=== PATIENT | male | born 1940 | race American Indian/Alaskan Native ===

== ENCOUNTER 2017-04-17 11:35 | Emergency (ER) | payer MEDICARE, OTHER ==
[2017-04-17 11:58] VITALS: BMI 25.1
[2017-04-17] MEDS ORDERED: Sodium Chloride 0.9% 1,000 ML IV STA (12:10)
--- NOTE | 2017-04-17 12:25 | ED PDOC ---
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 Pt states that the pain is pressure like is quality with no radiation. He does not remember any inciting factors. Admits to decreased urine output. Denies any fevers, chills, chest pain, sob, nausea, vomiting, diarrhea, or dysuria. (Leandro Solo) Past Medical History - Provider Review Nursing Documentation Reviewed: Yes - Infectious Disease Hx of Infectious Diseases: None - Tetanus Immunization Tetanus Immunization: Unknown - Cardiac Hx AR: Yes Hx Pacemaker: Yes - Pulmonary Hx Respiratory Disorders: Yes Other/Comment: Lung, CA, currently on chemotherapySmoker - Neurological Hx Paralysis: No - HEENT Hx HEENT Disorder: No - Renal Hx Renal Disorder: Yes (renal insufficiency) Other/Comment: renal insufficiency - Endocrine/Metabolic Hx Endocrine Disorders: No - Hematological/Oncological Hx Blood Transfusions: No Hx Blood Transfusion Reaction: No - Integumentary Hx Dermatological Disorder: No - Musculoskeletal/Rheumatological Hx Arthritis: Yes - Gastrointestinal Hx Gastrointestinal Disorders: Yes (colonoscopy) - Genitourinary/Gynecological Hx Prostate Problems: Yes (prostate CA) - Psychiatric Hx Emotional Abuse: No Hx Physical Abuse: No Hx Substance Use: No - Surgical History Hx Cardiac Catheterization: Yes (2013) - Anesthesia Hx Anesthesia: Yes Hx Anesthesia Reactions: No Hx Malignant Hyperthermia: No - Suicidal Assessment Feels Threatened In Home Enviroment: No Family/Social History - Physician Review Nursing Documentation Reviewed: Yes Family/Social History: No Known Family HX Smoking Status: Current Some Days Smoker Hx Alcohol Use: No (PAST ETOH) Hx Substance Use: No Allergies/Home Meds Allergies/Adverse Reactions: Allergies No Known Allergies Allergy (Verified 04/17/17 12:15) Home Medications: Home Meds Medication Instructions Recorded Confirmed Tamsulosin [Flomax] 0.4 mg PO DAILY 07/21/15 04/17/17 Amlodipine Besylate/Benazepril 1 cap PO DAILY 07/22/16 04/17/17 [Lotrel 10-20 mg Capsule] Apixaban [Eliquis] 2.5 mg PO BID 07/22/16 04/17/17 Atorvastatin [Lipitor] 20 mg PO DAILY 04/17/17 04/17/17 Difluprednate [Durezol] 5 ml OU DAILY 04/17/17 04/17/17 Diltiazem HCl [Cartia Xt] 180 mg PO DAILY 04/17/17 04/17/17 Lisinopril [Zestril] 10 mg PO DAILY 04/17/17 04/17/17 Review of Systems - Review of Systems Constitutional: Normal. absent: Fatigue, Fevers Eyes: Normal. absent: Vision Changes ENT: Normal Respiratory: Normal. absent: SOB, Cough Cardiovascular: Normal. absent: Chest Pain, Palpitations Gastrointestinal: Abdominal Pain (RLQ). absent: Diarrhea, Nausea, Vomiting, Appetite Changes Genitourinary Male: Frequency. absent: Dysuria, Hematuria Musculoskeletal: Normal. absent: Arthralgias, Back Pain Skin: Normal. absent: Rash, Pruritis Neurological: Normal. absent: Headache, Dizziness, Speech Changes Endocrine: Normal Hemo/Lymphatic: Normal Psychiatric: Normal Physical Exam Vital Signs Reviewed: Yes Temperature: Afebrile Blood Pressure: Normal Pulse: Regular Respiratory Rate: Normal Appearance: Positive for: Non-Toxic, Uncomfortable Pain Distress: Mild Mental Status: Positive for: Alert and Oriented X 3 - Systems Exam Head: Present: Atraumatic, Normocephalic Pupils: Present: PERRL Respiratory/Chest: Present: Clear to Auscultation, Good Air Exchange Cardiovascular: Present: Regular Rate and Rhythm, Normal S1, S2 Abdomen: Present: Tenderness (RLQ), Distention (mild), Normal Bowel Sounds Upper Extremity: Present: NORMAL PULSES Lower Extremity: Present: NORMAL PULSES Neurological: Present: Speech Normal, Motor Func Grossly Intact Skin: Present: Warm, Dry Psychiatric: Present: Alert, Oriented x 3 Medical Decision Making ED Course and Treatment: 04/17/17 12:28 76 yo M with hx of lung cancer s/p chemo/radiation here with RLQ pain for last 3 days. Plan: - labs - bladder scan - CT abdomen/pelvis - Reassess and disposition 04/17/17 14:06 Bladder not distended on bedside US CT abd/pelvis as read by Dr Sue - no acute findings Labs unremarkable. UA positive for small leuk esterase. Will give one dose of rocephin here and send with abx at home Case discussed with Dr Doty and he agrees with discharge home with f/u. Pt comfortable with discharge and f/u. (Leandro Solo) 04/17/17 20:32 pt seen with resident. sent to emergency room for eval for abd pain. ct/labs unremarkable. bedside us shows nondistended bladder. urine treated. discussed with pmd. will d/c home. (Rancho Harrell) - Lab Interpretations Lab Results: 04/17/17 12:40 04/17/17 12:40 Lab Results 04/17/17 14:30: Urine Color Yellow, Urine Appearance Clear, Urine pH 6.0, Ur Specific [place] >= 1.030, Urine Protein >=300 H, Urine Glucose (UA) Negative, Urine Ketones Negative, Urine Blood Trace-lysed H, Urine Nitrate Negative, Urine Bilirubin Small H, Urine Urobilinogen 0.2, Ur Leukocyte Esterase Small H, Urine RBC 2 - 5, Urine WBC 20 - 25, Ur Epithelial Cells Many, Amorphous Sediment Few, Urine Bacteria Mod, Fine Granular Casts 0 - 2, Urine Other Fiber 04/17/17 12:40: Sodium 139, Potassium 3.5 L, Chloride 104, Carbon Dioxide 29, Anion Gap 10, BUN 16, Creatinine 1.9 H, Est GFR ( Amer) 42, Est GFR (Non- Af Amer) 34, Random Glucose 94, Calcium 9.8, Total Bilirubin 0.5, AST 26, ALT 25 , Alkaline Phosphatase 77, Total Protein 6.3, Albumin 3.3, Globulin 3.1, Albumin /Globulin Ratio 1.1, Lipase 81 04/17/17 12:40: WBC 6.5 D, RBC 4.15, Hgb 13.1 L, Hct 39.2 L, MCV 94.5, MCH 31.6 , MCHC 33.4, RDW 16.9 H, Plt Count 265, MPV 9.4, Gran % 66.0, Lymph % (Auto) 17.4 L, Long % (Auto) 14.6 H, Eos % (Auto) 1.4 L, Baso % (Auto) 0.6, Gran # 4.29 , Lymph # 1.1 L, Long # 1.0 H, Eos # 0.1, Baso # 0.04 - RAD Interpretation Radiology Orders: 04/17/17 13:05 ABD & PELVIS W/O PO OR IV CONT [CT] Stat - Medication Orders Current Medication Orders: Discontinued Medications Sodium Chloride (Sodium Chloride 0.9%) 1,000 mls @ 999 mls/hr IV .Q1H1M STA Stop: 04/17/17 13:10 Last Admin: 04/17/17 12:45 Dose: 999 mls/hr Ceftriaxone Sodium (Rocephin 1 Gram Ivpb) 1 gm in 100 mls @ 200 mls/hr IVPB STAT STA PRN Reason: Protocol Stop: 04/17/17 17:12 Last Admin: 04/17/17 16:53 Dose: 200 mls/hr Ketorolac Tromethamine (Toradol) 15 mg IVP STAT STA Stop: 04/17/17 12:11 Last Admin: 04/17/17 12:45 Dose: 15 mg Disposition/Present on Arrival - Present on Arrival Any Indicators Present on Arrival: No History of DVT/PE: No History of Uncontrolled Diabetes: No Urinary Catheter: No History of Decub. Ulcer: No History Surgical Site Infection Following: None - Disposition Have Diagnosis and Disposition been Completed?: Yes Disposition Time: 16:47 Patient Plan: Discharge - Disposition Diagnosis: Urinary tract infection, Abdominal pain Disposition: HOME/ ROUTINE Condition: IMPROVED Discharge Instructions (ExitCare): Urinary Tract Infection in Men (ED) Additional Instructions: You were evaluated for lower abdominal pain. Resume taking all home medications and begin taking antibiotics as prescribed. Follow up with your primary care physician. Return to ED with any new or worsening symptoms. Prescriptions: Nitrofurantoin Macrocrystals [Macrobid] 100 mg PO BID #14 cap [facility] - Follow up with primary
[2017-04-17 12:28] VITALS: RESP 18; TEMP 98.2; O2SAT 97
[2017-04-17 12:49] LABS: ADD MANUAL DIFF? NO
[2017-04-17 13:04] LABS: ALB/GLOB RATIO 1.1 (1.1-1.8); BILIRUBIN,TOTAL 0.5 mg/dL (0.2-1.3); CALCIUM 9.8 mg/dL (8.4-10.5); POTASSIUM 3.5 mmol/L (3.6-5.0); TOTAL PROTEIN 6.3 g/dL (5.8-8.3)
[2017-04-17 13:05] LABS: BASO # 0.04 K/mm3 (0.0-2.0); BASO % 0.6 % (0.0-3.0); EOS # 0.1 (0.0-0.7); EOS % 1.4 % (1.5-5.0); GRAN # 4.29 (1.4-6.5); HEMATOCRIT 39.2 % (42.0-52.0); LYMPH # 1.1 (1.2-3.4); LYMPH % 17.4 % (22.0-35.0); MEAN CELL VOLUME 94.5 fL (80.0-105.0); MEAN CORPUSCULAR HEMOGLOBIN 31.6 pg (25.0-35.0); MEAN CORPUSCULAR HGB CONC 33.4 g/dl (31.0-37.0); MEAN PLATELET VOLUME 9.4 fl (7.0-11.0); MONO % 14.6 % (1.0-6.0); PLATELET COUNT 265 10^3/uL (120.0-450.0); RED CELL DISTRIBUTION WIDTH 16.9 % (11.5-14.5); WHITE BLOOD COUNT 6.5 10^3/ul (4.5-11.0)
--- NOTE | 2017-04-17 13:52 | CT ---
PROCEDURE: CT Abdomen and Pelvis without intravenous contrast HISTORY: RLQ pain COMPARISON: None. TECHNIQUE: Without contrast.. Contrast Dose: Radiation dose: Total exam DLP = 484 mGy-cm. This CT exam was performed using one or more of the following dose reduction techniques: Automated exposure control, adjustment of the mA and/or kV according to patient size, and/or use of iterative reconstruction technique. FINDINGS: LOWER THORAX: Unremarkable. LIVER: Unremarkable. No gross lesion or ductal dilatation. GALLBLADDER AND BILE DUCTS: Unremarkable. PANCREAS: Unremarkable. No gross lesion or ductal dilatation. SPLEEN: Unremarkable. ADRENALS: Unremarkable. No mass. KIDNEYS AND URETERS: Unremarkable. No hydronephrosis. No solid mass. VASCULATURE: Unremarkable. No aortic aneurysm. BOWEL: Unremarkable. No obstruction. No gross mural thickening. APPENDIX: Unremarkable. Normal appendix. PERITONEUM: Unremarkable. No free fluid. No free air. LYMPH NODES: Unremarkable. No enlarged lymph nodes. BLADDER: Unremarkable. REPRODUCTIVE: Unremarkable. BONES: No acute fracture. OTHER FINDINGS: None. IMPRESSION: No acute findings
[2017-04-17 16:03] VITALS: BP 128/75; PULSE 77
[2017-04-17 16:05] LABS: URINE BILIRUBIN SMALL (NEGATIVE); URINE BLOOD TRACE-LYSED (NEGATIVE); URINE GLUCOSE (UA) NEGATIVE (NEGATIVE); URINE KETONE NEGATIVE (NEGATIVE); URINE LEUKOCYTE ESTERASE SMALL Leu/uL (NEGATIVE); URINE PROTEIN >=300 mg/dL (<30 mg/dL); URINE UROBILINOGEN 0.2 E.U./dL (<1 E.U./dL)
[2017-04-17 16:13] LABS: URINE APPEARANCE CLEAR (CLEAR); URINE COLOR YELLOW (YELLOW)
[2017-04-17 16:16] LABS: URINE EPITHELIAL CELLS MANY /hpf (0-5); URINE WBC 20 - 25 /hpf (0-6)
[2017-04-17 16:19] LABS: URINE AMORPHOUS SEDIMENT FEW; URINE BACTERIA MOD (NEG)
[2017-04-17] MEDS ORDERED: cefTRIAXone 1 gm 1 GM/100 ML BAG IVPB STA (16:43)
== END 2017-04-17 18:07 | disposition home or self-care (01) ==
LOC: ED 11:35
DX: N39.0 Urinary tract infection, site not specified (principal); R10.9 Unspecified abdominal pain; I10 Essential (primary) hypertension; Z85.118 Personal history of other malignant neoplasm of bronchus and lung; Z72.0 Tobacco use
CPT/HCPCS: 74176; 80053; 81001; 83690; 85025; 87086; 96361; 96365; 96375; 99283; J0696; J1885; J7040

== ENCOUNTER 2017-04-30 04:52 | Emergency (ER) | payer MEDICARE, OTHER ==
[2017-04-30 05:31] VITALS: BMI 25.5
[2017-04-30 05:38] VITALS: TEMP 98.7
--- NOTE | 2017-04-30 05:58 | ED PDOC ---
Arrival/HPI - General Time Seen by Provider: 04/30/17 05:00 Historian: Patient - History of Present Illness Narrative History of Present Illness (Text): 04/30/17 05:54 Gerhard Isabel is a 76 year old male, whose past medical history includes lung cancer, hypertension, hyperlipidemia, pacemaker, and DVT, who presents to the Emergency department complaining of generalized abdominal pain for the past week. Patient also reports bilateral hip pain and lower back pain. Patient denies any fever, chills, chest pain, shortness of breath, nausea, vomiting, urinary symptoms, neck pain, headache, dizziness, or any other complaints. Time/Duration: 1 week Symptom Onset: Gradual Symptom Course: Unchanged Activities at Onset: Rest, Light Context: Home Past Medical History - Provider Review Nursing Documentation Reviewed: Yes - Infectious Disease Hx of Infectious Diseases: None - Tetanus Immunization Tetanus Immunization: Unknown - Cardiac Hx ID: Yes Hx Pacemaker: Yes - Pulmonary Hx Respiratory Disorders: Yes Other/Comment: Lung, CA, currently on chemotherapySmoker - Neurological Hx Paralysis: No - HEENT Hx HEENT Disorder: No - Renal Hx Renal Disorder: Yes (renal insufficiency) Other/Comment: renal insufficiency - Endocrine/Metabolic Hx Endocrine Disorders: No - Hematological/Oncological Hx Blood Transfusions: No Hx Blood Transfusion Reaction: No - Integumentary Hx Dermatological Disorder: No - Musculoskeletal/Rheumatological Hx Arthritis: Yes - Gastrointestinal Hx Gastrointestinal Disorders: Yes (colonoscopy) - Genitourinary/Gynecological Hx Prostate Problems: Yes (prostate CA) - Psychiatric Hx Emotional Abuse: No Hx Physical Abuse: No Hx Substance Use: No - Surgical History Hx Cardiac Catheterization: Yes (2013) - Anesthesia Hx Anesthesia Reactions: No Hx Malignant Hyperthermia: No - Suicidal Assessment Feels Threatened In Home Enviroment: No Family/Social History - Physician Review Nursing Documentation Reviewed: Yes Family/Social History: No Known Family HX Smoking Status: Current Some Days Smoker Hx Alcohol Use: No (PAST ETOH) Hx Substance Use: No Allergies/Home Meds Allergies/Adverse Reactions: Allergies No Known Allergies Allergy (Verified 04/30/17 06:00) Home Medications: Home Meds Medication Instructions Recorded Confirmed Tamsulosin [Flomax] 0.4 mg PO DAILY 07/21/15 04/17/17 Amlodipine Besylate/Benazepril 1 cap PO DAILY 07/22/16 04/17/17 [Lotrel 10-20 mg Capsule] Apixaban [Eliquis] 2.5 mg PO BID 07/22/16 04/17/17 Atorvastatin [Lipitor] 20 mg PO DAILY 04/17/17 04/17/17 Difluprednate [Durezol] 5 ml OU DAILY 04/17/17 04/17/17 Diltiazem HCl [Cartia Xt] 180 mg PO DAILY 04/17/17 04/17/17 Lisinopril [Zestril] 10 mg PO DAILY 04/17/17 04/17/17 Review of Systems - Physician Review All systems were reviewed & negative as marked: Yes - Review of Systems Constitutional: Normal. absent: Fevers Eyes: Normal ENT: Normal Respiratory: Normal. absent: SOB, Cough Cardiovascular: Normal. absent: Chest Pain Gastrointestinal: Abdominal Pain. absent: Nausea, Vomiting Genitourinary Male: Normal Musculoskeletal: Arthralgias (+bilateral hip pain), Back Pain Skin: Normal. absent: Rash Neurological: Normal. absent: Headache, Dizziness Endocrine: Normal Hemo/Lymphatic: Normal Psychiatric: Normal Physical Exam Vital Signs Reviewed: Yes Vital Signs Temp Pulse Resp BP Pulse Ox 04/30/17 05:37 98.7 F 74 17 148/88 96 Temperature: Afebrile Blood Pressure: Normal Pulse: Regular Respiratory Rate: Normal Appearance: Positive for: Well-Appearing, Non-Toxic, Comfortable Pain Distress: None Mental Status: Positive for: Alert and Oriented X 3 - Systems Exam Head: Present: Atraumatic, Normocephalic Pupils: Present: PERRL Extroacular Muscles: Present: EOMI Conjunctiva: Present: Normal Mouth: Present: Moist Mucous Membranes Neck: Present: Normal Range of Motion Respiratory/Chest: Present: Clear to Auscultation, Good Air Exchange. No: Respiratory Distress, Accessory Muscle Use Cardiovascular: Present: Regular Rate and Rhythm, Normal S1, S2. No: Murmurs Abdomen: Present: Tenderness (lower abdomen), Normal Bowel Sounds. No: Distention, Peritoneal Signs Back: Present: Normal Inspection. No: CVA Tenderness, Midline Tenderness, Paraspinal Tenderness Upper Extremity: Present: Normal Inspection. No: Cyanosis, Edema Lower Extremity: Present: Normal Inspection, Normal ROM, Neurovascularly Intact. No: Edema, Tenderness, Swelling, Deformity Neurological: Present: GCS=15, CN II-XII Intact, Speech Normal, Motor Func Grossly Intact, Normal Sensory Function Skin: Present: Warm, Dry, Normal Color. No: Rashes Psychiatric: Present: Alert, Oriented x 3, Normal Insight, Normal Concentration Medical Decision Making ED Course and Treatment: 04/30/17 05:54 Impression: 76 year old male complaining of generalized abdominal pain, bilateral hip pain, and lower back pain Plan: -- CT Abdomen and Pelvis with PO and IV contrast -- CXR -- Labs, lipase -- Urinalysis -- Urinalysis -- IV fluids -- Zofran -- Morphine -- Reassess and disposition Prior Visits: Notes and results from previous visits were reviewed. On 04/17/2017, pt was seen in the Emergency department for RLQ abdominal pain for 3 days. Pt was d/c home. Progress Notes: - RAD Interpretation Radiology Orders: 04/30/17 06:00 CHEST PORTABLE [RAD] Stat 04/30/17 06:04 ABD & PELVIS W/O PO OR IV CONT [CT] Stat 04/30/17 06:37 Hip [CT HIP W/O CONTRAST BILATERAL] [CT] Stat - Medication Orders Current Medication Orders: Sodium Chloride (Sodium Chloride 0.9%) 1,000 mls @ 100 mls/hr IV .Q10H LEONOR Discontinued Medications Morphine Sulfate (Morphine) 2 mg IVP STAT STA Stop: 04/30/17 06:06 Ondansetron HCl (Zofran Inj) 4 mg IVP ONCE ONE Stop: 04/30/17 06:06 - Transfer of Care Patient signed out to Dr:: Kajal Pending Labs:: Labs/CT scan Abd/pel/hips/reassess/final disposition - Scribe Statement The provider has reviewed the documentation as recorded by the Florin Rizo Provider Attestation: All medical record entries made by the Scribjose were at my direction and personally dictated by me. I have reviewed the chart and agree that the record accurately reflects my personal performance of the history, physical exam, medical decision making, and the department course for this patient. I have also personally directed, reviewed, and agree with the discharge instructions and disposition. Disposition/Present on Arrival - Present on Arrival Any Indicators Present on Arrival: No History of DVT/PE: No History of Uncontrolled Diabetes: No Urinary Catheter: No History Surgical Site Infection Following: None - Disposition Have Diagnosis and Disposition been Completed?: No Diagnosis: Abdominal pain, Hip pain Disposition Time: 07:00 Patient Problems: Current Active Problems Problem Status Onset Abdominal pain Acute Hip pain Acute Condition: STABLE
[2017-04-30] MEDS ORDERED: Morphine 2 mg/ml ISec IVP STA (06:05)
[2017-04-30] MEDS ORDERED: Sodium Chloride 0.9% 1,000 ML IV SCH (06:15)
[2017-04-30 06:54] LABS: ALB/GLOB RATIO 1.1 (1.1-1.8); BILIRUBIN,TOTAL 0.9 mg/dL (0.2-1.3); CALCIUM 10.1 mg/dL (8.4-10.5); POTASSIUM 4.2 mmol/L (3.6-5.0); TOTAL PROTEIN 6.9 g/dL (5.8-8.3)
[2017-04-30 06:57] LABS: INR 1.09 (0.93-1.08); MEAN CELL VOLUME 93.7 fL (80.0-105.0); MEAN CORPUSCULAR HEMOGLOBIN 30.7 pg (25.0-35.0); MEAN CORPUSCULAR HGB CONC 32.8 g/dl (31.0-37.0); PARTIAL THROMBOPLASTIN TIME 27.1 Seconds (23.7-30.8); RED CELL DISTRIBUTION WIDTH 16.4 % (11.5-14.5); WHITE BLOOD COUNT 7.5 10^3/ul (4.5-11.0)
--- NOTE | 2017-04-30 07:09 | ED PDOC ---
Physical Exam Vital Signs Reviewed: Yes Vital Signs Temp Pulse Resp BP Pulse Ox 04/30/17 12:12 84 17 142/90 96 04/30/17 10:45 117 H 18 131/92 H 96 04/30/17 09:00 99 H 16 94/75 L 94 L 04/30/17 07:50 89 16 127/82 97 04/30/17 05:37 98.7 F 74 17 148/88 96 Temperature: Afebrile Blood Pressure: Normal Pulse: Regular Respiratory Rate: Normal Appearance: Positive for: Well-Appearing, Non-Toxic, Comfortable Pain Distress: None Mental Status: Positive for: Alert and Oriented X 3 Medical Decision Making ED Course and Treatment: 04/30/17 07:00 Case endorsed to me by Dr. Rhodes, pending labs, imaging, revaluation and disposition. Patient is a 76 year old male, with a history of hypertension, dyslipidemia, prostate cancer, and DVTs on Eliquis, presents to the ed complaining of abdominal pain, hip pain and lower back pain for past week. Previous records reviewed; patient was in ed on 04/27/17 when he was evaluated for RLQ abdominal pain and was diagnosed with UTI. Patient was discharged home on PO antibiotics. On evaluation, patient is resting comfortably in bed. There is no midline tenderness over the back and has full active and passive range of motion of bilateral hip. Denies any new complaints. 04/30/17 08:47 Chest X-ray as read by radiologist IMPRESSION: Similar appearance of large right hilar/ perihilar mass with opacity extending peripherally. Superimposed pneumonia cannot be entirely excluded however appearance is stable since 12/22/16 and chronic changes and neoplasm are favored. Overall similar in appearance since 12/22/16 04/30/17 09:01 CT abdomen pelvis results as read by radiologist Dr. Meehan IMPRESSION: Too small to characterize hepatic hypodensities measuring less than 5 mm. 14 mm low-density right renal lesion, possibly cyst. Diverticulosis without CT evidence of acute diverticulitis. 04/30/17 10:50 Case discussed with who recommends lumbar spine CT scan, states will f/u result tmr, and to discharge patient with Oxycodone. States patient has an appointment with him tomorrow. 04/30/17 11:50 CT lumbar spine results reviewed: Impression: No acute fracture identified. Multilevel degenerative changes as above. Osseous demineralization. Scoliosis convex to the right. tachycardia resolved pt in no distress ambulating in the ER, family bedside, will take home pt states he will f/u with Dr. Doty tmr Pt states he understands to return to the ER right away for new or worsening symptoms or for inability to f/u with PMD or specialist as instructed. Patient states that he fully agrees with and understands discharge instructions. States that he agrees with the plan and disposition. Verbalized and repeated discharge instructions and plan. I have given the patient opportunity to ask any additional questions. - Lab Interpretations Lab Results: 04/30/17 06:35 04/30/17 06:35 Lab Results 04/30/17 07:52: Urine Color Yellow, Urine Appearance Clear, Urine pH 7.5, Ur Specific [place] 1.020, Urine Protein 100 H, Urine Glucose (UA) Negative, Urine Ketones Trace H, Urine Blood Trace-intact H, Urine Nitrate Negative, Urine Bilirubin Negative, Urine Urobilinogen 0.2, Ur Leukocyte Esterase Trace H, Urine RBC 5 - 10, Urine WBC 5 - 10, Ur Epithelial Cells 1 - 3, Amorphous Sediment Few, Urine Bacteria Many 04/30/17 06:35: PT 11.8, INR 1.09 H, APTT 27.1 04/30/17 06:35: WBC 7.5, RBC 4.27, Hgb 13.1 L, Hct 40.0 L, MCV 93.7, MCH 30.7, MCHC 32.8, RDW 16.4 H, Plt Count 230, MPV 9.0 04/30/17 06:35: Sodium 140, Potassium 4.2, Chloride 102, Carbon Dioxide 29, Anion Gap 13, BUN 21, Creatinine 1.7 H, Est GFR ( Amer) 47, Est GFR (Non- Af Amer) 39, Random Glucose 87, Calcium 10.1, Total Bilirubin 0.9, AST 30, ALT 28, Alkaline Phosphatase 87, Total Protein 6.9, Albumin 3.6, Globulin 3.3, Albumin/Globulin Ratio 1.1, Lipase 52 - RAD Interpretation Narrative RAD Interpretations (Text): Chest x-ray interpreted by radiologist: FINDINGS: Right-sided central venous catheter extends to the cavoatrial junction. LUNGS: Similar appearance of large right hilar/ perihilar mass with opacity extending peripherally. Please note that chest x-ray has limited sensitivity for the detection of pulmonary masses. PLEURA: No significant pleural effusion identified. No definite pneumothorax . CARDIOVASCULAR: Single lead left-sided pacemaker. Heart size appears top normal. Atherosclerotic calcification of the aortic knob. OSSEOUS STRUCTURES: Degenerative changes. VISUALIZED UPPER ABDOMEN: Unremarkable. OTHER FINDINGS: None. IMPRESSION: Similar appearance of large right hilar/ perihilar mass with opacity extending peripherally. Superimposed pneumonia cannot be entirely excluded however appearance is stable since 12/22/16 and chronic changes and neoplasm are favored. Overall similar in appearance since 12/22/16 PROCEDURE: CT Abdomen and Pelvis without Oral or IV contrast. FINDINGS: There is limited evaluation of the solid organs without the administration of IV contrast. LOWER THORAX: No visible consolidation, pleural effusion, or pneumothorax. Emphysematous changes noted. Partially imaged pacer wire. LIVER: Too small to characterize 3 mm hepatic dome hypodensity (series 2, image 13). 5 mm right hepatic lobe anterior hypodensity also too small to characterize ( series 2, image 34) GALLBLADDER AND BILE DUCTS: Unremarkable unenhanced appearance. PANCREAS: Unremarkable unenhanced appearance. SPLEEN: Unremarkable unenhanced appearance. ADRENALS: Unremarkable unenhanced appearance. KIDNEYS AND URETERS: No hydronephrosis or obstructing renal calculus. 14 mm low-density right renal lesion measures approximately 4 HU consistent with a cyst. BLADDER: The urinary bladder appears unremarkable. REPRODUCTIVE: Unremarkable. APPENDIX: The appendix is not definitively identified. No secondary signs of acute appendicitis. BOWEL: The stomach is nondistended. Lack of oral contrast limits evaluation for bowel pathology. The bowel loops appear within normal limits of caliber without evidence of intestinal obstruction. Diverticulosis without CT evidence of acute diverticulitis. PERITONEUM: No significant free fluid. No definite free air. LYMPH NODES: No bulky lymphadenopathy identified. VASCULATURE: Atherosclerotic calcifications of the aorta and branches. Ectatic aorta. No evidence of aortic aneurysm. BONES: Multilevel degenerative changes of the spine. Intervertebral disc space narrowing and osteophyte formation as well as vacuum disc phenomenon. Scoliosis convex to the right. OTHER FINDINGS: None. IMPRESSION: Too small to characterize hepatic hypodensities measuring less than 5 mm. 14 mm low-density right renal lesion, possibly cyst. Diverticulosis without CT evidence of acute diverticulitis. Additional incidental findings as above. EXAM: CT Left Lower Extremity Without Intravenous Contrast, Hip FINDINGS: Bones/joints: The visualized osseous structures are unremarkable. No acute fracture or dislocation is seen.There is moderate diffuse osteopenia. There are mild degenerative osteo-arthritic changes in the left hip joint and sacroiliac joint with joint space narrowing and osteophyte formation. There is calcification adjacent to greater trochanter secondary to enthesopathy. Soft tissues: There is mild diffuse soft tissue swelling. Vasculature: The vasculature demonstrates diffuse moderate atherosclerotic calcification. 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 Reproductive: The prostate is enlarged and heterogenous in appearance. Correlation with PSA to exclude malignancy. IMPRESSION: No acute fracture , avascular necrosis or dislocation is seen. There is no evidence for bony metastasis. EXAM: CT Right Lower Extremity Without Intravenous Contrast, Hip FINDINGS: Bones/joints: The visualized osseous structures are unremarkable. No acute fracture or dislocation is seen.There is moderate diffuse osteopenia. There are mild degenerative osteo-arthritic changes in the right hip joint and sacroiliac joint with joint space narrowing and osteophyte formation. There is calcification adjacent to greater trochanter secondary to enthesopathy. Soft tissues: There is mild diffuse soft tissue swelling. Vasculature: The vasculature demonstrates diffuse moderate atherosclerotic calcification. 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 Reproductive: The prostate is enlarged and heterogenous in appearance. Correlation with PSA to exclude malignancy. IMPRESSION: No acute fracture , avascular necrosis or dislocation is seen. There is no evidence for bony metastasis. 04/30/17 12:24 CT lumbar spine without IV contrast Findings: Multilevel degenerative changes of the spine. Intervertebral disc space narrowing and vacuum disc phenomenon noted at T12-L1, L2-L3, L3-L4, L4-L5, and L5-S1. Facet hypertrophy. Osseous demineralization. Scoliosis convex to the right. No acute fracture identified. Paraspinal soft tissues appear unremarkable. Please refer to CT of the abdomen and pelvis 4 2 detailed discussion of intra-abdominal and intrapelvic contents. Impression: No acute fracture identified. Multilevel degenerative changes as above. Osseous demineralization. Scoliosis convex to the right. Radiology Orders: 04/30/17 06:00 CHEST ONE VIEW [RAD] Stat 04/30/17 06:04 ABD & PELVIS W/O PO OR IV CONT [CT] Stat 04/30/17 06:37 Hip [CT HIP W/O CONTRAST BILATERAL] [CT] Stat 04/30/17 10:46 LUMBAR SPINE W/O CONTRAST [CT] Stat [employer] Operator: Radiologist - Medication Orders Current Medication Orders: Sodium Chloride (Sodium Chloride 0.9%) 1,000 mls @ 100 mls/hr IV .Q10H LEONOR Last Admin: 04/30/17 06:40 Dose: 100 mls/hr Discontinued Medications Morphine Sulfate (Morphine) 2 mg IVP STAT STA Stop: 04/30/17 06:06 Last Admin: 04/30/17 06:44 Dose: 2 mg Ondansetron HCl (Zofran Inj) 4 mg IVP ONCE ONE Stop: 04/30/17 06:06 Last Admin: 04/30/17 06:44 Dose: 4 mg Disposition/Present on Arrival - Present on Arrival Any Indicators Present on Arrival: No History of DVT/PE: No History of Uncontrolled Diabetes: No Urinary Catheter: No History of Decub. Ulcer: No History Surgical Site Infection Following: None - Disposition Have Diagnosis and Disposition been Completed?: Yes Diagnosis: Abdominal pain, Hip pain Disposition: HOME/ ROUTINE Disposition Time: 12:09 Patient Plan: Discharge Patient Problems: Current Active Problems Problem Status Onset Abdominal pain Acute Hip pain Acute Condition: GOOD Discharge Instructions (ExitCare): Arthralgia (ED) Additional Instructions: PLEASE FOLLOW UP WITH DR. DOTY TOMORROW RETURN TO THE ER RIGHT AWAY FOR NEW OR WORSENING SYMPTOMS, OR IF YOU CANNOT FOLLOW UP TOMORROW WITH YOUR PHYSICIAN Prescriptions: oxyCODONE [oxyCODONE Immediate Release Tab] 30 mg PO Q6 PRN #6 tab PRN Reason: Pain, Severe (8-10) Referrals: Uziel Doty MD [Staff Provider] - Follow up with primary
[2017-04-30 08:21] LABS: PH,URINE 7.5 (4.7-8.0); URINE BILIRUBIN NEGATIVE (NEGATIVE); URINE BLOOD TRACE-INTACT (NEGATIVE); URINE GLUCOSE (UA) NEGATIVE (NEGATIVE); URINE KETONE TRACE mg/dL (NEGATIVE); URINE LEUKOCYTE ESTERASE TRACE Leu/uL (NEGATIVE); URINE PROTEIN 100 mg/dL (<30 mg/dL); URINE UROBILINOGEN 0.2 E.U./dL (<1 E.U./dL)
--- NOTE | 2017-04-30 08:35 | RAD ---
HISTORY: abdominal pain COMPARISON: Chest x-ray performed 12/22/16 TECHNIQUE: Chest, one view. FINDINGS: Right-sided central venous catheter extends to the cavoatrial junction. LUNGS: Similar appearance of large right hilar/ perihilar mass with opacity extending peripherally. Please note that chest x-ray has limited sensitivity for the detection of pulmonary masses. PLEURA: No significant pleural effusion identified. No definite pneumothorax . CARDIOVASCULAR: Single lead left-sided pacemaker. Heart size appears top normal. Atherosclerotic calcification of the aortic knob. OSSEOUS STRUCTURES: Degenerative changes. VISUALIZED UPPER ABDOMEN: Unremarkable. OTHER FINDINGS: None. IMPRESSION: Similar appearance of large right hilar/ perihilar mass with opacity extending peripherally. Superimposed pneumonia cannot be entirely excluded however appearance is stable since 12/22/16 and chronic changes and neoplasm are favored. Overall similar in appearance since 12/22/16
[2017-04-30 08:36] LABS: URINE APPEARANCE CLEAR (CLEAR); URINE COLOR YELLOW (YELLOW)
--- NOTE | 2017-04-30 08:49 | CT ---
PROCEDURE: CT Abdomen and Pelvis without Oral or IV contrast. HISTORY: abdominal pain COMPARISON: CT abdomen and pelvis without oral or IV contrast performed 04/17/17 TECHNIQUE: Contiguous axial images of the abdomen and pelvis. No oral or IV contrast administered. Coronal and Sagittal reformats generated and reviewed. Radiation dose: Total exam DLP = 459.11 mGy-cm. This CT exam was performed using one or more of the following dose reduction techniques: Automated exposure control, adjustment of the mA and/or kV according to patient size, and/or use of iterative reconstruction technique. FINDINGS: There is limited evaluation of the solid organs without the administration of IV contrast. LOWER THORAX: No visible consolidation, pleural effusion, or pneumothorax. Emphysematous changes noted. Partially imaged pacer wire. LIVER: Too small to characterize 3 mm hepatic dome hypodensity (series 2, image 13). 5 mm right hepatic lobe anterior hypodensity also too small to characterize (series 2, image 34) GALLBLADDER AND BILE DUCTS: Unremarkable unenhanced appearance. PANCREAS: Unremarkable unenhanced appearance. SPLEEN: Unremarkable unenhanced appearance. ADRENALS: Unremarkable unenhanced appearance. KIDNEYS AND URETERS: No hydronephrosis or obstructing renal calculus. 14 mm low-density right renal lesion measures approximately 4 HU consistent with a cyst. BLADDER: The urinary bladder appears unremarkable. REPRODUCTIVE: Unremarkable. APPENDIX: The appendix is not definitively identified. No secondary signs of acute appendicitis. BOWEL: The stomach is nondistended. Lack of oral contrast limits evaluation for bowel pathology. The bowel loops appear within normal limits of caliber without evidence of intestinal obstruction. Diverticulosis without CT evidence of acute diverticulitis. PERITONEUM: No significant free fluid. No definite free air. LYMPH NODES: No bulky lymphadenopathy identified. VASCULATURE: Atherosclerotic calcifications of the aorta and branches. Ectatic aorta. No evidence of aortic aneurysm. BONES: Multilevel degenerative changes of the spine. Intervertebral disc space narrowing and osteophyte formation as well as vacuum disc phenomenon. Scoliosis convex to the right. OTHER FINDINGS: None. IMPRESSION: Too small to characterize hepatic hypodensities measuring less than 5 mm. 14 mm low-density right renal lesion, possibly cyst. Diverticulosis without CT evidence of acute diverticulitis. Additional incidental findings as above.
[2017-04-30 09:09] LABS: URINE BACTERIA MANY (NEG)
[2017-04-30 09:10] LABS: URINE AMORPHOUS SEDIMENT FEW
--- NOTE | 2017-04-30 09:18 | CT ---
EXAM: CT Left Lower Extremity Without Intravenous Contrast, Hip CLINICAL HISTORY: 76 years old, male; Pain; Hip; Bilateral; Additional info: Hip pain/hx. Lung ca TECHNIQUE: Axial computed tomography images of the left hip without intravenous contrast. This CT exam was performed using one or more of the following dose reduction techniques: automated exposure control, adjustment of the mA and/or kV according to patient size, and/or use of iterative reconstruction technique. Coronal and sagittal reformatted images were created and reviewed. COMPARISON: CT - ABD PELVIS W/O PO OR IV CONT 04/17/2017 1:27:59 PM FINDINGS: Bones/joints: The visualized osseous structures are unremarkable. No acute fracture or dislocation is seen.There is moderate diffuse osteopenia. There are mild degenerative osteo-arthritic changes in the left hip joint and sacroiliac joint with joint space narrowing and osteophyte formation. There is calcification adjacent to greater trochanter secondary to enthesopathy. Soft tissues: There is mild diffuse soft tissue swelling. Vasculature: The vasculature demonstrates diffuse moderate atherosclerotic calcification. 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 Reproductive: The prostate is enlarged and heterogenous in appearance. Correlation with PSA to exclude malignancy. IMPRESSION: No acute fracture , avascular necrosis or dislocation is seen. There is no evidence for bony metastasis. EXAM: CT Right Lower Extremity Without Intravenous Contrast, Hip CLINICAL HISTORY: 76 years old, male; Pain; Hip; Bilateral; Additional info: Hip pain/hx. Lung ca TECHNIQUE: Axial computed tomography images of the right hip without intravenous contrast. This CT exam was performed using one or more of the following dose reduction techniques: automated exposure control, adjustment of the mA and/or kV according to patient size, and/or use of iterative reconstruction technique. Coronal and sagittal reformatted images were created and reviewed. COMPARISON: CT - ABD PELVIS W/O PO OR IV CONT 04/17/2017 1:27:59 PM FINDINGS: Bones/joints: The visualized osseous structures are unremarkable. No acute fracture or dislocation is seen.There is moderate diffuse osteopenia. There are mild degenerative osteo-arthritic changes in the right hip joint and sacroiliac joint with joint space narrowing and osteophyte formation. There is calcification adjacent to greater trochanter secondary to enthesopathy. Soft tissues: There is mild diffuse soft tissue swelling. Vasculature: The vasculature demonstrates diffuse moderate atherosclerotic calcification. 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 Reproductive: The prostate is enlarged and heterogenous in appearance. Correlation with PSA to exclude malignancy.
[2017-04-30 10:48] VITALS: O2SAT 96
--- NOTE | 2017-04-30 11:51 | CT ---
CT lumbar spine without IV contrast Indication: Pain Comparison: Lumbar spine as visualized on CT of the abdomen and pelvis performed the same day as well as 04/17/17 Technique: Noncontrast axial images of the lumbar spine were provided. Sagittal and coronal reformatted images were generated and reviewed. This CT exam was performed using 1 or more of the falling dose reduction techniques: Automated exposure control, adjustment of the MAA and/or kV according to patient size, and/or use of iterative reconstruction technique. Total exam DLP: 718.24 MGy-cm Findings: Multilevel degenerative changes of the spine. Intervertebral disc space narrowing and vacuum disc phenomenon noted at T12-L1, L2-L3, L3-L4, L4-L5, and L5-S1. Facet hypertrophy. Osseous demineralization. Scoliosis convex to the right. No acute fracture identified. Paraspinal soft tissues appear unremarkable. Please refer to CT of the abdomen and pelvis 4 2 detailed discussion of intra-abdominal and intrapelvic contents. Impression: No acute fracture identified. Multilevel degenerative changes as above. Osseous demineralization. Scoliosis convex to the right.
[2017-04-30 12:12] VITALS: BP 142/90; PULSE 84; RESP 17
== END 2017-04-30 12:17 | disposition home or self-care (01) ==
LOC: ED 04:52
DX: R10.9 Unspecified abdominal pain (principal); M25.552 Pain in left hip; M25.551 Pain in right hip; I10 Essential (primary) hypertension; Z72.0 Tobacco use
CPT/HCPCS: 71010; 72131; 73700; 74176; 80053; 81001; 83690; 85027; 85610; 85730; 87086; 96374; 96375; 99284; J2270; J2405; J7040

== ENCOUNTER 2017-05-01 11:12 | Inpatient (IN) | payer MEDICARE, OTHER ==
[2017-05-01] MEDS ORDERED: Sodium Chloride 0.9% 1,000 ML IV STA (11:53)
--- NOTE | 2017-05-01 11:54 | ED PDOC ---
Arrival/HPI - General Chief Complaint: Abnormal Skin Integrity Time Seen by Provider: 05/01/17 11:14 Historian: Patient - History of Present Illness Narrative History of Present Illness (Text): 05/01/17 11:51 76 year old male whose past medical history includes lung cancer, hypertension, hyperlipidemia, pacemaker, and DVT sent by Dr. Doty for shingles. Patient was evaluated 2 days ago for back pain and discharged home. Patient was sent back to the ER for evaluation of shingles. Patient reports itching to mid back. Denies abdominal pain. Time/Duration: < week Symptom Onset: Gradual Symptom Course: Unchanged Modifying Factors (Text): None Associated Symptoms (Text): None Past Medical History - Provider Review Nursing Documentation Reviewed: Yes - Infectious Disease Hx of Infectious Diseases: None - Tetanus Immunization Tetanus Immunization: Unknown - Cardiac Hx NE: Yes Hx Hypertension: Yes Hx Pacemaker: Yes - Pulmonary Hx Respiratory Disorders: Yes Hx Chronic Obstructive Pulmonary Disease (COPD): Yes Other/Comment: Lung, CA, currently on chemotherapySmoker - Neurological Hx Neurological Disorder: Yes (denies) Hx Paralysis: No - HEENT Hx HEENT Disorder: No - Renal Hx Renal Disorder: Yes (renal insufficiency) Other/Comment: renal insufficiency - Endocrine/Metabolic Hx Endocrine Disorders: No - Hematological/Oncological Hx Blood Transfusions: No Hx Blood Transfusion Reaction: No Hx Shingles: Yes - Integumentary Hx Dermatological Disorder: No - Musculoskeletal/Rheumatological Hx Arthritis: Yes - Gastrointestinal Hx Gastrointestinal Disorders: Yes (colonoscopy) Hx Gastroesophageal Reflux: Yes - Genitourinary/Gynecological Hx Prostate Problems: Yes (prostate CA) - Psychiatric Hx Emotional Abuse: No Hx Physical Abuse: No Hx Substance Use: No - Surgical History Hx Cardiac Catheterization: Yes (2013) - Anesthesia Hx Anesthesia Reactions: No Hx Malignant Hyperthermia: No - Suicidal Assessment Feels Threatened In Home Enviroment: No Family/Social History - Physician Review Nursing Documentation Reviewed: Yes Family/Social History: Unknown Family HX Smoking Status: Current Some Days Smoker Hx Alcohol Use: No (PAST ETOH) Hx Substance Use: No Allergies/Home Meds Allergies/Adverse Reactions: Allergies No Known Allergies Allergy (Verified 04/30/17 06:00) Home Medications: Home Meds Medication Instructions Recorded Confirmed Tamsulosin [Flomax] 0.4 mg PO DAILY 07/21/15 04/30/17 Amlodipine Besylate/Benazepril 1 cap PO DAILY 07/22/16 04/30/17 [Lotrel 10-20 mg Capsule] Apixaban [Eliquis] 2.5 mg PO BID 07/22/16 04/30/17 Atorvastatin [Lipitor] 20 mg PO DAILY 04/17/17 04/30/17 Difluprednate [Durezol] 5 ml OU DAILY 04/17/17 04/30/17 Diltiazem HCl [Cartia Xt] 180 mg PO DAILY 04/17/17 04/30/17 Lisinopril [Zestril] 10 mg PO DAILY 04/17/17 04/30/17 Review of Systems - Physician Review All systems were reviewed & negative as marked: Yes - Review of Systems Respiratory: absent: SOB Gastrointestinal: absent: Abdominal Pain Skin: Rash (on mid-back) Physical Exam Vital Signs Reviewed: Yes Vital Signs Temp Pulse Resp BP Pulse Ox 05/02/17 02:41 148 H 24 05/02/17 02:40 149 H 22 05/02/17 02:39 148 H 16 124/75 05/02/17 02:38 149 H 28 H 05/02/17 01:16 122 H 18 122/79 100 05/02/17 00:29 142 H 122/79 05/02/17 00:15 142 H 18 122/79 98 05/01/17 23:43 141 H 18 96 05/01/17 21:59 140 H 126/80 05/01/17 20:25 125 H 15 152/92 H 97 05/01/17 19:38 98 H 17 161/75 H 98 05/01/17 19:14 104 H 170/97 H 05/01/17 16:27 147 H 151/65 H 05/01/17 16:09 148 H 17 152/63 H 96 05/01/17 13:00 144 H 18 140/80 96 05/01/17 11:13 98.0 F 144 H 18 138/88 97 Temperature: Afebrile Blood Pressure: Normal Pulse: Tachycardic Respiratory Rate: Normal Appearance: Positive for: Well-Appearing, Non-Toxic, Comfortable Pain Distress: None Mental Status: Positive for: Alert and Oriented X 3 - Systems Exam Head: Present: Atraumatic, Normocephalic Pupils: Present: PERRL Extroacular Muscles: Present: EOMI Conjunctiva: Present: Normal Mouth: Present: Moist Mucous Membranes Neck: Present: Normal Range of Motion Respiratory/Chest: Present: Clear to Auscultation, Good Air Exchange. No: Respiratory Distress, Accessory Muscle Use Cardiovascular: Present: Regular Rate and Rhythm, Normal S1, S2. No: Murmurs Abdomen: Present: Normal Bowel Sounds. No: Tenderness, Distention, Peritoneal Signs Back: Present: Other (Vesicular rash on mid-back) Upper Extremity: Present: Normal Inspection. No: Cyanosis, Edema Lower Extremity: Present: Normal Inspection. No: Edema Neurological: Present: GCS=15, CN II-XII Intact, Speech Normal Skin: Present: Warm, Dry, Normal Color Psychiatric: Present: Alert, Oriented x 3, Normal Insight, Normal Concentration Medical Decision Making ED Course and Treatment: Impression: 76 year old male whose past medical history includes lung cancer, hypertension, hyperlipidemia, pacemaker, and DVT sent by Dr. Doty for shingles. Differential Diagnosis included but are not limited to: shingles, pt immunocompromised, needs iv acyvlovir. pt noted to by tachycardic vin rrival. ? aflutter vs sinus tach. Plan: -- EKG, Chest X-ray -- Labs -- Reassess and disposition Prior Visits: Notes and results from previous visits were reviewed. Patient last seen in the ED on 04/29/17 for back pain and discharged home. Progress Notes: 05/01/17 18:44 pt with inital ekg ?aflutter vs sinus tach. fluids and acyclovir given. repeat ekg again shows aflutter. discussed with dr anne bedside. recommends cardizem. cardizem dosed. dr anne ordered cardizzem drip. discussed with dr alcaraz, icu. requests metoprolol and amiodarone, prior to starting cardizem drip. v.q neg. 05/01/17 18:48 antibioitcs dosed for uti, ?opacity in lung. 05/01/17 19:11 pt endorsed to night team. penidng reassessement after metoprolol, possible icu eval, and final dispo - Lab Interpretations Microbiology Results: Microbiology Results 05/01/17 16:55 Urine Urine Culture - Final No Growth (<1,000 CFU/ML) 05/01/17 12:10 Blood Blood Culture - Preliminary NO GROWTH AFTER 24 HOURS 05/01/17 12:10 Blood Blood Culture - Preliminary NO GROWTH AFTER 24 HOURS Lab Results: 05/01/17 12:10 05/01/17 12:10 Lab Results 05/01/17 16:55: Urine Color Yellow, Urine Appearance Sl cloudy, Urine pH 6.0, Ur Specific [place] 1.025, Urine Protein >=300 H, Urine Glucose (UA) Negative, Urine Ketones 15 H, Urine Blood Small H, Urine Nitrate Negative, Urine Bilirubin Negative, Urine Urobilinogen 0.2, Ur Leukocyte Esterase Small H, Urine RBC 15 - 20, Urine WBC 20 - 25, Ur Epithelial Cells 4 - 5, Urine Bacteria Small, Urine Other Mucus 05/01/17 12:10: PT 12.0 H, INR 1.11 H, APTT 28.6 05/01/17 12:10: Sodium 136, Chloride 103, Potassium 3.5 L, Carbon Dioxide 24, Anion Gap 13, BUN 19, Creatinine 1.6 H, Est GFR ( Amer) 51, Est GFR (Non- Af Amer) 42, Random Glucose 88, Calcium 9.3, Magnesium 1.8, Total Bilirubin 0.9 , AST 22, ALT 27, Alkaline Phosphatase 79, Lactate Dehydrogenase 592, Total Creatine Kinase 41, Troponin I 0.07 D, Total Protein 6.3, Albumin 3.3, Globulin 3.0, Albumin/Globulin Ratio 1.1 05/01/17 12:10: WBC 7.7, RBC 4.25, Hgb 13.2 L, Hct 39.4 L, MCV 92.7, MCH 31.1, MCHC 33.5, RDW 16.3 H, Plt Count 208, MPV 9.2, Gran % 68.6 H, Lymph % (Auto) 15.8 L, [place] % (Auto) 14.9 H, Eos % (Auto) 0.4 L, Baso % (Auto) 0.3, Gran # 5.27 , Lymph # 1.2, [place] # 1.1 H, Eos # 0.0, Baso # 0.02 05/01/17 12:10: pO2 53, VBG pH 7.40, VBG pCO2 42.0, VBG HCO3 26.0, VBG Total CO2 27.3, VBG O2 Sat (Calc) 91.6 H, VBG Base Excess 1.0, VBG Potassium 3.4 L, Sodium 136.0, Chloride 105.0, Glucose 91, Lactate 1.0, FiO2 21.0, Venous Blood Potassium 3.4 L - RAD Interpretation Radiology Orders: 05/01/17 11:51 CHEST PORTABLE [RAD] Stat 05/01/17 13:10 LUNG PERF & VENT SCAN [NM] Stat - EKG Interpretation EKG Interpretation (Text): EKG: Ordered, reviewed, and independently interpreted the EKG. Rate : 144 BPM Rhythm : Sinus tachycardia Interpretation : Nonspecific ST/T wave changes Repeat EKG: Ordered, reviewed, and independently interpreted the EKG. Rate : 139 BPM Rhythm : Sinus tachycardia Interpretation : Nonspecific ST/T wave changes Interpreted by ED Physician: Yes Type: 12 lead EKG - Medication Orders Current Medication Orders: Apixaban (Eliquis) 2.5 mg PO BID [facility] PRN Reason: Protocol Last Admin: 05/02/17 19:22 Dose: 2.5 mg Atorvastatin Calcium (Lipitor) 20 mg PO DAILY [facility] Last Admin: 05/02/17 10:28 Dose: 20 mg Calamine (Calamine Lotion) 0 ml TOP QID [facility] Last Admin: 05/02/17 21:52 Dose: 120 ml Diltiazem HCl (Cardizem Cd) 180 mg PO DAILY [facility] Last Admin: 05/02/17 11:00 Dose: 180 mg Sodium Chloride (Sodium Chloride 0.9%) 1,000 mls @ 100 mls/hr IV .Q10H [facility] Last Admin: 05/02/17 20:34 Dose: 100 mls/hr Acyclovir 800 mg/ Sodium (Chloride) 100 mls @ 100 mls/hr IV Q12 [facility] PRN Reason: Protocol Last Admin: 05/02/17 21:43 Dose: 100 mls/hr Doxycycline Hyclate 100 mg/ (Sodium Chloride) 100 mls @ 100 mls/hr IVPB Q12 [facility] PRN Reason: Protocol Stop: 05/10/17 10:01 Last Admin: 05/02/17 21:42 Dose: 100 mls/hr Cefepime HCl (Maxipime 1gm) 1 gm in 100 mls @ 100 mls/hr IVPB Q12 [facility] PRN Reason: Protocol Stop: 05/10/17 10:01 Last Admin: 05/02/17 21:42 Dose: 100 mls/hr Metoprolol Tartrate (Lopressor) 50 mg PO BRKDIN [facility] Last Admin: 05/02/17 19:23 Dose: 50 mg Metoprolol Tartrate (Lopressor) 5 mg IVP Q4 PRN PRN Reason: Heart rate Last Admin: 05/02/17 03:15 Dose: 5 mg Oxycodone HCl (Oxycodone Immediate Release Tab) 30 mg PO Q6 PRN PRN Reason: Pain, severe (8-10) Prednisone (Prednisone Tab) 40 mg PO DAILY [facility] Tamsulosin HCl (Flomax) 0.4 mg PO DAILY [facility] Last Admin: 05/02/17 10:28 Dose: 0.4 mg Discontinued Medications Digoxin (Lanoxin) 0.25 mg IVP ONCE ONE Stop: 05/02/17 10:24 Last Admin: 05/02/17 10:45 Dose: Digoxin (Lanoxin) 0.25 mg IVP ONCE ONE Stop: 05/02/17 16:01 Last Admin: 05/02/17 17:27 Dose: 0.25 mg Comments: give this dose per Dr. Anne Diltiazem HCl (Cardizem) 20 mg IVP STAT [facility] Stop: 05/01/17 16:08 Last Admin: 05/01/17 16:27 Dose: 20 mg Furosemide (Lasix) 40 mg IV ONCE ONE Stop: 05/01/17 17:13 Last Admin: 05/01/17 19:14 Dose: 40 mg Sodium Chloride (Sodium Chloride 0.9%) 1,000 mls @ 999 mls/hr IV .Q1H1M [facility] Stop: 05/01/17 12:53 Last Admin: 05/01/17 12:00 Dose: 999 mls/hr Acyclovir 800 mg/ Sodium (Chloride) 100 mls @ 100 mls/hr IV STAT [facility] PRN Reason: Protocol Stop: 05/01/17 12:52 Last Admin: 05/01/17 13:02 Dose: 100 mls/hr Comments: was awaiting pharmacy Vancomycin HCl (Vancomycin 1gm) 1 gm in 250 mls @ 167 mls/hr IVPB STAT [facility] PRN Reason: Protocol Stop: 05/01/17 18:31 Last Admin: 05/01/17 21:58 Dose: 167 mls/hr Piperacillin Sod/Tazobactam Sod (Zosyn 3.375 In Ns 100ml) 100 mls @ 200 mls/hr IVPB STAT [facility] PRN Reason: Protocol Stop: 05/01/17 17:31 Last Admin: 05/01/17 19:15 Dose: 200 mls/hr Comments: awaiting return from [facility] diltiaZEM IVPB 100mg in NS (Cardizem 100mg In Ns) 100 mls @ 10 mls/hr IV .Q10H PRN; Protocol; 10 MG/HR PRN Reason: TITRATE PER MD ORDER Stop: 05/02/17 12:00 Last Admin: 05/02/17 05:05 Dose: 10 mg/hr, 10 mls/hr Sodium Chloride (Sodium Chloride 0.9%) 500 mls @ 999 mls/hr IV .Q31M [facility] Stop: 05/01/17 22:42 Last Admin: 05/01/17 23:15 Dose: 999 mls/hr Metoprolol Tartrate (Lopressor) 25 mg PO BID [facility] Metoprolol Tartrate (Lopressor) 10 mg IVP STAT [facility] Stop: 05/01/17 18:42 Last Admin: 05/01/17 19:14 Dose: 10 mg Metoprolol Tartrate (Lopressor) 10 mg IVP STAT [facility] Stop: 05/01/17 21:39 Last Admin: 05/01/17 21:59 Dose: 10 mg Potassium Chloride (K-Dur 20 Meq Er Tab) 40 meq PO STAT [facility] Stop: 05/01/17 17:13 Last Admin: 05/01/17 19:14 Dose: 40 meq Potassium Chloride (K-Dur 20 Meq Er Tab) 40 meq PO ONCE ONE Stop: 05/01/17 20:01 Last Admin: 05/02/17 00:38 Dose: 40 meq Potassium Chloride (K-Dur 20 Meq Er Tab) 40 meq PO ONCE ONE Stop: 05/02/17 00:16 - Scribe Statement The provider has reviewed the documentation as recorded by the Florin Norton Provider Scribe Attestation: All medical record entries made by the Scribe were at my direction and personally dictated by me. I have reviewed the chart and agree that the record accurately reflects my personal performance of the history, physical exam, medical decision making, and the department course for this patient. I have also personally directed, reviewed, and agree with the discharge instructions and disposition. Disposition/Present on Arrival - Present on Arrival Any Indicators Present on Arrival: No History of DVT/PE: No History of Uncontrolled Diabetes: No Urinary Catheter: No History of Decub. Ulcer: No History Surgical Site Infection Following: None - Disposition Have Diagnosis and Disposition been Completed?: Yes Diagnosis: Pulmonary cancer, Shingles, Tachycardia, paroxysmal Disposition: HOSPITALIZED Disposition Time: 07:00 Patient Problems: Current Active Problems Problem Status Onset Pulmonary cancer Acute Shingles Acute Tachycardia, paroxysmal Acute Condition: STABLE
[2017-05-01 12:36] LABS: ADD MANUAL DIFF? NO
[2017-05-01 12:39] LABS: BASO # 0.02 K/mm3 (0.0-2.0); BASO % 0.3 % (0.0-3.0); EOS % 0.4 % (1.5-5.0); GRAN # 5.27 (1.4-6.5); GRAN % 68.6 % (50.0-68.0); HEMATOCRIT 39.4 % (42.0-52.0); LYMPH # 1.2 (1.2-3.4); LYMPH % 15.8 % (22.0-35.0); MEAN CELL VOLUME 92.7 fL (80.0-105.0); MEAN CORPUSCULAR HEMOGLOBIN 31.1 pg (25.0-35.0); MEAN CORPUSCULAR HGB CONC 33.5 g/dl (31.0-37.0); MEAN PLATELET VOLUME 9.2 fl (7.0-11.0); MONO # 1.1 (0.1-0.6); MONO % 14.9 % (1.0-6.0); PLATELET COUNT 208 10^3/uL (120.0-450.0); RED CELL DISTRIBUTION WIDTH 16.3 % (11.5-14.5); WHITE BLOOD COUNT 7.7 10^3/ul (4.5-11.0)
[2017-05-01 12:48] LABS: INR 1.11 (0.93-1.08); PARTIAL THROMBOPLASTIN TIME 28.6 Seconds (23.7-30.8)
[2017-05-01 12:49] LABS: ALB/GLOB RATIO 1.1 (1.1-1.8); BILIRUBIN,TOTAL 0.9 mg/dL (0.2-1.3); CALCIUM 9.3 mg/dL (8.4-10.5); MAGNESIUM 1.8 mg/dL (1.7-2.2); POTASSIUM 3.5 mmol/L (3.6-5.0); TOTAL PROTEIN 6.3 g/dL (5.8-8.3)
[2017-05-01 13:01] LABS: TROPONIN I 0.07 ng/mL
[2017-05-01] MEDS ORDERED: Piperacillin/Tazobact 3.375 gm 100 ML IVPB STA (17:02)
[2017-05-01] MEDS ORDERED: Vancomycin 1gm in NS 250ml 1 GM/250 ML BAG IVPB STA (17:02)
--- NOTE | 2017-05-01 17:02 | RAD ---
HISTORY: cough COMPARISON: Comparison is made to the previous study dated 04/30/2017 FINDINGS: LUNGS: Again seen is heterogeneous opacity at the central portion of the right lung and perihilar region. No significant interval change in the lungs since the previous exam. PLEURA: No significant pleural effusion identified, no pneumothorax apparent. CARDIOVASCULAR: Normal size of the heart. Single wire left-sided pacemaker seen in place. OSSEOUS STRUCTURES: No significant abnormalities. VISUALIZED UPPER ABDOMEN: Normal. OTHER FINDINGS: None. IMPRESSION: Persistent right perihilar opacities and infiltrates.
[2017-05-01 17:09] LABS: URINE BILIRUBIN NEGATIVE (NEGATIVE); URINE BLOOD SMALL (NEGATIVE); URINE GLUCOSE (UA) NEGATIVE (NEGATIVE); URINE KETONE 15 mg/dL (NEGATIVE); URINE LEUKOCYTE ESTERASE SMALL Leu/uL (NEGATIVE); URINE PROTEIN >=300 mg/dL (<30 mg/dL); URINE UROBILINOGEN 0.2 E.U./dL (<1 E.U./dL)
[2017-05-01 17:11] LABS: URINE COLOR YELLOW (YELLOW)
[2017-05-01] MEDS ORDERED: Potassium Chloride 20 mEq ER Tab PO STA (17:12)
[2017-05-01 17:42] LABS: URINE APPEARANCE SL CLOUDY (CLEAR)
[2017-05-01 17:43] LABS: URINE BACTERIA SMALL (NEG); URINE RBC 15 - 20 /hpf (0-2); URINE WBC 20 - 25 /hpf (0-6)
--- NOTE | 2017-05-01 18:34 | NM ---
COMPARISON: Comparison is made to the previous study dated 03/10/2015 TECHNIQUE: 33 mCi technetium 99-m DTPA aerosol 4.6 mCI technetium 99-m MAA administered intravenously. FINDINGS: VENTILATION COMPONENT: Markedly heterogeneous ventilation. PERFUSION COMPONENT: Nonsegmental matching perfusion defect seen in both lungs more prominent at the central right lung. IMPRESSION: Lowprobability ventilation perfusion scan for pulmonary embolism. Markedly heterogeneous ventilation. Correlate clinically for COPD. Nonsegmental focal matching perfusion ventilation defect at the central portion of the right lung corresponding to focal opacity seen in the chest x-ray.
[2017-05-01] MEDS ORDERED: Metoprolol 1 mg/ml Inj IVP STA ×2 (18:41→21:38)
--- NOTE | 2017-05-01 19:31 | ED PDOC ---
Physical Exam Vital Signs Reviewed: Yes Vital Signs Temp Pulse Resp BP Pulse Ox 05/01/17 21:59 140 H 126/80 05/01/17 20:25 125 H 15 152/92 H 97 05/01/17 19:38 98 H 17 161/75 H 98 05/01/17 19:14 104 H 170/97 H 05/01/17 16:27 147 H 151/65 H 05/01/17 16:09 148 H 17 152/63 H 96 05/01/17 13:00 144 H 18 140/80 96 05/01/17 11:13 98.0 F 144 H 18 138/88 97 Temperature: Afebrile Blood Pressure: Hypertensive Pulse: Tachycardic Respiratory Rate: Normal Appearance: Positive for: Well-Appearing, Non-Toxic, Comfortable Pain Distress: None Mental Status: Positive for: Alert and Oriented X 3 Medical Decision Making ED Course and Treatment: 05/01/17 19:31 Case signed out to me from the day shift by Dr. Harrell, pending revaluation of heart rate control and final disposition. The patient presented to the emergency department earlier today for shingles. Patient initial ekg showed a questionable flutter vs sinus tachycardia.Heart rate control was being treated during his stay in the ED.Pt. had negative V/Q scan to rule out PE. Case as per was discussed with Dr. Anne who made recommendations to treatment.Pt. currently receiving IV Lopressor to control his heart rate prior to final dispo.PMD made aware earlier by and accepted pt. to his service.Pt. on exam states he feels fine w /o any complaints. 05/01/17 20:30 Pt. repeat EKG Sinus tachycardia@ 103 PAC,NSSTT changes.Case d/w [facility] under[facility] .States will evaluate pt.for ICU admission. 05/01/17 22:40 Pt. with recurrent episodes sinus tachycardia only transiently suppressed with treatment.Pt. ICU hold.Discussed with regarding further management/ treatment plan. - Lab Interpretations Lab Results: 05/01/17 12:10 05/01/17 12:10 Lab Results 05/01/17 16:55: Urine Color Yellow, Urine Appearance Sl cloudy, Urine pH 6.0, Ur Specific [place] 1.025, Urine Protein >=300 H, Urine Glucose (UA) Negative, Urine Ketones 15 H, Urine Blood Small H, Urine Nitrate Negative, Urine Bilirubin Negative, Urine Urobilinogen 0.2, Ur Leukocyte Esterase Small H, Urine RBC 15 - 20, Urine WBC 20 - 25, Ur Epithelial Cells 4 - 5, Urine Bacteria Small, Urine Other Mucus 05/01/17 12:10: PT 12.0 H, INR 1.11 H, APTT 28.6 05/01/17 12:10: Sodium 136, Chloride 103, Potassium 3.5 L, Carbon Dioxide 24, Anion Gap 13, BUN 19, Creatinine 1.6 H, Est GFR ( Amer) 51, Est GFR (Non- Af Amer) 42, Random Glucose 88, Calcium 9.3, Magnesium 1.8, Total Bilirubin 0.9 , AST 22, ALT 27, Alkaline Phosphatase 79, Lactate Dehydrogenase 592, Total Creatine Kinase 41, Troponin I 0.07 D, Total Protein 6.3, Albumin 3.3, Globulin 3.0, Albumin/Globulin Ratio 1.1 05/01/17 12:10: WBC 7.7, RBC 4.25, Hgb 13.2 L, Hct 39.4 L, MCV 92.7, MCH 31.1, MCHC 33.5, RDW 16.3 H, Plt Count 208, MPV 9.2, Gran % 68.6 H, Lymph % (Auto) 15.8 L, [place] % (Auto) 14.9 H, Eos % (Auto) 0.4 L, Baso % (Auto) 0.3, Gran # 5.27 , Lymph # 1.2, [place] # 1.1 H, Eos # 0.0, Baso # 0.02 05/01/17 12:10: pO2 53, VBG pH 7.40, VBG pCO2 42.0, VBG HCO3 26.0, VBG Total CO2 27.3, VBG O2 Sat (Calc) 91.6 H, VBG Base Excess 1.0, VBG Potassium 3.4 L, Sodium 136.0, Chloride 105.0, Glucose 91, Lactate 1.0, FiO2 21.0, Venous Blood Potassium 3.4 L I have reviewed the lab results: Yes - RAD Interpretation Radiology Orders: 05/01/17 11:51 CHEST PORTABLE [RAD] Stat 05/01/17 13:10 LUNG PERF & VENT SCAN [NM] Stat - Medication Orders Current Medication Orders: Apixaban (Eliquis) 2.5 mg PO BID [facility] PRN Reason: Protocol Last Admin: 05/01/17 19:00 Dose: 2.5 mg diltiaZEM IVPB 100mg in NS (Cardizem 100mg In Ns) 100 mls @ 10 mls/hr IV .Q10H PRN; Protocol; 10 MG/HR PRN Reason: TITRATE PER MD ORDER Sodium Chloride (Sodium Chloride 0.9%) 1,000 mls @ 100 mls/hr IV .Q10H [facility] Metoprolol Tartrate (Lopressor) 50 mg PO BRKDIN [facility] Discontinued Medications Diltiazem HCl (Cardizem) 20 mg IVP STAT [facility] Stop: 05/01/17 16:08 Last Admin: 05/01/17 16:27 Dose: 20 mg Furosemide (Lasix) 40 mg IV ONCE ONE Stop: 05/01/17 17:13 Last Admin: 05/01/17 19:14 Dose: 40 mg Sodium Chloride (Sodium Chloride 0.9%) 1,000 mls @ 999 mls/hr IV .Q1H1M [facility] Stop: 05/01/17 12:53 Last Admin: 05/01/17 12:00 Dose: 999 mls/hr Acyclovir 800 mg/ Sodium (Chloride) 100 mls @ 100 mls/hr IV STAT [facility] PRN Reason: Protocol Stop: 05/01/17 12:52 Last Admin: 05/01/17 13:02 Dose: 100 mls/hr Comments: was awaiting pharmacy Vancomycin HCl (Vancomycin 1gm) 1 gm in 250 mls @ 167 mls/hr IVPB STAT [facility] PRN Reason: Protocol Stop: 05/01/17 18:31 Last Admin: 05/01/17 21:58 Dose: 167 mls/hr Piperacillin Sod/Tazobactam Sod (Zosyn 3.375 In Ns 100ml) 100 mls @ 200 mls/hr IVPB STAT [facility] PRN Reason: Protocol Stop: 05/01/17 17:31 Last Admin: 05/01/17 19:15 Dose: 200 mls/hr Comments: awaiting return from [facility] Sodium Chloride (Sodium Chloride 0.9%) 500 mls @ 999 mls/hr IV .Q31M [facility] Stop: 05/01/17 22:42 Metoprolol Tartrate (Lopressor) 25 mg PO BID [facility] Metoprolol Tartrate (Lopressor) 10 mg IVP STAT [facility] Stop: 05/01/17 18:42 Last Admin: 05/01/17 19:14 Dose: 10 mg Metoprolol Tartrate (Lopressor) 10 mg IVP STAT [facility] Stop: 05/01/17 21:39 Last Admin: 05/01/17 21:59 Dose: 10 mg Potassium Chloride (K-Dur 20 Meq Er Tab) 40 meq PO STAT [facility] Stop: 05/01/17 17:13 Last Admin: 05/01/17 19:14 Dose: 40 meq Potassium Chloride (K-Dur 20 Meq Er Tab) 40 meq PO ONCE ONE Stop: 05/01/17 20:01 - Scribe Statement The provider has reviewed the documentation as recorded by the [place] Kathy Oquendo Provider Scribe Attestation: All medical record entries made by the Scribe were at my direction and personally dictated by me. I have reviewed the chart and agree that the record accurately reflects my personal performance of the history, physical exam, medical decision making, and the department course for this patient. I have also personally directed, reviewed, and agree with the discharge instructions and disposition. Disposition/Present on Arrival - Present on Arrival Any Indicators Present on Arrival: No History of DVT/PE: No History of Uncontrolled Diabetes: No Urinary Catheter: No History of Decub. Ulcer: No History Surgical Site Infection Following: None - Disposition Have Diagnosis and Disposition been Completed?: Yes Diagnosis: Pulmonary cancer, Shingles, Tachycardia, paroxysmal Disposition: HOSPITALIZED Disposition Time: 21:10 Patient Plan: Admission Patient Problems: Current Active Problems Problem Status Onset Pulmonary cancer Acute Shingles Acute Tachycardia, paroxysmal Acute Condition: STABLE
[2017-05-01] MEDS ORDERED: Potassium Chloride 20 mEq ER Tab PO ONE (20:00)
[2017-05-01] MEDS ORDERED: Sodium Chloride 0.9% 500 ML IV STA (22:12)
--- NOTE | 2017-05-02 00:03 | CP.PCM.CON ---
History of Present Illness - History of Present Illness History of Present Illness: Reason for ICU Consult: tachycardia HPI: 76 y.o male with a PMHx Htn, dyslipidemia, tachy-anna marie syndrome s/p ppm, h/ o DVT, h/o Squamous cell lung Ca who returns to the ED early this morning with the complaints of abdominal pain in both right and lower left quadrants as well as mid back pain. Patient reports he was at his PMD's office earlier today and had continued complaints of pain so he was referred to the ED. Patient was seen about 5 days ago in the ER and sent home with po antibiotics for a UTI. He returned yesterday to the ED with the c/o abdominal pain and underwent a CT scan which did not show much of an acute process (right renal cyst and 5mm hypodense hepatic lesions). Patient returned to the ED again today and was found to be tachycardic and with a visible breakout of shingles on his back. He received doses of lopressor IV however remained tachycardic in the ER. Patient denies any complaints of fever, chills, shortness of breath, chest pain , headache, dizziness or dysuria. He does complain of an aching pain in the RLQ and LLQ as well as his mid-back. He reports having loose bowel movements for 2-3 days. PMHx: Htn dyslipidemia tachy-anna marie syndrome s/p ppm h/o DVT on eliquis h/o Squamous cell lung Ca s/p chemo + RI Allergies: NKDA Fam Hx: reviewed and noncontributory Soc Hx: 1/2ppd x >60yrs; denies etoh; denies illicit drug use Meds: gabapentin 300mg po bid diltiazem cd 180mg po daily lisinopril 10mg po daily ventolin HFA prn eliquis 2.5mg po bid esomeprazole 20mg po daily monteleukast 10mg po daily daliresp 500mcg po daily metoprolol 50mg po daily flomax 0.4mg po daily tramadol 50mg po tid Review of Systems - Review of Systems Review of Systems: As per HPI otherwise negative for a 12 point ROS Past Patient History - Infectious Disease Hx of Infectious Diseases: None - Tetanus Immunizations Tetanus Immunization: Unknown - Past Social History Smoking Status: Light Smoker < 10 Cigarettes Daily Alcohol: None Drugs: Denies - CARDIAC Hx Heart Attack: Yes Hx Hypertension: Yes Hx Pacemaker: Yes - PULMONARY Hx Respiratory Disorders: Yes Hx Chronic Obstructive Pulmonary Disease (COPD): Yes Other/Comment: Lung, CA, currently on chemotherapySmoker - NEUROLOGICAL Hx Neurological Disorder: Yes (denies) Hx Paralysis: No - HEENT Hx HEENT Problems: No - RENAL Hx Chronic Kidney Disease: Yes (renal insufficiency) Other/Comment: renal insufficiency - ENDOCRINE/METABOLIC Hx Endocrine Disorders: No - HEMATOLOGICAL/ONCOLOGICAL Hx Blood Transfusions: No Hx Blood Transfusion Reaction: No Hx Shingles: Yes - INTEGUMENTARY Hx Dermatological Problems: No - MUSCULOSKELETAL/RHEUMATOLOGICAL Hx Arthritis: Yes - GASTROINTESTINAL Hx Gastrointestinal Disorders: Yes (colonoscopy) Hx Gastroesophageal Reflux: Yes - GENITOURINARY/GYNECOLOGICAL Hx Prostate Problems: Yes (prostate CA) - PSYCHIATRIC Hx Emotional Abuse: No Hx Physical Abuse: No Hx Substance Use: No - SURGICAL HISTORY Hx Cardiac Catheterization: Yes (2013) - ANESTHESIA Hx Anesthesia Reactions: No Hx Malignant Hyperthermia: No Meds Allergies/Adverse Reactions: Allergies Allergy/AdvReac Type Severity Reaction Status Date / Time No Known Allergies Allergy Verified 04/30/17 06:00 - Medications Medications: Current Medications Apixaban (Eliquis) 2.5 mg PO BID LEONOR PRN Reason: Protocol Last Admin: 05/01/17 19:00 Dose: 2.5 mg diltiaZEM IVPB 100mg in NS (Cardizem 100mg In Ns) 100 mls @ 10 mls/hr IV .Q10H PRN; Protocol; 10 MG/HR PRN Reason: TITRATE PER MD ORDER Sodium Chloride (Sodium Chloride 0.9%) 1,000 mls @ 100 mls/hr IV .Q10H LEONOR Metoprolol Tartrate (Lopressor) 50 [facility] PO [facility] Physical Exam - Constitutional Appears: Well, Non-toxic - Head Exam Head Exam: ATRAUMATIC, NORMOCEPHALIC - Eye Exam Eye Exam: EOMI - ENT Exam ENT Exam: Mucous Membranes Dry - Neck Exam Neck exam: Positive for: Full Rom - Respiratory Exam Respiratory Exam: Clear to Auscultation Bilateral, NORMAL BREATHING PATTERN. absent: Rales, Rhonchi, Wheezes - Cardiovascular Exam Cardiovascular Exam: Tachycardia, +S1, +S2 - GI/Abdominal Exam GI & Abdominal Exam: Normal Bowel Sounds, Soft, Tenderness (diffusely tender in both lower quadrants; no rebound or gaurding noted). absent: Guarding, Rebound - Rectal Exam Rectal Exam: Deferred - Extremities Exam Extremities exam: Positive for: normal inspection. Negative for: calf tenderness - Neurological Exam Neurological exam: Alert, Oriented x3 - Psychiatric Exam Psychiatric exam: Normal Affect, Normal Mood - Skin Skin Exam: Dry, Intact, Normal Color, Warm Results - Vital Signs Recent Vital Signs: Last Vital Signs Temp 98.0 F 05/01/17 11:13 Pulse 140 H 05/01/17 21:59 Resp 15 05/01/17 20:25 BP 126/80 05/01/17 21:59 Pulse Ox 97 05/01/17 20:25 - Labs Result Diagrams: 05/01/17 12:10 05/01/17 12:10 - EKG Data EKG Interpreted by: Myself EKG shows normal: Sinus rhythm - Imaging and Cardiology CT scan - abdomen Status: Report reviewed by me Additional comment: hepatic hypodense lesions 5mm; right renal cyst; diverticulosis without diverticulitis Assessment & Plan - Assessment and Plan (Free Text) Assessment: 76 y.o male with a PMhx Htn, lung ca s/p chemo+ RT, h/o dvt and ppm presents to the ED with the complaint of abdominal and back pain; he's found to have shingles and is persistently tachycardic. He will be admitted to the ICU for further management of his current medical problems. Plan: Neuro: Awake, alert and oriented x 3; no acute issues; will monitor him Pulm: saturating well on 2l nasal cannula; will continue and titrate to keep his sa02 greater than 92 CVS: patient was questionably in aflutter earlier this morning ( I am unable to locate the Ekg which shows this) and a cardizem drip was ordered by cardiology ( Dr. Anne). Cardizem was never started in the ED, patient was given lopressor IVP x 2 in an attempt to control his rate which had minimum benefit. At this time I will ensure the cardizem drip is started to achieve a better heart rate ( patient takes po cardizem cd 180mg daily as an outpatient) and consider changing to another oral agent tomorrow or continuing with his home dose of cardizem. Will also hydrate with IVF gently as his most recent Echo was done last year showing a reduced EF of 45% along with an elevated RVSP of 67. GI: loose bowel movements; will obtain stool for C. Diff. place him on po protonix and start him on a liquid diet tomorrow and advance as tolerated. Renal: appears to have CKD, possibly with some BINDU; given that he will be receiving Acyclovir for his shingles, I will also place him on IVF hydration to avoid nephrotoxicity. He was slightly hypokalemic; will obtain a repeat bmp in the AM, potassium replaced in the ER. Will monitor daily electrolytes and replete as needed. endo: does not appear to have any acute issues at this time heme: no leukocytosis; will monitor his hgb level and repeat daily cbc's ID: shingles present across his back (T4-T6 dermatomes); he will receive IV acyclovir 10mg/kg Q8 for now; ID consult as per PMD to determine duration and route given that he's immunocompromised and may have a disseminated disease, IV is appropriate for now (no eye involvement at this time). psych: no acute issues Case discussed at length with Dr. Rhodes in the ED total time of care: 40 minutes labs and images available thus far reviewed personally
[2017-05-02] MEDS ORDERED: oxyCODONE 30 mg Immediate Release Tab PO PRN (00:07)
[2017-05-02] MEDS ORDERED: Potassium Chloride 20 mEq ER Tab PO ONE (00:15)
[2017-05-02] MEDS: diltiaZEM IVPB 100mg in NS 100 ML IV PRN ×2 (00:29→05:05)
[2017-05-02] MEDS: Metoprolol 1 mg/ml Inj IVP PRN (03:15)
[2017-05-02] MEDS: Sodium Chloride 0.9% 1,000 ML IV SCH ×3 (03:29→20:34)
[2017-05-02 04:29] VITALS: BMI 24.4
[2017-05-02 07:17] LABS: ADD MANUAL DIFF? NO
[2017-05-02 07:28] LABS: BASO # 0.04 K/mm3 (0.0-2.0); BASO % 0.5 % (0.0-3.0); EOS % 0.5 % (1.5-5.0); GRAN # 5.38 (1.4-6.5); GRAN % 71.1 % (50.0-68.0); HEMATOCRIT 41.2 % (42.0-52.0); LYMPH # 0.7 (1.2-3.4); LYMPH % 9.8 % (22.0-35.0); MEAN CELL VOLUME 93.4 fL (80.0-105.0); MEAN CORPUSCULAR HEMOGLOBIN 30.6 pg (25.0-35.0); MEAN CORPUSCULAR HGB CONC 32.8 g/dl (31.0-37.0); MEAN PLATELET VOLUME 8.8 fl (7.0-11.0); MONO # 1.4 (0.1-0.6); MONO % 18.1 % (1.0-6.0); PLATELET COUNT 212 10^3/uL (120.0-450.0); RED CELL DISTRIBUTION WIDTH 16.5 % (11.5-14.5); WHITE BLOOD COUNT 7.6 10^3/ul (4.5-11.0)
[2017-05-02 07:40] LABS: ALB/GLOB RATIO 1.1 (1.1-1.8); BILIRUBIN,TOTAL 0.9 mg/dL (0.2-1.3); CALCIUM 9.3 mg/dL (8.4-10.5); POTASSIUM 4.3 mmol/L (3.6-5.0); TOTAL PROTEIN 6.6 g/dL (5.8-8.3)
[2017-05-02 08:21] LABS: MAGNESIUM 1.8 mg/dL (1.7-2.2); PHOSPHOROUS 2.8 mg/dL (2.5-4.5)
--- NOTE | 2017-05-02 08:39 | CON ---
DATE: 05/01/2017 REASON FOR CONSULTATION: Atrial fibrillation with rapid ventricular rate (atrial flutter). BRIEF CLINICAL HISTORY: A 76-year-old male with past medical history significant for lung cancer, hy pertension, hyperlipidemia, pacemaker, DVT, sent to Dr. Doty for shingles. The patient in the ER, found to be in afib with rapid ventricular rate, shortness of breath. The patient denies any chest pain, denies any palpitation, but complains of mild shortness of breath. PAST MEDICAL HISTORY: Significant for lung CA nonsmall cell stage III, history of multiple sick sinu s syndrome, history of DVT, history of Port-A-Cath placement, history of tachybrady syndrome, history of permanent pacemaker single chamber VVI on ____ after having multiple pauses, sick sinus s yndrome. PREVIOUS CARDIAC WORKUP: As follows: The patient successfully implantation of permanent pacemaker [employer] VVI, MRI safe, dated 04/12/2016 when the patient presented with sick sinus syndrome, tachyb rady syndrome. PAST SURGICAL HISTORY: Significant for permanent pacemaker 04/12/2016, history of Port-A-Cath placem ent, history of cardiac catheterization, last catheterization 07/2015 shows normal LV function, no cr itical disease. The patient had a stress test, equivocal leading to the cardiac catheterization. Th e patient had a prior cardiac catheterization 03/25/2013 by me and revealed a ____ with nonobstructiv e coronary artery disease, low ejection fraction, history of chronic renal insufficiency, baseline cr eatinine is around 2. SOCIAL HISTORY: Ex-tobacco abuse, ex-alcohol abuse. History of lung CA admission, history of ____ stage III, history of hypertension, history of radiati on, history of a chemo, completed chemo 12/2014, history of port a catheterization. REVIEW OF SYSTEMS: As per HPI. PHYSICAL EXAMINATION: VITAL SIGNS: Temperature afebrile, heart rate 147, blood pressure 150/65. HEENT: PERRLA. Extraocular muscles intact. NECK: Supple. No carotid bruits. No thyromegaly. CHEST: Clear to auscultation. HEART: S1, S2 regular. ABDOMEN: Soft. EXTREMITIES: Clubbing and cyanosis negative. BACK: Shingles noted at the back. LABORATORY DATA: Blood workup as follows: WBC 7.3, hemoglobin 13____, hematocrit 39.4, platelet cou nt 208. Chemistry shows sodium 130, potassium 3.5, chloride ____, carbon dioxide 24, anion gap of 13 , BUN 19, creatinine 1.6. Troponin 0.05. IMPRESSION: Elevated BUN and creatinine, sick sinus syndrome, status post permanent pacemaker, basel ine creatinine ____-2, history of nonsmall cell cancer stage III, status post chemo completed 12/2004, history of radiation, history of sick sinus syndrome, status post permanent pacemaker, single chambe r VVI when the patient admitted with multiple pauses. Pacemaker is MRI safe dated 04/12/2016 [employer] permanent pacemaker, new onset atrial fibrillation/flutter, hypertension, hyperlipidemia, multiple ca theterizations, last catheterization 07/2015 shows a normal left ventricular function, no critical di sease. Prior to that, patient had cardiac catheterization 03/25/2013 by me, revealed nonobstructive coronary artery disease, low normal ejection fraction. Medical treatment recommended. History of Po rt-A-Cath, baseline creatinine runs around 1.5-2 with a creatinine clearance 30 mL an hour. RECOMMENDATION: We will start renal adjusted dose Eliquis and we will start IV Cardizem. We will fo llow with you. Repeat echo. Thank you, Dr. Doty, for providing us the opportunity in taking care of this patient. Will follow with you. The patient's last echo in 03/2016 that shows ejection fraction 35%, mild to moderately dilated, mode rately reduced, moderate aortic regurgitation, moderate mitral regurgitation, moderate tricuspid regu rg, right ventricular systolic pressure 67. Will give gentle diuretics as well. Add Coreg. I will follow with you. I will add a beta zan. When the rate is controlled, we may switch depending up on his reaction to Coreg. For now we will start low-dose beta zan, Cardizem IV and Eliquis. We will follow with you. Thank you, Dr. Doty, for providing the opportunity in taking care of the patient. Ramon Anne MD cc: [id number] TT: 05/01/2017 19:00:16 Confirmation # [id number] Dictation # [id number]
--- NOTE | 2017-05-02 09:52 | CP.CCUPN ---
<Susan Villavicencio - Last Filed: 05/02/17 13:47> CCU Subjective - Physician Review Subjective (Free Text): 05/02/17 09:44 Pt denies CP, SOB, (+) itch around area CCU Objective - Vital Signs / Intake & Output Vital Signs (Last 4 hours): Vital Signs Pulse Resp BP 05/02/17 08:31 123 H 131/94 H 05/02/17 06:00 109/66 05/02/17 05:59 130 H 33 H Intake and Output (Last 8hrs): Intake & Output 05/01/17 05/02/17 05/02/17 22:59 06:59 14:59 Intake Total 480 Output Total 152 Balance 328 Weight 175 lb 6 oz Intake: IV 480 Right Forearm 400 Output: Urine 150 Urine, Voided 150 Stool 1 Urine/Stool Mix 1 Other: Voiding Method Bedside Commode # Voids Urine, Voided 1 - Physical Exam Head: Positive for: Atraumatic, Normocephalic Pupils: Positive for: PERRL Extroacular Muscles: Positive for: EOMI Conjunctiva: Positive for: Normal Mouth: Positive for: Moist Mucous Membranes Neck: Positive for: Normal Range of Motion Respiratory/Chest: Positive for: Clear to Auscultation, Good Air Exchange. Negative for: Respiratory Distress, Accessory Muscle Use Cardiovascular: Positive for: Regular Rate and Rhythm, Normal S1, S2. Negative for: Murmurs Abdomen: Positive for: Normal Bowel Sounds. Negative for: Tenderness, Distention, Peritoneal Signs Back: Positive for: Other (Vesicular rash on mid-back) Upper Extremity: Positive for: Normal Inspection. Negative for: Cyanosis, Edema Lower Extremity: Positive for: Normal Inspection. Negative for: Edema Neurological: Positive for: GCS=15, CN II-XII Intact, Speech Normal Skin: Positive for: Warm, Dry, Normal Color Psychiatric: Positive for: Alert, Oriented x 3, Normal Insight, Normal Concentration - Medications Active Medications: Active Medications Generic Name Dose Route Start Last Admin Trade Name Freq PRN Reason Stop Dose Admin Apixaban 2.5 mg 05/01/17 18:00 05/01/17 19:00 Eliquis PO 2.5 mg BID LEONOR Administration Protocol Atorvastatin Calcium 20 mg 05/02/17 10:00 Lipitor PO DAILY [facility] diltiaZEM IVPB 100mg in NS 100 mls @ 10 mls/hr 05/01/17 17:10 05/02/17 05:05 Cardizem 100mg In Ns IV 10 mg/hr .Q10H PRN 10 mls/hr TITRATE PER MD ORDER Administration Protocol 10 MG/HR Sodium Chloride 1,000 mls @ 100 mls/hr 05/01/17 22:15 05/02/17 03:29 Sodium Chloride 0.9% IV 100 mls/hr .Q10H LEONOR Administration Acyclovir 800 mg/ Sodium 100 mls @ 100 mls/hr 05/02/17 00:15 05/02/17 01:30 Chloride IV 100 mls/hr Q12 LEONOR Administration Protocol Doxycycline Hyclate 100 mg/ 100 mls @ 100 mls/hr 05/02/17 10:00 Sodium Chloride IVPB 05/10/17 10:01 Q12 LEONOR Protocol Cefepime HCl 1 gm in 100 mls @ 100 mls/hr 05/02/17 10:00 Maxipime 1gm IVPB 05/10/17 10:01 Q12 LEONOR Protocol Metoprolol Tartrate 50 mg 05/02/17 07:30 05/02/17 08:31 Lopressor PO 50 mg BRKDIN LEONOR Administration Metoprolol Tartrate 5 mg 05/02/17 00:05 05/02/17 03:15 Lopressor IVP 5 mg Q4 PRN Administration Heart rate Oxycodone HCl 30 mg 05/02/17 00:07 Oxycodone Immediate Release Tab PO Q6 PRN Pain, severe (8-10) Tamsulosin HCl 0.4 mg 05/02/17 10:00 Flomax PO DAILY LEONOR - Patient Studies Lab Studies: Lab Studies 05/02/17 05/02/17 05/02/17 Range/Units 06:30 06:30 06:30 WBC (4.5-11.0) 10^3/ul RBC (3.5-6.1) 10^6/uL Hgb (14.0-18.0) gm/dL Hct (42.0-52.0) % MCV (80.0-105.0) fL MCH (25.0-35.0) pg MCHC (31.0-37.0) g/dl RDW (11.5-14.5) % Plt Count (120.0-450.0) 10^3/uL MPV (7.0-11.0) fl Gran % (50.0-68.0) % Lymph % (Auto) (22.0-35.0) % [place] % (Auto) (1.0-6.0) % Eos % (Auto) (1.5-5.0) % Baso % (Auto) (0.0-3.0) % Gran # (1.4-6.5) Lymph # (1.2-3.4) [place] # (0.1-0.6) Eos # (0.0-0.7) Baso # (0.0-2.0) K/mm3 Sodium 141 (132-148) mmol/L Potassium 4.3 (3.6-5.0) mmol/L Chloride 108 H (98-107) mmol/L Carbon Dioxide 23 (21-33) mmol/L Anion Gap 14 (10-20) BUN 19 (7-21) mg/dL Creatinine 1.8 H (0.5-1.4) mg/dL Est GFR ( Amer) 44 Est GFR (Non-Af Amer) 37 Random Glucose 72 (70-110) mg/dL Calcium 9.3 (8.4-10.5) mg/dL Phosphorus 2.8 (2.5-4.5) mg/dL Magnesium 1.8 (1.7-2.2) mg/dL Total Bilirubin 0.9 (0.2-1.3) mg/dL AST 23 (15-59) U/L ALT 27 (7-56) U/L Alkaline Phosphatase 80 (38-133) U/L NT-Pro-B Natriuret Pep 3130 H (0-450) pg/mL Total Protein 6.6 (5.8-8.3) g/dL Albumin 3.4 (3.0-4.8) g/dL Globulin 3.1 gm/dL Albumin/Globulin Ratio 1.1 (1.1-1.8) Triglycerides 122 (35-160) mg/dL Cholesterol 156 (130-200) mg/dL LDL Cholesterol Direct 94 (0-129) mg/dL HDL Cholesterol 36 (29-60) mg/dL TSH 3rd Generation 0.20 L (0.46-4.68) mIU/mL 05/02/17 Range/Units 06:30 WBC 7.6 (4.5-11.0) 10^3/ul RBC 4.41 (3.5-6.1) 10^6/uL Hgb 13.5 L (14.0-18.0) gm/dL Hct 41.2 L (42.0-52.0) % MCV 93.4 (80.0-105.0) fL MCH 30.6 (25.0-35.0) pg MCHC 32.8 (31.0-37.0) g/dl RDW 16.5 H (11.5-14.5) % Plt Count 212 (120.0-450.0) 10^3/uL MPV 8.8 (7.0-11.0) fl Gran % 71.1 H (50.0-68.0) % Lymph % (Auto) 9.8 L (22.0-35.0) % [place] % (Auto) 18.1 H (1.0-6.0) % Eos % (Auto) 0.5 L (1.5-5.0) % Baso % (Auto) 0.5 (0.0-3.0) % Gran # 5.38 (1.4-6.5) Lymph # 0.7 L (1.2-3.4) [place] # 1.4 H (0.1-0.6) Eos # 0.0 (0.0-0.7) Baso # 0.04 (0.0-2.0) K/mm3 Sodium (132-148) mmol/L Potassium (3.6-5.0) mmol/L Chloride (98-107) mmol/L Carbon Dioxide (21-33) mmol/L Anion Gap (10-20) BUN (7-21) mg/dL Creatinine (0.5-1.4) mg/dL Est GFR ( Amer) Est GFR (Non-Af Amer) Random Glucose (70-110) mg/dL Calcium (8.4-10.5) mg/dL Phosphorus (2.5-4.5) mg/dL Magnesium (1.7-2.2) mg/dL Total Bilirubin (0.2-1.3) mg/dL AST (15-59) U/L ALT (7-56) U/L Alkaline Phosphatase (38-133) U/L NT-Pro-B Natriuret Pep (0-450) pg/mL Total Protein (5.8-8.3) g/dL Albumin (3.0-4.8) g/dL Globulin gm/dL Albumin/Globulin Ratio (1.1-1.8) Triglycerides (35-160) mg/dL Cholesterol (130-200) mg/dL LDL Cholesterol Direct (0-129) mg/dL HDL Cholesterol (29-60) mg/dL TSH 3rd Generation (0.46-4.68) mIU/mL Laboratory Results - last 24 hr 05/02/17 05/02/17 05/02/17 06:30 06:30 06:30 WBC 7.6 RBC 4.41 Hgb 13.5 L Hct 41.2 L MCV 93.4 MCH 30.6 MCHC 32.8 RDW 16.5 H Plt Count 212 MPV 8.8 Gran % 71.1 H Lymph % (Auto) 9.8 L [place] % (Auto) 18.1 H Eos % (Auto) 0.5 L Baso % (Auto) 0.5 Gran # 5.38 Lymph # 0.7 L [place] # 1.4 H Eos # 0.0 Baso # 0.04 Sodium 141 Potassium 4.3 Chloride 108 H Carbon Dioxide 23 Anion Gap 14 BUN 19 Creatinine 1.8 H Est GFR ( Amer) 44 Est GFR (Non-Af Amer) 37 Random Glucose 72 Calcium 9.3 Phosphorus Magnesium Total Bilirubin 0.9 AST 23 ALT 27 Alkaline Phosphatase 80 NT-Pro-B Natriuret Pep 3130 H Total Protein 6.6 Albumin 3.4 Globulin 3.1 Albumin/Globulin Ratio 1.1 Triglycerides 122 Cholesterol 156 LDL Cholesterol Direct 94 HDL Cholesterol 36 TSH 3rd Generation 0.20 L 05/02/17 06:30 WBC RBC Hgb Hct MCV MCH MCHC RDW Plt Count MPV Gran % Lymph % (Auto) [place] % (Auto) Eos % (Auto) Baso % (Auto) Gran # Lymph # [place] # Eos # Baso # Sodium Potassium Chloride Carbon Dioxide Anion Gap BUN Creatinine Est GFR ( Amer) Est GFR (Non-Af Amer) Random Glucose Calcium Phosphorus 2.8 Magnesium 1.8 Total Bilirubin AST ALT Alkaline Phosphatase NT-Pro-B Natriuret Pep Total Protein Albumin Globulin Albumin/Globulin Ratio Triglycerides Cholesterol LDL Cholesterol Direct HDL Cholesterol TSH 3rd Generation Critical Care Progress Note - Nutrition Nutrition: Nutrition Category Date Time Status Liquid Diet [DIET] Diets 05/02/17 Breakfast Ordered Assessment/Plan - Assessment and Plan (Free Text) Plan: 76 y.o immunocompromised male with a PMhx Htn, lung ca s/p chemo+ RT, h/o dvt and ppm for sick sinus, CKD3, presents to the ED with the complaint of abdominal and back pain; he's found to have shingles and is persistently narrow complex tachycardic, which has resolved, on cardizem gtt Neuro: AAOx3; no acute issues; will monitor him no eye involvement Pulm: 2L NS; continue and titrate to a02 greater than 92 No PE on V/Q CVS: patient was questionably in aflutter earlier this morning lopressor IVP x 2 in an attempt to control his rate which had minimum benefit Cardizem drip is then started to achieve a better heart rate (patient takes po cardizem cd 180mg daily as an outpatient) Reduced EF of 45% along with an elevated RVSP of 67. GI: loose bowel movements; Obtain stool for C. Diff. place him on po protonix and start him on a liquid diet tomorrow and advance as tolerated. continue ivf Renal: CKD stage 3A Acyclovir for his shingles IVF hydration to avoid nephrotoxicity. slightly hypokalemic, potassium replaced in the ER. endo: maintain euglycemic heme: no leukocytosis ID: shingles present across his back (R T4-T6 dermatomes) IV acyclovir 10mg/kg Q8 ID consult as per PMD to determine duration and route given that he's immunocompromised and may have a disseminated disease, Prophylasix Will s/r/d/w Dr. Barrientos - Date & Time Date: 05/02/17 Time: 09:45 <Anthony Barrientos - Last Filed: 05/02/17 19:11> CCU Objective - Vital Signs / Intake & Output Intake and Output (Last 8hrs): Intake & Output 05/02/17 05/02/17 05/02/17 06:59 14:59 22:59 Intake Total 480 Output Total 152 Balance 328 Weight 175 lb 6 oz Intake: IV 480 Right Forearm 400 Output: Urine 150 Urine, Voided 150 Stool 1 Urine/Stool Mix 1 Other: Voiding Method Bedside Commode # Voids Urine, Voided 1 - Medications Active Medications: Active Medications Generic Name Dose Route Start Last Admin Trade Name Freq PRN Reason Stop Dose Admin Apixaban 2.5 mg 05/01/17 18:00 05/02/17 10:28 Eliquis PO 2.5 mg BID LEONOR Administration Protocol Atorvastatin Calcium 20 mg 05/02/17 10:00 05/02/17 10:28 Lipitor PO 20 mg DAILY LEONOR Administration Calamine 0 ml 05/02/17 14:00 05/02/17 15:05 Calamine Lotion TOP 120 ml QID LEONOR Administration Diltiazem HCl 180 mg 05/02/17 10:30 05/02/17 11:00 Cardizem Cd PO 180 mg DAILY LEONOR Administration Sodium Chloride 1,000 mls @ 100 mls/hr 05/01/17 22:15 05/02/17 09:28 Sodium Chloride 0.9% IV Not Given .Q10H LEONOR Acyclovir 800 mg/ Sodium 100 mls @ 100 mls/hr 05/02/17 00:15 05/02/17 11:47 Chloride IV 100 mls/hr Q12 LEONOR Administration Protocol Doxycycline Hyclate 100 mg/ 100 mls @ 100 mls/hr 05/02/17 10:00 05/02/17 11: 30 Sodium Chloride IVPB 05/10/17 10:01 100 mls/hr Q12 LEONOR Administration Protocol Cefepime HCl 1 gm in 100 mls @ 100 mls/hr 05/02/17 10:00 05/02/17 10:29 Maxipime 1gm IVPB 05/10/17 10:01 100 mls/hr Q12 LEONOR Administration Protocol Metoprolol Tartrate 50 mg 05/02/17 07:30 05/02/17 08:31 Lopressor PO 50 mg BRKDIN LEONOR Administration Metoprolol Tartrate 5 mg 05/02/17 00:05 05/02/17 03:15 Lopressor IVP 5 mg Q4 PRN Administration Heart rate Oxycodone HCl 30 mg 05/02/17 00:07 Oxycodone Immediate Release Tab PO Q6 PRN Pain, severe (8-10) Prednisone 40 mg 05/03/17 10:00 Prednisone Tab PO DAILY [facility] Tamsulosin HCl 0.4 mg 05/02/17 10:00 06/20/17 10:28 Flomax PO 0.4 mg DAILY LEONOR Administration - Patient Studies Lab Studies: Lab Studies 05/02/17 05/02/17 05/02/17 Range/Units 06:30 06:30 06:30 WBC (4.5-11.0) 10^3/ul RBC (3.5-6.1) 10^6/uL Hgb (14.0-18.0) gm/dL Hct (42.0-52.0) % MCV (80.0-105.0) fL MCH (25.0-35.0) pg MCHC (31.0-37.0) g/dl RDW (11.5-14.5) % Plt Count (120.0-450.0) 10^3/uL MPV (7.0-11.0) fl Gran % (50.0-68.0) % Lymph % (Auto) (22.0-35.0) % [place] % (Auto) (1.0-6.0) % Eos % (Auto) (1.5-5.0) % Baso % (Auto) (0.0-3.0) % Gran # (1.4-6.5) Lymph # (1.2-3.4) [place] # (0.1-0.6) Eos # (0.0-0.7) Baso # (0.0-2.0) K/mm3 Sodium (132-148) mmol/L Potassium (3.6-5.0) mmol/L Chloride (98-107) mmol/L Carbon Dioxide (21-33) mmol/L Anion Gap (10-20) BUN (7-21) mg/dL Creatinine (0.5-1.4) mg/dL Est GFR ( Amer) Est GFR (Non-Af Amer) Random Glucose (70-110) mg/dL Hemoglobin A1c 6.0 (4.2-6.5) % Calcium (8.4-10.5) mg/dL Phosphorus 2.8 (2.5-4.5) mg/dL Magnesium 1.8 (1.7-2.2) mg/dL Total Bilirubin (0.2-1.3) mg/dL AST (15-59) U/L ALT (7-56) U/L Alkaline Phosphatase (38-133) U/L NT-Pro-B Natriuret Pep (0-450) pg/mL Total Protein (5.8-8.3) g/dL Albumin (3.0-4.8) g/dL Globulin gm/dL Albumin/Globulin Ratio (1.1-1.8) Triglycerides (35-160) mg/dL Cholesterol (130-200) mg/dL LDL Cholesterol Direct (0-129) mg/dL HDL Cholesterol (29-60) mg/dL TSH 3rd Generation 0.20 L (0.46-4.68) mIU/mL 05/02/17 05/02/17 Range/Units 06:30 06:30 WBC 7.6 (4.5-11.0) 10^3/ul RBC 4.41 (3.5-6.1) 10^6/uL Hgb 13.5 L (14.0-18.0) gm/dL Hct 41.2 L (42.0-52.0) % MCV 93.4 (80.0-105.0) fL MCH 30.6 (25.0-35.0) pg MCHC 32.8 (31.0-37.0) g/dl RDW 16.5 H (11.5-14.5) % Plt Count 212 (120.0-450.0) 10^3/uL MPV 8.8 (7.0-11.0) fl Gran % 71.1 H (50.0-68.0) % Lymph % (Auto) 9.8 L (22.0-35.0) % [place] % (Auto) 18.1 H (1.0-6.0) % Eos % (Auto) 0.5 L (1.5-5.0) % Baso % (Auto) 0.5 (0.0-3.0) % Gran # 5.38 (1.4-6.5) Lymph # 0.7 L (1.2-3.4) [place] # 1.4 H (0.1-0.6) Eos # 0.0 (0.0-0.7) Baso # 0.04 (0.0-2.0) K/mm3 Sodium 141 (132-148) mmol/L Potassium 4.3 (3.6-5.0) mmol/L Chloride 108 H (98-107) mmol/L Carbon Dioxide 23 (21-33) mmol/L Anion Gap 14 (10-20) BUN 19 (7-21) mg/dL Creatinine 1.8 H (0.5-1.4) mg/dL Est GFR ( Amer) 44 Est GFR (Non-Af Amer) 37 Random Glucose 72 (70-110) mg/dL Hemoglobin A1c (4.2-6.5) % Calcium 9.3 (8.4-10.5) mg/dL Phosphorus (2.5-4.5) mg/dL Magnesium (1.7-2.2) mg/dL Total Bilirubin 0.9 (0.2-1.3) mg/dL AST 23 (15-59) U/L ALT 27 (7-56) U/L Alkaline Phosphatase 80 (38-133) U/L NT-Pro-B Natriuret Pep 3130 H (0-450) pg/mL Total Protein 6.6 (5.8-8.3) g/dL Albumin 3.4 (3.0-4.8) g/dL Globulin 3.1 gm/dL Albumin/Globulin Ratio 1.1 (1.1-1.8) Triglycerides 122 (35-160) mg/dL Cholesterol 156 (130-200) mg/dL LDL Cholesterol Direct 94 (0-129) mg/dL HDL Cholesterol 36 (29-60) mg/dL TSH 3rd Generation (0.46-4.68) mIU/mL Laboratory Results - last 24 hr 05/02/17 05/02/17 05/02/17 06:30 06:30 06:30 WBC 7.6 RBC 4.41 Hgb 13.5 L Hct 41.2 L MCV 93.4 MCH 30.6 MCHC 32.8 RDW 16.5 H Plt Count 212 MPV 8.8 Gran % 71.1 H Lymph % (Auto) 9.8 L [place] % (Auto) 18.1 H Eos % (Auto) 0.5 L Baso % (Auto) 0.5 Gran # 5.38 Lymph # 0.7 L [place] # 1.4 H Eos # 0.0 Baso # 0.04 Sodium 141 Potassium 4.3 Chloride 108 H Carbon Dioxide 23 Anion Gap 14 BUN 19 Creatinine 1.8 H Est GFR ( Amer) 44 Est GFR (Non-Af Amer) 37 Random Glucose 72 Hemoglobin A1c 6.0 Calcium 9.3 Phosphorus Magnesium Total Bilirubin 0.9 AST 23 ALT 27 Alkaline Phosphatase 80 NT-Pro-B Natriuret Pep 3130 H Total Protein 6.6 Albumin 3.4 Globulin 3.1 Albumin/Globulin Ratio 1.1 Triglycerides 122 Cholesterol 156 LDL Cholesterol Direct 94 HDL Cholesterol 36 TSH 3rd Generation 05/02/17 05/02/17 06:30 06:30 WBC RBC Hgb Hct MCV MCH MCHC RDW Plt Count MPV Gran % Lymph % (Auto) [place] % (Auto) Eos % (Auto) Baso % (Auto) Gran # Lymph # [place] # Eos # Baso # Sodium Potassium Chloride Carbon Dioxide Anion Gap BUN Creatinine Est GFR ( Amer) Est GFR (Non-Af Amer) Random Glucose Hemoglobin A1c Calcium Phosphorus 2.8 Magnesium 1.8 Total Bilirubin AST ALT Alkaline Phosphatase NT-Pro-B Natriuret Pep Total Protein Albumin Globulin Albumin/Globulin Ratio Triglycerides Cholesterol LDL Cholesterol Direct HDL Cholesterol TSH 3rd Generation 0.20 L Critical Care Progress Note - Nutrition Nutrition: Nutrition Category Date Time Status Liquid Diet [DIET] Diets 05/02/17 Breakfast Ordered Addendum Addendum: 05/02/17 19:09 patient was seen, examined and discussed at bedside with Dr. Villavicencio. her note reflects my exam assessment and plan except as below. Meds/Labs/ONE reviewed. HR controlled. BP stable. Ok to downgrade to tele. Discussed with cardiology service ccm time 40 min
[2017-05-02] MEDS ORDERED: Digoxin 500 mcg/2ml (0.5 mg/2ml) Inj IVP ONE ×2 (10:23→16:00)
--- NOTE | 2017-05-02 10:26 | CP.PCM.CON ---
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 He was also complaining of vague abdominal pain. In the ED, he was noted to have mild cough as well and CT scan of the abdomen and pelvis did not reveal an acute process. His back examination in the ED revealed lesions which raised, erythematous, seems to be following some thoracic dermatomes. CXr also revealed possible right perihilar infiltrate. Infectious Diseases consult is requested to further evaluate and manage. Review of Systems - Review of Systems All systems: reviewed and no additional remarkable complaints except (as per HPI ) Past Patient History - Infectious Disease Hx of Infectious Diseases: None - Tetanus Immunizations Tetanus Immunization: Unknown - Past Social History Smoking Status: Light Smoker < 10 Cigarettes Daily - CARDIAC Hx Heart Attack: Yes Hx Hypertension: Yes Hx Pacemaker: Yes - PULMONARY Hx Respiratory Disorders: Yes Hx Chronic Obstructive Pulmonary Disease (COPD): Yes Other/Comment: Lung, CA, currently on chemotherapySmoker - NEUROLOGICAL Hx Neurological Disorder: Yes (denies) Hx Paralysis: No - HEENT Hx HEENT Problems: No - RENAL Hx Chronic Kidney Disease: Yes (renal insufficiency) Other/Comment: renal insufficiency - ENDOCRINE/METABOLIC Hx Endocrine Disorders: No - HEMATOLOGICAL/ONCOLOGICAL Hx Blood Transfusions: No Hx Blood Transfusion Reaction: No Hx Shingles: Yes - INTEGUMENTARY Hx Dermatological Problems: No - MUSCULOSKELETAL/RHEUMATOLOGICAL Hx Falls: No - GASTROINTESTINAL Hx Gastrointestinal Disorders: Yes (colonoscopy) Hx Gastroesophageal Reflux: Yes - GENITOURINARY/GYNECOLOGICAL Hx Prostate Problems: Yes (prostate CA) - PSYCHIATRIC Hx Substance Use: No - SURGICAL HISTORY Hx Cardiac Catheterization: Yes (2013) - ANESTHESIA Hx Anesthesia Reactions: No Hx Malignant Hyperthermia: No Meds Allergies/Adverse Reactions: Allergies Allergy/AdvReac Type Severity Reaction Status Date / Time No Known Allergies Allergy Verified 04/30/17 06:00 - Medications Medications: Current Medications Apixaban (Eliquis) 2.5 mg PO BID LEONOR PRN Reason: Protocol Last Admin: 05/01/17 19:00 Dose: 2.5 mg Atorvastatin Calcium (Lipitor) 20 mg PO DAILY [facility] diltiaZEM IVPB 100mg in NS (Cardizem 100mg In Ns) 100 mls @ 10 mls/hr IV .Q10H PRN; Protocol; 10 MG/HR PRN Reason: TITRATE PER MD ORDER Last Admin: 05/02/17 05:05 Dose: 10 mg/hr, 10 mls/hr Sodium Chloride (Sodium Chloride 0.9%) 1,000 mls @ 100 mls/hr IV .Q10H LEONOR Last Admin: 05/02/17 03:29 Dose: 100 mls/hr Acyclovir 800 mg/ Sodium (Chloride) 100 mls @ 100 mls/hr IV Q12 LEONOR PRN Reason: Protocol Last Admin: 05/02/17 01:30 Dose: 100 mls/hr Metoprolol Tartrate (Lopressor) 50 mg PO BRKDIN [facility] Metoprolol Tartrate (Lopressor) 5 mg IVP Q4 PRN PRN Reason: Heart rate Last Admin: 05/02/17 03:15 Dose: 5 mg Oxycodone HCl (Oxycodone Immediate Release Tab) 30 mg PO Q6 PRN PRN Reason: Pain, severe (8-10) Tamsulosin HCl (Flomax) 0.4 mg PO DAILY [facility] Physical Exam - Constitutional Appears: Non-toxic, No Acute Distress - Head Exam Head Exam: NORMAL INSPECTION - ENT Exam ENT Exam: Mucous Membranes Moist - Neck Exam Neck exam: Negative for: Lymphadenopathy, Meningismus - Respiratory Exam Respiratory Exam: Decreased Breath Sounds - Cardiovascular Exam Cardiovascular Exam: +S1, +S2 - GI/Abdominal Exam GI & Abdominal Exam: Soft. absent: Tenderness - Back Exam Additional comments: some erythematous and raised skin lesions on the left side of the back, seems to be following thoracic dermatomes Results - Vital Signs Recent Vital Signs: Last Vital Signs Temp 99 F 05/02/17 03:39 Pulse 83 05/02/17 05:05 Resp 25 H 05/02/17 04:40 BP 155/94 H 05/02/17 05:05 Pulse Ox 95 05/02/17 04:40 - Labs Result Diagrams: 05/02/17 06:30 05/02/17 06:30 Assessment & Plan - Assessment and Plan (Free Text) Plan: Assessment R/O herpes zoster of the thoracic area, following a few thoracic dermatomes in a patient with lung cancer on chemotherapy R/O right sided healthcare-associated pneumonia cardiac arrhythmia S/P peramanent pacemaker placement 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
[2017-05-02] MEDS: Cefepime 1gm in NS 100ml 1 GM/100 ML BAG IVPB SCH ×2 (10:29→21:42)
[2017-05-02] MEDS: diltiaZEM 180 mg/24 Hours CD Cap PO SCH (11:00)
--- NOTE | 2017-05-02 12:04 | PN ---
DATE: 05/02/2017 REASON FOR CONSULTATION AND FOLLOWUP: Atrial fibrillation with rapid ventricular rate, now on Primac or, rate well controlled. BRIEF CLINICAL HISTORY: A 76-year-old male with a past medical history significant for lung CA, hype rtension, hyperlipidemia, pacemaker secondary to multiple pauses, bradycardia, DVT, sent from Dr. Carson prater because of shingles. The patient was found to be in the ER with rapid ventricular rate. The pa tient started Cardizem. Rate is well controlled. On Cardizem, the heart rate is 80. History of DVT , history of sick sinus syndrome as mentioned, history of Ttvo-A-Vakdfesqkvvhlqo. PHYSICAL EXAMINATION: VITAL SIGNS: Temperature afebrile, heart rate 123, blood pressure 109/66. HEENT: PERRLA. Extraocular muscles intact. NECK: Supple. No carotid bruits. No thyromegaly. CHEST: Clear to auscultation. HEART: S1, S2 regular. ABDOMEN: Soft. EXTREMITIES: Clubbing and cyanosis negative. LABORATORY DATA: Blood workup as follows: WBC 7.6, hemoglobin 13.5, hematocrit 41.2, platelet count 212. Chemistry shows sodium 141, potassium 4.3, chloride 108, carbon dioxide 23, anion gap of 14, B UN 19, creatinine 1.8. IMPRESSION: Chronic renal insufficiency. Elevated BNP level. Sick sinus syndrome, multiple pauses, status post permanent pacemaker, MRI safe. The patient got an MRI safe a single chamber VVI in 03/14 013, history of cardiac catheterization on 12/2014, shows normal left ventricular function, no critic al disease after having equivocal stress test. History of cardiac catheterization twice 03/25/2013. Nonobstructive. 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 Date was 04/12/2016, history of deep venous thrombosis, history of lung canc er, nonsmall cell stage III, inoperable. Yesterday with atrial fibrillation with rapid ventricular r esponse, history of deep venous thrombosis, history of yesterday VQ scan was low probability. RECOMMENDATION: We will change Cardizem to p.o. Continue beta zan. We will give 1 dose of digo solo. Stable, patient is transferred to telemetry. Ramon Anne MD cc: [id number] TT: 05/02/2017 12:03:27 Confirmation # [id number] Dictation # [id number] tn
[2017-05-02] MEDS: Calamine-Zinc Oxide Lotion (120 ml) TOP SCH ×3 (15:05→21:52)
--- NOTE | 2017-05-02 16:23 | PN ---
DATE: 05/02/2017 ADDENDUM REASON FOR DICTATION: Addendum to initial progress note. Previous chart reviewed. The patient had echo 03/2016, ejection fraction 35%, mild to moderately dil ated LV, moderately reduced LV function, moderate tricuspid regurgitation, moderate mitral regurgitat ion, right ventricular systolic pressure of 67. We will continue beta zan, add low dose of digox in to control the heart rate change to p.o. Cardizem and continue Eliquis for DVT, PE that will also cover the A-fib as well, renally adjusted dose. For now, we will continue with metoprolol to control the heart rate. If the rate is well controlled, we may consider switching over to Coreg because of low LV function. We will also repeat echo because this echo is in 03/2016 to assess valvular heart di sease progression as well as deterioration of the LV. We will follow with you. Thank you, Dr. Gregg, for providing us the opportunity in taking care of the patient. Also, we w ill give gentle diuretics because the patient has decreased LV function as well as renal insufficienc y. We will follow with you. Ramon Anne MD cc: [id number] TT: 05/02/2017 13:25:11 Confirmation # [id number] Dictation # [id number] tn
[2017-05-02 17:37] VITALS: PULSE 99
--- NOTE | 2017-05-02 17:40 | CARD ---
APPROVED REPORT EKG Measurement Heart [id number] OK [id number] <Conclusion> Sinus tachycardia with premature atrial complexes Biatrial enlargement Nonspecific ST abnormality Abnormal ECG
--- NOTE | 2017-05-02 17:48 | CARD ---
APPROVED REPORT EKG Measurement Heart [id number] <Conclusion> Sinus tachycardia with premature supraventricular complexes Left ventricular hypertrophy with QRS widening and repolarization abnormality Abnormal ECG
--- NOTE | 2017-05-02 17:51 | CARD ---
APPROVED REPORT EKG Measurement Heart [id number] CT 154P [id number] <Conclusion> conside Junctional tachycardia with occasional premature ventricular complexes Left ventricular hypertrophy with repolarization abnormality Abnormal ECG
--- NOTE | 2017-05-02 21:57 | CON ---
DATE: 05/02/2017 REFERRING PHYSICIAN: Jim Light. REASON FOR CONSULT: Chronic obstructive lung disease, history of lung cancer. HISTORY OF PRESENT ILLNESS: This is a 76-year-old gentleman with past medical history significant fo r squamous cell lung cancer, has been treated with radiation and chemotherapy, also has a history of anna marie-tachy syndrome requiring pacemaker, atrial fibrillation, history of DVT, been on anticoagulatio n, comes into ER not feeling well with rapid heart rates. In the ER also found to have a shingle on the left upper back. He received Lopressor in ER and admitted to intensive care unit where he was pl aced on Cardizem drip. Cardiology consult was called. Digoxin was ordered. At my time of examinati on, the patient had a tachycardia back into a sinus rhythm. He has the back pain from the shingles a nd some itching. daytime is sleepy and tired, has some cough and shortness of breath. PAST MEDICAL HISTORY: Lung cancer. He had been on radiation and chemotherapy. Cardiac arrhythmia w ith pacemaker; history of DVT, on Eliquis. ALLERGIES: None known. SOCIAL HISTORY: Active smoker. Denies any alcohol use. FAMILY HISTORY: No significant cardiopulmonary disease reported. MEDICATIONS: He is on acyclovir 800 mg q. 12 hours, calamine lotion at affected area q.i.d., Cardize m 180 mg daily being started, also on Cardizem IV now which is being discontinued after p.o. Cardizem , doxycycline 100 mg IV q. 12 hours, Eliquis 2.5 mg twice a day, Flomax 0.4 mg daily, Lipitor 20 mg d aily, metoprolol tartrate 50 mg twice a day, cefepime 1 gram IV q. 12 hours, oxycodone immediate rel ease 30 mg q. 6 hours p.r.n., IV fluid normal saline 100 mL per hour. REVIEW OF SYSTEMS: No headache, no rhinitis. Has shortness of breath. No chest pain. Has some abd ominal pain and also has back itching and pain. No dysuria. No leg pain or leg swelling. PHYSICAL EXAMINATION: GENERAL: Lying in the bed. He is in sinus rhythm, tachycardia. VITAL SIGNS: Temp is 99, heart rate is 100 which is sinus rhythm, respiratory rate is 22, blood pres sure 131/94. HEENT: Moist mucous membranes. Crowded airway. Mallampati score is 4. NECK: Supple. No JVD. LUNGS: Have scattered rhonchi. BACK: Has zoster lesion which is healing up. HEART: S1 and S2. Tachycardic. ABDOMEN: Soft, nontender, no organomegaly. EXTREMITIES: Trace edema. NEUROLOGIC: Awake, alert, follows simple commands. LABORATORY DATA: Shows hemoglobin 13.5, hematocrit 41.2, WBC 7.6, platelet is 212. His INR 1.1, PTT is 29. ABG shows pH 7.40, pCO2 is 42, O2 is 53. Sodium 141, potassium 4.3, chloride 108, bicarbona te 23, BUN 19, creatinine 1.8, glucose 72, calcium 9.3, phosphorus 2.8, magnesium 1.8, AST 23, ALT 27 , alk phos is 80, proBNP 3130, albumin is 3.4. TSH is 0.20. MICROBIOLOGY: Blood culture has been negative. The last EKG done yesterday evening shows sinus tachycardia with premature atrial complexes. EKG don e yesterday about noon-time shows sinus tachycardia with premature supraventricular left complexes. Had a V/Q scan done in the ER, which showed a low probability of ventilation perfusion scan of pulmon nirav embolism, ventilation clinically for COPD, nonsegmental focal matching perfusion ____ _ the center portion of the right lung corresponding to the focal opacity seen in the . IMPRESSION AND PLAN: Lung cancer, been on radiation and chemotherapy; chronic obstructive lung disea se, history of deep venous thrombosis, has shingles, cardiac arrhythmia, history of chronic obstructi ve lung disease, also has a history of deep venous thrombosis, may have a component of sleep apnea sy ndrome. I agree with Dr. Jim Light with the present management. We will add prednisone 40 mg for his lung disease as well as for shingles to decrease the neuropathy. Continue supplemental oxyg en. The patient on Cardizem for cardiac arrhythmias. May need to consider PFT and sleep study as an outpatient once he improves. Follow up labs in the morning. Thank you and will follow with you. Ramon Delgado MD cc: [id number] TT: 05/02/2017 21:56:43 Confirmation # [id number] Dictation # [id number] mn
--- NOTE | 2017-05-03 00:10 | HP ---
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 The ranjan ent was earlier in the office and the pain was getting worse. He had been seen over the weekend in [facility] ER and sent home, possible urinary tract infection on the workup and was put on oral antibiotics f or the same. The CAT scan at that time when he was in the ER 5 days prior to this admission showed r ight renal cyst and a 5 mm hypodense hepatic lesion. The patient in the ER was noted to be tachycard ic with a visible breakout of shingles on his back involving the dorsal dermatomes, but this is assoc iated significant pain. He was also noted to be tachycardic and there was a question of SVT and/or a trial flutter. He received doses of Lopressor IV, still remained tachycardic in the ER. Denies any history of fevers, chills, shortness of breath, chest pain, headache, dizziness, dysuria. Complainin g of pain radiating both to his right lower quadrant, left upper quadrant, as well as his back. The patient has been having some loose bowel movements for the last 2-3 days. PAST MEDICAL HISTORY: Significant for hypertension, dyslipidemia, tachybrady syndrome, with a pacema ker, history of DVT and with a pacemaker and congestive heart failure with a poor ejection fraction. The patient is on Eliquis 5 b.i.d. The patient has recurrent stage IV squamous cell carcinoma of th e lung, currently on immunotherapy with Opdivo. ALLERGIES: No known allergies. FAMILY HISTORY: Reviewed and noncontributory. SOCIAL HISTORY: The patient smoked at least half a pack a day for greater than 60 years. Denies ETO H. Denies illicit drug use and quit smoking about 3 years ago. HOME MEDICATIONS: Include gabapentin 300 b.i.d., Cardizem-CD 180 p.o. daily, lisinopril 10 mg daily, Ventolin HFA p.r.n., Eliquis 2.5 b.i.d., 20 mg daily, Singulair 10 mg daily, Daliresp 500 mcg daily, metoprolol 50 mg p.o. daily, Flomax 0.4 daily, tramadol 50 mg p.o. t.i.d. p.r.n. REVIEW OF SYSTEMS: As per HPI, otherwise negative 12-point review of the systems. ALLERGIES: The patient has no known allergies. The patient in the ER, was started on diltiazem 100 mg and normal saline at 10 mL an hour. He also i s on IV fluids 100 mL an hour, metoprolol 50 mg p.o. daily. He received Eliquis 2.5 mg b.i.d. PHYSICAL EXAMINATION: GENERAL: The patient appears to be nontoxic, but in significant pain, crying in pain. HEENT: Head is normocephalic, atraumatic. Conjunctivae are pale. Sclerae are anicteric. Pupils ar e equally reactive to light and accommodation. Examination of the oropharynx reveals no oropharyngea l lesions. NECK: Supple. There is no adenopathy, though no jugular venous distention noted. LUNGS: Clear to percussion and auscultation without any rales, wheezing or rhonchi. CARDIOVASCULAR: Reveals S1 and S2, the patient is tachycardic. ABDOMEN: Soft. There is diffuse tenderness in both lower quadrants without rebound, rigidity or gua rding. RECTAL: Deferred. EXTREMITIES: Reveals them to be normal percussion, normal to inspection, negative for calf tendernes s. Negative for any swelling. NEUROLOGIC: Reveals no focal deficits. BACK: Reveals shingles involving the T7-T10 dermatomes in the back that is probably radiating anteri bernard in a fashion causing the significant pain. VITAL SIGNS: Reveal a T-max of 98.4, pulse of 140, respirations 15, blood pressure 126/80, pulse ox is 97% on room air. LABORATORY DATA: Reveals a white count of 7.7, hemoglobin 13.2, hematocrit , platelet count 208 ,000. Sodium is 136, K is 3.5, chloride is 103, CO2 is 24, BUN is 19, creatinine 1.6, sugar is 88. EKG shows sinus tachycardia. CAT scan of the abdomen shows hepatic hypodense lesion, a 5 mm right re nal cyst, diverticulosis without diverticulitis. ASSESSMENT NOTES AND PLAN: A 76-year-old male with history of stage IV lung cancer, currently Opdivo , history of DVT and permanent pacemaker on Eliquis, is admitted with progressive abdominal pain, chuck k pain and now with shingles, is persistently tachycardic and he is going to be admitted to the unit for his current problems. The patient is going to be getting a Cardizem drip in the unit to bring do wn his heart rate and then the patient also be gingerly hydrated. For the loose bowel movements, the patient is going to have Clostridium difficile sent out on the stools. The patient has chronic kidn ey disease with some superimposed acute kidney injury. The patient will be getting acyclovir based o n his kidney dysfunction. Slightly hypokalemic, we will repeat the BMP in the a.m. to make sure the potassium levels are same. The patient was replaced in the ER. We will continue to monitor his elec trolytes and replete as needed. At this point in time, we will continue to monitor him very well, ve ry carefully and he is already on acyclovir for his shingles. We will get ID input as well, watch hi m for any bumps in the troponin and continue IVs as dictated by his clinical status. Detailed discus suzanna with the patient and for more than 40 minutes trying to coordinate all the things that nejose d to be . Case discussed in detail with the optimization specialist and then the other attendings involved in his care. ID and pulmonary have also been consulted. Uziel Doty MD cc: [id number] TT: 05/03/2017 00:09:56 kristi
[2017-05-03 07:06] LABS: ADD MANUAL DIFF? NO
[2017-05-03 07:14] LABS: BASO # 0.05 K/mm3 (0.0-2.0); BASO % 0.7 % (0.0-3.0); EOS # 0.2 (0.0-0.7); EOS % 2.4 % (1.5-5.0); LYMPH # 1.4 (1.2-3.4); LYMPH % 21.3 % (22.0-35.0); MEAN CORPUSCULAR HEMOGLOBIN 30.2 pg (25.0-35.0); MEAN CORPUSCULAR HGB CONC 32.4 g/dl (31.0-37.0); MEAN PLATELET VOLUME 9.1 fl (7.0-11.0); MONO % 15.6 % (1.0-6.0); PLATELET COUNT 195 10^3/uL (120.0-450.0); RED CELL DISTRIBUTION WIDTH 16.4 % (11.5-14.5); WHITE BLOOD COUNT 6.7 10^3/ul (4.5-11.0)
[2017-05-03 07:24] LABS: CALCIUM 8.8 mg/dL (8.4-10.5); MAGNESIUM 1.7 mg/dL (1.7-2.2); PHOSPHOROUS 2.7 mg/dL (2.5-4.5); POTASSIUM 3.4 mmol/L (3.6-5.0)
[2017-05-03] MEDS: diltiaZEM 180 mg/24 Hours CD Cap PO SCH (09:50)
[2017-05-03] MEDS: Cefepime 1gm in NS 100ml 1 GM/100 ML BAG IVPB SCH ×2 (09:50→22:10)
[2017-05-03] MEDS: Sodium Chloride 0.9% 1,000 ML IV SCH (09:52)
[2017-05-03] MEDS: Calamine-Zinc Oxide Lotion (120 ml) TOP SCH ×4 (09:58→22:06)
--- NOTE | 2017-05-03 12:05 | CP.PCM.PN ---
Subjective - Date & Time of Evaluation Date of Evaluation: 05/03/17 Time of Evaluation: 08:30 - Subjective Subjective: Still with some back pain and pruritus although a little less. Objective - Vital Signs/Intake and Output Vital Signs (last 24 hours): Temp Pulse Resp BP Pulse Ox 98.4 F 125 H 18 167/92 H 89 L 05/03/17 08:00 05/03/17 11:17 05/03/17 11:17 05/03/17 11:00 05/03/17 11:00 Intake and Output: 05/03/17 05/03/17 06:59 18:59 Intake Total 1500 Output Total 303 Balance 1197 - Medications Medications: Current Medications Apixaban (Eliquis) 2.5 mg PO BID LEONOR PRN Reason: Protocol Last Admin: 05/03/17 09:49 Dose: 2.5 mg Atorvastatin Calcium (Lipitor) 20 mg PO DAILY [facility] Last Admin: 05/03/17 09:49 Dose: 20 mg Calamine (Calamine Lotion) 0 ml TOP QID [facility] Last Admin: 05/03/17 09:58 Dose: 120 ml Diltiazem HCl (Cardizem Cd) 180 mg PO DAILY [facility] Last Admin: 05/03/17 09:50 Dose: 180 mg Sodium Chloride (Sodium Chloride 0.9%) 1,000 mls @ 100 mls/hr IV .Q10H [facility] Last Admin: 05/03/17 09:52 Dose: 100 mls/hr Acyclovir 800 mg/ Sodium (Chloride) 100 mls @ 100 mls/hr IV Q12 LEONOR PRN Reason: Protocol Last Admin: 05/03/17 09:50 Dose: 100 mls/hr Doxycycline Hyclate 100 mg/ (Sodium Chloride) 100 mls @ 100 mls/hr IVPB Q12 LEONOR PRN Reason: Protocol Stop: 05/10/17 10:01 Last Admin: 05/03/17 09:51 Dose: 100 mls/hr Cefepime HCl (Maxipime 1gm) 1 gm in 100 mls @ 100 mls/hr IVPB Q12 LEONOR PRN Reason: Protocol Stop: 05/10/17 10:01 Last Admin: 05/03/17 09:50 Dose: 100 mls/hr Metoprolol Tartrate (Lopressor) 50 mg PO BRKDIN [facility] Last Admin: 05/03/17 09:50 Dose: 50 mg Metoprolol Tartrate (Lopressor) 5 mg IVP Q4 PRN PRN Reason: Heart rate Last Admin: 05/02/17 03:15 Dose: 5 mg Oxycodone HCl (Oxycodone Immediate Release Tab) 30 mg PO Q6 PRN PRN Reason: Pain, severe (8-10) Prednisone (Prednisone Tab) 40 mg PO DAILY [facility] Last Admin: 05/03/17 09:50 Dose: 40 mg Tamsulosin HCl (Flomax) 0.4 mg PO DAILY [facility] Last Admin: 05/03/17 09:49 Dose: 0.4 mg - Labs Labs: 05/03/17 06:40 05/03/17 06:40 PT 12.0 Seconds (9.9-11.8) H 05/01/17 12:10 INR 1.11 (0.93-1.08) H 05/01/17 12:10 APTT 28.6 Seconds (23.7-30.8) 05/01/17 12:10 - Constitutional Appears: Non-toxic, No Acute Distress - Head Exam Head Exam: NORMAL INSPECTION - ENT Exam ENT Exam: Mucous Membranes Moist - Neck Exam Neck Exam: absent: Lymphadenopathy, Meningismus - Respiratory Exam Respiratory Exam: Decreased Breath Sounds - Cardiovascular Exam Cardiovascular Exam: +S1, +S2 - GI/Abdominal Exam GI & Abdominal Exam: Soft. absent: Tenderness - Extremities Exam Additional comments: papulovasicular rash on the left thoracic area dorsal side Assessment and Plan - Assessment and Plan (Free Text) Plan: Assessment consdier herpes zoster of the posterior thoracic area, following a few thoracic dermatomes in a patient with lung cancer on chemotherapy R/O right sided healthcare-associated pneumonia cardiac arrhythmia S/P peramanent pacemaker placement squamous cell lung cancer on chemotherapy S/P port placement on the chest HTN dyslipidemia history of DVT acute on chronic renal failure Plan continue renally-adjusted Acyclovir and will continue to monitor clinical response; will check VZV IgG; contionue airborne and contact precautions for now started on Doxycycline and cefepime day 2 pending blood cx, PCT; reviewed CXR which shows opacity on the right perihilar area will continue to follow clinically
[2017-05-03] MEDS ORDERED: Potassium Chloride 20 mEq ER Tab PO ONE (14:19)
--- NOTE | 2017-05-03 14:43 | PN ---
DATE: 05/03/2017 REASON FOR CONSULTATION: AFib with rapid ventricular rate and now, patient converted to normal sinus . BRIEF CLINICAL HISTORY: This is a 76-year-old male with a past medical history significant for lung CA, hypertension, hyperlipidemia, pacemaker secondary to multiple pauses, bradycardia, history of DVT , was found to be rash, shingles, sent to the ER, found to be in AFib with rapid ventricular rate. T he patient started IV Cardizem and given digoxin. The patient converted to normal sinus. Currently, patient is in normal sinus, rate controlled on p.o. Cardizem, on Cardizem. Denies any chest pain, s hortness of breath, any palpitation. History of sick sinus syndrome, status post permanent pacemaker . PHYSICAL EXAMINATION: VITAL SIGNS: Temperature afebrile, heart rate 99, blood pressure 149/85. HEENT: PERRLA. Extraocular muscles intact. NECK: Supple. No carotid bruits. No thyromegaly. CHEST: Clear to auscultation. HEART: S1, S2 regular. ABDOMEN: Soft. EXTREMITIES: Clubbing, cyanosis negative. BLOOD WORKUP: WBC 6.7, hemoglobin 12, hematocrit 37.0, platelet count 195. Chemistry shows sodium 1 40, potassium 3.4, chloride 110, carbon dioxide 21, anion gap of 12, BUN 15, creatinine 1.5. IMPRESSION: Acute kidney injury, resolving, hypokalemia, atrial fibrillation with rapid rate, new o nset, converted to normal sinus, history of lung cancer, status post chemo. The patient had recent e cho in 03/2014, ejection fraction 35%, mild to moderately dilated left ventricle, moderately decrease d left ventricular function, moderate tricuspid regurgitation, moderate mitral regurgitation, right v entricular systolic pressure 67, as mentioned mitral regurgitation, tricuspid regurgitation, new onse t atrial fibrillation, converted to normal sinus, history of cardiac catheterization twice 03/25/2013 and repeat in ____, nonobstructive coronary artery disease, history of permanent pacemaker dated 0 04/12/2016 which is MRI safe. Means, if the patient needs MRI, he can have MRI in the future. Pacema ker was placed because of sick sinus syndrome and multiple pauses, 5 seconds. The patient yesterday underwent VQ scan and was found to be low probability, history of deep vein thrombosis, on Eliquis. RECOMMENDATION: Continue Cardizem. Continue beta zan. Will give 1 dose of digoxin, is converte d to normal sinus now. Continue Cardizem-CD 180 mg and if the patient remains elevated, we will cano ge to Cardizem 240 from tomorrow, give extra dose tonight at 60 mg tonight. Continue apixaban, cathie nue 50 mg of beta zan. We will follow with you. Thank you, Dr. Light, for providing us the opportunity in taking care of the patient. We will supplement potassium. The patient is on low dose, renal adjusted and age adjusted dose of Eliquis. Will get an EKG to document normal sinus. Ramon Anne MD cc: [id number] TT: 05/03/2017 14:42:52 Confirmation # [id number] Dictation # [id number] en
--- NOTE | 2017-05-03 14:56 | PN ---
DATE: 05/03/2017 REFERRING PHYSICIAN: Dr. Jim Light. SUBJECTIVE: He is lying in the bed, head at 45 degrees. Night was unremarkable. Feels much better. No more tachycardia and tachypnea. Still having back pain and itching at the zoster area. Cough f eels better. No nausea, no vomiting, no diarrhea, no leg pain or leg swelling. OBJECTIVE: GENERAL: No acute distress. VITAL SIGNS: Temperature is 98, heart rate is 99, respiratory rate is 20, blood pressure 149/85, pul se ox 90% on room air. HEENT: Moist mucous membrane. Crowded airway. Mallampati score is 4. NECK: Supple. No JVD. LUNGS: Has prolonged expiratory phase with expiratory rhonchi and few wheezing. HEART: S1 and S2. ABDOMEN: Soft and nontender. No organomegaly. EXTREMITIES: Not much edema. Left mid back has a zoster lesion. No new lesion observed. NEUROLOGIC: Sleepy, arousable, follows simple commands. MEDICATIONS: He is on acyclovir 800 mg q. 12 hours, calamine lotion to the affected area q.i.d., Car dizem 380 mg daily, doxycycline 100 mg twice a day, Eliquis 2.5 mg twice a day, Flomax 0.4 mg daily, Lipitor 20 mg daily, metoprolol tartrate 5 mg IV q. 4 hours p.r.n., metoprolol tartrate p.o. 50 mg tw ice a day, cefepime 1 g IV q. 12 hours, oxycodone immediate release 30 mg q. 6 hours p.r.n., predniso ne 40 mg daily, IV fluid normal saline 100 mL per hour. LABORATORY DATA: Shows hemoglobin ____, hematocrit ____, platelet is 195. Sodium 140, potassium 3.4 , chloride 110, bicarbonate 21, BUN 15, creatinine 1.5, glucose is 77. ____ calcium is 8.8, phosphor us is 2.7, magnesium is 1.7. Blood culture, urine culture, there is no growth. Nares MRSA is nondet ected. IMPRESSION AND PLAN: Lung cancer, been on radiation and chemotherapy, chronic obstructive lung disea se, history of deep venous thrombosis, developed shingles, cardiac arrhythmia, history of deep venous thrombosis, may have a component of sleep apnea syndrome. I spoke to friends at bedside. Spoke to nursing staff to get patient out of bed to chair. Continue gastric prophylaxis, deep venous thrombos is prophylaxis. Continue prednisone and attempt to decrease his neuropathy from shingles. Supplemen t oxygen, nebulizer treatment. Sleep apnea precautions. Careful with sedation. Thank you and will follow with you. Ramon Delgado MD cc: [id number] TT: 05/03/2017 14:56:07 Confirmation # [id number] Dictation # [id number] daniel
--- NOTE | 2017-05-03 15:57 | CARD ---
APPROVED REPORT EKG Measurement Heart [id number] <Conclusion> Normal sinus rhythm Biatrial enlargement Nonspecific ST and T wave abnormality Prolonged QT Abnormal ECG
--- NOTE | 2017-05-03 22:00 | PN ---
DATE: 05/03/[address] Doty. SUBJECTIVE: The patient is a 76-year-old male seen lying awake in bed with contact precautions, heal th precautions, after herpes zoster diagnosed to his left T7-8-9 distribution of his chest wall with consideration for tachybrady syndrome, worsening as the patient has history of this in the past with the dysrhythmia qualifying him for the intensive care unit evaluation. He also suffers metastatic st age IV squamous cell carcinoma of the lung, treated with Opdivo. He is resting comfortably now witho ut complaint with antibiotics, antivirals being given. He also continues on Eliquis as the patient w as unable to continue on Coumadin due to dosage confusion. He is denying any pain at this point. PHYSICAL EXAMINATION: VITAL SIGNS: Temperature 97.5, pulse 88, respirations 20, blood pressure 165/99, pulse ox 96%. HEENT: Unremarkable. NECK: Supple. HEART: Tachy rate, occasional ectopic beat. LUNGS: Clear. ABDOMEN: Soft. EXTREMITIES: No edema. SKIN: Warm and dry except for flowering vesicular changes to the T7-8-9-10 dermatomes on the left si de of his back and chest, not crossing the midline. NEUROLOGIC: He is awake, alert and oriented. LABORATORY DATA: The patient's labs were done. White blood cell count of 6.7, hemoglobin 12.0, jesus tocrit 37.0, platelet count of 195,000 with a chem metabolic panel showing a potassium of 3.4, creati nine 1.5. Otherwise, normal chem metabolic panel. Procalcitonin level 52.3. TSH of 0.2. The patient had an EKG done earlier today. It was read as normal sinus rhythm, biatrial enlargement, nonspecific ST-T wave abnormality, prolonged QT, abnormal EKG. ASSESSMENT: Herpes zoster, left chest, cardiac dysrhythmia, status post pacer, history of squamous c ell carcinoma with port, history of deep venous thrombosis on Eliquis, hypertension, dyslipidemia, ta chybrady syndrome with pacer. PLAN: The patient is to continue present medical regimen with treatment as per Dr. Delgado, Dr. Danyel marroquin and Dr. Anne with transfer to the telemetry floor as he has been stabilized in the intensive ca re unit. We will continue antibiotics as per Dr. Bharti with acyclovir IV, along with doxycycline wit h Eliquis continuing, prednisone, cefepime, digoxin, metoprolol and diltiazem. We will monitor clini sherry and with labs. Prognosis for this patient is guarded. Jim Light MD cc: [id number] TT: 05/03/2017 21:59:43 Confirmation # [id number] Dictation # [id number] pool
[2017-05-04 07:14] LABS: ADD MANUAL DIFF? NO
[2017-05-04 07:29] LABS: BASO # 0.01 K/mm3 (0.0-2.0); BASO % 0.2 % (0.0-3.0); GRAN # 4.24 (1.4-6.5); GRAN % 68.7 % (50.0-68.0); HEMATOCRIT 35.8 % (42.0-52.0); LYMPH % 16.4 % (22.0-35.0); MEAN CORPUSCULAR HEMOGLOBIN 30.3 pg (25.0-35.0); MEAN PLATELET VOLUME 9.1 fl (7.0-11.0); MONO # 0.9 (0.1-0.6); MONO % 14.7 % (1.0-6.0); PLATELET COUNT 193 10^3/uL (120.0-450.0); RED CELL DISTRIBUTION WIDTH 16.3 % (11.5-14.5); WHITE BLOOD COUNT 6.2 10^3/ul (4.5-11.0)
[2017-05-04 07:41] LABS: ALB/GLOB RATIO 1.1 (1.1-1.8); BILIRUBIN,TOTAL 0.6 mg/dL (0.2-1.3); CALCIUM 9.1 mg/dL (8.4-10.5); POTASSIUM 3.6 mmol/L (3.6-5.0)
[2017-05-04] MEDS: Cefepime 1gm in NS 100ml 1 GM/100 ML BAG IVPB SCH ×2 (09:09→21:15)
[2017-05-04] MEDS: Calamine-Zinc Oxide Lotion (120 ml) TOP SCH ×4 (09:53→21:28)
[2017-05-04] MEDS: diltiaZEM 240 mg/24 Hours CD Cap PO SCH (09:53)
--- NOTE | 2017-05-04 15:52 | PN ---
DATE: 05/04/2017 The patient is in bed in no acute distress, nontoxic. The patient was seen in the ICU 128, bed 2. PHYSICAL EXAMINATION: VITAL SIGNS: On exam, temperature 97, blood pressure is 158/80, respiratory rate of 17, heart rate of 77. HEENT: Unremarkable. NECK: Supple. LUNGS: Decreased breath sounds. HEART: Normal S1, S2. ABDOMEN: Soft, nontender. LABORATORY EXAMINATION: Reveals a white count of 6.2, hemoglobin of 11, platelets of 193. Chemistri es reveal the BUN of 17, creatinine of 1.4. Procalcitonin is 52. Urinalysis is noted and WBCs 20-25 . Chemistries reveal the blood cultures to be negative. Urine cultures no growth. Nasal MRSA is ne gative. Review of orders reveals the patient to be on doxycycline and cefepime and acyclovir and prednisone. The patient's chest x-ray from the is noted and no change from previous x-ray. Dr. Delgado's no te is reviewed. ASSESSMENT AND PLAN: A 76-year-old male who was seen early this morning in 128, bed 2. Still having some back pain and ____ now patient has herpes zoster of posterior thoracic area, which appears to b e improving, thoracic dermatome in a patient who has lung cancer status post chemotherapy and right-s ided healthcare-associated pneumonia, cardiac arrhythmia, pacemaker placement, squamous cell lung can cer and status post port placement on the chest and hypertensive and a history of deep venous thrombo sis. Currently on renally adjusted acyclovir and lesion still active and on doxycycline and cefepime day #3. Elevated procalcitonin. Chest x-ray is noted. We will discontinue the doxycycline and cef epime in the next few days and continue with the intravenous acyclovir with the patient's renal funct ion at GFR of 59, adjusted dose of acyclovir. We will change the doxycycline to p.o. Lee Vera MD cc: 350 TT: 05/04/2017 15:50:31 Confirmation # [id number] Dictation # [id number] sn
--- NOTE | 2017-05-04 18:44 | PN ---
DATE: 05/04/2017 REFERRING PHYSICIAN: Dr. Jim Light. SUBJECTIVE: The patient is still in the intensive care unit, lying in the bed, head at 45 degrees, h aving dinner. No headache, no rhinitis. Still tachycardic. Short of breath with exertion. No ches t pain. Still having back pain, which is improved. No abdominal pain, no nausea, no vomiting, diarr hea. No leg pain or leg swelling. OBJECTIVE: GENERAL: No acute distress. VITAL SIGNS: Temperature is 98, heart rate is 99, respiratory rate is 22, blood pressure 147/100, pu lse ox 96% on room air. HEENT: Moist mucous membrane. Crowded airway. Mallampati score is 4. NECK: Supple. No JVD. LUNGS: Has with a few rhonchi. HEART: S1 and S2. Tachycardic. ABDOMEN: Soft, nontender. No organomegaly. EXTREMITIES: Not much edema. SKIN: Upper back on left side has a zoster rash which has started healing. NEUROLOGIC: Awake, alert, follows simple commands. MEDICATIONS: He is on acyclovir 800 mg twice a day, calamine lotion at affected area q.i.d., Cardize m-CD 240 mg daily, doxycycline 100 mg twice a day, Eliquis 2.5 mg twice a day, Flomax 0.4 mg daily, L ipitor 20 mg daily, metoprolol tartrate 5 mg q. 4 hours p.r.n., metoprolol tartrate 50 mg also twice a day, around the clock, cefepime is 1 g IV q. 12 hours, oxycodone immediate release 30 mg q. 6 hours p.r.n., prednisone 40 mg daily. LABORATORY DATA: Shows hemoglobin 11.8, hematocrit 35.8, WBC 6.2, platelet is 193. Sodium 138, pota ssium 3.6, chloride , bicarbonate 22, BUN 17, creatinine 1.4, glucose is 93, calcium is 9.1. T 37, ALT 27, alkaline phosphatase is 67. Albumin is 3.2. Procalcitonin is 52. Last chest x-ray do ne on 05/01 shows persistent right perihilar opacity and infiltrate. IMPRESSION AND PLAN: Lung cancer, status post radiation and chemotherapy, chronic obstructive lung d isease, pneumonia, history of deep venous thrombosis, has a shingles, cardiac arrhythmia, may have a component of sleep apnea syndrome. Case discussed with the family at bedside. All their questions a nswered. Keep head elevated at 45 degrees. Pain medication, prednisone, antibiotics as per infectio us diseases. Avoid sedation. Sleep apnea precautions. Continue anticoagulation. Gastric prophylax is. Out of bed to chair. Follow up labs in the morning. Thank you and will follow with you. Ramon Delgado MD cc: 336 TT: 05/04/2017 18:42:52 Confirmation # [id number] Dictation # [id number] daniel
--- NOTE | 2017-05-04 18:58 | PN ---
DATE: 05/04/[address] Doty. SUBJECTIVE: The patient is a 76-year-old male whom Dr. Doty has been following for squamous cell CA of the lung, history of DVT. He is now admitted to the intensive care unit for tachydysrhythmia. Also, with recently diagnosed shingles to his left lateral chest. With this, the patient is feeling better. He is now to be transferred to the telemetry floor once a bed is available; however, he rep orts he was getting a liquid diet, we will advance his diet. OBJECTIVE: PHYSICAL EXAMINATION: VITAL SIGNS: Temperature was 97.8, pulse of 93, respirations 26, blood pressure 166/88 with a pulse ox of 96%. HEENT: Unremarkable. NECK: Supple. HEART: Regular rate, occasional ectopic beat. LUNGS: Clear. ABDOMEN: Soft. EXTREMITIES: No edema. SKIN: Warm, dry with vesicular changes to the T7-8-9-10 dermatomes on the left side of his back. LABORATORY DATA: The patient's labs were done. White blood cell count 6.2, hemoglobin 11.8, hematoc rit of 35.8, platelet count of 193,000. Chem metabolic panel showing normal chem metabolic panel. P rocalcitonin of 52.3 yesterday. ASSESSMENT: Herpes zoster, left chest, cardiac dysrhythmia, status post pacer, history of squamous c ell carcinoma of the lung, history of deep venous thrombosis on Eliquis, hypertension, tachybrady sy ndrome with pacer. PLAN: To transfer to the telemetry floor once a bed is available. We will monitor clinically and ad salmon his diet. Jim Light MD cc: 411 TT: 05/04/2017 18:57:45 Confirmation # [id number] Dictation # [id number] pool
[2017-05-04] MEDS: Metoprolol 1 mg/ml Inj IVP PRN (21:30)
[2017-05-05] MEDS: Metoprolol 1 mg/ml Inj IVP PRN (05:15)
[2017-05-05 06:30] LABS: HEMATOCRIT 36.8 % (42.0-52.0); MEAN CELL VOLUME 92.2 fL (80.0-105.0); MEAN CORPUSCULAR HEMOGLOBIN 30.8 pg (25.0-35.0); MEAN CORPUSCULAR HGB CONC 33.4 g/dl (31.0-37.0); MEAN PLATELET VOLUME 9.3 fl (7.0-11.0); WHITE BLOOD COUNT 8.4 10^3/ul (4.5-11.0)
[2017-05-05 06:32] LABS: BILIRUBIN,TOTAL 0.6 mg/dL (0.2-1.3); POTASSIUM 3.7 mmol/L (3.6-5.0); TOTAL PROTEIN 6.1 g/dL (5.8-8.3)
[2017-05-05] MEDS: Calamine-Zinc Oxide Lotion (120 ml) TOP SCH ×4 (09:35→21:32)
[2017-05-05] MEDS: Cefepime 1gm in NS 100ml 1 GM/100 ML BAG IVPB SCH ×2 (09:38→21:33)
[2017-05-05] MEDS: diltiaZEM 240 mg/24 Hours CD Cap PO SCH (09:58)
--- NOTE | 2017-05-05 10:11 | RAD ---
HISTORY: infiltrate COMPARISON: 05/01/2017 FINDINGS: LUNGS: Partial resolution of right perihilar opacity compared to prior examination. There has been improvement. There is no new opacity elsewhere. PLEURA: No significant pleural effusion identified, no pneumothorax apparent. CARDIOVASCULAR: Normal heart size. Permanent pacemaker. No congestive change. Right central venous infusion port. OSSEOUS STRUCTURES: No significant abnormalities. VISUALIZED UPPER ABDOMEN: Normal. OTHER FINDINGS: None. IMPRESSION: Resolving right perihilar opacity.
--- NOTE | 2017-05-05 10:11 | PN ---
DATE: 05/04/2017 REASON FOR CONSULTATION AND FOLLOWUP: AFib with rapid ventricular rate and now patient converted to normal sinus. BRIEF CLINICAL HISTORY: This is a 76-year-old male with past medical history significant for lung CA , hypertension, hyperlipidemia, pacemaker ____ into multiple pauses, bradycardia, history of DVT. Ad mitted with shingles, found to be in AFib with rapid ventricular rate. The patient was given Cardize m. The patient converted to normal sinus. The patient is in normal sinus, on p.o. Cardizem. Denies any chest pain, shortness of breath, any palpitation. PHYSICAL EXAMINATION: As follows: VITAL SIGNS: Temperature afebrile, heart rate 79, blood pressure 139/93. HEENT: PERRLA, intact. NECK: Supple. No carotid bruits. No thyromegaly. CHEST: Clear to auscultation. HEART: S1, S2 regular. ABDOMEN: Soft. EXTREMITIES: Clubbing and cyanosis negative. BLOOD WORKUP: As follows: WBC ____, hemoglobin ____, hematocrit 35.8, platelet count 193. Chemistr y shows sodium 138, potassium 3.6, chloride of 108, carbon dioxide ____, anion gap of 12, BUN 17, cre atinine ____. Troponin ____ 0.2. Creatinine ____. EKG shows normal sinus, biatrial enlargement. IMPRESSION: Paroxysmal atrial fibrillation converted to normal sinus; ____ acute kidney injury impro saniya. Most recent echo, ejection fraction 35 with mild to moderately dilated left ventricle, moderate ly decreased left ventricular function, moderate tricuspid regurgitation, moderate mitral regurgitati on, right ventricular systolic pressure 67 as mentioned, mitral regurgitation and tricuspid regurgita tion, new onset atrial fibrillation converted to normal sinus. History of cardiac catheterization tw ice, 03/25/2013 and repeat catheterization in 03/2015, nonobstructive coronary artery disease. Histo ry of permanent pacemaker 04/12/2016, MRI safe. It means that patient can have MRIs ____. Pacemaker was placed because of the sick sinus syndrome, multiple pauses. The patient yesterday, the V/Q scan there was found to be low probability, history of deep venous thrombosis, on Eliquis. RECOMMENDATION: Continue Eliquis, continue Cardizem, continue beta zan. We will follow with you . History of shingles again and patient is normal sinus but there is a DVT. Continue Eliquis. We w ill follow with you. Thank you, Dr. Light for providing the opportunity in taking care of the patient. We will foll ow with you. Ramon Anne MD cc: 305 TT: 05/04/2017 15:05:59 Confirmation # [id number] Dictation # [id number] sn
--- NOTE | 2017-05-05 10:22 | PN ---
DATE: 05/05/2017 The patient seen earlier, in no acute distress, nontoxic. PHYSICAL EXAMINATION: VITAL SIGNS: Temperature is 98, blood pressure is 120/60, respiratory rate of 16. HEENT: Unremarkable. NECK: Supple. LUNGS: Have decreased breath sounds. HEART: Normal S1, S2. ABDOMEN: Soft. LABORATORY DATA: Reveals a white count of 8.4, hemoglobin of 12 and platelets of 202. BUN of 24, cr eatinine of 1.5. Procalcitonin is 52. Urinalysis is noted. Chest x-ray is pending. Review of the orders reveals the patient to be on p.o. doxycycline and IV cefepime and IV acyclovir. Dr. Jim Light's note is reviewed. Dr. Delgado's note is reviewed. ASSESSMENT AND PLAN: This is a 76-year-old male seen earlier this morning in the intensive care unit , room 128, bed 2. His pain is improved. He has a history of lung cancer, status post chemotherapy, and right-sided healthcare-associated pneumonia; cardiac cancer, pacemaker placement; squamous cell lung cancer, status post valve placement in the chest, and the patient is hypertensive and history of deep venous thrombosis. Currently on renally adjusted acyclovir, on doxycycline and cefepime, day # 4. The zoster is resolved and dried lesions. May discontinue the isolation. The patient's creatini ne is at 1.5. May be able to switch the acyclovir p.o. with the next 24 hours, and discontinue the c efepime and doxycycline in the next 24 or 48 hours. Lee Vera MD cc: 350 TT: 05/05/2017 10:21:44 Confirmation # [id number] Dictation # [id number] mn
--- NOTE | 2017-05-05 13:45 | PN ---
DATE: 05/05/2017 ADDENDUM This is a continuation of his previous dictation, as the dictation was cut off due to a computer erro r, incompetence of the computer system. 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 Now the patient is reporting discomfort to his left chest and back area where the shingles are with his tachydysrhythmia being followed by Dr. nAne with downgrade to remote teleme try versus medical floor as per cardiology. He is otherwise in no acute distress. OBJECTIVE: PHYSICAL EXAMINATION: VITAL SIGNS: Temperature 98, pulse 83, respirations 18, blood pressure 143/85, pulse ox 95%. HEENT: Unremarkable. NECK: Supple. HEART: Regular rate, occasional ectopic beat with a pacer. LUNGS: Clear. ABDOMEN: Soft, nontender. EXTREMITIES: No edema. SKIN: Warm, dry and clear except for drying shingles, vesicular changes to the left chest and back. The patient had a chest x-ray done showing resolving right perihilar opacity done today. The patient had an EKG done 2 days prior. The EKG was read as prolonged QT, biatrial enlargement, nonspecific S T-T wave abnormality, normal sinus rhythm. LABORATORY DATA: The patient's labs were done. White blood cell count of 8.4, hemoglobin 12.3, jesus tocrit 36.8, platelet count of 202,000 with a chem metabolic panel showing a BUN of 24, creatinine 1. 5. Otherwise, normal chem metabolic panel. ASSESSMENT: Herpes zoster on the left chest, cardiac dysrhythmia, status post pacer, history of squa mous cell cancer of the lung, deep venous thrombosis on Eliquis, hypertension, tachybrady syndrome. PLAN: To be downgraded to remote telemetry versus medical floor as per his research instrumentation technician, Dr. Anne, w ith continuation of his antibiotic with discharge home once the patient is stable. We will monitor c linically and with labs. Jim Light MD cc: 411 TT: 05/05/2017 13:44:36 Confirmation # [id number] Dictation # [id number] rn
--- NOTE | 2017-05-05 15:39 | PN ---
DATE: 05/05/2017 REASON FOR CONSULTATION AND FOLLOWUP: AFib with rapid ventricular rate, converted to normal sinus; s hingles. Also, history of shingles on the back. BRIEF CLINICAL HISTORY: A 76-year-old male with a past medical history significant for lung CA, hype rtension, hyperlipidemia, pacemaker status post after having patient admitted with multiple pauses, t achybrady syndrome, status post a history of DVT. Admitted with shingles. Found to be in AFib with rapid ventricular rate. The patient started on Cardizem, converted to normal sinus. Since then, pat ient is in normal sinus. Denies any chest pain, shortness of breath, any palpitation. PHYSICAL EXAMINATION: As follows: VITAL SIGNS: Temperature afebrile, heart rate 83, blood pressure 121/____. HEENT: PERRLA, intact. NECK: Supple. No carotid bruits. No thyromegaly. LUNGS: Clear to auscultation. HEART: S1, S2 regular. ABDOMEN: Soft. EXTREMITIES: Clubbing and cyanosis negative. BLOOD WORKUP: As follows: WBC 8.4, hemoglobin 12.53, hematocrit 36.8, platelet count 202. Chemistr y shows sodium 130, potassium 3.7, chloride 105, carbon dioxide 25, anion gap of 12, BUN 24, creatini ne 1.5. IMPRESSION: ____ paroxysmal atrial fibrillation converted to normal sinus, history of atrial fibrill ation paroxysmal, acute kidney injury improving. Recent echo, ejection fraction 35%, moderately dila kareen ventricle, moderately decreased left ventricular function, moderate tricuspid regurgitation, mode rate mitral regurgitation, right ventricular systolic pressure of ____ consistent with moderate pulmo nary hypertension. History of cardiac catheterization twice 03/25/2013 and repeat catheterization , nonobstructive coronary artery disease, history of permanent pacemaker on 04/12/2016 with ____ to see if patient can have MRI. Sick sinus syndrome, history of lung cancer, history of V/Q scan ye sterday with a low probability, history of deep vein thrombosis, on Eliquis. RECOMMENDATION: Continue Eliquis. Continue Cardizem-CD. Continue metoprolol. If remains stable, we will transfer to med/surg floor. We will follow with you. Thank you, Dr. Light for providing us the opportunity in taking care of the patient. The patie nt has shingles to the back. We will follow with you. Ramon Anne MD cc: 305 TT: 05/05/2017 15:38:49 Confirmation # [id number] Dictation # [id number] sn
[2017-05-05] MEDS: Sucralfate 1 gm/10 ml Oral Susp UD PO SCH (18:14)
[2017-05-05 18:37] VITALS: O2SAT 97
--- NOTE | 2017-05-05 19:38 | PN ---
DATE: 05/05/2017 REFERRING PHYSICIAN: Dr. Jim Light. SUBJECTIVE: The patient is out of bed to chair. Daughter nurse is present at the bedside. Th e patient feels better. Has paroxysmal atrial fibrillation, kind of going in and out of atrial fibri llation. Denied any palpitations. No cough, no sputum production. No nausea, vomiting or diarrhea. No leg pain or leg swelling. The patient did have a sleep study as an outpatient and will follow o n it. OBJECTIVE: GENERAL: In no acute distress. VITAL SIGNS: Temperature is 98, heart rate is 114, respiratory rate is 20, blood pressure 134/64, pu lse ox 93% on nasal cannula. HEENT: Moist mucous membranes. Crowded airway. Mallampati score is 4. NECK: Supple. No JVD. LUNGS: Has a few scattered rhonchi. HEART: S1, S2 irregular. ABDOMEN: Soft, nontender. No organomegaly. EXTREMITIES: No edema. NEUROLOGIC: Awake, alert, follows simple commands. MEDICATIONS: He is on acyclovir 800 mg q.12 hours, calamine lotion q.i.d., Carafate 1 gram twice a d ay, Cardizem-CD 240 mg daily, doxycycline 100 mg twice a day, Eliquis 2.5 mg twice a day, Flomax 0.4 mg daily, Lipitor 20 mg daily, metoprolol tartrate 50 mg twice a day, cefepime 1 g IV q.12 hours, oxy codone immediate release 30 mg q.6 hours p.r.n., Pepcid 20 mg daily, prednisone 40 mg daily. LABORATORY DATA: Shows hemoglobin 12.3, hematocrit 36.8, WBC 8.4, platelet count is 202. Sodium 138 , potassium 3.7, chloride 105, bicarbonate is 25, BUN 24, creatinine 1.5, glucose 98, calcium is 9.0, AST 28, ALT 25, alkaline phosphatase is 68, albumin is 3.1. Chest x-ray done today shows resolving right perihilar infiltrate. IMPRESSION AND PLAN: Lung cancer, status post radiation and chemotherapy; chronic obstructive lung d isease, pneumonia, history of deep venous thrombosis, shingles, cardiac arrhythmia, may have a compon ent of sleep apnea syndrome. Will review the old records to his sleep study. I spoke to christine nicole's daughter at bedside. All their questions were answered. Spoke to the nursing staff. Has parox ysmal atrial fibrillation. Will continue bronchodilator. Keep head elevated at 45 degrees. Sleep a pnea precaution. Continue antibiotics. Gastric prophylaxis. Anticoagulation. Follow up labs in th e morning. Thank you and will follow with you. Ramon Delgado MD cc: 336 TT: 05/05/2017 19:38:07 Confirmation # [id number] Dictation # [id number] dn
[2017-05-06] MEDS: Sucralfate 1 gm/10 ml Oral Susp UD PO SCH (06:02)
[2017-05-06 09:33] VITALS: RESP 20; TEMP 98.3
[2017-05-06] MEDS: Cefepime 1gm in NS 100ml 1 GM/100 ML BAG IVPB SCH (10:02)
[2017-05-06] MEDS: diltiaZEM 240 mg/24 Hours CD Cap PO SCH (10:03)
[2017-05-06] MEDS: Calamine-Zinc Oxide Lotion (120 ml) TOP SCH (10:04)
[2017-05-06] MEDS ORDERED: oxyCODONE 15 mg Immediate Release Tab PO PRN (11:14)
[2017-05-06 12:08] VITALS: BP 147/68; PULSE 115
--- NOTE | 2017-05-06 12:19 | PN ---
DATE: 05/06/2017 The patient seen earlier this morning, is doing well. No nausea, no vomiting and is much better. PHYSICAL EXAMINATION: VITAL SIGNS: Temperature is 98, blood pressure is 120/70, respiratory rate of 16. HEENT: Unremarkable. NECK: Supple. LUNGS: Have decreased breath sounds. HEART: Normal S1, S2. ABDOMEN: Soft, nontender. LABORATORY DATA: Reveals the white count is 8.4 and hemoglobin of 12. BUN of 24, creatinine of 1.5. Procalcitonin is noted. Urinalysis is noted. Blood cultures negative. ASSESSMENT AND PLAN: This is a 76-year-old male seen earlier today. He is doing much better. He horowitz s a history of lung cancer status post chemotherapy, right-sided healthcare-associated pneumonia, pac emaker, cardiac condition, squamous cell lung cancer, status post valve placement, hypertensive and h istory of deep venous thrombosis. Currently, we will discontinue the cefepime and complete 3 more da ys of doxycycline and p.o. acyclovir to complete therapy as outpatient. Lee Vera MD cc: 350 TT: 05/06/2017 12:18:46 Confirmation # [id number] Dictation # [id number] kellee
--- NOTE | 2017-05-06 13:33 | PN ---
DATE: 05/06/2017 REASON FOR CONSULTATION: Afib with rapid ventricular rate, converted to normal sinus, history of brian ngles. BRIEF CLINICAL HISTORY: This 76-year-old male with past medical history of lung CA, hypertension, hy perlipidemia, admitted with shingles and afib with rapid ventricular rate, started Cardizem, converte d to normal sinus. Now patient is in floor. PHYSICAL EXAMINATION: VITAL SIGNS: Temperature afebrile, heart rate 115, blood pressure 145/68. HEENT: PERRLA. Extraocular muscles intact. NECK: Supple. No carotid bruits. No thyromegaly. CHEST: Clear to auscultation. HEART: S1, S2 regular. ABDOMEN: Soft. EXTREMITIES: Clubbing and cyanosis negative. LABORATORY DATA: Blood workup as follows: WBC 8.____, hemoglobin 12.3, hematocrit 36.9, platelet co unt 202. Chemistry shows sodium 130, potassium 3.7, chloride 105, carbon dioxide 25, anion gap of __ __, BUN 24, creatinine 1.5. IMPRESSION: Chronic renal insufficiency, sick sinus syndrome, tachybrady syndrome, status post perma nent pacemaker, MRI safe, history of paroxysmal atrial fibrillation, history of shingles, history of cardiac catheterization twice 2012 and repeat 2014, nonobstructive coronary artery disease, a history of deep venous thrombosis in the past, history of lung carcinoma, history of most recent VQ scan was low probability for repeat PE, recent echo shows ejection fraction 35%, moderate dilated ventricle, moderate decreased left ventricular function, moderate tricuspid regurgitation, moderate mitral regur gitation, right ventricular systolic pressure 67 consistent with moderate pulmonary hypertension. RECOMMENDATION: Paroxysmal atrial fibrillation. The patient converted back, again into afib. We wi ll give 20 mg IV Cardizem push followed ____ continue p.o. We will continue beta zan. We will f ollow with you. Thank you, Dr. Light, for providing the opportunity in taking care of the patient. Will follow with you. In view of having recurrent, will change Cardizem to verapamil because of underlying COPD and avoid dual nebulizer treatment. We will follow with you. The patient had underlying lung CA. Will follow with you. Ramon Anne MD cc: 305 TT: 05/06/2017 13:32:35 Confirmation # [id number] Dictation # [id number] jn
--- NOTE | 2017-05-06 18:13 | PN ---
DATE: 05/06/2017 REFERRING PHYSICIAN: Dr. Jim Light. SUBJECTIVE: He is out of bed to chair, being discharged home today. Feels better. No headache, no rhinitis, no cough, no nausea, no vomiting, diarrhea, rash is getting better, decreased itching and p ain, no leg pain or leg swelling. OBJECTIVE: GENERAL: No acute distress. VITAL SIGNS: Temperature is 98, heart rate is 69, respiratory rate is 20, blood pressure 147/68, pul se ox 97% on room air. HEENT: Moist mucous membrane. Crowded airway. NECK: Supple, no JVD. LUNGS: Have a fair airflow with few rhonchi. HEART: S1 and S2. ABDOMEN: Soft and nontender. No organomegaly. EXTREMITIES: There is no edema. Rash is healing. NEUROLOGIC: Awake, alert, follows simple commands. MEDICATIONS: He is on calamine lotion affected area, Calan SR 240 mg daily, Carafate 1 gram twice a day, doxycycline 100 mg b.i.d., Eliquis 2.5 mg twice daily, Flomax 0.4 mg daily, Lipitor 20 mg daily, metoprolol tartrate 5 mg q. 4 hours p.r.n., metoprolol tartrate 50 mg twice a day, oxycodone immedi ate release 12.5 mg q. 4 hours p.r.n., Pepcid 20 mg daily, prednisone 40 mg daily, verapamil 2 puffs q. 6 hours p.r.n. LABORATORY DATA: Shows no new lab is available since yesterday. IMPRESSION AND PLAN: Lung cancer, status post radiation and chemotherapy, chronic obstructive lung d isease, pneumonia, history of deep venous thrombosis, shingle, cardiac arrhythmia with paroxysmal atr ial fibrillation, sleep apnea syndrome. Once cleared per ID, the patient will be discharged home. C omplete 2 weeks of prednisone, inhaled bronchodilator, outpatient CPAP titration. Gastric prophylaxi s, anticoagulation. Fall precaution. Thank you and will follow with you. Ramon Delgado MD cc: 336 TT: 05/06/2017 18:12:44 Confirmation # [id number] Dictation # [id number] pool
--- NOTE | 2017-05-06 19:29 | DS ---
For Dr. Doty. SUBJECTIVE: The patient is a 76-year-old male admitted via the Emergency Room to the intensive care unit for severe herpes zoster on the left side of his chest wall with tachydysrhythmia for which he w as evaluated in the intensive care unit and then transferred to the remote telemetry floor. The ranjan ent is now feeling well. He is for discharge home today with his medicines to be listed below. He f eels better with occasional spasms and discomfort to the area on the left side chest. The patient also is known to suffer from squamous cell CA of the lung, DVT on Eliquis, history of pac er and tachybrady syndrome. PHYSICAL EXAMINATION: VITAL SIGNS: Temperature 98.3, pulse 69, respirations 20, blood pressure 142/81, pulse ox 97%. HEENT: Unremarkable. NECK: Supple. HEART: Regular rate, occasional ectopic beat. LUNGS: Rare rhonchi. ABDOMEN: Soft. EXTREMITIES: No edema. SKIN: Warm and dry except for healing dried vesicular changes to his left chest wall and left mid ba ck. NEUROLOGIC: Awake, alert, and oriented x 3. LABORATORY DATA: The patient's labs were done yesterday, which showed a white blood cell count of 8. 4, hemoglobin 12.3, hematocrit 36.8, platelet count of 202,000 with a chem metabolic panel within nor mal limits except for BUN of 24, creatinine 1.5. His procalcitonin level was 52.3 done 2 days prior. His varicella zoster VZV IgG antibody was 3861. DISCHARGE MEDICATIONS: Are to include calamine lotion, verapamil, Carafate, doxycycline, which will be 100 mg twice a day for 3 days, Eliquis, Flomax, Lipitor, metoprolol 50 b.i.d., oxycodone 50 mg q. 6 hours p.r.n. severe pain, a half or one tablet, famotidine, prednisone taper 20 mg a day for 3 days , then 10 mg daily for 3 days, then 5 mg a day for 3 days, then to stop, along with Zovirax 400 mg t. i.d. for [address] Vera. We will stop his Cardizem and stop his lisinopril. He is to continue with his inhalers as per Dr. West. These medicines were called into [facility] [address] [phone], with the patien t to follow up with Dr. Doty in 4 days in the office or earlier with the list of medications given to the patient and Dr. Doty's number given should he have any questions regarding these medicatio n changes, as diltiazem was stopped, verapamil was begun, prednisone is to be tapered. Antibiotics i nclude Zovirax and doxycycline with lisinopril to be stopped with inhalers to continue. The patient' s diet is a cardiac diet with the patient to follow up in 4 days. Jim Light MD cc: [phone] TT: 05/06/2017 19:28:31 rn
[2017-05-07] MEDS ORDERED: Verapamil 240 mg ER Tab PO SCH (10:00)
== END 2017-05-06 17:35 | disposition home or self-care (01) | DRG 596 ==
LOC: ED 11:12 → ERH 21:10 → CCU 05-02 02:37 → 3RSO 05-05 15:58
PROVIDERS: ADMIT Family Medicine; ATTEND Family Medicine
DX: B02.9 Zoster without complications (principal); N17.9 Acute kidney failure, unspecified; I27.2 Other secondary pulmonary hypertension; C34.90 Malignant neoplasm of unspecified part of unspecified bronchus or lung; I48.92 Unspecified atrial flutter; I13.0 Hypertensive heart and chronic kidney disease with heart failure and stage 1 through stage 4 chronic kidney disease, or unspecified chronic kidney disease; I50.9 Heart failure, unspecified; J44.9 Chronic obstructive pulmonary disease, unspecified; N28.1 Cyst of kidney, acquired; N39.0 Urinary tract infection, site not specified; G62.9 Polyneuropathy, unspecified; I48.0 Paroxysmal atrial fibrillation; I49.5 Sick sinus syndrome; I08.1 Rheumatic disorders of both mitral and tricuspid valves; E78.5 Hyperlipidemia, unspecified; E87.6 Hypokalemia; I47.9 Paroxysmal tachycardia, unspecified; G47.30 Sleep apnea, unspecified; N18.9 Chronic kidney disease, unspecified; I25.10 Atherosclerotic heart disease of native coronary artery without angina pectoris; I25.2 Old myocardial infarction; K21.9 Gastro-esophageal reflux disease without esophagitis; L29.9 Pruritus, unspecified; Z79.01 Long term (current) use of anticoagulants; Z79.899 Other long term (current) drug therapy; Z85.46 Personal history of malignant neoplasm of prostate; Z86.19 Personal history of other infectious and parasitic diseases; Z86.718 Personal history of other venous thrombosis and embolism; Z92.3 Personal history of irradiation; Z92.21 Personal history of antineoplastic chemotherapy; Z95.0 Presence of cardiac pacemaker; R40.2412 Glasgow coma scale score 13-15, at arrival to emergency department; M19.90 Unspecified osteoarthritis, unspecified site; F17.210 Nicotine dependence, cigarettes, uncomplicated; Z87.898 Personal history of other specified conditions

== ENCOUNTER 2017-05-22 17:51 | Emergency (ER) | payer MEDICARE, OTHER ==
[2017-05-22 17:51] VITALS: PULSE 99
[2017-05-22 18:16] VITALS: BMI 23.7
[2017-05-22 18:23] VITALS: BP 145/96; PULSE 92; RESP 18; TEMP 98; O2SAT 96
--- NOTE | 2017-05-22 18:28 | ED PDOC ---
Arrival/HPI - General Historian: Patient - General Chief Complaint: Back Pain Time Seen by Provider: 05/22/17 17:58 - History of Present Illness Narrative History of Present Illness (Text): 05/22/17 18:25 76 y/o male, pmh including chf/dvt/shingles/pulmonary cancer, nkda, recently diagnosed with shingles on the lt. flank which he is currently on the tramadol and chronically on the oxycodone 10mg po. Pt. stated that the pain still been on and off, seeing if there is any new pain medication for this shingle pain, no fever or chills, no chest pain or shortness of breath, no coughing, no fatigue or lethargic, no night sweat, no recent traveling, no other medical or psychological complaints. (John Porter) Past Medical History - Provider Review Nursing Documentation Reviewed: Yes - Infectious Disease Hx of Infectious Diseases: None - Tetanus Immunization Tetanus Immunization: Unknown - Cardiac Hx Hypertension: Yes - Pulmonary Hx Chronic Obstructive Pulmonary Disease (COPD): Yes - Neurological Hx Neurological Disorder: Yes (denies) Hx Paralysis: No - HEENT Hx HEENT Disorder: No - Renal Hx Renal Disorder: Yes (renal insufficiency) Other/Comment: renal insufficiency - Endocrine/Metabolic Hx Endocrine Disorders: No - Hematological/Oncological Hx Blood Transfusions: No Hx Blood Transfusion Reaction: No Hx Shingles: Yes - Integumentary Hx Dermatological Disorder: No - Musculoskeletal/Rheumatological Hx Arthritis: Yes - Gastrointestinal Hx Gastrointestinal Disorders: Yes (colonoscopy) Hx Gastroesophageal Reflux: Yes - Genitourinary/Gynecological Hx Prostate Problems: Yes (prostate CA) - Psychiatric Hx Emotional Abuse: No Hx Physical Abuse: No Hx Substance Use: No - Surgical History Hx Cardiac Catheterization: Yes (2014) - Anesthesia Hx Anesthesia Reactions: No Hx Malignant Hyperthermia: No - Suicidal Assessment Feels Threatened In Home Enviroment: No Family/Social History - Physician Review Nursing Documentation Reviewed: Yes Family/Social History: Unknown Family HX Smoking Status: Current Some Days Smoker Hx Alcohol Use: No (PAST ETOH) Hx Substance Use: No Allergies/Home Meds Allergies/Adverse Reactions: Allergies No Known Allergies Allergy (Verified 04/30/17 06:00) Home Medications: Home Meds Medication Instructions Recorded Confirmed Tamsulosin [Flomax] 0.4 mg PO DAILY 07/21/15 05/22/17 Amlodipine Besylate/Benazepril 1 cap PO DAILY 07/22/16 05/22/17 [Lotrel 10-20 mg Capsule] Apixaban [Eliquis] 2.5 mg PO BID 07/22/16 05/22/17 Atorvastatin [Lipitor] 20 mg PO DAILY 04/17/17 05/22/17 Difluprednate [Durezol] 5 ml OU DAILY 04/17/17 05/22/17 Lisinopril [Zestril] 10 mg PO DAILY 04/17/17 05/22/17 Review of Systems - Review of Systems Constitutional: absent: Fatigue, Fevers Eyes: absent: Vision Changes ENT: absent: Hearing Changes Respiratory: absent: SOB, Cough Cardiovascular: absent: Chest Pain Gastrointestinal: absent: Abdominal Pain, Nausea, Vomiting Skin: Rash, Skin Lesions. absent: Pruritis, Laceration, Abscess, Ulcer, Cellulitis Neurological: absent: Headache, Dizziness, Focal Weakness Physical Exam Vital Signs Reviewed: Yes Temperature: Afebrile Blood Pressure: Normal Pulse: Regular Respiratory Rate: Normal Appearance: Positive for: Well-Appearing, Non-Toxic, Comfortable Pain Distress: Moderate Mental Status: Positive for: Alert and Oriented X 3 - Systems Exam Head: Present: Atraumatic, Normocephalic Pupils: Present: PERRL Extroacular Muscles: Present: EOMI Conjunctiva: Present: Normal Mouth: Present: Moist Mucous Membranes Neck: Present: Normal Range of Motion Respiratory/Chest: Present: Clear to Auscultation, Good Air Exchange. No: Respiratory Distress, Accessory Muscle Use Cardiovascular: Present: Regular Rate and Rhythm, Normal S1, S2. No: Murmurs Abdomen: Present: Normal Bowel Sounds. No: Tenderness, Distention, Peritoneal Signs Back: Present: Normal Inspection. No: CVA Tenderness, Midline Tenderness, Paraspinal Tenderness, Decubitus Ulcer Upper Extremity: Present: Normal Inspection. No: Cyanosis, Edema Lower Extremity: Present: Normal Inspection. No: Edema Neurological: Present: GCS=15, Speech Normal, Motor Func Grossly Intact, Memory Normal Skin: Present: Warm, Dry, Rashes (Lt. sided thoracic flank region visible healing scar of the previous shingle rash with no cellulitis or ulcer, no new shingle noted, the previous scar rash follow the dermatome and unilateral, no cva tenderness), Normal Color Psychiatric: Present: Alert, Oriented x 3, Normal Insight, Normal Concentration Vital Signs Temp Pulse Resp BP Pulse Ox 05/22/17 18:22 98.0 F 92 H 18 145/96 H 96 Medical Decision Making ED Course and Treatment: I was available for consultation during PA evaluation. The chart was reviewed by me, and I agree with disposition. The documented history was done by the physician carry out clerk and shelf stocker. The documented physical exam was done by the physician carry out clerk and shelf stocker. The documented procedures were done by the physician carry out clerk and shelf stocker. (Manoj Rdz) 05/22/17 18:27 -Pt. received antiviral and prednisone, not on the neurontin and will give neurontin with favian dosage -Neurontin 300mg po ordered. Medication side effect explained to the patient and family as well about the neurontin which can causes seizure when stop abruptly without titrating. -Discharge home with neurontin (follow the dosage order, as it needs to be titrated), follow up with your own pmd within 2 days, return to the ER for any new or worsening signs or symptoms. (John Porter) - Medication Orders Current Medication Orders: Gabapentin (Neurontin) 300 mg PO STAT LEONOR PRN Reason: Protocol - PA / COTTON WASHER / Resident Statement MD/DO has reviewed & agrees with the documentation as recorded. Disposition/Present on Arrival - Present on Arrival Any Indicators Present on Arrival: No History of DVT/PE: No History of Uncontrolled Diabetes: No Urinary Catheter: No History of Decub. Ulcer: No History Surgical Site Infection Following: None - Disposition Have Diagnosis and Disposition been Completed?: Yes Disposition Time: 18:29 Patient Plan: Discharge - Disposition Diagnosis: Post herpetic neuralgia Disposition: HOME/ ROUTINE Patient Problems: Current Active Problems Problem Status Onset Post herpetic neuralgia Acute Condition: GOOD Additional Instructions: -Discharge home with neurontin (follow the dosage order, as it needs to be titrated), follow up with your own pmd within 2 days, return to the ER for any new or worsening signs or symptoms. Day 1: 1 capsule oral once a day Day 2: 1 capsule oral twice a day Day 3-6: 1 capsule oral three times a day Day 7-8: 1 capsule oral twice a day Day 9-10: 1 cap oral once a day Prescriptions: Gabapentin [Neurontin] 300 mg PO DAILY #25 cap Referrals: Uziel Doty MD [Primary Care Provider] - Follow up with primary Forms: WORK NOTE
== END 2017-05-22 18:53 | disposition home or self-care (01) ==
LOC: ED 17:51
DX: B02.29 Other postherpetic nervous system involvement (principal)

== ENCOUNTER 2017-05-30 12:52 | Inpatient (IN) | payer MEDICARE, OTHER ==
[2017-05-30 12:53] VITALS: PULSE 99
[2017-05-30 13:05] VITALS: BMI 24.3
--- NOTE | 2017-05-30 13:10 | ED PDOC ---
Arrival/HPI - General Chief Complaint: Altered Mental Status Time Seen by Provider: 05/30/17 12:55 Historian: Patient, Other (Dr Doty) - History of Present Illness Time/Duration: Prior to Arrival Symptom Onset: Gradual Symptom Course: Unchanged Associated Symptoms (Text): 05/30/17 13:09 Patient was directed to the emergency department by from his office. Patient was seen for routine follow-up. History of non-small cell lung cancer. He has weakness and fatigue and Dr. Doty feels that he has an altered mental status. He was sent to the emergency department for workup including CT scan to rule out brain metastases. He has chronic shortness of breath no different from usual. Denies any pain. Denies fever or chills. No vomiting or diarrhea. Past Medical History - Infectious Disease Hx of Infectious Diseases: None - Tetanus Immunization Tetanus Immunization: Unknown - Cardiac Hx Hypertension: Yes - Pulmonary Hx Chronic Obstructive Pulmonary Disease (COPD): Yes - Neurological Hx Neurological Disorder: Yes (denies) Hx Paralysis: No - HEENT Hx HEENT Disorder: No - Renal Hx Renal Disorder: Yes (renal insufficiency) Other/Comment: renal insufficiency - Endocrine/Metabolic Hx Endocrine Disorders: No - Hematological/Oncological Hx Blood Transfusions: No Hx Blood Transfusion Reaction: No Hx Shingles: Yes - Integumentary Hx Dermatological Disorder: No - Musculoskeletal/Rheumatological Hx Arthritis: Yes - Gastrointestinal Hx Gastrointestinal Disorders: Yes (colonoscopy) Hx Gastroesophageal Reflux: Yes - Genitourinary/Gynecological Hx Prostate Problems: Yes (prostate CA) - Psychiatric Hx Emotional Abuse: No Hx Physical Abuse: No Hx Substance Use: No - Surgical History Hx Cardiac Catheterization: Yes (2013) - Anesthesia Hx Anesthesia Reactions: No Hx Malignant Hyperthermia: No - Suicidal Assessment Feels Threatened In Home Enviroment: No Family/Social History - Physician Review Nursing Documentation Reviewed: Yes Family/Social History: Unknown Family HX Smoking Status: Current Some Days Smoker Hx Alcohol Use: No (PAST ETOH) Hx Substance Use: No Allergies/Home Meds Allergies/Adverse Reactions: Allergies No Known Allergies Allergy (Verified 04/30/17 06:00) Home Medications: Home Meds Medication Instructions Recorded Confirmed Tamsulosin [Flomax] 0.4 mg PO DAILY 07/21/15 05/22/17 Amlodipine Besylate/Benazepril 1 cap PO DAILY 07/22/16 05/22/17 [Lotrel 10-20 mg Capsule] Apixaban [Eliquis] 2.5 mg PO BID 07/22/16 05/22/17 Atorvastatin [Lipitor] 20 mg PO DAILY 04/17/17 05/22/17 Difluprednate [Durezol] 5 ml OU DAILY 04/17/17 05/22/17 Lisinopril [Zestril] 10 mg PO DAILY 04/17/17 05/22/17 Review of Systems - Physician Review All systems were reviewed & negative as marked: Yes - Review of Systems Constitutional: Fatigue. absent: Fevers Respiratory: SOB. absent: Cough, Wheezing Cardiovascular: absent: Chest Pain, Palpitations, Syncope Gastrointestinal: absent: Abdominal Pain, Diarrhea, Vomiting Neurological: absent: Headache, Dizziness Physical Exam Vital Signs Temp Pulse Resp BP Pulse Ox 05/30/17 16:05 115 H 18 107/75 99 05/30/17 14:09 121 H 18 105/79 99 05/30/17 13:17 99.2 F 05/30/17 13:03 98.6 F 118 H 18 103/78 98 05/30/17 13:02 98.4 F 90 18 103/78 94 L Temperature: Afebrile Blood Pressure: Normal Pulse: Tachycardic Respiratory Rate: Normal Appearance: Positive for: Well-Appearing, Non-Toxic, Comfortable, Other (Slow to respond, chronically ill-appearing) Pain Distress: None Mental Status: Positive for: Alert and Oriented X 3 - Systems Exam Head: Present: Atraumatic, Normocephalic Pupils: Present: PERRL Extroacular Muscles: Present: EOMI Conjunctiva: Present: Normal Mouth: Present: Moist Mucous Membranes Pharnyx: No: ERYTHEMA, EXUDATE, TONSILS ENLARGED Neck: Present: Normal Range of Motion Respiratory/Chest: Present: Clear to Auscultation, Good Air Exchange, Decreased Breath Sounds. No: Respiratory Distress, Accessory Muscle Use Cardiovascular: Present: Regular Rate and Rhythm, Normal S1, S2, Tachycardic. No: Murmurs Abdomen: Present: Tenderness. No: Rebound, Guarding Back: Present: Normal Inspection. No: Midline Tenderness, Paraspinal Tenderness Upper Extremity: Present: Normal Inspection. No: Cyanosis, Edema Lower Extremity: Present: Normal Inspection. No: Edema Neurological: Present: GCS=15, CN II-XII Intact, Speech Normal, Motor Func Grossly Intact Skin: Present: Warm, Dry, Normal Color. No: Rashes Psychiatric: Present: Alert, Oriented x 3, Normal Insight, Normal Concentration Medical Decision Making ED Course and Treatment: 05/30/17 13:11 EKG shows sinus tachycardia rate approximately [address] or T-wave changes - Lab Interpretations Lab Results: 05/30/17 14:05 05/30/17 14:05 Lab Results 05/30/17 14:05: Alcohol, Quantitative < 10 05/30/17 14:05: Sodium 137, Potassium 4.2, Chloride 103, Carbon Dioxide 25, Anion Gap 13, BUN 26 H, Creatinine 1.8 H, Est GFR ( Amer) 44, Est GFR ( Non-Af Amer) 37, Random Glucose 81, Calcium 11.0 H, Phosphorus 3.4, Magnesium 1.9, Total Bilirubin 0.9, AST 29, ALT 20, Alkaline Phosphatase 81, Lactate Dehydrogenase 618, Total Creatine Kinase 40, Troponin I 0.06, Total Protein 6.6 , Albumin 3.5, Globulin 3.1, Albumin/Globulin Ratio 1.1 05/30/17 14:05: Urine Color Yellow, Urine Appearance Cloudy, Urine pH 6.0, Ur Specific [place] >= 1.030, Urine Protein 100 H, Urine Glucose (UA) Negative, Urine Ketones 15 H, Urine Blood Small H, Urine Nitrate Negative, Urine Bilirubin Small H, Urine Urobilinogen 0.2, Ur Leukocyte Esterase Moderate H, Urine RBC 0 - 2, Urine WBC Tntc, Ur Epithelial Cells 3 - 4, Urine Bacteria Mod 05/30/17 14:05: PT 12.2 H, INR 1.13 H, APTT 26.0 05/30/17 14:05: WBC 7.3, RBC 4.05, Hgb 12.5 L, Hct 37.6 L, MCV 92.8, MCH 30.9, MCHC 33.2, RDW 16.9 H, Plt Count 265, MPV 9.4, Gran % 73.0 H, Lymph % (Auto) 14.6 L, [place] % (Auto) 12.0 H, Eos % (Auto) 0.3 L, Baso % (Auto) 0.1, Gran # 5.33 , Lymph # 1.1 L, [place] # 0.9 H, Eos # 0.0, Baso # 0.01 - RAD Interpretation Radiology Orders: 05/30/17 13:05 HEAD W/O CONTRAST [CT] Stat 05/30/17 13:06 CHEST ONE VIEW [RAD] Stat CT scan of the head as read by the radiologist shows no acute findings Peg Driver: Radiologist - Medication Orders Current Medication Orders: Discontinued Medications Ceftriaxone Sodium (Rocephin 1 Gram Ivpb) 1 gm in 100 mls @ 200 mls/hr IVPB STAT STA PRN Reason: Protocol Stop: 05/30/17 15:57 Disposition/Present on Arrival - Present on Arrival Any Indicators Present on Arrival: No History of DVT/PE: No History of Uncontrolled Diabetes: No Urinary Catheter: No History of Decub. Ulcer: No History Surgical Site Infection Following: None - Disposition Have Diagnosis and Disposition been Completed?: Yes Diagnosis: Urinary tract infection, Pulmonary cancer, Altered mental status Disposition: HOSPITALIZED Disposition Time: 16:19 Patient Plan: Observation Patient Problems: Current Active Problems Problem Status Onset Altered mental status Acute Pulmonary cancer Acute Urinary tract infection Acute Condition: FAIR Referrals: Uziel Doty MD [Primary Care Provider] - Follow up with primary
[2017-05-30 14:42] LABS: BASO # 0.01 K/mm3 (0.0-2.0); BASO % 0.1 % (0.0-3.0); EOS % 0.3 % (1.5-5.0); GRAN # 5.33 (1.4-6.5); HEMOGLOBIN 12.5 gm/dL (14.0-18.0); LYMPH # 1.1 (1.2-3.4); LYMPH % 14.6 % (22.0-35.0); MEAN CELL VOLUME 92.8 fL (80.0-105.0); MEAN CORPUSCULAR HEMOGLOBIN 30.9 pg (25.0-35.0); MEAN CORPUSCULAR HGB CONC 33.2 g/dl (31.0-37.0); MEAN PLATELET VOLUME 9.4 fl (7.0-11.0); MONO # 0.9 (0.1-0.6); PLATELET COUNT 265 10^3/uL (120.0-450.0); RBC 4.05 10^6/uL (3.5-6.1); RED CELL DISTRIBUTION WIDTH 16.9 % (11.5-14.5); WHITE BLOOD COUNT 7.3 10^3/ul (4.5-11.0)
[2017-05-30 14:45] LABS: URINE BILIRUBIN SMALL (NEGATIVE); URINE BLOOD SMALL (NEGATIVE); URINE GLUCOSE (UA) NEGATIVE (NEGATIVE); URINE LEUKOCYTE ESTERASE MODERATE Leu/uL (NEGATIVE); URINE NITRATE NEGATIVE (NEGATIVE); URINE PROTEIN 100 mg/dL (<30 mg/dL); URINE UROBILINOGEN 0.2 E.U./dL (<1 E.U./dL)
[2017-05-30 14:46] LABS: URINE APPEARANCE CLOUDY (CLEAR); URINE COLOR YELLOW (YELLOW)
[2017-05-30 14:47] LABS: ALB/GLOB RATIO 1.1 (1.1-1.8); ALBUMIN 3.5 g/dL (3.0-4.8); MAGNESIUM 1.9 mg/dL (1.7-2.2)
[2017-05-30 14:50] LABS: URINE BACTERIA MOD (NEG); URINE RBC 0 - 2 /hpf (0-2); URINE WBC TNTC /hpf (0-6)
[2017-05-30 14:51] LABS: INR 1.13 (0.93-1.08); PROTHROMBIN TIME 12.2 Seconds (9.9-11.8)
[2017-05-30 14:58] LABS: TROPONIN I 0.06 ng/mL
[2017-05-30] MEDS ORDERED: cefTRIAXone 1 gm 1 GM/100 ML BAG IVPB STA (15:28)
--- NOTE | 2017-05-30 16:13 | CT ---
PROCEDURE: CT HEAD WITHOUT CONTRAST. HISTORY: ams COMPARISON: None available. TECHNIQUE: Axial computed tomography images were obtained through the head/brain without intravenous contrast. Radiation dose: Total exam DLP = 871 mGy-cm. This CT exam was performed using one or more of the following dose reduction techniques: Automated exposure control, adjustment of the mA and/or kV according to patient size, and/or use of iterative reconstruction technique. FINDINGS: HEMORRHAGE: No intracranial hemorrhage. BRAIN: No mass effect or edema. Mild atrophy and mild chronic microvascular changes VENTRICLES: Unremarkable. No hydrocephalus. CALVARIUM: Unremarkable. PARANASAL SINUSES: Unremarkable as visualized. No significant inflammatory changes. MASTOID AIR CELLS: Unremarkable as visualized. No inflammatory changes. OTHER FINDINGS: None. IMPRESSION: No acute findings
--- NOTE | 2017-05-30 17:14 | RAD ---
PROCEDURE: CHEST RADIOGRAPH, 1 VIEW HISTORY: ams COMPARISON: None available. FINDINGS: LUNGS: Clear. PLEURA: No pneumothorax or pleural fluid seen. CARDIOVASCULAR: Normal heart size and pulmonary to pattern evident. Aortic cardiac pacemaker again identified. OSSEOUS STRUCTURES: No significant abnormalities. VISUALIZED UPPER ABDOMEN: Normal. OTHER FINDINGS: Right central venous infusion port again identified. IMPRESSION: No acute cardiopulmonary disease appreciated this time.
[2017-05-30 18:22] LABS: VENOUS BLOOD GAS BASE EXCESS 0.3 mmol/L (0.0-2.0); VENOUS BLOOD GAS PO2 45 mm/Hg (30-55); VENOUS BLOOD PH 7.37 (7.32-7.43)
--- NOTE | 2017-05-30 19:00 | CARD ---
APPROVED REPORT EKG Measurement Heart [id number] <Conclusion> Sinus tachycardia Minimal voltage criteria for LVH, may be normal variant ST abnormality, possible digitalis effect Abnormal ECG
[2017-05-30] MEDS: Sodium Chloride 0.45% 1,000 ML IV SCH (21:31)
[2017-05-30] MEDS ORDERED: cefTRIAXone 1 gm 1 GM/100 ML BAG IVPB SCH (22:00)
[2017-05-30] MEDS ORDERED: Pneumococcal 23-Valent Vaccine IM ONE (23:00)
[2017-05-31] MEDS: Sucralfate 1 gm/10 ml Oral Susp UD PO SCH ×2 (06:56→15:45)
[2017-05-31] MEDS ORDERED: OMEPRAZOLE 20 MG PO SCH (07:30)
[2017-05-31] MEDS: Budesonide 0.5 mg/2 ml Inhal Susp UD IH SCH ×2 (07:49→22:09)
[2017-05-31] MEDS: Arformoterol 15 mcg/2 ml Inh Sol IH SCH ×2 (07:49→22:09)
--- NOTE | 2017-05-31 09:18 | CP.PCM.CON ---
<Miles Jones - Last Filed: 05/31/17 11:04> History of Present Illness - History of Present Illness History of Present Illness: PGY-[address] Montes's Neurology Service: Reason for Consult: AMS This is a 76 year old male with PMHx lung squamous cell CA, prostate CA, HTN, Tachybrady syndrome s/p pacemaker, CHF, DVT, shingles who presents for AMS. Patient was at a routine follow up with his heme/onc physician Dr. Doty where he was noted to be in an altered mental state. Patient was sent to the hospital for evaluation. Patient was lethargic this morning and complaining of abdominal pain around his waist as well as chronic fatigue and leg weakness. Patient denied headaches, dizziness, paresthesias, CP, SOB. PMHx: lung squamous cell CA, prostate CA, HTN, Tachybrady syndrome s/p pacemaker , CHF, DVT, shingles PSHx: Pacemaker placement, PCI in 2013 Allergies: NKDA Social: Former smoker for over 60 years smoking half ppd. Quit about 3 years ago. Denies alcohol, drugs. Review of Systems - Constitutional Constitutional: Weakness. absent: Headache - EENT Eyes: absent: Change in Vision Ears: absent: Decreased Hearing - Cardiovascular Cardiovascular: absent: Chest Pain - Respiratory Respiratory: absent: Dyspnea - Gastrointestinal Gastrointestinal: Abdominal Pain. absent: Nausea, Vomiting - Genitourinary Genitourinary: absent: Dysuria - Neurological Neurological: Weakness. absent: Dizziness, Numbness, Tingling - Endocrine Endocrine: absent: Palpitations Past Patient History - Infectious Disease Hx of Infectious Diseases: None - Tetanus Immunizations Tetanus Immunization: Unknown - Past Social History Smoking Status: Former Smoker - CARDIAC Hx Cardiac Disorders: Yes (CAD) Hx Congestive Heart Failure: Yes Hx Hypercholesterolemia: Yes Hx Hypertension: Yes - PULMONARY Hx Respiratory Disorders: Yes Hx Chronic Obstructive Pulmonary Disease (COPD): Yes - NEUROLOGICAL Hx Neurological Disorder: Yes (denies) Hx Dizziness: Yes - HEENT Hx HEENT Problems: No - RENAL Hx Chronic Kidney Disease: Yes (renal insufficiency) Other/Comment: renal insufficiency - ENDOCRINE/METABOLIC Hx Endocrine Disorders: No - HEMATOLOGICAL/ONCOLOGICAL Hx Blood Disorders: Yes Hx Cancer: Yes (NSMALL CELL LUNG CA,PROSTATE CA ON CHEMO AND RADIATION) Hx Chemotherapy: Yes Hx Shingles: Yes (05-22-17) - INTEGUMENTARY Hx Dermatological Problems: No - MUSCULOSKELETAL/RHEUMATOLOGICAL Hx Musculoskeletal Disorders: Yes Hx Arthritis: Yes Hx Falls: Yes Hx Osteoporosis: Yes Hx Unsteady Gait: Yes (CANE) - GASTROINTESTINAL Hx Gastrointestinal Disorders: Yes (colonoscopy) Hx Gastroesophageal Reflux: Yes Other/Comment: CONSTIPATION - GENITOURINARY/GYNECOLOGICAL Hx Genitourinary Disorders: Yes Hx Incontinence: Yes Hx Prostate Problems: Yes (prostate CA) - PSYCHIATRIC Hx Emotional Abuse: No Hx Physical Abuse: No Hx Substance Use: No - SURGICAL HISTORY Hx Surgeries: Yes (CARD. CATH 2013) Hx Cardiac Catheterization: Yes (2013) - ANESTHESIA Hx Anesthesia Reactions: No Hx Malignant Hyperthermia: No Meds Allergies/Adverse Reactions: Allergies Allergy/AdvReac Type Severity Reaction Status Date / Time No Known Allergies Allergy Verified 05/30/17 19:34 - Medications Medications: Current Medications Amlodipine Besylate (Norvasc) 10 mg PO DAILY [facility] Apixaban (Eliquis) 2.5 mg PO BID [facility] PRN Reason: Protocol Arformoterol Tartrate (Brovana) 15 mcg IH [id number] [facility] Last Admin: 05/31/17 07:49 Dose: 15 mcg Atorvastatin Calcium (Lipitor) 20 mg PO DIN [facility] Budesonide (Pulmicort Respules) 0.5 mg IH [id number] [facility] Last Admin: 05/31/17 07:49 Dose: 0.5 mg Famotidine (Pepcid) 20 mg PO DAILY [facility] Gabapentin (Neurontin) 300 mg PO DAILY [facility] PRN Reason: Protocol Sodium Chloride (Sodium Chloride 0.45%) 1,000 mls @ 60 mls/hr IV .[id number] [facility] Last Admin: 05/30/17 21:31 Dose: 60 mls/hr Cefepime HCl (Maxipime 1gm) 1 gm in 100 mls @ 100 mls/hr IVPB Q24H [facility] PRN Reason: Protocol Stop: 06/08/17 23:36 Lisinopril (Zestril) 10 mg PO DAILY [facility] Lisinopril (Zestril) 20 mg PO DAILY [facility] Methylprednisolone (Solu-Medrol) 20 mg IVP Q12 [facility] Oxycodone HCl (Oxycodone Immediate Release Tab) 15 mg PO Q4 PRN PRN Reason: Pain, severe (8-10) Pantoprazole Sodium (Protonix Ec Tab) 40 mg PO ACBD [facility] Sucralfate (Carafate Oral Susp) 1 gm PO 0600,1600 [facility] Last Admin: 05/31/17 06:56 Dose: 1 gm Tamsulosin HCl (Flomax) 0.4 mg PO DAILY [facility] Verapamil HCl (Calan Sr Tab) 240 mg PO DAILY [facility] Physical Exam - Constitutional Appears: No Acute Distress - Head Exam Head Exam: ATRAUMATIC, NORMAL INSPECTION, NORMOCEPHALIC - Eye Exam Eye Exam: EOMI, PERRL - ENT Exam ENT Exam: Mucous Membranes Moist - Respiratory Exam Respiratory Exam: Decreased Breath Sounds - Cardiovascular Exam Cardiovascular Exam: Tachycardia - GI/Abdominal Exam GI & Abdominal Exam: Firm (right upper and portion of right lower quadrant), Normal Bowel Sounds - Neurological Exam Neurological exam: Alert, CN II-XII Intact, Oriented x3 Additional comments: Pronator drift noted on the left. Manual muscle testing 4/5 bilaterally upper and lower extremities. Sensations to light touch intact bilaterally upper and lower extremities. Reflexes 1/4 throughout. Results - Vital Signs Recent Vital Signs: Last Vital Signs Temp 98.0 F 05/31/17 06:00 Pulse 100 H 05/31/17 07:53 Resp 17 05/31/17 06:00 BP 168/90 H 05/31/17 06:00 Pulse Ox 100 05/31/17 06:00 - Labs Result Diagrams: 05/30/17 14:05 05/30/17 14:05 Labs: Laboratory Results - last 24 hr 05/30/17 17:59 pO2 45 VBG pH 7.37 VBG pCO2 45.0 VBG HCO3 26.0 VBG Total CO2 27.4 VBG O2 Sat (Calc) 86.1 H VBG Base Excess 0.3 VBG Potassium 4.4 Sodium 138.0 Chloride 105.0 Glucose 75 Lactate 0.9 FiO2 21.0 Venous Blood Potassium 4.4 Assessment & Plan - Assessment and Plan (Free Text) Assessment: This is a 76 year old male with PMHx lung squamous cell CA, prostate CA, HTN, Tachybrady syndrome s/p pacemaker, CHF, DVT, shingles who presents for AMS. CT head revealed mild atrophy and chronic microvascular changes without any acute ischemic or hemorrhagic pathologies. Transient confusional state likely from UTI as evidenced by urinalysis. Patient is currently not confused. Patient has gait dysfunction secondary to chronic deconditioned status. Plan: 1) UTI management per ID 2) Monitor and correct electrolytes. 3) Maintain adequate hydration. 4) Thiamine 100 mg daily for improvement of cognition 5) Avoid sedative medications 6) Maintain SBP between 130-140 mmHg. 7) PT evaluation and treatment for chronic deconditioned state Patient is neurologically stable Case discussed with Dr. Simon Jones, PGY-1 - Date & Time Date: 05/31/17 Time: 07:30 <Dontae Montes - Last Filed: 05/31/17 12:23> Meds - Medications Medications: Current Medications Amlodipine Besylate (Norvasc) 10 mg PO DAILY [facility] Last Admin: 05/31/17 10:35 Dose: 10 mg Apixaban (Eliquis) 2.5 mg PO BID [facility] PRN Reason: Protocol Last Admin: 05/31/17 10:35 Dose: 2.5 mg Arformoterol Tartrate (Brovana) 15 mcg IH [id number] [facility] Last Admin: 05/31/17 07:49 Dose: 15 mcg Atorvastatin Calcium (Lipitor) 20 mg PO DIN [facility] Budesonide (Pulmicort Respules) 0.5 mg IH [id number] [facility] Last Admin: 05/31/17 07:49 Dose: 0.5 mg Famotidine (Pepcid) 20 mg PO DAILY [facility] Last Admin: 05/31/17 10:35 Dose: 20 mg Gabapentin (Neurontin) 300 mg PO DAILY [facility] PRN Reason: Protocol Last Admin: 05/31/17 10:36 Dose: 300 mg Sodium Chloride (Sodium Chloride 0.45%) 1,000 mls @ 60 mls/hr IV .[id number] [facility] Last Admin: 05/31/17 12:13 Dose: 60 mls/hr Cefepime HCl (Maxipime 1gm) 1 gm in 100 mls @ 100 mls/hr IVPB Q24H [facility] PRN Reason: Protocol Stop: 06/08/17 23:36 Lisinopril (Zestril) 10 mg PO DAILY [facility] Last Admin: 05/31/17 10:36 Dose: 10 mg Methylprednisolone (Solu-Medrol) 20 mg IVP Q12 [facility] Last Admin: 05/31/17 10:36 Dose: 20 mg Oxycodone HCl (Oxycodone Immediate Release Tab) 15 mg PO Q4 PRN PRN Reason: Pain, severe (8-10) Pantoprazole Sodium (Protonix Ec Tab) 40 mg PO ACBD [facility] Last Admin: 05/31/17 10:35 Dose: 40 mg Sucralfate (Carafate Oral Susp) 1 gm PO 0600,1600 [facility] Last Admin: 05/31/17 06:56 Dose: 1 gm Tamsulosin HCl (Flomax) 0.4 mg PO DAILY [facility] Last Admin: 05/31/17 10:35 Dose: 0.4 mg Thiamine HCl (Vitamin B1 Tab) 100 mg PO DAILY [facility] Verapamil HCl (Calan Sr Tab) 240 mg PO DAILY [facility] Last Admin: 05/31/17 10:35 Dose: 240 mg Results - Vital Signs Recent Vital Signs: Last Vital Signs Temp 98.0 F 05/31/17 06:00 Pulse 98 H 05/31/17 10:36 Resp 17 05/31/17 06:00 BP 168/90 H 05/31/17 10:35 Pulse Ox 100 05/31/17 06:00 - Labs Result Diagrams: 05/30/17 14:05 05/30/17 14:05 Labs: Laboratory Results - last 24 hr 05/30/17 17:59 pO2 45 VBG pH 7.37 VBG pCO2 45.0 VBG HCO3 26.0 VBG Total CO2 27.4 VBG O2 Sat (Calc) 86.1 H VBG Base Excess 0.3 VBG Potassium 4.4 Sodium 138.0 Chloride 105.0 Glucose 75 Lactate 0.9 FiO2 21.0 Venous Blood Potassium 4.4 Attending/Attestation - Attestation I have personally seen and examined this patient.: Yes I have fully participated in the care of the patient.: Yes I have reviewed all pertinent clinical information: Yes
[2017-05-31] MEDS ORDERED: [UNRECOGNIZED DRUG - OTHER] PO SCH (10:00)
[2017-05-31] MEDS ORDERED: AMLODIPINE BESYLATE PO SCH (10:00)
[2017-05-31] MEDS ORDERED: BENAZEPRIL PO SCH (10:00)
--- NOTE | 2017-05-31 10:19 | US ---
PROCEDURE: HISTORY: ELEVATED BUN COMPARISON: None TECHNIQUE: Transabdominal scanning of the pelvis FINDINGS: No bladder wall thickening or intraluminal masses. Neither ureteral jet noted. Prevoid urine volume 316 mL. Postvoid urine volume 147 mL. IMPRESSION: Postvoid residual urine volume 147 mL
--- NOTE | 2017-05-31 10:26 | US ---
PROCEDURE: Ultrasound of the Kidneys HISTORY: ELEVATED BUN COMPARISON: CT abdomen and pelvis 04/30/2017. TECHNIQUE: Sonogram of the kidneys. FINDINGS: RIGHT KIDNEY: Measures: 10.1 x 4.7 x 5.6 cm. Normal in size, and contour. Mild increased echogenicity. No stone, solid mass lesion or hydronephrosis visualized. 2.5 x 2.0 x 1.9 cm mid upper pole intra cortical cyst LEFT KIDNEY: Measures: 10.2 x 5.9 x 4.6 cm. Normal in size, and contour. Mild increased echogenicity No stone, solid mass lesion or hydronephrosis visualized. Few small cortical cysts 8 to 10 mm in size. OTHER FINDINGS: None. IMPRESSION: Bilateral increased renal echogenicity - can be seen with medical renal disease. No hydronephrosis. Bilateral renal cysts.
[2017-05-31] MEDS: Pantoprazole 40 mg EC Tab PO SCH ×2 (10:35→15:45)
[2017-05-31] MEDS: Verapamil 240 mg ER Tab PO SCH (10:35)
[2017-05-31] MEDS: MethylPREDNISolone 40 mg Vial IVP SCH ×2 (10:36→22:42)
--- NOTE | 2017-05-31 11:19 | CP.PCM.HP ---
History of Present Illness - History of Present Illness History of Present Illness: PGY [address] Doty 76 M, Hx 2 primary cancers (non-small cell lung CA and prostate CA), Hx COPD ex- smoker, CKD 3B, was seen at Dr. Doty's office for follow up. He was weak and lethargic, with AMS observed by Dr. Doty. Pt was sent to ED for CT scan without brain mets. Patient was lethargic this morning and complaining of lateral back pain as well as chronic fatigue with leg weakness. At ED arrival, T 99.2 rectal, HR 121, 103/78, RR 18, 94%RA WBC 7, Hb 12.5, Plt 265 PT 1.13 Lactate 0.9 Trop 0.06 (intermediate) Calcium is high at 11 BUN 26, Crea EKG shows sinus tachycardia rate approximately [address] or T-wave changes CT head - no acute findings CXR - No acute finding. R port & PPM in place Bladder U/S - Post-void 147cc Renal u/s - b/l renal cysts, b/l renal echogenicity increase. No hydronephrosis ROS - Denies change of vison, QUEZADA, f/c, N/V/D/C, dysuria PMH CAD s/p cath 2013, ICD COPD, active smoker Tachybady s/p PPM Hx DVT on eliquis IV metastatic squamous carcinoma of lung, on Opdivo immunotherapy Prostate CA by hx PSH Pacemaker placement, PCI in 2013 FH Non-contributory SH Smoke 1/2 ppd x 60 yrs, quit 3 years ago Denies ETOH, drug All NKDA PMD Present on Admission - Present on Admission Any Indicators Present on Admission: Yes History of DVT/PE: Yes Past Patient History - Infectious Disease Hx of Infectious Diseases: None - Tetanus Immunizations Tetanus Immunization: Unknown - Past Social History Smoking Status: Former Smoker - CARDIAC Hx Cardiac Disorders: Yes (CAD) Hx Congestive Heart Failure: Yes Hx Hypercholesterolemia: Yes Hx Hypertension: Yes - PULMONARY Hx Respiratory Disorders: Yes Hx Chronic Obstructive Pulmonary Disease (COPD): Yes - NEUROLOGICAL Hx Neurological Disorder: Yes (denies) Hx Dizziness: Yes - HEENT Hx HEENT Problems: No - RENAL Hx Chronic Kidney Disease: Yes (renal insufficiency) Other/Comment: renal insufficiency - ENDOCRINE/METABOLIC Hx Endocrine Disorders: No - HEMATOLOGICAL/ONCOLOGICAL Hx Blood Disorders: Yes Hx Cancer: Yes (NSMALL CELL LUNG CA,PROSTATE CA ON CHEMO AND RADIATION) Hx Chemotherapy: Yes Hx Shingles: Yes (05-22-17) - INTEGUMENTARY Hx Dermatological Problems: No - MUSCULOSKELETAL/RHEUMATOLOGICAL Hx Musculoskeletal Disorders: Yes Hx Arthritis: Yes Hx Falls: Yes Hx Osteoporosis: Yes Hx Unsteady Gait: Yes (CANE) - GASTROINTESTINAL Hx Gastrointestinal Disorders: Yes (colonoscopy) Hx Gastroesophageal Reflux: Yes Other/Comment: CONSTIPATION - GENITOURINARY/GYNECOLOGICAL Hx Genitourinary Disorders: Yes Hx Incontinence: Yes Hx Prostate Problems: Yes (prostate CA) - PSYCHIATRIC Hx Emotional Abuse: No Hx Physical Abuse: No Hx Substance Use: No - SURGICAL HISTORY Hx Surgeries: Yes (CARD. CATH 2013) Hx Cardiac Catheterization: Yes (2013) - ANESTHESIA Hx Anesthesia Reactions: No Hx Malignant Hyperthermia: No Meds Allergies/Adverse Reactions: Allergies Allergy/AdvReac Type Severity Reaction Status Date / Time No Known Allergies Allergy Verified 05/30/17 19:34 Results - Vital Signs Recent Vital Signs: Last Vital Signs Temp 98.0 F 05/31/17 06:00 Pulse 98 H 05/31/17 10:36 Resp 17 05/31/17 06:00 BP 168/90 H 05/31/17 10:35 Pulse Ox 100 05/31/17 06:00 - Labs Result Diagrams: 05/31/17 12:30 05/31/17 12:30 Labs: Laboratory Results - last 24 hr 05/30/17 17:59 pO2 45 VBG pH 7.37 VBG pCO2 45.0 VBG HCO3 26.0 VBG Total CO2 27.4 VBG O2 Sat (Calc) 86.1 H VBG Base Excess 0.3 VBG Potassium 4.4 Sodium 138.0 Chloride 105.0 Glucose 75 Lactate 0.9 FiO2 21.0 Venous Blood Potassium 4.4 Assessment & Plan - Assessment and Plan (Free Text) Plan: This is a 76 year old male with PMHx lung squamous cell CA, prostate CA, HTN, Tachybrady syndrome s/p pacemaker, CHF, DVT, shingles who presents for AMS. CT head revealed mild atrophy and chronic microvascular changes without any acute ischemic or hemorrhagic pathologies. MS likely from UTI vs urinary retention. Possible urinary retention - post void 150cc - child? - Monito i/o per shift - bedside bladder scan as needed AMS - improving - thiamine 100mg daily to improve cognition - avoid sedative - SBP 130-140 Sepsis Urinary tract infection, immunocompromised - cefepime 1g/d - 1/2NS@60 COPD exacerbation ZENAIDA - CPAP, 7cm with 30% O2 - Brovana 15 q12, budesonide 0.5 q12, - solumedrol 20q12 Hx DVT CAD - amlodipine 10, lisinopril 10 pA-fib - Eliquis 2.5 bid, verapamil 240 daily ZENAIDA Neuropathy - neurontin Deconditioning - PT Prophylaxis - sucralfate Hx prostate ca - flomax Diet - HHD Consult ID = Dr. Chuy Murphy = Dr. Anne Urol = Dr. Marychuy Loera = Dr. Delgado Neurol = Dr. Montes s/r/d/w Dr. Doty - Date & Time Date: 05/31/17 Time: 07:00
--- NOTE | 2017-05-31 12:02 | CON ---
PULMONARY CONSULTATION DATE: 05/30/2017 REFERRING PHYSICIAN: Dr. Doty. REASON FOR CONSULTATION: Chronic obstructive lung disease and lung cancer. HISTORY OF PRESENT ILLNESS: This is a 76-year-old gentleman with past medical history significant for lung cancer, history of radiation and chemotherapy, history of cardiac arrhythmia requiring pacemaker, atrial fibrillation, history of DVT, been on anticoagulation, seeing Dr. Doty today. Dr. Doty's felt, the patient is changed, not feeling well, He was feeling weak and tired and comes into ER, found to have a UTI, received antibiotics, admitted for further workup. Has a cough and shortness of breath. No nausea. No vomiting. No diarrhea. PAST MEDICAL HISTORY: Small cell lung cancer; on radiation and chemotherapy, chronic obstructive lung disease, atrial fibrillation, history of DVT, cardiac arrhythmia requiring pacemaker. ALLERGIES: NONE KNOWN. SOCIAL HISTORY: Positive history of smoking. He denied any alcohol use. FAMILY HISTORY: No significant cardiopulmonary disease reported. MEDICATIONS: The patient is on Calan SR 240 mg daily, Carafate 1 g twice a day, Eliquis is 2.5 mg twice a day, Flomax 0.4 mg daily, Lipitor 20 mg daily, Neurontin 300 mg daily, Norvasc 10 mg daily, oxycodone immediate release 50 mg q.4 hours p.r.n., Pepcid 20 mg daily, Protonix 40 mg daily, Rocephin 1 g IV q.12 hours, IV fluid half normal saline 60 mL per hour, and Zestril 10 mg daily. REVIEW OF SYSTEMS: No headache or rhinitis. He does have cough with some sputum production. No chest pain. No nausea and no vomiting. No diarrhea. Has urinary frequencies. No leg pain or leg swelling. PHYSICAL EXAMINATION: GENERAL: Lying in the bed. VITAL SIGNS: Temperature is 98.0, heart rate is 102, respiratory rate is 20, blood pressure 109/78, and pulse oximetry 99% on room air. HEENT: Moist mucous membrane. Crowded airway. Mallampati score is 4. NECK: Supple. No JVD. LUNGS: Mild cough and shortness of breath. Lungs has a prolonged expiratory phase with scattered rhonchi and wheezing. HEART: S1 and S2. ABDOMEN: Soft and nontender. No organomegaly. EXTREMITIES: There is no edema. NEUROLOGIC: Awake and alert. Follows simple commands. LABORATORY DATA: Shows hemoglobin 12.5, hematocrit 37.6, WBC is 7.3, and platelet is 265. INR 1.13. PTT is 26. VBG showed pH 7.37, pCO2 45, O2 45. Sodium 137, potassium 4.2, chloride 103, bicarbonate 25, BUN 26, creatinine 1.8, glucose 81, calcium is 11, iron is 51. AST is 29. ALT is 20. Alkaline phosphatase is 81. Troponin is less than 0.01. Albumin is 3.5. Urinalysis shows WBC too numerous to count, RBC 0 to 5, leukocyte esterase is moderate. Chest x-ray shows no active infiltrate or effusion. IMPRESSION AND PLAN: Urinary tract infection and lung cancer. He is on radiation and chemotherapy, chronic obstructive lung disease, deep venous thrombosis, history of recent shingles, cardiac arrhythmia, has a paroxysmal atrial fibrillation, recently diagnosed with sleep apnea syndrome. I agree with the plan and management, already started on antibiotics. Continue anticoagulation. Continue calcium channel zan and beta-zan. We will add Solu-Medrol 20 mg q.12 hours, place him on continuous positive airway pressure, 7 cm with 30% oxygen while sleeping. Thank you and will follow with you. Ramon Delgado MD
[2017-05-31] MEDS: Sodium Chloride 0.45% 1,000 ML IV SCH (12:13)
[2017-05-31 12:41] LABS: HEMOGLOBIN 13.1 gm/dL (14.0-18.0); MEAN CELL VOLUME 92.7 fL (80.0-105.0); MEAN CORPUSCULAR HEMOGLOBIN 30.9 pg (25.0-35.0); MEAN CORPUSCULAR HGB CONC 33.3 g/dl (31.0-37.0); MEAN PLATELET VOLUME 9.1 fl (7.0-11.0); RBC 4.24 10^6/uL (3.5-6.1); RED CELL DISTRIBUTION WIDTH 17.1 % (11.5-14.5); WHITE BLOOD COUNT 9.2 10^3/ul (4.5-11.0)
[2017-05-31 12:51] LABS: ALB/GLOB RATIO 1.1 (1.1-1.8); ALBUMIN 3.8 g/dL (3.0-4.8); CALCIUM 10.9 mg/dL (8.4-10.5)
[2017-05-31 14:12] LABS: TROPONIN I 0.06 ng/mL
--- NOTE | 2017-05-31 19:51 | PN ---
DATE: 05/31/2017 REFERRING PHYSICIAN: Jim Light MD SUBJECTIVE: He is lying on the bed at 45 degrees. Feels better. More awake and alert. Breathing is okay. No nausea, no vomiting, no diarrhea, no leg pain or leg swelling. PHYSICAL EXAMINATION GENERAL: No acute distress. VITAL SIGNS: Temperature is 98, heart rate is 98, respiratory rate is 20, blood pressure 168/90 and pulse oximetry 99% on nasal cannula. HEENT: Moist mucous membranes. No carotid bruit. NECK: Supple. No JVD. LUNGS: *------*. HEART: S1 and S2. ABDOMEN: Soft, nontender. No organomegaly. EXTREMITIES: No edema. NEUROLOGIC: Awake, alert, follows simple command. LABORATORY DATA: Laboratory data shows hemoglobin 13.1, hematocrit 39.3, WBC 9.2 and platelet is 252. Sodium 138, potassium 4.1, chloride 103, bicarbonate 21, BUN 22, creatinine 1.5, glucose 89 and, calcium 10.9. AST 33, ALT 21, alkaline phosphatase is 89 and LDH *------*. Microbiology; blood cultures have been negative. MEDICATIONS: He is on Brovana 15 mcg inhaled twice a day, Calan SR 240 mg daily, Carafate 1 g twice a day, Eliquis 2.5 mg twice a day, Flomax 0.4 mg daily, Lipitor 20 mg daily, cefepime 1 mg IV q.24 h, Neurontin 300 mg daily, Norvasc 10 mg daily, oxycodone immediately release 50 mg q.4 hours. p.r.n., Pepcid 20 mg daily, Protonix 40 mg daily, IV fluid half saline 60 mL per hour, Solu-Medrol 20 mg q.12 hours, vitamin B 100 mg daily and Zestril 10 mg daily. IMPRESSION AND PLAN: Urinary tract infection, history of lung cancer, chronic obstructive lung disease, history of chemotherapy and radiation therapy, history of deep venous thrombosis, recently had shingles, cardiac arrhythmia, paroxysmal atrial fibrillation, sleep apnea syndrome, continue IV inhaled bronchodilator, keep at 45 degree, encourage continuous positive airway pressure use, gastric prophylaxis and pain management and oncology followup. Ramon Delgado MD [facility] # [id number]
[2017-05-31] MEDS: Cefepime 1gm in NS 100ml 1 GM/100 ML BAG IVPB SCH (22:41)
--- NOTE | 2017-06-01 03:28 | CON ---
DATE: 05/31/2017 The patient seen early this morning in room 376, bed 2. CHIEF COMPLAINT: Low-grade fever and weakness. HISTORY OF PRESENT ILLNESS: This is a 76-year-old male known to me from previous admission with non-small cell lung cancer, prostatic cancer, chronic obstructive lung disease, hypertension, coronary artery disease, myocardial infarction, history of Zoster, history of recent hospitalization last month with healthcare-associated pneumonia, DVT and renal disease. He is now admitted with weakness. Infectious disease consultation is requested. The patient does have low-grade fever. He has intermittent dysuria and frequency. He has no chest pain. No new cough. No headaches or blurred vision. No abdominal pain or diarrhea. The patient states Zoster rash has resolved. PAST MEDICAL HISTORY: Significant for chronic obstructive lung disease, hypertension, coronary artery disease, myocardial infarction, Zoster, healthcare-associated pneumonia, DVT, renal disease, non-small cell lung cancer, prostate cancer. PAST SURGICAL HISTORY: Significant for pacemaker and colonoscopy, and right chest port. ALLERGIES: THE PATIENT HAS NO KNOWN ALLERGIES. MEDICATIONS AT HOME: Reviewed. PHYSICAL EXAMINATION VITAL SIGNS: Temperature is 98, heart rate of 101, blood pressure is 120/70 and respiratory rate of 20. The patient is saturating at 98% oxygen saturation on room air. HEENT: Unremarkable. NECK: Supple. LUNGS: Decreased breath sounds. HEART: Normal S1 and S2. ABDOMEN: Soft and nontender. No organomegaly. LABORATORY DATA: Examination reveals the patient's white count is 7.3, hemoglobin of 12 and platelets of 265. Chemistries are noted. BUN of 26 and creatinine of 1.8. LDH is 618. Microbiology reveals the blood cultures are no growth. The urine culture is still pending. Urinalysis is noted and too numerous to count of wbc's and urinalysis with moderate bacteria. ASSESSMENT AND PLAN: Non-small cell lung cancer with history of prostate cancer, chronic obstructive lung disease, hypertension, coronary artery disease, myocardial infarction, herpes Zoster, healthcare-associated pneumonia, deep venous thrombosis, renal disease, urinary tract infection, and change in mental status. We will treat the patient with Maxipime pending panculture results and urine culture results. We should have the urine cultures tomorrow. We will follow closely with you. Lee Vera MD [facility] # [id number]
--- NOTE | 2017-06-01 04:42 | CON ---
DATE: 05/31/2017 REASON FOR THE CONSULTATION: Uncontrolled hypertension, altered mental status, history of lung CA, COPD. BRIEF CLINICAL HISTORY: This is a 76-year-old male with past medical history significant for lung CA, hypertension, hyperlipidemia, status post pacemaker, DVT who was sent by Dr. Doty's office because found to be in altered mental status and uncontrolled hypertension. The patient denies any chest pain, shortness of breath, or any palpitation. PAST MEDICAL HISTORY: Significant for lung CA, non-small cell stage III, history of radiation and history of chemo being followed by Dr. Doty; history of sick sinus syndrome on the last admission; tachybrady syndrome, multiple pauses, the patient underwent permanent single-chamber pacemaker in 03/2013, history of chronic renal insufficiency, baseline creatinine of 2. PREVIOUS CARDIAC WORKUP: As follows. The patient had successful implantation of permanent pacemaker, VVI [employer] MRI series on 04/12/2016. The patient presented with sick sinus syndrome, multiple pauses, history of cardiac catheterization in 07/2015 that shows normal LV function, no critical disease, and nonobstructive coronary artery disease after having equivocal stress test. The patient had prior cardiac catheterization on 03/25/2013, also shows nonobstructive coronary artery disease. PAST SURGICAL HISTORY: Significant for implantation of permanent pacemaker on 04/12/2016, history of cardiac catheterization 07/2015, and prior to that, the patient had cardiac catheterization on 03/25/2013 because of abnormal stress test. SOCIAL HISTORY: Ex-tobacco abuse, ex-alcohol abuse. REVIEW OF SYSTEMS: Negative except as per HPI. CURRENT MEDICATIONS: The patient is taking at home oxycodone, verapamil 240 mg. Flomax 0.4 mg, Carafate 1 g, omeprazole 20, lisinopril 10, gabapentin 300, Pepcid 20, atorvastatin 20 mg daily, Eliquis 2.5 mg daily, amlodipine 10 mg and benazepril 20 mg daily. PHYSICAL EXAMINATION: As follows; VITAL SIGNS: Temperature afebrile, heart rate 60, blood pressure 130/80. HEENT: PERRLA, intact. NECK: Supple. No carotid bruit, no thyromegaly. CHEST: Clear to auscultation. HEART: S1 and S2, regular. ABDOMEN: Soft. EXTREMITIES: Clubbing and cyanosis negative. LABORATORY DATA: Blood workup as follows; WBC 9.8, hemoglobin 13.8, hematocrit 39.3, platelet count 252. Chemistry shows sodium of 130, potassium 4.0, chloride 103, carbon dioxide 21, anion gap of 18, BUN 22, creatinine 1.5. BNP is negative. Troponin *------*. IMPRESSION: Altered mental status; uncontrolled hypertension; paroxysmal atrial fibrillation, now the patient in normal sinus; history of stage III lung cancer non-small cell; history of cardiac catheterization twice in 03/2015 and in 03/2013 coronary artery disease; history of permanent pacemaker on 04/12/2016 when the patient presented with multiple pauses; pacemaker MRI series; sick sinus syndrome; history of deep vein thrombosis, on anticoagulation, Eliquis 2.5 mg daily. RECOMMENDATIONS: Continue verapamil 240, continue *------*, continue atorvastatin, continue amlodipine. We will follow. Continue lisinopril. Continue blood workup. Magnesium phosphate in the morning. We reviewed the patient's recent cardiac workup. Upon reviewing, it shows that the patient had echocardiography on 04/04/2016 that shows ejection fraction of 35%, [id number] dilated systolic function, moderate aortic regurgitation, moderate mitral regurgitation. RV systolic pressure is 67. Repeat echo to assess the LV function, lipid profile, TSH, hemoglobin A1c. Also, we will give lactulose for constipation. We will follow with you. Thank you, Dr. Doty, for providing the opportunity in taking care of patient. Ramon Anne MD
[2017-06-01] MEDS: Sucralfate 1 gm/10 ml Oral Susp UD PO SCH ×2 (05:34→16:21)
[2017-06-01] MEDS: Sodium Chloride 0.45% 1,000 ML IV SCH (05:35)
[2017-06-01 06:46] LABS: ALBUMIN 3.3 g/dL (3.0-4.8); MAGNESIUM 1.8 mg/dL (1.7-2.2)
[2017-06-01 06:47] LABS: HEMOGLOBIN 11.9 gm/dL (14.0-18.0); MEAN CELL VOLUME 91.6 fL (80.0-105.0); MEAN CORPUSCULAR HEMOGLOBIN 30.4 pg (25.0-35.0); MEAN CORPUSCULAR HGB CONC 33.1 g/dl (31.0-37.0); MEAN PLATELET VOLUME 9.2 fl (7.0-11.0); PLATELET COUNT 266 10^3/uL (120.0-450.0); RBC 3.92 10^6/uL (3.5-6.1); WHITE BLOOD COUNT 6.3 10^3/ul (4.5-11.0)
[2017-06-01] MEDS: Budesonide 0.5 mg/2 ml Inhal Susp UD IH SCH ×2 (08:13→22:01)
[2017-06-01] MEDS: Arformoterol 15 mcg/2 ml Inh Sol IH SCH ×2 (08:13→22:00)
[2017-06-01 08:59] LABS: LYMPHOCYTE 5 % (22.0-35.0); NEUTROPHIL 95 % (50.0-70.0); PLATELET ESTIMATE NORMAL (NORMAL); POIKILOCYTOSIS 1+
--- NOTE | 2017-06-01 08:59 | HP ---
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 The patient was noted to be slightly confused. Upon closer questioning, especially with his family members around, the patient apparently has been getting worse over the last three days. He has not taken many of his medications, spending more than 50% of his time in bed. He has not been eating anything for the past three days as well. The patient had an epidural injection recently about a week ago as an out patient in Dr. Andrade's office. Family tells me that after the injection, the patient has not been the same and has been steadily deteriorating. The etiology of this is not clear to me. I will speak with the pain MD as well. PAST MEDICAL HISTORY: The patient has had history of shingles for which he was admitted to the hospital and treated. History of severe back pain for which he had x-rays, including CAT scans of the back along with bone scans done, which showed severe discogenic disease for which he underwent epidural injections as oral medicines were not helping him. The patient also has a history of DVT/PE for which he is on Eliquis 5 mg b.i.d. He has recurrent stage IV squamous cell carcinoma of the lung which appears to be significantly improved as there is no valvular leak on the most recent CAT scan of the chest, abdomen, and pelvis. He is currently on the drug called Opdivo, which he has been on for about 9 months. Treatment is given every two weeks. ALLERGIES: THE PATIENT HAS NO KNOWN ALLERGIES. FAMILY HISTORY: Reviewed and is noncontributory. SOCIAL HISTORY: Smoked about half a pack of cigarettes a day for more than 60 years, quit since the diagnosis of his cancer was made. Denies ETOH. Denies illicit drug abuse, and quit smoking about 3 years ago. HOME MEDICATIONS: Include: 1. Gabapentin 300 mg b.i.d. 2. Cardizem CD 180 mg p.o. daily. 3. Lisinopril 10 mg daily. 4. Ventolin HFA p.r.n. 5. Eliquis 2.5 mg b.i.d. 6. Lipitor 20 mg daily. 7. Singulair 10 mg daily. 8. Daliresp 500 mcg daily. 9. Metoprolol 50 mg daily. 10. Flomax 0.4 mg daily. 11. Tramadol 50 mg p.o. t.i.d. p.r.n. in addition to the oxycodone that he has been taking for relief of pain. REVIEW OF SYSTEMS: As per HPI, otherwise negative 12-point review of systems. The patient had chest x-ray in the ER done, along with urinalysis, blood work, and blood cultures. He also had a CAT scan of the head as well in view of the altered mental status. PHYSICAL EXAMINATION: VITAL SIGNS: On admission reveals the patient's T-max to be 99.2, heart rate is 118, respirations are 18, blood pressure is 103/78 with a pulse ox of 99%. The patient is afebrile. Blood pressure is normal. Pulse is tachycardic. Respiratory rate is normal. GENERAL: The patient appears to be alert, nontoxic, slow to respond, and chronically appearing ill with temporal muscle wasting. The patient is oriented to time, place, and person though earlier in the morning when he was in the office, appeared to be confused. HEENT: Reveals head to be normocephalic and atraumatic. Examination of the eyes reveal conjunctivae to be pale. Sclerae anicteric. Pupils are equally reactive to light and accommodation. Examination of the mouth reveals no oropharyngeal lesions. Mucous membranes are moist. Tongue reveals no ulceration *------*. Examination of the oropharynx reveals no erythema or exudate of the tonsils. NECK: Supple. There is no adenopathy. No jugular venous distention noted. LUNGS: Reveals it to be clear to percussion and auscultation with good air exchange. There are decreased breath sounds at the bases. There is no accessory muscle use. CARDIOVASCULAR: Reveals tachycardia, rate is regular. S1 and S2 are normal. No murmurs heard. The patient has a pacemaker on the left infraclavicular region. ABDOMEN: Soft and nontender. Bowel sounds are present. No rebound, rigidity, or guarding is noted. Examination of the back reveals it to be normal to inspection. There is no midline tenderness or paraspinal tenderness. EXTREMITIES: Upper extremities are normal to inspection. There is no cyanosis, clubbing, or edema. Lower extremities also reveals no cyanosis, clubbing, or edema. NEUROLOGIC: There is no gross focal deficits, though the patient is slow as far as mentation is concerned, which is relatively new. SKIN: Skin turgor is decreased. No skin lesion are noted. No rashes are noted. PSYCHIATRIC: The patient's affect is normal. He does respond to me and he knows my name as well. LABORATORY DATA: Lab results in the ER reveal white count of 7.3, hemoglobin 12.5, hematocrit 37.6, and platelet count of 265,000. Sodium is 137, potassium is 4.2, chloride is 103, CO2 of 25, BUN is 26, creatinine is 1.8 with the blood sugar of 81. Alcohol quantitative is less than 10. Calcium is 11, which is high for the patient. Phosphorous is 3.4, magnesium is 1.9, total bilirubin is 0.9, AST is 29, ALT is 20, alkaline phosphatase is 81, LDH is 618, total creatinine is 40, troponin is 0.06, total protein is 6.6, albumin 3.5, and globulin of 3.1. Urine appears to be cloudy. Urine protein is 100. Urine ketones are 15. Urine blood is small. Urine nitrite is negative. Urine bilirubin is small. Urine leukocyte esterase is moderately high. Urine rbc's are 0. Urine wbc's are too numerous to count. Urine bacteria is moderate. ASSESSMENT NOTES AND PLAN: Etiology of the mental confusion is unclear. CT of the head has been obtained. We will get neuro consult. We will get renal consult in view of the hypercalcemia and to determine what would be most appropriate for treatment in the underlying *------* for malignancy. The patient has already been started on IV fluids. The patient has been started empirically on ceftriaxone. We will get ID on board. We will get ultrasound along with the KUB of the kidney, bladder, and ureters and we will also get urologic evaluation as well. Routine post exam instruction has been given. I spoke in detail to the patient's family tonight, reviewed all the medicines that he was supposed to be taking at home and what he was not taking at home. Time spent with the patient and with the family and coordinating all of the orders more than 90 minutes. Labs for a.m. have been requested. Routine post exam instructions have been given to the patient. Uziel Doty MD
[2017-06-01 09:00] LABS: ACANTHROCYTES 1+
[2017-06-01] MEDS: Verapamil 240 mg ER Tab PO SCH (09:40)
[2017-06-01] MEDS: MethylPREDNISolone 40 mg Vial IVP SCH ×2 (09:48→22:31)
[2017-06-01] MEDS: Pantoprazole 40 mg EC Tab PO SCH ×2 (12:56→16:21)
--- NOTE | 2017-06-01 13:47 | CP.PCM.PN ---
Subjective - Date & Time of Evaluation Date of Evaluation: 06/01/17 Time of Evaluation: 13:38 - Subjective Subjective: PGY-[address] Doty New onset diarrhea. 4 times watery, non-bloody. no abdominal pain no recent runny nose, change in diet Objective - Vital Signs/Intake and Output Vital Signs (last 24 hours): Temp Pulse Resp BP Pulse Ox 97.9 F 94 H 17 164/96 H 100 06/01/17 06:00 06/01/17 09:47 06/01/17 06:00 06/01/17 09:48 06/01/17 06:00 Intake and Output: 06/01/17 06/01/17 06:59 18:59 Intake Total 540 0 Output Total 400 275 Balance 140 -275 - Medications Medications: Current Medications Amlodipine Besylate (Norvasc) 10 mg PO DAILY [facility] Last Admin: 06/01/17 09:48 Dose: 10 mg Apixaban (Eliquis) 2.5 mg PO BID [facility] PRN Reason: Protocol Last Admin: 06/01/17 09:47 Dose: 2.5 mg Arformoterol Tartrate (Brovana) 15 mcg IH [id number] [facility] Last Admin: 06/01/17 08:13 Dose: 15 mcg Atorvastatin Calcium (Lipitor) 20 mg PO DIN [facility] Last Admin: 05/31/17 17:22 Dose: 20 mg Budesonide (Pulmicort Respules) 0.5 mg IH [id number] [facility] Last Admin: 06/01/17 08:13 Dose: 0.5 mg Famotidine (Pepcid) 20 mg PO DAILY [facility] Last Admin: 06/01/17 09:48 Dose: 20 mg Gabapentin (Neurontin) 300 mg PO DAILY [facility] PRN Reason: Protocol Last Admin: 06/01/17 09:47 Dose: 300 mg Sodium Chloride (Sodium Chloride 0.45%) 1,000 mls @ 60 mls/hr IV .[id number] [facility] Last Admin: 06/01/17 05:35 Dose: 60 mls/hr Cefepime HCl (Maxipime 1gm) 1 gm in 100 mls @ 100 mls/hr IVPB Q24H [facility] PRN Reason: Protocol Stop: 06/08/17 23:36 Last Admin: 05/31/17 22:41 Dose: 100 mls/hr Lisinopril (Zestril) 10 mg PO DAILY [facility] Last Admin: 06/01/17 09:47 Dose: 10 mg Methylprednisolone (Solu-Medrol) 20 mg IVP Q12 [facility] Last Admin: 06/01/17 09:48 Dose: 20 mg Oxycodone HCl (Oxycodone Immediate Release Tab) 15 mg PO Q4 PRN PRN Reason: Pain, severe (8-10) Pantoprazole Sodium (Protonix Ec Tab) 40 mg PO ACBD [facility] Last Admin: 06/01/17 12:56 Dose: Not Given Sucralfate (Carafate Oral Susp) 1 gm PO 0600,1600 [facility] Last Admin: 06/01/17 05:34 Dose: 1 gm Tamsulosin HCl (Flomax) 0.4 mg PO DAILY [facility] Last Admin: 06/01/17 09:47 Dose: 0.4 mg Thiamine HCl (Vitamin B1 Tab) 100 mg PO DAILY [facility] Last Admin: 06/01/17 09:47 Dose: 100 mg Verapamil HCl (Calan Sr Tab) 240 mg PO DAILY [facility] Last Admin: 06/01/17 09:40 Dose: 240 mg - Labs Labs: 06/01/17 06:15 06/01/17 06:15 PT 12.2 Seconds (9.9-11.8) H 05/30/17 14:05 INR 1.13 (0.93-1.08) H 05/30/17 14:05 APTT 26.0 Seconds (23.7-30.8) 05/30/17 14:05 - Constitutional Appears: No Acute Distress - Head Exam Head Exam: ATRAUMATIC, NORMAL INSPECTION, NORMOCEPHALIC - Eye Exam Eye Exam: EOMI, Normal appearance, PERRL. absent: Scleral icterus Pupil Exam: NORMAL ACCOMODATION - ENT Exam ENT Exam: Mucous Membranes Moist - Respiratory Exam Respiratory Exam: Clear to Ausculation Bilateral. absent: Rales, Rhonchi, Wheezes - Cardiovascular Exam Cardiovascular Exam: REGULAR RHYTHM, +S1, +S2 - GI/Abdominal Exam GI & Abdominal Exam: Soft, Hyperactive Bowel Sounds. absent: Guarding, Rigid, Tenderness - Extremities Exam Extremities Exam: Normal Capillary Refill. absent: Calf Tenderness, Joint Swelling, Pedal Edema - Neurological Exam Neurological Exam: Alert, Awake, Oriented x3 - Psychiatric Exam Psychiatric exam: Normal Affect, Normal Mood - Skin Skin Exam: Dry, Warm Assessment and Plan - Assessment and Plan (Free Text) Plan: This is a 76 year old male with PMHx lung squamous cell CA, prostate CA, HTN, Tachybrady syndrome s/p pacemaker, CHF, DVT, shingles who presents for AMS. CT head revealed mild atrophy and chronic microvascular changes without any acute ischemic or hemorrhagic pathologies. AMS likely from UTI vs urinary retention. New onset diarrhea - c.diff pending - vss Watch Possible urinary retention - post void 150cc - Monito i/o per shift in the setting of urinary incontinence - bedside bladder scan as needed AMS - resolved - thiamine 100mg daily to improve cognition - avoid sedative - SBP 130-140 Sepsis Urinary tract infection, immunocompromised - cefepime 1g/d - 1/2NS@60 - urine culture: gram negative rods - blood culture: negative x 1 day COPD exacerbation ZENAIDA - CPAP, 7cm with 30% O2 - Brovana 15 q12, budesonide 0.5 q12, - solumedrol 20q12 Hx DVT CAD - amlodipine 10, lisinopril 10 - EF 35% (2015) - pending a1c, TFT, lipids - pending echo Low TSH - sick euthyroid - need to repeat TSH in 2 weeks with FT3, FT4 pA-fib - Eliquis 2.5 bid, verapamil 240 daily ZENADIA Neuropathy - neurontin Deconditioning - PT Prophylaxis - sucralfate Hx prostate ca - flomax Diet - HHD Disposition - Home with PT service - Advanced directives discussion on going Consult ID = Dr. Chuy Murphy = Dr. Anne Urol = Dr. Perrin Pulstefano = Dr. Delgado Neurol = Dr. Montes s/r/d/w Dr. Doty
[2017-06-01] MEDS: Cefepime 1gm in NS 100ml 1 GM/100 ML BAG IVPB SCH (22:34)
--- NOTE | 2017-06-01 23:33 | PN ---
DATE: 06/01/2017 SUBJECTIVE: The patient is in bed in no acute distress, was seen early this morning in 376, bed 2. PHYSICAL EXAMINATION VITAL SIGNS: Temperature 97, blood pressure 160/90 and respiratory rate of 16. HEENT: Unremarkable. NECK: Supple. LUNGS: Decreased breath sounds. HEART: Normal S1 and S2. ABDOMEN: Soft and nontender. SKIN: Examination of rash is improved. LABORATORY DATA: Reveals the patient's white count is 6.3 and 95% neutrophils. Chemistries reveals a BUN of 20 and creatinine of 1.4. Urinalysis is noted. Microbiology reveals a gram-negative nani in the urine. The blood cultures are negative. Review of orders reveals the patient to be on cefepime. ASSESSMENT AND PLAN: A 76-year-old male known to me from previous admissions by non-small cell lung cancer, prostatic cancer, chronic obstructive lung disease, hypertension, coronary artery disease, myocardial infarction, history of Zoster, history of recent hospitalization in the last month with healthcare-associated pneumonia, deep vein thrombosis and renal disease and is now admitted with urine as a source of infection, questionable change of mental status, with a gram-negative nani in the urine culture, on cefepime, awaiting for identification and sensitivity of a gram-negative nani. Lee Vera MD
--- NOTE | 2017-06-02 05:13 | CON ---
DATE: 06/01/2017 BRIEF CLINICAL HISTORY: *------* followup of uncontrolled hypertension and altered mental status, history of lung CA, and COPD. The patient denies any chest pain. Awake and alert. Family is at the bedside. PHYSICAL EXAMINATION: VITAL SIGNS: Temperature afebrile, heart rate 94 and blood pressure 164/96. HEENT: PERRLA intact. NECK: Supple. No carotid bruit. No thyromegaly. CHEST: Clear to auscultation. HEART: S1 and S2 regular. ABDOMEN: Soft. Yesterday, the patient was complaining of constipation. Lactulose given, and the patient feels a lot better. EXTREMITIES: Clubbing and cyanosis negative. IMPRESSION: A 76-year-old male with a past medical history significant for lung carcinoma, hypertension, hyperlipidemia status post permanent pacemaker. The patient presented with long multiple pauses, history of deep venous thrombosis, was seen by Dr. Mendoza's office, because the patient had uncontrolled hypertension, also found to be with some mental status changes. The patient is now much awake and alert. Denies any chest pain, shortness of breath, or any palpitations. Yesterday, he was complaining of some constipation. Lactulose was given. Had three bowel movements, and he feels okay. The patient had cardiac catheterization twice in 03/2015 and 03/2013, non-stenotic coronary artery disease, history of permanent pacemaker on 04/12/2016, when the patient presented with multiple pauses. He is status post permanent pacemaker, single chamber VVI; MRI safe; it means the patient can go by MRI without any problem. Sick sinus syndrome as mentioned, history of deep venous thrombosis, on anticoagulation, Eliquis 2.5 mg b.i.d. RECOMMENDATION: Continue Eliquis 2.5 b.i.d. for DVT and PE. Continue verapamil to control the heart rate. Continue *------* and continue amlodipine. The patient's last echo was on 04/04/2016, did show ejection fraction of 35% with [id number] decreased LV function, systolic dysfunction, RVSP 67, moderate aortic regurgitation, moderate mitral regurgitation, moderate tricuspid regurgitation. Repeat echo is pending. Monitor TSH, lipid profile and hemoglobin A1c request is pending. Recommendation, continue aggressively control her blood pressure. Continue Eliquis 2.5 b.i.d. Continue verapamil. Continue amlodipine 10 mg. We will put p.r.n. hydralazine to control the blood pressure. In addition, the patient is having lisinopril. We will follow with you as her blood pressure this afternoon is 164/96, we will monitor the requirement dose of hydralazine; to increase ramipril to 20 mg from tomorrow as indicated. Hydralazine, we will put p.r.n. and observe for 24 hours requirement. We will follow. Thank you Dr. Mendoza in taking care of this patient. Ramon Anne MD
[2017-06-02] MEDS: Sucralfate 1 gm/10 ml Oral Susp UD PO SCH ×2 (05:41→17:55)
--- NOTE | 2017-06-02 05:53 | PN ---
DATE: 06/01/2017 PULMONARY PROGRESS NOTE REFERRING PHYSICIAN: Dr. Jim Light. SUBJECTIVE: The patient is sitting up in the bed, having dinner, feels better. No headache. No rhinitis. Cough is better. No nausea, vomiting, or diarrhea. No leg pain. No leg swelling. PHYSICAL EXAMINATION GENERAL: In no acute distress. VITAL SIGNS: Temperature is 98, heart rate 109, respiratory rate is 20, blood pressure 135/82, pulse ox 95% on room air. HEENT: Moist mucous membranes. Crowded airway. Mallampati score is IV. NECK: Supple. No JVD. LUNGS: Fair airflow with rhonchi. HEART: S1 and S2. ABDOMEN: Soft, nontender, no organomegaly. EXTREMITIES: No edema. NEUROLOGICAL: Awake, alert, follows simple commands. MEDICATIONS: He is on hydralazine 10 mg q.i.d. p.r.n., Brovana inhaled twice a day, Calan SR 240 mg daily, Carafate 1 g twice a day, Eliquis 2.5 mg twice a day, Flomax 0.4 mg daily, Lipitor 20 mg daily, cefepime 1 g IV every 24 hour, Neurontin 300 mg daily, Norvasc 10 mg daily, oxycodone immediate release 50 mg every 4 hours p.r.n., Pepcid 20 mg daily, Protonix 40 mg daily, Pulmicort inhaled twice a day, IV fluid half normal saline 60 mL per hour, Solu-Medrol 20 mg every 12 hours, vitamin B 100 mg daily, Zestril 10 mg daily. LABORATORY DATA: Shows hemoglobin of 11.9, hematocrit 35.9, WBC 6.3, platelets 266. Sodium 138, potassium 4.2, chloride 104, bicarbonate 24, BUN 20, creatinine 1.4, glucose 118, calcium 10, phosphorus 3.7, magnesium 1.8, AST 31, ALT 24, alk phos 73, albumin 3.3. TSH is 0.15. Urine culture has gram negative rods. IMPRESSION AND PLAN: Urinary tract infection, history of lung cancer, chronic obstructive lung disease, been on chemoradiation therapy, history of deep vein thrombosis, recently had a shingle, cardiac arrhythmia, paroxysmal atrial fibrillation, sleep apnea syndrome. We will decrease Solu-Medrol to 20 mg daily, continue antibiotics as per infectious diseases. Gastric prophylaxis, deep vein thrombosis prophylaxis, continue CPAP while sleeping, start physical therapy out of bed to chair. We will follow with you. Ramon Delgado MD
[2017-06-02 06:52] LABS: HEMOGLOBIN 11.1 gm/dL (14.0-18.0); MEAN CELL VOLUME 89.4 fL (80.0-105.0); MEAN CORPUSCULAR HEMOGLOBIN 29.5 pg (25.0-35.0); MEAN PLATELET VOLUME 9.2 fl (7.0-11.0); PLATELET COUNT 239 10^3/uL (120.0-450.0); RBC 3.76 10^6/uL (3.5-6.1); WHITE BLOOD COUNT 11.7 10^3/ul (4.5-11.0)
[2017-06-02 07:02] LABS: ALB/GLOB RATIO 1.1 (1.1-1.8); ALBUMIN 3.1 g/dL (3.0-4.8); CALCIUM 9.4 mg/dL (8.4-10.5)
[2017-06-02] MEDS: Pantoprazole 40 mg EC Tab PO SCH ×2 (07:30→17:56)
[2017-06-02] MEDS: Budesonide 0.5 mg/2 ml Inhal Susp UD IH SCH ×2 (07:54→19:42)
[2017-06-02] MEDS: Arformoterol 15 mcg/2 ml Inh Sol IH SCH ×2 (07:54→19:42)
[2017-06-02] MEDS: Verapamil 240 mg ER Tab PO SCH (09:37)
[2017-06-02] MEDS: MethylPREDNISolone 40 mg Vial IVP SCH (09:39)
[2017-06-02] MEDS: oxyCODONE 15 mg Immediate Release Tab PO PRN (09:40)
[2017-06-02 10:22] LABS: ACANTHROCYTES 2+; HYPOCHROMIA SLIGHT; LYMPHOCYTE 1 % (22.0-35.0); MICROCYTOSIS SLIGHT; NEUTROPHIL 99 % (50.0-70.0); PLATELET ESTIMATE NORMAL (NORMAL); POIKILOCYTOSIS 2+
--- NOTE | 2017-06-02 12:54 | PN ---
DATE: 06/02/2017 REASON FOR CONSULTATION AND FOLLOWUP: Uncontrolled hypertension, altered mental status, lung CA, and COPD. SUBJECTIVE: The patient denies any chest pain, shortness of breath, headache; constipation was completely relieved. OBJECTIVE: VITAL SIGNS: Afebrile, heart rate 103, blood pressure 135/82. HEENT: PERRLA. Extraocular muscles are intact. NECK: Supple. No carotid bruit, no thyromegaly. CARDIOPULMONARY: S1 and S2, regular. LUNGS: Clear to auscultation. ABDOMEN: Soft. EXTREMITIES: Clubbing and cyanosis negative. LABORATORY DATA: Blood workup as follows: WBC 11.7, hemoglobin 11.8, hematocrit 33.6, platelet count 239. Chemistry shows a sodium of 135, potassium 3.9, chloride 101, carbon dioxide 25, anion gap of 13, BUN 21, creatinine 1.4. IMPRESSION: A 76-year-old male with past medical history significant for lung cancer, hypertension, hyperlipidemia, status post permanent pacemaker, when the patient presented with multiple pauses, history of deep vein thrombosis, seen by Dr. Doty office because of the patient's uncontrolled hypertension and found to be some mental status change, patient is admitted; history of cardiac catheterization twice in 03/2015 and 03/2013, nonobstructive coronary artery disease, history of pacemaker on 04/12/2016 when the patient presented with multiple syncope, single chamber VVI with MRI safe, patient can go for the MRI; history of deep venous thrombosis, on Eliquis. RECOMMENDATIONS: The patient is on verapamil 240, Eliquis 2.5 mg b.i.d. We will add low dose of beta zan Tenormin. We will follow with you. Thank you Dr. Doty for providing the opportunity in taking care of the patient, Gerhard Isabel for tachycardia. We will follow with you. Ramon Anne MD
--- NOTE | 2017-06-02 13:17 | CP.PCM.PN ---
Subjective - Date & Time of Evaluation Date of Evaluation: 06/02/17 Time of Evaluation: 13:14 - Subjective Subjective: PGY-[address] Doty Pt has no more diarrhea. Able to ambulate to bathroom for voiding No acute complaint back pain 5/10 at times during ambulation Needle of port changed yesterday Objective - Vital Signs/Intake and Output Vital Signs (last 24 hours): Temp Pulse Resp BP Pulse Ox 98.5 F 83 20 142/86 95 06/02/17 06:00 06/02/17 09:37 06/02/17 06:00 06/02/17 09:38 06/02/17 06:00 Intake and Output: 06/02/17 06/02/17 06:59 18:59 Intake Total 420 120 Output Total 825 300 Balance -405 -180 - Medications Medications: Current Medications Amlodipine Besylate (Norvasc) 10 mg PO DAILY [facility] Last Admin: 06/02/17 09:38 Dose: 10 mg Apixaban (Eliquis) 2.5 mg PO BID [facility] PRN Reason: Protocol Last Admin: 06/02/17 09:38 Dose: 2.5 mg Arformoterol Tartrate (Brovana) 15 mcg IH [id number] [facility] Last Admin: 06/02/17 07:54 Dose: 15 mcg Atenolol (Tenormin) 25 mg PO DAILY [facility] Last Admin: 06/02/17 09:39 Dose: 25 mg Atorvastatin Calcium (Lipitor) 20 mg PO DIN [facility] Last Admin: 06/01/17 17:57 Dose: 20 mg Budesonide (Pulmicort Respules) 0.5 mg IH [id number] [facility] Last Admin: 06/02/17 07:54 Dose: 0.5 mg Famotidine (Pepcid) 20 mg PO DAILY [facility] Last Admin: 06/02/17 09:38 Dose: 20 mg Gabapentin (Neurontin) 300 mg PO DAILY [facility] PRN Reason: Protocol Last Admin: 06/02/17 09:38 Dose: 300 mg Hydralazine HCl (Apresoline) 10 mg PO QID PRN PRN Reason: FOR SBP>170 and Diastolic>100 Sodium Chloride (Sodium Chloride 0.45%) 1,000 mls @ 60 mls/hr IV .[id number] [facility] Last Admin: 06/01/17 05:35 Dose: 60 mls/hr Cefepime HCl (Maxipime 1gm) 1 gm in 100 mls @ 100 mls/hr IVPB Q24H [facility] PRN Reason: Protocol Stop: 06/08/17 23:36 Last Admin: 06/01/17 22:34 Dose: 100 mls/hr Lisinopril (Zestril) 10 mg PO DAILY [facility] Last Admin: 06/02/17 09:39 Dose: 10 mg Methylprednisolone (Solu-Medrol) 20 mg IVP DAILY [facility] Last Admin: 06/02/17 09:39 Dose: 20 mg Oxycodone HCl (Oxycodone Immediate Release Tab) 15 mg PO Q4 PRN PRN Reason: Pain, severe (8-10) Last Admin: 06/02/17 09:40 Dose: 15 mg Pantoprazole Sodium (Protonix Ec Tab) 40 mg PO ACBD [facility] Last Admin: 06/01/17 16:21 Dose: 40 mg Sucralfate (Carafate Oral Susp) 1 gm PO 0600,1600 [facility] Last Admin: 06/02/17 05:41 Dose: 1 gm Tamsulosin HCl (Flomax) 0.4 mg PO DAILY [facility] Last Admin: 06/02/17 09:38 Dose: 0.4 mg Thiamine HCl (Vitamin B1 Tab) 100 mg PO DAILY [facility] Last Admin: 06/02/17 09:39 Dose: 100 mg Verapamil HCl (Calan Sr Tab) 240 mg PO DAILY [facility] Last Admin: 06/02/17 09:37 Dose: 240 mg - Labs Labs: 06/02/17 06:15 06/02/17 06:15 PT 12.2 Seconds (9.9-11.8) H 05/30/17 14:05 INR 1.13 (0.93-1.08) H 05/30/17 14:05 APTT 26.0 Seconds (23.7-30.8) 05/30/17 14:05 - Constitutional Appears: No Acute Distress - Head Exam Head Exam: ATRAUMATIC, NORMAL INSPECTION, NORMOCEPHALIC - Eye Exam Eye Exam: EOMI, Normal appearance, PERRL Pupil Exam: NORMAL ACCOMODATION - ENT Exam ENT Exam: Mucous Membranes Moist - Respiratory Exam Respiratory Exam: Clear to Ausculation Bilateral. absent: Rales, Rhonchi, Wheezes Additional comments: chest port intact, no erythema - Cardiovascular Exam Cardiovascular Exam: REGULAR RHYTHM, +S1, +S2 - GI/Abdominal Exam GI & Abdominal Exam: Soft, Normal Bowel Sounds. absent: Guarding, Rigid, Tenderness - Extremities Exam Extremities Exam: Normal Capillary Refill. absent: Calf Tenderness, Pedal Edema - Back Exam Back Exam: absent: CVA tenderness (L), CVA tenderness (R) - Neurological Exam Neurological Exam: Alert, Awake, Oriented x3 - Psychiatric Exam Psychiatric exam: Normal Affect, Normal Mood - Skin Skin Exam: Dry, Normal Color Assessment and Plan - Assessment and Plan (Free Text) Plan: This is a 76 year old male with PMHx lung squamous cell CA s/p opdivo, prostate CA, HTN, Tachybrady syndrome s/p pacemaker, CHF, DVT, shingles who presents for AMS. CT head revealed mild atrophy and chronic microvascular changes without any acute ischemic or hemorrhagic pathologies. AMS likely from UTI vs urinary retention. New onset diarrhea - resolved - stool specimen was not procured. c.diff testing not sent - vss Watch Possible urinary retention, likely prostate problem, Hx prostate ca - post void 150cc - Monito i/o per shift in the setting of urinary incontinence - bedside bladder scan as needed - reconsult Dr. Perrin AMS - resolved - thiamine 100mg daily to improve cognition - avoid sedative - SBP 130-140 Sepsis Urinary tract infection, immunocompromised - cefepime 1g/d - 1/2NS@60 - urine culture: gram negative rods - blood culture: negative x 1 day COPD exacerbation ZENAIDA - CPAP, 7cm with 30% O2 - Brovana 15 q12, budesonide 0.5 q12, - solumedrol 20q12 Hx DVT CAD - amlodipine 10, lisinopril 10, new Tenormin 25 - EF 35% (2016) - pending a1c, lipids - pending echo Low TSH - sick euthyroid - need to repeat TSH in 2 weeks with FT3, FT4 pA-fib - Eliquis 2.5 bid, verapamil 240 daily ZENAIDA Neuropathy - neurontin Deconditioning - PT Prophylaxis - sucralfate Hx prostate ca - flomax Diet - HHD Disposition - Home with PT service - Advanced directives discussion on going Consult ID = Dr. Chuy Murphy = Dr. Anne Urol = Dr. Perrin Pulm = Dr. Delgado Neurol = Dr. Montes s/r/d/w Dr. Doyt
--- NOTE | 2017-06-02 16:04 | CP.PCM.PN ---
Subjective - Date & Time of Evaluation Date of Evaluation: 06/02/17 Time of Evaluation: 11:55 - Subjective Subjective: Comfortable in bed, not in distress, afebrile. Currently no dysuria. Objective - Vital Signs/Intake and Output Vital Signs (last 24 hours): Temp Pulse Resp BP Pulse Ox 98.6 F 103 H 20 135/82 95 06/01/17 16:00 06/02/17 04:46 06/01/17 16:00 06/01/17 16:00 06/01/17 16:00 Intake and Output: 06/02/17 06/02/17 06:59 18:59 Intake Total 420 Output Total 825 Balance -405 - Medications Medications: Current Medications Amlodipine Besylate (Norvasc) 10 mg PO DAILY [facility] Last Admin: 06/01/17 09:48 Dose: 10 mg Apixaban (Eliquis) 2.5 mg PO BID [facility] PRN Reason: Protocol Last Admin: 06/01/17 17:57 Dose: 2.5 mg Arformoterol Tartrate (Brovana) 15 mcg IH [id number] [facility] Last Admin: 06/02/17 07:54 Dose: 15 mcg Atenolol (Tenormin) 25 mg PO DAILY [facility] Atorvastatin Calcium (Lipitor) 20 mg PO DIN [facility] Last Admin: 06/01/17 17:57 Dose: 20 mg Budesonide (Pulmicort Respules) 0.5 mg IH [id number] [facility] Last Admin: 06/02/17 07:54 Dose: 0.5 mg Famotidine (Pepcid) 20 mg PO DAILY [facility] Last Admin: 06/01/17 09:48 Dose: 20 mg Gabapentin (Neurontin) 300 mg PO DAILY [facility] PRN Reason: Protocol Last Admin: 06/01/17 09:47 Dose: 300 mg Hydralazine HCl (Apresoline) 10 mg PO QID PRN PRN Reason: FOR SBP>170 and Diastolic>100 Sodium Chloride (Sodium Chloride 0.45%) 1,000 mls @ 60 mls/hr IV .[id number] [facility] Last Admin: 06/01/17 05:35 Dose: 60 mls/hr Cefepime HCl (Maxipime 1gm) 1 gm in 100 mls @ 100 mls/hr IVPB Q24H [facility] PRN Reason: Protocol Stop: 06/08/17 23:36 Last Admin: 06/01/17 22:34 Dose: 100 mls/hr Lisinopril (Zestril) 10 mg PO DAILY [facility] Last Admin: 06/01/17 09:47 Dose: 10 mg Methylprednisolone (Solu-Medrol) 20 mg IVP DAILY [facility] Oxycodone HCl (Oxycodone Immediate Release Tab) 15 mg PO Q4 PRN PRN Reason: Pain, severe (8-10) Pantoprazole Sodium (Protonix Ec Tab) 40 mg PO ACBD [facility] Last Admin: 06/01/17 16:21 Dose: 40 mg Sucralfate (Carafate Oral Susp) 1 gm PO 0600,1600 [facility] Last Admin: 06/02/17 05:41 Dose: 1 gm Tamsulosin HCl (Flomax) 0.4 mg PO DAILY [facility] Last Admin: 06/01/17 09:47 Dose: 0.4 mg Thiamine HCl (Vitamin B1 Tab) 100 mg PO DAILY [facility] Last Admin: 06/01/17 09:47 Dose: 100 mg Verapamil HCl (Calan Sr Tab) 240 mg PO DAILY [facility] Last Admin: 06/01/17 09:40 Dose: 240 mg - Labs Labs: 06/02/17 06:15 06/02/17 06:15 PT 12.2 Seconds (9.9-11.8) H 05/30/17 14:05 INR 1.13 (0.93-1.08) H 05/30/17 14:05 APTT 26.0 Seconds (23.7-30.8) 05/30/17 14:05 - Constitutional Appears: Non-toxic, No Acute Distress - Head Exam Head Exam: NORMAL INSPECTION - ENT Exam ENT Exam: Mucous Membranes Moist - Neck Exam Neck Exam: absent: Lymphadenopathy, Meningismus - Respiratory Exam Respiratory Exam: Decreased Breath Sounds - Cardiovascular Exam Cardiovascular Exam: +S1, +S2 - GI/Abdominal Exam GI & Abdominal Exam: Soft. absent: Tenderness Assessment and Plan - Assessment and Plan (Free Text) Plan: Assessment UTI with gram negative bacilli history of herpes zoster of the posterior thoracic area squamous cell lung cancer on chemotherapy S/P port placement on the chest cardiac arrhythmia S/P peramanent pacemaker placement HTN dyslipidemia history of DVT acute on chronic renal failure Plan continue cefepime day 2 pending identification and sensitivities of the gram negative bacilli in the urine will monitor clinically
--- NOTE | 2017-06-02 16:56 | CARD ---
APPROVED REPORT EXAM: Two-dimensional and M-mode echocardiogram with Doppler and color Doppler. INDICATION S/P CHEMO/LUNG CA/LVFX/HTN 2D DIMENSIONS Left Atrium (2D)4.2 (1.6-4.0cm)IVSd1.3 (0.7-1.1cm) LVDd4.4 (3.9-5.9cm)PWd1.3 (0.7-1.1cm) LVDs3.2 (2.5-4.0cm)FS (%) 26.5 % LVEF (%)52.1 (>50%) M-Mode DIMENSIONS Aortic Root4.00 (2.2-3.7cm)Aortic Cusp Exc.1.80 (1.5-2.0cm) Aortic Valve AoV Peak Fdghawva715.0cm/Thompson Peak GR.10mmHgAI P 1/2 Qfjp960hb Mitral Valve MV E Xvxruscs52.3cm/sMV A Qulxxjiz312.0cm/sE/A ratio0.5 TDI Lateral E' Peak V9.36cm/sMedial E' Peak V3.90cm/sE/Lateral E'5.9 E/Medial E'14.2 Pulmonary Valve PV Peak Dkycvsvn49.6cm/sPV Peak Grad.2mmHg Tricuspid Valve TR Peak Albquwmp770du/sRAP [id number] Peak Gr.60mmHg [id number] LEFT VENTRICLE The left ventricle is normal size. There is mild concentric left ventricular hypertrophy. Left ventricle systolic function is low normal to mildlyt decreased.EF-45-50% Septal motion consistent with conduction abnormality. Transmitral Doppler flow pattern is Grade III-reversible restrictive diastolic dysfunction. No left ventricle thrombus noted on this study. There is no ventricular septal defect visualized. There is no left ventricular aneurysm. There is no mass noted in the left ventricle. RIGHT VENTRICLE The right ventricle is mildly dilated. There is normal right ventricular wall thickness. Systolic function of RV is mildly reduced. There is a pacemaker lead in the right ventricle. ATRIA The left atrium is mildly dilated. The right atrium is mildly dilated. There is a catheter/pacemaker lead seen in the right atrium. The interatrial septum is intact with no evidence for an atrial septal defect. AORTIC VALVE The aortic valve is thickened but opens well. There is mild to moderate aortic regurgitation. There is no aortic valvular stenosis. There is no aortic valvular vegetation. MITRAL VALVE The mitral valve is thickened but opens well. Mitral regurgitation is mild to moderate. There is no mitral valve stenosis. There is no evidence of mitral valve prolapse. TRICUSPID VALVE The tricuspid valve leaflets are thickened , but open well. There is moderate tricuspid regurgitation.RVSP-71 mmof Hg. There is moderate pulmonary hypertension. There is no tricuspid valve stenosis. There is no tricuspid valve prolapse or vegetation. PULMONIC VALVE The pulmonic valve is borderline thickened. There is trace to mild pulmonic valvular regurgitation. There is no pulmonic valvular stenosis. GREAT VESSELS The aortic root is normal in size. The ascending aorta is normal in size. The pulmonary artery is normal. The IVC is normal in size and collapses >50% with inspiration. PERICARDIAL EFFUSION There is no pleural effusion. There is a trace pericardial effusion. <Conclusion> The left ventricle is normal size. Left ventricle systolic function is low normal to mildlyt decreased.EF-45-50% Septal motion consistent with conduction abnormality. The right ventricle is mildly dilated. Systolic function of RV is mildly reduced. There is mild to moderate aortic regurgitation. Mitral regurgitation is mild to moderate. There is moderate tricuspid regurgitation.RVSP-71 mmof Hg. There is moderate pulmonary hypertension. There is a trace pericardial effusion. The pulmonary artery is normal. There is a pacemaker lead in the right ventricle.
--- NOTE | 2017-06-02 20:28 | PN ---
DATE: 06/02/2017 PULMONARY PROGRESS NOTE REFERRING PHYSICIAN: Jim Light MD SUBJECTIVE: He is lying on the bed at 45 degrees. Night was unremarkable. Breathing is better, decreased cough, decreased shortness of breath. No nausea, no vomiting, no diarrhea, no leg pain or leg swelling. OBJECTIVE: GENERAL: In no acute distress. VITAL SIGNS: Temperature is 98, heart rate 83, respiratory rate is 25, blood pressure 142/86, pulse ox 95% on room air nasal cannulation. HEENT: Moist mucous membranes. Crowded airway. NECK: Supple, no JVD. LUNGS: Fair airflow with rhonchi. HEART: S1 and S2. ABDOMEN: Soft, nontender, no organomegaly. EXTREMITIES: No edema. NEUROLOGICAL: Awake, alert, follows simple commands. MEDICATIONS: He is on hydralazine 10 mg q.i.d. p.r.n., Brovana 15 mcg inhaled twice a day, Calan SR 240 mg daily, Carafate 1 g twice a day, Eliquis 2.5 mg twice a day, Flomax 0.4 mg daily, Lipitor 20 mg daily, cefepime 1 g IV q. 24 hour, gabapentin 300 mg daily, Norvasc 10 mg daily, oxycodone immediate release 50 mg q. 4 hours p.r.n., Pepcid 20 mg daily, Protonix 40 mg daily, Pulmicort inhaled twice a day, IV fluid half normal saline 60 mL per hour, Solu-Medrol 20 mg daily, Tenormin 25 mg daily, vitamin B1 100 mg daily, Zestril 10 mg daily. LABORATORY DATA: Shows hemoglobin of 11.2, hematocrit 33.6, WBC 11.7, platelets 239. Sodium 135, potassium 3.9, chloride 101, bicarbonate 25, BUN 21, creatinine 1.4, glucose 120, calcium is 9.4, AST 32, ALT 22, alk phos is 66, albumin is 3.1. Urinalysis show wbc's too numerous to count. Urine culture has gram negative nani. Echocardiogram done, the report is still pending. IMPRESSION: Urinary tract infection, lung cancer, history of obstructive lung disease, chemoradiation therapy in the past, deep vein thrombosis, recently had a shingle, cardiac arrhythmia, paroxysmal atrial fibrillation, sleep apnea syndrome. Spoke to nursing staff, requested the patient out of bed to chair, may ambulate the patient. Continue antibiotics, Solu-Medrol, inhaled bronchodilator, gastric prophylaxis, DVT prophylaxis, fall precaution, may ambulate, start therapy. We will follow with you. Ramon Delgado MD
[2017-06-02] MEDS: Cefepime 1gm in NS 100ml 1 GM/100 ML BAG IVPB SCH (22:37)
[2017-06-03] MEDS: Sucralfate 1 gm/10 ml Oral Susp UD PO SCH ×2 (05:43→17:31)
[2017-06-03 06:38] LABS: HEMOGLOBIN 11.3 gm/dL (14.0-18.0); MEAN CELL VOLUME 89.9 fL (80.0-105.0); MEAN CORPUSCULAR HEMOGLOBIN 30.1 pg (25.0-35.0); MEAN CORPUSCULAR HGB CONC 33.5 g/dl (31.0-37.0); MEAN PLATELET VOLUME 8.8 fl (7.0-11.0); PLATELET COUNT 210 10^3/uL (120.0-450.0); RBC 3.75 10^6/uL (3.5-6.1); RED CELL DISTRIBUTION WIDTH 16.8 % (11.5-14.5); WHITE BLOOD COUNT 11.8 10^3/ul (4.5-11.0)
[2017-06-03 06:50] LABS: ALB/GLOB RATIO 1.1 (1.1-1.8)
[2017-06-03] MEDS: oxyCODONE 15 mg Immediate Release Tab PO PRN (06:57)
[2017-06-03] MEDS: Arformoterol 15 mcg/2 ml Inh Sol IH SCH ×2 (08:01→20:09)
[2017-06-03] MEDS: Budesonide 0.5 mg/2 ml Inhal Susp UD IH SCH ×2 (08:01→20:09)
[2017-06-03] MEDS: Pantoprazole 40 mg EC Tab PO SCH ×2 (08:24→17:32)
[2017-06-03] MEDS: Sodium Chloride 0.45% 1,000 ML IV SCH (09:21)
[2017-06-03] MEDS: Verapamil 240 mg ER Tab PO SCH (09:21)
[2017-06-03] MEDS: MethylPREDNISolone 40 mg Vial IVP SCH (09:21)
[2017-06-03 10:32] LABS: ANISOCYTOSIS 1+; HYPOCHROMIA 1+; LYMPHOCYTE 4 % (22.0-35.0); MICROCYTOSIS 1+; MONOCYTE 5 % (1.0-6.0); NEUTROPHIL 91 % (50.0-70.0); PLATELET ESTIMATE NORMAL (NORMAL); POIKILOCYTOSIS 2+
[2017-06-03 10:33] LABS: BURR CELLS 3+; OVALOCYTES 1+; TEAR DROP CELLS SLIGHT
--- NOTE | 2017-06-03 13:34 | PN ---
DATE: 06/03/2017 SUBJECTIVE: The patient is in bed, in no acute distress. PHYSICAL EXAMINATION: VITAL SIGNS: Temperature is 97, blood pressure is 140/80, respiratory rate of 16. HEENT: Unremarkable. NECK: Supple. LUNGS: Decreased breath sounds. HEART: Normal S1 and S2. ABDOMEN: Soft, nontender. LABORATORY EXAMINATION: Reveals a white count of 11,000, hemoglobin of 11, platelets of 210. Chemistry reveals a BUN of 29, creatinine of 1.4. Microbiology reveals a urine culture was a gram-negative nani. Identification and sensitivity is still pending. The blood cultures have no growth, and the stool for C. difficile antigen and toxin are both negative. ASSESSMENT AND PLAN: A 76-year-old male with history of zoster in the posterior thorax, history of squamous cell lung cancer, on chemotherapy, status post port placement, and with a gram-negative nani and bacilli. I am waiting for identification and sensitivity of the gram-negative nani, and currently on cefepime day number 3. I will make further recommendations. Lee Vera MD
--- NOTE | 2017-06-03 18:39 | PN ---
DATE: 06/03/2017 REASON FOR CONSULTATION: Follow up uncontrolled hypertension, altered mental status, lung CA, COPD, and status post pacemaker. SUBJECTIVE: The patient denies any chest pain, shortness of breath, any palpitation, or constipation and really feel better. PHYSICAL EXAMINATION: GENERAL: Not in apparent distress, having the breakfast. VITAL SIGNS: Temperature afebrile, heart rate 80, and blood pressure 143/85. HEENT: PERRLA. Extraocular muscles are intact. NECK: Supple. No carotid bruit or thyromegaly. CHEST: Clear to auscultation. HEART: S1 and S2 regular. ABDOMEN: Soft. EXTREMITIES: Clubbing and cyanosis are negative. LABORATORY DATA: Blood workup as follows. WBC 11.6, hemoglobin 11.3, hematocrit 33.7, and platelet count 210. Chemistry shows sodium 135, potassium 3.9, chloride 99, carbon dioxide 25, anion gap of 11, BUN 29, and creatinine 1.4. IMPRESSION: A 76-year-old male with past medical history of lung CA, hypertension, hyperlipidemia, status post permanent pacemaker. The patient presented with bradycardia and multiple pauses, status post pacemaker, history of DVT, seen by Dr. Doty where he was found to be in altered mental status. The patient was admitted here with uncontrolled hypertension and altered mental status, history of cardiac catheterization twice 03/2015 and 03/2013, history of coronary artery disease, history of pacemaker on 04/12/2016, pacemaker single chamber VVI. MRI received, history of recent echo done yesterday that showed ejection fraction 45% to 50%, septal wall hypokinesis. Right ventricle is mildly dilated, [id number] aortic regurgitation, moderate tricuspid regurgitation, systolic pressure of 71 consistent with moderate pulmonary hypertension. Treat pericardial effusion. pacemaker lead noted in RV. RECOMMENDATIONS: Continue hydralazine p.r.n. Continue verapamil 240 mg daily, continue Eliquis for DVT. Continue atorvastatin. Continue amlodipine. We also added Tenormin 25 mg daily for tachycardia. Since the patient's pacemaker is bradycardia, then it is not a problem. We will add on Colace for constipation. We will follow with you. Thank you Dr. Doty for providing this opportunity in taking care of the patient, Gerhard Isabel. Ramon Anne MD
--- NOTE | 2017-06-03 21:08 | PN ---
PULMONARY PROGRESS NOTE DATE: 06/03/2017 REFERRING PHYSICIAN: Jmi Light MD SUBJECTIVE: The patient is lying in the bed at 45 degrees. Decreased cough, decreased shortness of breath. No nausea, no vomiting, no diarrhea. No leg pain or leg swelling. PHYSICAL EXAMINATION GENERAL: In no acute distress. VITAL SIGNS: Temperature is 98, heart rate 80, respiratory rate is 20, blood pressure 143/85, pulse ox 100% on nasal cannula. HEENT: Moist mucous membranes. Crowded airway. NECK: Supple. No JVD. LUNGS: Fair airflow with rhonchi. HEART: S1, S2. ABDOMEN: Soft and nontender. No organomegaly. EXTREMITIES: There is no edema. NEUROLOGIC: Awake and alert. Follows simple commands. MEDICATIONS: He is on hydralazine 10 mg q.i.d. p.r.n., Brovana 50 mcg inhaled twice a day, Calan SR 240 mg daily, Carafate 1 g twice a day, Colace 100 mg twice a day, Eliquis 2.5 mg twice a day, Flomax 0.4 mg daily, Lipitor 20 mg daily, cefepime 1 g IV daily, Neurontin 300 mg daily, Norvasc 10 mg daily, oxycodone immediate-release 50 mg q. 4 hours p.r.n., Pepcid 20 mg daily, Protonix 40 mg daily, Pulmicort inhaled twice a day, IV fluids half normal saline 60 ml/hr, Solu-Medrol 20 mg daily, Tenormin 25 mg daily, vitamin B1 100 mg daily, Zestril 10 mg daily. LABORATORY DATA: Shows hemoglobin 11.3, hematocrit 33.7, WBC 11.8, platelet count is 210. Sodium 31, potassium 3.9, chloride 99, bicarbonate 25, BUN 29, creatinine 1.4, glucose 110, calcium 9.0. AST 29, ALT 22, alkaline phosphatase is 61, albumin is 3.0. Urine culture has gram negative nani. IMPRESSION AND PLAN: Urinary tract infection, lung cancer, obstructive lung disease, deep venous thrombosis, recently had shingles, cardiac arrhythmia, paroxysmal atrial fibrillation, sleep apnea syndrome. I spoke with nursing staff, he has good appetite, eating well. We will DC IV fluid. Continue IV and inhaled bronchodilator, antibiotics as per infectious diseases, gastric prophylaxis, DVT prophylaxis. Thank you and we will follow with you. Ramon Delgado MD Jo # [id number]
[2017-06-03] MEDS: Cefepime 1gm in NS 100ml 1 GM/100 ML BAG IVPB SCH (23:30)
[2017-06-04] MEDS ORDERED: oxyCODONE 15 mg Immediate Release Tab PO STA (01:53)
--- NOTE | 2017-06-04 01:55 | CP.PCM.PN ---
Subjective - Date & Time of Evaluation Date of Evaluation: 06/04/17 Time of Evaluation: 01:55 - Subjective Subjective: Patient was seen because he complained of back pain. States that he has back pain and requested oxycodone that he was on for shingles that he has had about a one month ago. Has no other complaints. Medical record was reviewed. This 76 year old male was admitted with lethargy, altered mental status. Has PMH of COPD, CKD, non small cell lung cancer, prostate cancer. Objective - Vital Signs/Intake and Output Vital Signs (last 24 hours): Temp Pulse Resp BP Pulse Ox 98.6 F 67 18 129/103 H 92 L 06/03/17 18:00 06/03/17 18:00 06/03/17 18:00 06/03/17 18:00 06/03/17 18:00 Intake and Output: 06/03/17 06/04/17 18:59 06:59 Intake Total 240 360 Output Total 500 300 Balance -260 60 - Medications Medications: Current Medications Amlodipine Besylate (Norvasc) 10 mg PO DAILY [facility] Last Admin: 06/03/17 09:20 Dose: 10 mg Apixaban (Eliquis) 2.5 mg PO BID [facility] PRN Reason: Protocol Last Admin: 06/03/17 17:32 Dose: 2.5 mg Arformoterol Tartrate (Brovana) 15 mcg IH [id number] [facility] Last Admin: 06/03/17 20:09 Dose: 15 mcg Atenolol (Tenormin) 25 mg PO DAILY [facility] Last Admin: 06/03/17 09:20 Dose: 25 mg Atorvastatin Calcium (Lipitor) 20 mg PO DIN [facility] Last Admin: 06/03/17 17:32 Dose: 20 mg Budesonide (Pulmicort Respules) 0.5 mg IH [id number] [facility] Last Admin: 06/03/17 20:09 Dose: 0.5 mg Docusate Sodium (Colace) 100 mg PO BID [facility] Last Admin: 06/03/17 17:32 Dose: 100 mg Famotidine (Pepcid) 20 mg PO DAILY [facility] Last Admin: 06/03/17 09:21 Dose: 20 mg Gabapentin (Neurontin) 300 mg PO DAILY [facility] PRN Reason: Protocol Last Admin: 06/03/17 09:21 Dose: 300 mg Hydralazine HCl (Apresoline) 10 mg PO QID PRN PRN Reason: FOR SBP>170 and Diastolic>100 Cefepime HCl (Maxipime 1gm) 1 gm in 100 mls @ 100 mls/hr IVPB Q24H [facility] PRN Reason: Protocol Stop: 06/08/17 23:36 Last Admin: 06/02/17 22:37 Dose: 100 mls/hr Lisinopril (Zestril) 10 mg PO DAILY [facility] Last Admin: 06/03/17 09:20 Dose: 10 mg Methylprednisolone (Solu-Medrol) 20 mg IVP DAILY [facility] Last Admin: 06/03/17 09:21 Dose: 20 mg Pantoprazole Sodium (Protonix Ec Tab) 40 mg PO ACBD [facility] Last Admin: 06/03/17 17:32 Dose: 40 mg Sucralfate (Carafate Oral Susp) 1 gm PO 0600,1600 [facility] Last Admin: 06/03/17 17:31 Dose: 1 gm Tamsulosin HCl (Flomax) 0.4 mg PO DAILY [facility] Last Admin: 06/03/17 09:19 Dose: 0.4 mg Thiamine HCl (Vitamin B1 Tab) 100 mg PO DAILY [facility] Last Admin: 06/03/17 09:20 Dose: 100 mg Verapamil HCl (Calan Sr Tab) 240 mg PO DAILY [facility] Last Admin: 06/03/17 09:21 Dose: 240 mg - Labs Labs: 06/03/17 06:00 06/03/17 06:00 PT 12.2 Seconds (9.9-11.8) H 05/30/17 14:05 INR 1.13 (0.93-1.08) H 05/30/17 14:05 APTT 26.0 Seconds (23.7-30.8) 05/30/17 14:05 - Constitutional Appears: Well, No Acute Distress - Head Exam Head Exam: ATRAUMATIC, NORMAL INSPECTION, NORMOCEPHALIC - Eye Exam Eye Exam: Normal appearance - ENT Exam ENT Exam: Normal External Ear Exam - Neck Exam Neck Exam: Normal Inspection - Respiratory Exam Respiratory Exam: NORMAL BREATHING PATTERN - Cardiovascular Exam Cardiovascular Exam: absent: JVD - GI/Abdominal Exam GI & Abdominal Exam: absent: Distended - Rectal Exam Rectal Exam: Deferred - Exam Additional comments: Deferred. - Extremities Exam Extremities Exam: Normal Inspection - Back Exam Back Exam: NORMAL INSPECTION Additional comments: No rash noted. - Neurological Exam Neurological Exam: Alert, Oriented x3 - Psychiatric Exam Psychiatric exam: Normal Affect, Normal Mood - Skin Skin Exam: Normal Color Assessment and Plan - Assessment and Plan (Free Text) Assessment: Back pain. Non small cell lung cancer. Prostate cancer. COPD. Borderline anemia. UTI. Plan: Oxycodone 15 mg PO x 1. Continue present management as per PMD.
[2017-06-04] MEDS: Sucralfate 1 gm/10 ml Oral Susp UD PO SCH ×2 (05:09→16:38)
[2017-06-04 07:16] LABS: GRAN # 9.65 (1.4-6.5); GRAN % 87.7 % (50.0-68.0); HEMOGLOBIN 11.5 gm/dL (14.0-18.0); LYMPH # 0.5 (1.2-3.4); LYMPH % 4.8 % (22.0-35.0); MEAN CELL VOLUME 89.7 fL (80.0-105.0); MEAN CORPUSCULAR HEMOGLOBIN 29.6 pg (25.0-35.0); MEAN PLATELET VOLUME 9.4 fl (7.0-11.0); MONO # 0.8 (0.1-0.6); MONO % 7.5 % (1.0-6.0); PLATELET COUNT 228 10^3/uL (120.0-450.0); RBC 3.88 10^6/uL (3.5-6.1); RED CELL DISTRIBUTION WIDTH 16.8 % (11.5-14.5)
[2017-06-04] MEDS: Arformoterol 15 mcg/2 ml Inh Sol IH SCH ×2 (07:35→20:10)
[2017-06-04] MEDS: Budesonide 0.5 mg/2 ml Inhal Susp UD IH SCH ×2 (07:35→20:10)
[2017-06-04] MEDS: Pantoprazole 40 mg EC Tab PO SCH ×2 (07:42→16:39)
[2017-06-04 07:50] LABS: ALB/GLOB RATIO 1.1 (1.1-1.8); ALBUMIN 3.1 g/dL (3.0-4.8); ALT/SGPT 22 U/L (7-56); AST/SGOT 33 U/L (15-59); BLOOD UREA NITROGEN 32 mg/dL (7-21); GFR AFRICAN-AMERICAN > 60; GFR NON-AFRICAN AMERICAN 53
[2017-06-04 08:03] LABS: CALCIUM 9.4 mg/dL (8.4-10.5)
[2017-06-04] MEDS: Verapamil 240 mg ER Tab PO SCH (09:44)
[2017-06-04] MEDS: MethylPREDNISolone 40 mg Vial IVP SCH (09:46)
--- NOTE | 2017-06-04 13:41 | PN ---
DATE: 06/04/2017 REASON FOR FOLLOWUP: Uncontrolled hypertension, altered mental status, lung CA, COPD status post pacemaker. SUBJECTIVE: The patient denies any chest pain or shortness of breath. Feels lot better. PHYSICAL EXAMINATION: VITAL SIGNS: Temperature afebrile, heart rate 90, and blood pressure 133/83. HEENT: PERRLA. Extraocular muscles are intact. NECK: Supple. No carotid bruit or thyromegaly. CHEST: Clear to auscultation. HEART: S1 and S2. Regular. ABDOMEN: Soft. EXTREMITIES: Clubbing and cyanosis are negative. LABORATORY DATA: Blood workup as follows: WBC 11, hemoglobin , hematocrit 34.8, and platelet count 228. Chemistry show sodium 131, potassium 4.2, chloride 97, carbon dioxide , anion gap of 11, BUN 33, and creatinine 1.2. IMPRESSION: A 76-year-old male with past medical history of lung carcinoma, hypertension, hyperlipidemia, status post permanent pacemaker, when admitted with bradycardia multiple pauses status post pacemaker, history of deep venous thrombosis, admitted with uncontrolled hypertension, found to be in altered mental status, history of cardiac catheterization twice, history of coronary artery disease. Now the patient feels better and stable. Denies any chest pain, shortness of breath, or palpitation. Pacemaker with MRI series. RECOMMENDATIONS: Continue aggressive medical treatment, should put on stool softener, continue hydralazine p.r.n., continue Eliquis for DVT, continue verapamil 240, continue atorvastatin, and continue lisinopril. We will follow with you. Thank you Dr. Doty for providing this opportunity in taking care of the patient, Gerhard Isabel. Ramon Anne MD
--- NOTE | 2017-06-04 13:57 | PN ---
DATE: 06/04/2017 SUBJECTIVE: The patient is in bed, in no acute distress; nontoxic. PHYSICAL EXAMINATION: VITAL SIGNS: Temperature is 98, blood pressure is 120/100, respiratory rate of 18. HEENT: *------* NECK: Supple. LUNGS: Decreased breath sounds. HEART: Normal S1 and S2. ABDOMEN: Soft and nontender. LABORATORY DATA: Reveal white count of 11,000, hemoglobin of 11, platelets of 228. Chemistries reveal a BUN of 32 and creatinine of 1.3. Microbiology reveals gram-negative nani in the urine. The blood cultures have no growth, and the stool for C. diff is negative antigen and negative toxin. Review of the orders reveal the patient to be on cefepime, which requires renewal, which I will do so. ASSESSMENT AND PLAN: He is a 76-year-old male with a history of zoster in the posterior thorax, history of squamous cell lung cancer, chemotherapy and port placement with a gram-negative nani in the urine and awaiting for identification and sensitivity of the gram-negative nani. Today is day #4 of cefepime. We will make final recommendations based on identification and sensitivity of the gram-negative nani in the urine. Lee Vera MD
[2017-06-04] MEDS ORDERED: oxyCODONE 15 mg Immediate Release Tab PO PRN ×2 (16:47→16:53)
--- NOTE | 2017-06-04 18:30 | PN ---
DATE: 06/04/2017 PULMONARY PROGRESS NOTE REFERRING PHYSICIAN: Jim Light MD SUBJECTIVE: The patient is lying in the bed at 45 degrees. Night was unremarkable, tolerated his CPAP well. No headache. No rhinitis. No nausea, no vomiting, no diarrhea, no leg pain or leg swelling. OBJECTIVE: GENERAL: In no acute distress. VITAL SIGNS: Temperature is 98, heart rate is 85, respiratory rate is 18, blood pressure 123/75, pulse ox 98% on nasal cannulation. HEENT: Moist mucous membranes. Crowded airway. Mallampati score is IV. NECK: Supple, no JVD. LUNGS: Fair airflow with few rhonchi. HEART: S1 and S2. ABDOMEN: Soft, nontender, no organomegaly. EXTREMITIES: No edema. NEUROLOGICAL: Awake, alert, follows simple commands. MEDICATIONS: He is on hydralazine 10 mg q.i.d. p.r.n., Brovana 15 mcg inhaled twice a day, Calan SR 240 mg daily, Carafate 1 g twice a day, Colace 100 mg twice a day, Eliquis 2.5 mg twice a day, Flomax 0.4 mg daily, Lipitor 20 mg daily, cefepime 1 g IV daily, Neurontin 300 mg daily, Norvasc 10 mg daily, oxycodone immediate release 50 mg q. 6 hours p.r.n., Protonix 40 mg daily, Pulmicort inhaled twice a day, Solu-Medrol 20 mg daily, atenolol 25 mg daily, vitamin B 100 mg daily, Zestril 10 mg daily. LABORATORY DATA: Shows hemoglobin of 11.5, hematocrit 34.8, WBC 11, platelet count is 228. Sodium 131, potassium 4.2, chloride 97, bicarbonate 27, BUN 32, creatinine 1.3, glucose 82, calcium 9.4, AST 33, ALT 22, alk phos is 63, albumin 3.1. Urine culture has gram negative rods. Stool for Clostridium difficile is negative. IMPRESSION AND PLAN: Urinary tract infection, lung cancer, obstructive lung disease, history of deep venous thrombosis, history of shingles, cardiac arrhythmia, paroxysmal atrial fibrillation, sleep apnea syndrome. Continue IV and inhaled bronchodilator, antibiotic therapy as per infectious diseases, gastric and DVT prophylaxis, out of bed to chair, fall precaution. Encouraged CPAP use, while sleeping. Thank you and we will follow with you. Ramon Delgado MD
--- NOTE | 2017-06-04 20:30 | CP.PCM.PN ---
Subjective - Date & Time of Evaluation Date of Evaluation: 06/03/17 Time of Evaluation: 21:00 - Subjective Subjective: No acute complaints. Bowel movements regular. 12 point ROS negative Pain : denies Objective - Vital Signs/Intake and Output Vital Signs (last 24 hours): Temp Pulse Resp BP Pulse Ox 98.5 F 85 19 123/74 98 06/04/17 16:00 06/04/17 16:00 06/04/17 16:00 06/04/17 16:00 06/04/17 16:00 - Medications Medications: Current Medications Amlodipine Besylate (Norvasc) 10 mg PO DAILY [facility] Last Admin: 06/04/17 09:46 Dose: 10 mg Apixaban (Eliquis) 2.5 mg PO BID [facility] PRN Reason: Protocol Last Admin: 06/04/17 18:04 Dose: 2.5 mg Arformoterol Tartrate (Brovana) 15 mcg IH [id number] [facility] Last Admin: 06/04/17 20:10 Dose: 15 mcg Atenolol (Tenormin) 25 mg PO DAILY [facility] Last Admin: 06/04/17 09:44 Dose: 25 mg Atorvastatin Calcium (Lipitor) 20 mg PO DIN [facility] Last Admin: 06/04/17 16:38 Dose: 20 mg Budesonide (Pulmicort Respules) 0.5 mg IH [id number] [facility] Last Admin: 06/04/17 20:10 Dose: 0.5 mg Docusate Sodium (Colace) 100 mg PO BID [facility] Last Admin: 06/04/17 18:04 Dose: 100 mg Gabapentin (Neurontin) 300 mg PO DAILY [facility] PRN Reason: Protocol Last Admin: 06/04/17 09:44 Dose: 300 mg Hydralazine HCl (Apresoline) 10 mg PO QID PRN PRN Reason: FOR SBP>170 and Diastolic>100 Cefepime HCl (Maxipime 1gm) 1 gm in 100 mls @ 100 mls/hr IVPB Q24H [facility] PRN Reason: Protocol Stop: 06/08/17 23:36 Last Admin: 06/03/17 23:30 Dose: 100 mls/hr Lisinopril (Zestril) 10 mg PO DAILY [facility] Last Admin: 06/04/17 09:45 Dose: 10 mg Methylprednisolone (Solu-Medrol) 20 mg IVP DAILY [facility] Last Admin: 06/04/17 09:46 Dose: 20 mg Oxycodone HCl (Oxycodone Immediate Release Tab) 15 mg PO Q6H PRN PRN Reason: Pain, severe (8-10) Pantoprazole Sodium (Protonix Ec Tab) 40 mg PO ACBD [facility] Last Admin: 06/04/17 16:39 Dose: 40 mg Sucralfate (Carafate Oral Susp) 1 gm PO 0600,1600 [facility] Last Admin: 06/04/17 16:38 Dose: 1 gm Tamsulosin HCl (Flomax) 0.4 mg PO DAILY [facility] Last Admin: 06/04/17 09:45 Dose: 0.4 mg Thiamine HCl (Vitamin B1 Tab) 100 mg PO DAILY [facility] Last Admin: 06/04/17 09:45 Dose: 100 mg Verapamil HCl (Calan Sr Tab) 240 mg PO DAILY [facility] Last Admin: 06/04/17 09:44 Dose: 240 mg - Labs Labs: 06/04/17 06:00 06/04/17 06:00 PT 12.2 Seconds (9.9-11.8) H 05/30/17 14:05 INR 1.13 (0.93-1.08) H 05/30/17 14:05 APTT 26.0 Seconds (23.7-30.8) 05/30/17 14:05 - Constitutional Appears: Well - Respiratory Exam Respiratory Exam: Clear to Ausculation Bilateral, NORMAL BREATHING PATTERN - Cardiovascular Exam Cardiovascular Exam: Bradycardia - Extremities Exam Extremities Exam: Full ROM, Normal Capillary Refill, Normal Inspection. absent : Joint Swelling, Pedal Edema Assessment and Plan - Assessment and Plan (Free Text) Plan: Mr. Isabel is a 76 year old male with PMHx lung squamous cell CA s/p opdivo, prostate CA, HTN, Tachybrady syndrome s/p pacemaker, CHF, DVT, shingles who presents for AMS thoughto be 2/2 to UTI and whose hospital course has been complicated by constipation and transient diarrhea. #AMS -resolved -CT revealed mild atrophy and chronic microvascular changes without any acute ischemic or hemorrhagic pathologies #UTI -continue cefipime -watch for UCx sensitivites and switch to PO potentially #Hx DVT; PAF -contineu apixaban pA-fib - Eliquis 2.5 bid, verapamil 240 daily ZENAIDA Neuropathy - neurontin Deconditioning - PT Prophylaxis - sucralfate Hx prostate ca - flomax Diet - HHD Disposition - Home with PT service; D/c expected in next 1-2 days - Advanced directives discussion on going Amor Doty MD Oncology Service
--- NOTE | 2017-06-04 20:32 | CP.PCM.PN ---
Subjective - Date & Time of Evaluation Date of Evaluation: 06/04/17 Time of Evaluation: 20:00 - Subjective Subjective: had isolated episode of pain over night required oxycodone. Otherwise no acute complaints. 12 ROS negative Pain: denies at present Objective - Vital Signs/Intake and Output Vital Signs (last 24 hours): Temp Pulse Resp BP Pulse Ox 98.5 F 85 19 123/74 98 06/04/17 16:00 06/04/17 16:00 06/04/17 16:00 06/04/17 16:00 06/04/17 16:00 - Medications Medications: Current Medications Amlodipine Besylate (Norvasc) 10 mg PO DAILY [facility] Last Admin: 06/04/17 09:46 Dose: 10 mg Apixaban (Eliquis) 2.5 mg PO BID [facility] PRN Reason: Protocol Last Admin: 06/04/17 18:04 Dose: 2.5 mg Arformoterol Tartrate (Brovana) 15 mcg IH [id number] [facility] Last Admin: 06/04/17 20:10 Dose: 15 mcg Atenolol (Tenormin) 25 mg PO DAILY [facility] Last Admin: 06/04/17 09:44 Dose: 25 mg Atorvastatin Calcium (Lipitor) 20 mg PO DIN [facility] Last Admin: 06/04/17 16:38 Dose: 20 mg Budesonide (Pulmicort Respules) 0.5 mg IH [id number] [facility] Last Admin: 06/04/17 20:10 Dose: 0.5 mg Docusate Sodium (Colace) 100 mg PO BID [facility] Last Admin: 06/04/17 18:04 Dose: 100 mg Gabapentin (Neurontin) 300 mg PO DAILY [facility] PRN Reason: Protocol Last Admin: 06/04/17 09:44 Dose: 300 mg Hydralazine HCl (Apresoline) 10 mg PO QID PRN PRN Reason: FOR SBP>170 and Diastolic>100 Cefepime HCl (Maxipime 1gm) 1 gm in 100 mls @ 100 mls/hr IVPB Q24H [facility] PRN Reason: Protocol Stop: 06/08/17 23:36 Last Admin: 06/03/17 23:30 Dose: 100 mls/hr Lisinopril (Zestril) 10 mg PO DAILY [facility] Last Admin: 06/04/17 09:45 Dose: 10 mg Methylprednisolone (Solu-Medrol) 20 mg IVP DAILY [facility] Last Admin: 06/04/17 09:46 Dose: 20 mg Oxycodone HCl (Oxycodone Immediate Release Tab) 15 mg PO Q6H PRN PRN Reason: Pain, severe (8-10) Pantoprazole Sodium (Protonix Ec Tab) 40 mg PO ACBD [facility] Last Admin: 06/04/17 16:39 Dose: 40 mg Sucralfate (Carafate Oral Susp) 1 gm PO 0600,1600 [facility] Last Admin: 06/04/17 16:38 Dose: 1 gm Tamsulosin HCl (Flomax) 0.4 mg PO DAILY [facility] Last Admin: 06/04/17 09:45 Dose: 0.4 mg Thiamine HCl (Vitamin B1 Tab) 100 mg PO DAILY [facility] Last Admin: 06/04/17 09:45 Dose: 100 mg Verapamil HCl (Calan Sr Tab) 240 mg PO DAILY [facility] Last Admin: 06/04/17 09:44 Dose: 240 mg - Labs Labs: 06/04/17 06:00 06/04/17 06:00 PT 12.2 Seconds (9.9-11.8) H 05/30/17 14:05 INR 1.13 (0.93-1.08) H 05/30/17 14:05 APTT 26.0 Seconds (23.7-30.8) 05/30/17 14:05 - Constitutional Appears: Well - Respiratory Exam Respiratory Exam: Clear to Ausculation Bilateral, NORMAL BREATHING PATTERN - Cardiovascular Exam Cardiovascular Exam: REGULAR RHYTHM, +S1, +S2. absent: Murmur - GI/Abdominal Exam GI & Abdominal Exam: Soft, Normal Bowel Sounds. absent: Tenderness - Extremities Exam Extremities Exam: Full ROM, Normal Capillary Refill, Normal Inspection. absent : Joint Swelling, Pedal Edema Assessment and Plan - Assessment and Plan (Free Text) Assessment: Mr. Isabel is a 76 year old male with PMHx lung squamous cell CA s/p opdivo, prostate CA, HTN, Tachybrady syndrome s/p pacemaker, CHF, DVT, shingles who presents for AMS thoughto be 2/2 to UTI and whose hospital course has been complicated by constipation and transient diarrhea. #AMS -resolved -CT revealed mild atrophy and chronic microvascular changes without any acute ischemic or hemorrhagic pathologies #UTI -continue cefipime -watch for UCx sensitivites and switch to PO potentially #Hx DVT; PAF -contineu apixaban pA-fib - Eliquis 2.5 bid, verapamil 240 daily ZENAIDA Neuropathy - neurontin Deconditioning - PT Prophylaxis - sucralfate Hx prostate ca - flomax Diet - HHD Disposition - Home with PT service; D/c expected in next 1-2 days - Advanced directives discussion on going Amor Doty MD Oncology Service
[2017-06-04] MEDS: Cefepime 1gm in NS 100ml 1 GM/100 ML BAG IVPB SCH (23:49)
[2017-06-05] MEDS: Sucralfate 1 gm/10 ml Oral Susp UD PO SCH ×2 (05:32→18:10)
[2017-06-05 05:49] LABS: ALB/GLOB RATIO 1.1 (1.1-1.8); ALBUMIN 3.1 g/dL (3.0-4.8); ALT/SGPT 24 U/L (7-56); AST/SGOT 28 U/L (15-59); BASO # 0.01 K/mm3 (0.0-2.0); BASO % 0.1 % (0.0-3.0); BLOOD UREA NITROGEN 37 mg/dL (7-21); CALCIUM 9.5 mg/dL (8.4-10.5); GFR AFRICAN-AMERICAN > 60; GFR NON-AFRICAN AMERICAN 53; GRAN # 8.92 (1.4-6.5); GRAN % 84.2 % (50.0-68.0); LYMPH # 0.8 (1.2-3.4); LYMPH % 7.5 % (22.0-35.0); MEAN CELL VOLUME 88.6 fL (80.0-105.0); MEAN CORPUSCULAR HEMOGLOBIN 29.8 pg (25.0-35.0); MEAN CORPUSCULAR HGB CONC 33.6 g/dl (31.0-37.0); MEAN PLATELET VOLUME 9.4 fl (7.0-11.0); MONO # 0.9 (0.1-0.6); MONO % 8.2 % (1.0-6.0); PLATELET COUNT 234 10^3/uL (120.0-450.0); RBC 4.03 10^6/uL (3.5-6.1); RED CELL DISTRIBUTION WIDTH 16.8 % (11.5-14.5); WHITE BLOOD COUNT 10.6 10^3/ul (4.5-11.0)
--- NOTE | 2017-06-05 07:05 | CP.PCM.PN ---
Subjective - Date & Time of Evaluation Date of Evaluation: 06/05/17 Time of Evaluation: 07:04 - Subjective Subjective: PGY-[address] Doty Pt does not require pain meds overnight. Lower back pain is 0 this am when i visited him. No acute complain. + BM soft Objective - Vital Signs/Intake and Output Vital Signs (last 24 hours): Temp Pulse Resp BP Pulse Ox 98.5 F 85 19 123/74 98 06/04/17 16:00 06/04/17 16:00 06/04/17 16:00 06/04/17 16:00 06/04/17 16:00 Intake and Output: 06/05/17 06/05/17 06:59 18:59 Intake Total 460 Balance 460 - Medications Medications: Current Medications Amlodipine Besylate (Norvasc) 10 mg PO DAILY [facility] Last Admin: 06/04/17 09:46 Dose: 10 mg Apixaban (Eliquis) 2.5 mg PO BID [facility] PRN Reason: Protocol Last Admin: 06/04/17 18:04 Dose: 2.5 mg Arformoterol Tartrate (Brovana) 15 mcg IH [id number] [facility] Last Admin: 06/04/17 20:10 Dose: 15 mcg Atenolol (Tenormin) 25 mg PO DAILY [facility] Last Admin: 06/04/17 09:44 Dose: 25 mg Atorvastatin Calcium (Lipitor) 20 mg PO DIN [facility] Last Admin: 06/04/17 16:38 Dose: 20 mg Budesonide (Pulmicort Respules) 0.5 mg IH [id number] [facility] Last Admin: 06/04/17 20:10 Dose: 0.5 mg Docusate Sodium (Colace) 100 mg PO BID [facility] Last Admin: 06/04/17 18:04 Dose: 100 mg Gabapentin (Neurontin) 300 mg PO DAILY [facility] PRN Reason: Protocol Last Admin: 06/04/17 09:44 Dose: 300 mg Hydralazine HCl (Apresoline) 10 mg PO QID PRN PRN Reason: FOR SBP>170 and Diastolic>100 Cefepime HCl (Maxipime 1gm) 1 gm in 100 mls @ 100 mls/hr IVPB Q24H [facility] PRN Reason: Protocol Stop: 06/08/17 23:36 Last Admin: 06/04/17 23:49 Dose: 100 mls/hr Lisinopril (Zestril) 10 mg PO DAILY [facility] Last Admin: 06/04/17 09:45 Dose: 10 mg Methylprednisolone (Solu-Medrol) 20 mg IVP DAILY [facility] Last Admin: 06/04/17 09:46 Dose: 20 mg Oxycodone HCl (Oxycodone Immediate Release Tab) 15 mg PO Q6H PRN PRN Reason: Pain, severe (8-10) Pantoprazole Sodium (Protonix Ec Tab) 40 mg PO ACBD [facility] Last Admin: 06/04/17 16:39 Dose: 40 mg Sucralfate (Carafate Oral Susp) 1 gm PO 0600,1600 [facility] Last Admin: 06/05/17 05:32 Dose: 1 gm Tamsulosin HCl (Flomax) 0.4 mg PO DAILY [facility] Last Admin: 06/04/17 09:45 Dose: 0.4 mg Thiamine HCl (Vitamin B1 Tab) 100 mg PO DAILY [facility] Last Admin: 06/04/17 09:45 Dose: 100 mg Verapamil HCl (Calan Sr Tab) 240 mg PO DAILY [facility] Last Admin: 06/04/17 09:44 Dose: 240 mg - Labs Labs: 06/05/17 05:00 06/05/17 05:00 PT 12.2 Seconds (9.9-11.8) H 05/30/17 14:05 INR 1.13 (0.93-1.08) H 05/30/17 14:05 APTT 26.0 Seconds (23.7-30.8) 05/30/17 14:05 - Constitutional Appears: No Acute Distress - Head Exam Head Exam: ATRAUMATIC, NORMAL INSPECTION, NORMOCEPHALIC - Eye Exam Eye Exam: EOMI, Normal appearance, PERRL. absent: Scleral icterus Pupil Exam: NORMAL ACCOMODATION - ENT Exam ENT Exam: Mucous Membranes Moist - Respiratory Exam Respiratory Exam: Clear to Ausculation Bilateral. absent: Rales, Rhonchi, Wheezes - Cardiovascular Exam Cardiovascular Exam: REGULAR RHYTHM, +S1, +S2 - GI/Abdominal Exam GI & Abdominal Exam: Soft, Normal Bowel Sounds. absent: Guarding, Rigid, Tenderness - Extremities Exam Extremities Exam: Normal Capillary Refill. absent: Calf Tenderness, Pedal Edema - Back Exam Back Exam: absent: CVA tenderness (L), CVA tenderness (R) - Neurological Exam Neurological Exam: Alert, Awake, Oriented x3 - Psychiatric Exam Psychiatric exam: Normal Affect, Normal Mood - Skin Skin Exam: Dry, Warm Assessment and Plan - Assessment and Plan (Free Text) Plan: This is a 76 year old male with PMHx lung squamous cell CA s/p opdivo, prostate CA, HTN, Tachybrady syndrome s/p pacemaker, CHF, DVT, shingles who presents for AMS. CT head revealed mild atrophy and chronic microvascular changes without any acute ischemic or hemorrhagic pathologies. AMS likely from UTI vs urinary retention. Mentation improves during the hospital stay. Back pain controlled by oxycodone IR. Plan: Pt is actively receiving opdivo therapy. However, chemo was interrupted due to recurrent UTIs. I left message at Urology office (lee answered) who will f/u with the urologist and call Dr. Doty. I have called [facility] microbiology to run identification and sensitivity on the urine speciment. Sepsis Urinary tract infection, immunocompromised - cefepime 1g/d - urine culture: gram negative rods - blood culture: negative - PO ABX COPD exacerbation ZENAIDA - CPAP, 7cm with 30% O2 - Brovana 15 q12, budesonide 0.5 q12, - solumedrol 20 daily New onset diarrhea - resolved - C.diff negative - vss Watch Possible urinary retention, likely prostate problem, Hx prostate ca - post void 150cc - Monito i/o per shift in the setting of urinary incontinence - bedside bladder scan as needed - reconsult Dr. Perrin AMS - resolved - thiamine 100mg daily to improve cognition - avoid sedative - SBP 130-140 Hx DVT CAD - amlodipine 10, lisinopril 10, new Tenormin 25 - EF 35% (2016) - Echo 2017: EF 45; mild to mod mitral regurg, tricuspid regurg; PSVP 71 Low TSH - sick euthyroid - need to repeat TSH in 2 weeks with FT3, FT4 outpatient pA-fib - Eliquis 2.5 bid, verapamil 240 daily ZENAIDA Neuropathy/back pain - neurontin 300 Deconditioning - home PT Prophylaxis - sucralfate Hx prostate ca - flomax Diet - HHD Disposition - home pt. porter sample case consult on discharge planning - Advanced directives discussion on going Consult ID = Dr. Vera Card = Dr. Anne Urol = Dr. Perrin Pulm = Dr. Delgado Neurol = Dr. Montes s/r/d/w Dr. Doty
[2017-06-05] MEDS: Budesonide 0.5 mg/2 ml Inhal Susp UD IH SCH ×2 (07:46→20:02)
[2017-06-05] MEDS: Arformoterol 15 mcg/2 ml Inh Sol IH SCH ×2 (07:46→20:02)
[2017-06-05] MEDS: MethylPREDNISolone 40 mg Vial IVP SCH (10:30)
[2017-06-05] MEDS: Pantoprazole 40 mg EC Tab PO SCH ×2 (10:33→18:10)
[2017-06-05] MEDS: Verapamil 240 mg ER Tab PO SCH (10:33)
--- NOTE | 2017-06-05 14:21 | PN ---
DATE: 06/05/2017 REASON FOR CONSULTATION: Followup uncontrolled hypertension, altered mental status, lung CA, COPD status post pacemaker. SUBJECTIVE: The patient denies any chest pain, shortness of breath, any palpitation. OBJECTIVE: GENERAL: The patient is lying flat on the bed, not in apparent distress. VITAL SIGNS: Temperature afebrile, heart rate 93, blood pressure 143/85. HEENT: PERRLA. Extraocular muscles are intact. NECK: Supple. No carotid bruit, no thyromegaly. CHEST: Clear to auscultation. HEART: S1 and S2, regular. ABDOMEN: Soft. EXTREMITIES: Clubbing and cyanosis negative. LABORATORY DATA: Blood workup as follows: WBC 10.6, hemoglobin 12, hematocrit 35.7, and platelet count 234. Chemistry shows sodium 132, potassium 4.2, chloride 96, carbon dioxide 30, anion gap of 10, BUN 37, and creatinine 1.3. Total protein 6, albumin *------*. IMPRESSION: A 68-year-old male with significant lung CA, admitted with uncontrolled hypertension, history of hypertension, hyperlipidemia, history of permanent pacemaker evident the patient presented with multiple pauses, history of deep vein thrombosis with uncontrolled hypertension, altered mental status, now the patient's mental status completely improved. Denies any chest pain, shortness of breath, any palpitation, history of cardiac catheterization twice, 2014 and 2012 now has coronary artery disease, history of permanent pacemaker with *------*. RECOMMENDATION: Continue with medical treatment. Blood pressure is relatively much controlled every now and then the patient in spite of high blood pressure. Continue verapamil 240 mg, continue hydroxyzine p.r.n. Continue atenolol, continue lisinopril 10 mg. We will increase Tenormin to 50 mg and if the blood pressure still remain we will increase lisinopril to 20. We will follow with you. Thank you Dr. Wright for providing the opportunity in taking care of the patient. Ramon Anne MD
--- NOTE | 2017-06-05 15:09 | CP.PCM.PN ---
Subjective - Date & Time of Evaluation Date of Evaluation: 06/05/17 Time of Evaluation: 11:35 - Subjective Subjective: Comfortable, no dysuria currently, not in distress. No fevers overnight. Objective - Vital Signs/Intake and Output Vital Signs (last 24 hours): Temp Pulse Resp BP Pulse Ox 99.2 F 93 H 18 143/85 97 06/05/17 08:34 06/05/17 08:34 06/05/17 08:34 06/05/17 08:34 06/05/17 08:34 Intake and Output: 06/05/17 06/05/17 06:59 18:59 Intake Total 460 Balance 460 - Medications Medications: Current Medications Amlodipine Besylate (Norvasc) 10 mg PO DAILY [facility] Last Admin: 06/04/17 09:46 Dose: 10 mg Apixaban (Eliquis) 2.5 mg PO BID [facility] PRN Reason: Protocol Last Admin: 06/04/17 18:04 Dose: 2.5 mg Arformoterol Tartrate (Brovana) 15 mcg IH [id number] [facility] Last Admin: 06/05/17 07:46 Dose: 15 mcg Atenolol (Tenormin) 25 mg PO DAILY [facility] Last Admin: 06/04/17 09:44 Dose: 25 mg Atorvastatin Calcium (Lipitor) 20 mg PO DIN [facility] Last Admin: 06/04/17 16:38 Dose: 20 mg Budesonide (Pulmicort Respules) 0.5 mg IH [id number] [facility] Last Admin: 06/05/17 07:46 Dose: 0.5 mg Docusate Sodium (Colace) 100 mg PO BID [facility] Last Admin: 06/04/17 18:04 Dose: 100 mg Gabapentin (Neurontin) 300 mg PO DAILY [facility] PRN Reason: Protocol Last Admin: 06/04/17 09:44 Dose: 300 mg Hydralazine HCl (Apresoline) 10 mg PO QID PRN PRN Reason: FOR SBP>170 and Diastolic>100 Cefepime HCl (Maxipime 1gm) 1 gm in 100 mls @ 100 mls/hr IVPB Q24H [facility] PRN Reason: Protocol Stop: 06/08/17 23:36 Last Admin: 06/04/17 23:49 Dose: 100 mls/hr Lisinopril (Zestril) 10 mg PO DAILY [facility] Last Admin: 06/04/17 09:45 Dose: 10 mg Methylprednisolone (Solu-Medrol) 20 mg IVP DAILY [facility] Last Admin: 06/04/17 09:46 Dose: 20 mg Oxycodone HCl (Oxycodone Immediate Release Tab) 15 mg PO Q6H PRN PRN Reason: Pain, severe (8-10) Pantoprazole Sodium (Protonix Ec Tab) 40 mg PO ACBD [facility] Last Admin: 06/04/17 16:39 Dose: 40 mg Sucralfate (Carafate Oral Susp) 1 gm PO 0600,1600 [facility] Last Admin: 06/05/17 05:32 Dose: 1 gm Tamsulosin HCl (Flomax) 0.4 mg PO DAILY [facility] Last Admin: 06/04/17 09:45 Dose: 0.4 mg Thiamine HCl (Vitamin B1 Tab) 100 mg PO DAILY [facility] Last Admin: 06/04/17 09:45 Dose: 100 mg Verapamil HCl (Calan Sr Tab) 240 mg PO DAILY [facility] Last Admin: 06/04/17 09:44 Dose: 240 mg - Labs Labs: 06/05/17 05:00 06/05/17 05:00 PT 12.2 Seconds (9.9-11.8) H 05/30/17 14:05 INR 1.13 (0.93-1.08) H 05/30/17 14:05 APTT 26.0 Seconds (23.7-30.8) 05/30/17 14:05 - Constitutional Appears: Non-toxic, No Acute Distress - Head Exam Head Exam: NORMAL INSPECTION - Neck Exam Neck Exam: absent: Meningismus - Respiratory Exam Respiratory Exam: Decreased Breath Sounds - Cardiovascular Exam Cardiovascular Exam: +S1, +S2 - GI/Abdominal Exam GI & Abdominal Exam: Soft. absent: Tenderness Assessment and Plan - Assessment and Plan (Free Text) Plan: Assessment UTI with gram negative bacilli history of herpes zoster of the posterior thoracic area squamous cell lung cancer on chemotherapy S/P port placement on the chest cardiac arrhythmia S/P peramanent pacemaker placement HTN dyslipidemia history of DVT acute on chronic renal failure Plan continue cefepime day 5 pending identification and sensitivities of the gram negative bacilli in the urine will continue to monitor clinically
[2017-06-05 18:29] VITALS: TEMP 98.6
--- NOTE | 2017-06-05 23:09 | CON ---
DATE: 06/05/2017 CHIEF COMPLAINT: Altered mental status. HISTORY OF PRESENT ILLNESS: This is a 76-year-old male with history of hypertension, prostate cancer, stage IV squamous cell lung carcinoma. The patient has been receiving chemo for his lung cancer. He has had altered mental status and is slightly confused. He was then admitted for evaluation. Reportedly, the patient has a history of prostate cancer. He reports he was treated over 20 years ago, although he is unsure by whom or what kind of treatment he had. He does report having some urinary difficulties including urinary frequency and nocturia 2-3 times per night. He denies any current dysuria or urgency. He reports he is voiding with a decent stream and no straining. He denies any gross hematuria. By report, he has been having recurrent urinary infections when receiving chemotherapy and a urology consultation was then requested. PAST MEDICAL HISTORY: Significant for hypertension, dyslipidemia, tachy-anna marie syndrome, DVT, lung cancer, prostate cancer, shingles, severe back pain. MEDICATIONS: Include hydralazine, Brovana, verapamil, Carafate, Colace, Eliquis, Flomax, Lipitor, Maxipime, Neurontin, Norvasc, Percocet, Protonix, Pulmicort, Solu-Medrol, atenolol, vitamin B, Zestril. ALLERGIES: No known drug allergies. FAMILY HISTORY: Noncontributory. SOCIAL HISTORY: Positive for a long smoking history, although he quit. Denies ETOH use. REVIEW OF SYSTEMS: The 12-point review of systems was obtained from the patient who is awake, alert, and answering questions, although he appears to be a poor historian and did have history of altered mental status. The patient reports currently he is feeling well. His urologic review of systems is as per the HPI. Otherwise, for other systems, he does report chronic back pain and some joint pain with difficulty ambulating. Other systems are negative. PHYSICAL EXAMINATION VITAL SIGNS: He is afebrile, temperature is 99.2, pulse of 93, BP 143/85, respirations 18. NECK: Supple. There is no adenopathy. CHEST: Reveals a normal inspiratory effort. CARDIAC: Exam showed positive S1, S2. There is no peripheral edema noted. ABDOMEN: Soft, nontender, and nondistended. There is no hepatosplenomegaly. There is no costovertebral angle tenderness. GENITOURINARY: Phallus is normal. Scrotum is normal. Testes bilaterally are descended, nontender, no masses. Epididymis are normal. EXTREMITIES: There is no cyanosis or edema noted. LABORATORY DATA: WBC count was elevated and is now 10.6. Creatinine 1.3 with a GFR greater than 60. Urinalysis showed 0-2 rbc's, too numerous to count wbc's, nitrites were negative. Urine culture and blood culture showed no growth. Urine culture grew gram negative rods from 05/30/2017, colony count was less than 10,000 colonies/mL. On radiologic exam, the patient had a renal ultrasound on 05/30/2017, which showed the kidneys were normal in size. There was mild increased echogenicity. There was no stone. There was no solid mass, lesion, or hydronephrosis. Left kidney showed no stones, solid mass, or hydronephrosis. There are a few small cortical cysts. There was a right mid pole cyst. The patient had a bladder ultrasound also on which showed a pre-void volume of 316 and a post-void volume of 147. PSA is not noted on any recent blood work. IMPRESSION AND PLAN: This is a 76-year-old male with lung cancer and a history of prostate cancer. Urologically, the patient by report is having recurrent urinary tract infections when receiving chemotherapy. The current urine culture showed some growth, although it was less than 10,000 cfu/mL of gram negative rods. Looking at the last urine cultures, they have all been less than a 1000 cfu/mL, and this appears likely a contamination. Plan urologically for now would be to obtain a PSA and see the status of his prostate cancer. I would also plan on outpatient urologic followup to assess his voiding. It is unclear from the bladder ultrasound whether he has any obstructive component. Most likely, the bacteria in his urine, if he is getting positive urine culture with greater than a 100,000 colonies per mL, it is likely from colonization and from being immunocompromised from his chemotherapy from his lung cancer. I would plan on an outpatient evaluation consisting of a uroflow and possibly a cystoscopy to assess. The patient should have continued urine cultures during his chemotherapy and I would discuss these results with his infectious disease communication consultant as well. Thank you for allowing me to participate in the care of this patient. We will follow him with you. Pratik Aparicio MD
[2017-06-06] MEDS: Cefepime 1gm in NS 100ml 1 GM/100 ML BAG IVPB SCH (00:56)
--- NOTE | 2017-06-06 01:45 | PN ---
DATE: 06/05/2017 PULMONARY PROGRESS NOTE REFERRING PHYSICIAN: Dr. Jim Light. SUBJECTIVE: The patient is lying the bed. Family is at bedside. Night was unremarkable, used CPAP, decreased cough, decreased shortness of breath. No nausea, no vomiting, no diarrhea, no leg pain or leg swelling. OBJECTIVE: GENERAL: In no acute distress. VITAL SIGNS: Temperature is 98, heart rate is 98, respiratory rate is 20, blood pressure 136/84, pulse ox 95% on room air. HEENT: Moist mucous membranes. Crowded airway. Mallampati score is IV. NECK: Supple, no JVD. LUNGS: Fair airflow with rhonchi. HEART: S1 and S2. ABDOMEN: Soft, nontender, no organomegaly. EXTREMITIES: There is no edema. NEUROLOGIC: Awake and alert. Follows simple commands. MEDICATIONS: He is on hydralazine 10 mg q.i.d. p.r.n.; Brovana 50 mcg inhaled twice a day, Calan 240 mg daily; Carafate 1 gram twice a day; Colace 100 mg twice a day; Eliquis 2.5 mg twice a day; Flomax 0.4 mg daily; Lipitor 20 mg daily; cefepime 1 g IV daily; Neurontin 300 mg daily; Norvasc 10 mg daily; oxycodone immediate-release 15 mg q.6 hours p.r.n.; Protonix 40 mg daily; Pulmicort inhaled twice a day; Solu-Medrol 20 mg IV daily; Tenormin 25 mg daily and 50 mg also daily, so total 75 mg daily; vitamin B1 100 mg daily; Zestril 10 mg daily. LABORATORY DATA: Shows hemoglobin 12.0, hematocrit 35.7, WBC 10.6, platelet is 234. Sodium 132, potassium 4.2, chloride 96, bicarbonate 30, BUN 37, creatinine 1.3, glucose is 80, calcium is 9.5. AST 28, ALT 24, alkaline phosphatase is 65, albumin is 3.1. IMPRESSION AND PLAN: Urinary tract infection, obstructive lung disease, history of deep venous thrombosis, history of shingles, cardiac arrhythmia, paroxysmal atrial fibrillation, sleep apnea syndrome. Pulmonary point of view, doing okay. Continue bronchodilator, keep head at 45 degrees, gastric prophylaxis, deep vein thrombosis prophylaxis, encouraged CPAP use at nighttime, fall precaution. Thank you and we will follow with you. Ramon Delgado MD [facility] # [id number]
[2017-06-06 06:28] LABS: BASO # 0.01 K/mm3 (0.0-2.0); BASO % 0.1 % (0.0-3.0); GRAN # 8.99 (1.4-6.5); GRAN % 85.1 % (50.0-68.0); HEMOGLOBIN 11.3 gm/dL (14.0-18.0); LYMPH # 0.8 (1.2-3.4); LYMPH % 7.7 % (22.0-35.0); MEAN CELL VOLUME 89.4 fL (80.0-105.0); MEAN CORPUSCULAR HEMOGLOBIN 29.4 pg (25.0-35.0); MEAN CORPUSCULAR HGB CONC 32.8 g/dl (31.0-37.0); MEAN PLATELET VOLUME 8.8 fl (7.0-11.0); MONO # 0.8 (0.1-0.6); MONO % 7.1 % (1.0-6.0); PLATELET COUNT 217 10^3/uL (120.0-450.0); RBC 3.85 10^6/uL (3.5-6.1); WHITE BLOOD COUNT 10.6 10^3/ul (4.5-11.0)
[2017-06-06 06:45] LABS: CALCIUM 9.8 mg/dL (8.4-10.5)
[2017-06-06] MEDS: Sucralfate 1 gm/10 ml Oral Susp UD PO SCH (07:08)
[2017-06-06] MEDS: Pantoprazole 40 mg EC Tab PO SCH (07:09)
[2017-06-06] MEDS: Budesonide 0.5 mg/2 ml Inhal Susp UD IH SCH (08:04)
[2017-06-06] MEDS: Arformoterol 15 mcg/2 ml Inh Sol IH SCH (08:04)
[2017-06-06 08:18] VITALS: RESP 20; O2SAT 96
[2017-06-06] MEDS: MethylPREDNISolone 40 mg Vial IVP SCH (09:59)
[2017-06-06] MEDS: Verapamil 240 mg ER Tab PO SCH (10:04)
[2017-06-06 10:07] VITALS: BP 119/69; PULSE 80
--- NOTE | 2017-06-06 10:35 | CP.PCM.DIS ---
Provider - Provider Date of Admission: 05/31/17 12:25 Attending physician: Jim Light MD Primary care physician: Uziel Doty MD Consults: ID = Dr. Vera Card = Dr. Anne Urol = Dr. Marychuy Loera = Dr. Delgado Neurol = Dr. Montes Time Spent in preparation of Discharge (in minutes): 60 Hospital Course - Lab Results Lab Results: Micro Results 06/01/17 16:30 Stool C. difficile Antigen & Toxin A,B (M - Final Most Recent Lab Values WBC 10.6 10^3/ul (4.5-11.0) 06/06/17 06:10 RBC 3.85 10^6/uL (3.5-6.1) 06/06/17 06:10 Hgb 11.3 gm/dL (14.0-18.0) L 06/06/17 06:10 Hct 34.4 % (42.0-52.0) L 06/06/17 06:10 MCV 89.4 fL (80.0-105.0) 06/06/17 06:10 MCH 29.4 pg (25.0-35.0) 06/06/17 06:10 MCHC 32.8 g/dl (31.0-37.0) 06/06/17 06:10 RDW 17.0 % (11.5-14.5) H 06/06/17 06:10 Plt Count 217 10^3/uL (120.0-450.0) 06/06/17 06:10 MPV 8.8 fl (7.0-11.0) 06/06/17 06:10 Gran % 85.1 % (50.0-68.0) H 06/06/17 06:10 Lymph % (Auto) 7.7 % (22.0-35.0) L 06/06/17 06:10 [place] % (Auto) 7.1 % (1.0-6.0) H 06/06/17 06:10 Eos % (Auto) 0.0 % (1.5-5.0) L 06/06/17 06:10 Baso % (Auto) 0.1 % (0.0-3.0) 06/06/17 06:10 Gran # 8.99 (1.4-6.5) H 06/06/17 06:10 Lymph # 0.8 (1.2-3.4) L 06/06/17 06:10 [place] # 0.8 (0.1-0.6) H 06/06/17 06:10 Eos # 0.0 (0.0-0.7) 06/06/17 06:10 Baso # 0.01 K/mm3 (0.0-2.0) 06/06/17 06:10 Neutrophils % (Manual) 91 % (50.0-70.0) H 06/03/17 06:00 Lymphocytes % (Manual) 4 % (22.0-35.0) L 06/03/17 06:00 Monocytes % (Manual) 5 % (1.0-6.0) 06/03/17 06:00 Platelet Evaluation Normal (NORMAL) 06/03/17 06:00 Hypochromasia 1+ 06/03/17 06:00 Poikilocytosis (manual 2+ 06/03/17 06:00 Anisocytosis (manual) 1+ 06/03/17 06:00 Microcytosis (manual) 1+ 06/03/17 06:00 Tear Drop Cells Slight 06/03/17 06:00 Ovalocytes 1+ 06/03/17 06:00 Miryam Cells 3+ 06/03/17 06:00 Acanthocytes (Spur) 2+ 06/02/17 06:15 PT 12.2 Seconds (9.9-11.8) H 05/30/17 14:05 INR 1.13 (0.93-1.08) H 05/30/17 14:05 APTT 26.0 Seconds (23.7-30.8) 05/30/17 14:05 pO2 45 mm/Hg (30-55) 05/30/17 17:59 VBG pH 7.37 (7.32-7.43) 05/30/17 17:59 VBG pCO2 45.0 (40-60) 05/30/17 17:59 VBG HCO3 26.0 mmol/l (21-28) 05/30/17 17:59 VBG Total CO2 27.4 mmol.L (22-28) 05/30/17 17:59 VBG O2 Sat (Calc) 86.1 % (40-65) H 05/30/17 17:59 VBG Base Excess 0.3 mmol/L (0.0-2.0) 05/30/17 17:59 VBG Potassium 4.4 mmol/L (3.6-5.2) 05/30/17 17:59 Sodium 138.0 mmol/L (132-148) 05/30/17 17:59 Chloride 105.0 mmol/L (98-107) 05/30/17 17:59 Glucose 75 mg/dl (75-110) 05/30/17 17:59 Lactate 0.9 mmol/L (0.7-2.1) 05/30/17 17:59 FiO2 21.0 % 05/30/17 17:59 Sodium 134 mmol/L (132-148) 06/06/17 06:10 Potassium 4.4 mmol/L (3.6-5.0) 06/06/17 06:10 Chloride 97 mmol/L (95-110) 06/06/17 06:10 Carbon Dioxide 30 mmol/L (21-33) 06/06/17 06:10 Anion Gap 11 (10-20) 06/06/17 06:10 BUN 46 mg/dL (7-21) H 06/06/17 06:10 Creatinine 1.4 mg/dL (0.5-1.4) 06/06/17 06:10 Est GFR ( Amer) 59 06/06/17 06:10 Est GFR (Non-Af Amer) 49 06/06/17 06:10 Random Glucose 96 mg/dL (70-110) 06/06/17 06:10 Calcium 9.8 mg/dL (8.4-10.5) 06/06/17 06:10 Phosphorus 3.7 mg/dL (2.5-4.5) 06/01/17 06:15 Magnesium 1.8 mg/dL (1.7-2.2) 06/01/17 06:15 Total Bilirubin 0.7 mg/dL (0.2-1.3) 06/05/17 05:00 AST 28 U/L (15-59) 06/05/17 05:00 ALT 24 U/L (7-56) 06/05/17 05:00 Alkaline Phosphatase 65 U/L (38-133) 06/05/17 05:00 Lactate Dehydrogenase 803 U/L (333-699) H 05/31/17 12:30 Total Creatine Kinase 48 U/L (35-230) 05/31/17 12:30 Troponin I 0.06 ng/mL 05/31/17 12:30 Total Protein 6.0 g/dL (5.8-8.3) 06/05/17 05:00 Albumin 3.1 g/dL (3.0-4.8) 06/05/17 05:00 Globulin 2.9 gm/dL 06/05/17 05:00 Albumin/Globulin Ratio 1.1 (1.1-1.8) 06/05/17 05:00 TSH 3rd Generation 0.15 mIU/mL (0.46-4.68) L 06/01/17 06:15 Venous Blood Potassium 4.4 mmol/L (3.6-5.2) 05/30/17 17:59 Urine Color Yellow (YELLOW) 05/30/17 14:05 Urine Appearance Cloudy (CLEAR) 05/30/17 14:05 Urine pH 6.0 (4.7-8.0) 05/30/17 14:05 Ur Specific Johnson >= 1.030 (1.005-1.035) 05/30/17 14:05 Urine Protein 100 mg/dL (<30 mg/dL) H 05/30/17 14:05 Urine Glucose (UA) Negative mg/dL (NEGATIVE) 05/30/17 14:05 Urine Ketones 15 mg/dL (NEGATIVE) H 05/30/17 14:05 Urine Blood Small (NEGATIVE) H 05/30/17 14:05 Urine Nitrate Negative (NEGATIVE) 05/30/17 14:05 Urine Bilirubin Small (NEGATIVE) H 05/30/17 14:05 Urine Urobilinogen 0.2 E.U./dL (<1 E.U./dL) 05/30/17 14:05 Ur Leukocyte Esterase Moderate Yenny/uL (NEGATIVE) H 05/30/17 14:05 Urine RBC 0 - 2 /hpf (0-2) 05/30/17 14:05 Urine WBC Tntc /hpf (0-6) 05/30/17 14:05 Ur Epithelial Cells 3 - 4 /hpf (0-5) 05/30/17 14:05 Urine Bacteria Mod (NEG) 05/30/17 14:05 Alcohol, Quantitative < 10 mg/dL (0-10) 05/30/17 14:05 - Hospital Course Hospital Course: PGY [address] Doty 76 M, Hx 2 primary cancers (non-small cell lung CA currently on opdivo, and prostate CA), Hx COPD ex-smoker, CKD 3B, was seen at Dr. Doty's office for follow up. He was weak and lethargic, with AMS observed by Dr. Doty. Pt was sent to ED for CT scan without brain mets. Pt also has PMH of HTN, Tachybrady syndrome s/p pacemaker, CHF, DVT, shingles. Pt was admitted for Sepsis from UTI vs copd exacerbation. CT head revealed mild atrophy and chronic microvascular changes without any acute ischemic or hemorrhagic pathologies. AMS likely from UTI, which was treated by cefepime and will continue with outpatient PO keflex. Mentation improves during the hospital stay. Deconditioning was treated by physical therapy, who recommended home physical therapy. Back pain controlled by oxycodone IR. Pt will f/u with urologist, Dr. Aparicio, for PSA/testosterone level follow up, Urolflow, and/or cystoscopy. Additional imaging as follows: EKG shows sinus tachycardia rate approximately [address] or T-wave changes CT head - no acute findings. mild atrophy and chronic microvascular changes without any acute ischemic or hemorrhagic pathologies. CXR - No acute finding. R port & PPM in place Bladder U/S - Post-void 147cc Renal u/s - b/l renal cysts, b/l renal echogenicity increase. No hydronephrosis Echocardiogram - EF 45, moderate aortic, mitral, pulm regurfiation/ RVSP 71 for moderate pulm htn. Sepsis - resolved Urinary tract infection, immunocompromised - s/p cefepime 1g/d x 7 days PLUS keflex PO x 5 days outpatient - urine culture: proteus - blood culture: negative COPD exacerbation ZENAIDA - tolterated CPAP, 7cm with 30% O2 - Brovana 15 q12, budesonide 0.5 q12, - solumedrol 20 daily --> Outpatient medrol dose seda New onset diarrhea - resolved - C.diff negative - vss Watch Possible urinary retention, likely prostate problem, Hx prostate ca - post void 150cc - Monito i/o per shift in the setting of urinary incontinence - outpatient follow up with Dr. Aparicio AMS - resolved - thiamine 100mg daily to improve cognition - avoid sedative - SBP 130-140 Hx DVT CAD - amlodipine 10, lisinopril 10, new Tenormin 75 - EF 35% (2016) - Echo 2017: EF 45; mild to mod mitral regurg, tricuspid regurg; PSVP 71 Low TSH - sick euthyroid - need to repeat TSH in 2 weeks with FT3, FT4 outpatient pA-fib - Eliquis 2.5 bid, verapamil 240 daily ZENAIDA Neuropathy/back pain - neurontin 300 Deconditioning - home PT Prophylaxis - sucralfate Hx prostate ca - flomax Diet - HHD Disposition - solutions manager consult on discharge planning and outpatient physical therapy - Advanced directives discussion on going Consult ID = Dr. Chuy Murphy = Dr. Anne Urol = Dr. Marychuy Loera = Dr. Delgado Neurol = Dr. Montes s/r/d/w Dr. Doty - Date & Time of H&P Date of H&P: 06/06/17 Time of H&P: 10:34 Discharge Exam - Head Exam Head Exam: NORMAL INSPECTION - Eye Exam Eye Exam: EOMI, Normal appearance, PERRL. absent: Scleral icterus Pupil Exam: NORMAL ACCOMODATION - ENT Exam ENT Exam: Mucous Membranes Moist - Neck Exam Additional comments: supple - Respiratory Exam Respiratory Exam: Clear to PA & Lateral, NORMAL BREATHING PATTERN. absent: Decreased Breath Sounds, Rhonchi, Wheezes, Respiratory Distress - Cardiovascular Exam Cardiovascular Exam: REGULAR RHYTHM, +S1, +S2 - GI/Abdominal Exam GI & Abdominal Exam: Normal Bowel Sounds, Soft. absent: Distended, Firm, Guarding, Tenderness - Extremities Exam Extremities exam: normal capillary refill, pedal pulses present Additional comments: no e/c/c. negative becky b/l - Neurological Exam Neurological exam: Alert, Oriented x3, Reflexes Normal - Psychiatric Exam Psychiatric exam: Normal Affect, Normal Mood - Skin Skin Exam: Dry, Normal Color, Warm Discharge Plan - Discharge Medications Prescriptions: Arformoterol [Brovana] 15 mcg IH [id number] #1 inhaler Atenolol [Tenormin] 25 mg PO DAILY #14 tab Atenolol [Tenormin] 50 mg PO DAILY #14 tab Budesonide [Pulmicort Respules] 0.5 mg IH [id number] #1 inhaler Cephalexin [cephalexin] 500 mg PO BID #10 cap Docusate [Colace] 100 mg PO BID #28 cap Methylprednisolone [Medrol Dose Pack (21 tabs)] 4 mg PO DAILY #21 mg Thiamine [Vitamin B1 Tab] 100 mg PO DAILY #14 tab - Follow Up Plan Condition: FAIR Disposition: HOME/ ROUTINE Patient education suggested?: Yes Instructions: Altered Mental Status (GEN) Additional Instructions: Instructions 1. Follow up with Dr. Doty in 1 week after hospital discharge to discuss on another round of chemotherapy 2. Follow up with Dr. Aparicio, urologist, in 1-2 weeks 3. Follow up with primary care doctor in 1-2 weeks. The patient has Low TSH - need to repeat TSH in 2 weeks outpatient with FT3, FT4 4. Exercise fall precautions 5. Finish 5 days course of antibiotics to prevent resistance. Take with food. Referrals: Uziel Doty MD [Primary Care Provider] - Pratik Aparicio MD [Staff Provider] -
--- NOTE | 2017-06-06 10:57 | CP.PCM.CON ---
History of Present Illness - History of Present Illness History of Present Illness: Palliative consult requested by Dr Tutu Doty Reason: Advance care planning 76 year old male with history of NSCL cancer who presented with altered mental status,weakness and lethargy. CT of head revealed no acute findings. Chest x ray negative. On additional work up, found to have UTI. PMHx: NSCLC receiving Opdivo, prostate cancer,COPD,DVT, HTN, cardiac arrhythmia s/p pacemaker, CHF,shingles. Social History: Former smoker, no alcohol or drug use. Lives independently. Family History: Non contributory. Advance Care Planning: The patient does not have an Advanced Directive Review of Systems: 14 point review of systems is negative Past Patient History - Infectious Disease Hx of Infectious Diseases: None - Tetanus Immunizations Tetanus Immunization: Unknown - Past Social History Smoking Status: Former Smoker - CARDIAC Hx Cardiac Disorders: Yes (CAD) Hx Congestive Heart Failure: Yes Hx Hypercholesterolemia: Yes Hx Hypertension: Yes - PULMONARY Hx Chronic Obstructive Pulmonary Disease (COPD): Yes - NEUROLOGICAL Hx Neurological Disorder: Yes (denies) Hx Dizziness: Yes - HEENT Hx HEENT Problems: No - RENAL Hx Chronic Kidney Disease: Yes (renal insufficiency) Other/Comment: renal insufficiency - ENDOCRINE/METABOLIC Hx Endocrine Disorders: No - HEMATOLOGICAL/ONCOLOGICAL Hx Blood Disorders: Yes Hx Cancer: Yes (NSMALL CELL LUNG CA,PROSTATE CA ON CHEMO AND RADIATION) Hx Chemotherapy: Yes Hx Shingles: Yes (05-22-17) - INTEGUMENTARY Hx Dermatological Problems: No - MUSCULOSKELETAL/RHEUMATOLOGICAL Hx Arthritis: Yes - GASTROINTESTINAL Hx Gastrointestinal Disorders: Yes (colonoscopy) Hx Gastroesophageal Reflux: Yes Other/Comment: CONSTIPATION - GENITOURINARY/GYNECOLOGICAL Hx Genitourinary Disorders: Yes Hx Incontinence: Yes Hx Prostate Problems: Yes (prostate CA) - PSYCHIATRIC Hx Emotional Abuse: No Hx Physical Abuse: No Hx Substance Use: No - SURGICAL HISTORY Hx Surgeries: Yes (CARD. CATH 2013) Hx Cardiac Catheterization: Yes (2013) - ANESTHESIA Hx Anesthesia Reactions: No Hx Malignant Hyperthermia: No Meds Home Medications: Home Medication List Medication Instructions Recorded Confirmed Type Arformoterol [Brovana] 15 mcg IH [id number] #1 inhaler 06/06/17 Rx Atenolol [Tenormin] 25 mg PO DAILY #14 tab 06/06/17 Rx Atenolol [Tenormin] 50 mg PO DAILY #14 tab 06/06/17 Rx Budesonide [Pulmicort Respules] 0.5 mg IH [id number] #1 inhaler 06/06/17 Rx Cephalexin [cephalexin] 500 mg PO BID #10 cap 06/06/17 Rx Docusate [Colace] 100 mg PO BID #28 cap 06/06/17 Rx Methylprednisolone [Medrol Dose 4 mg PO DAILY #21 mg 06/06/17 Rx Pack (21 tabs)] Thiamine [Vitamin B1 Tab] 100 mg PO DAILY #14 tab 06/06/17 Rx Allergies/Adverse Reactions: Allergies Allergy/AdvReac Type Severity Reaction Status Date / Time No Known Allergies Allergy Verified 05/30/17 19:34 - Medications Medications: Current Medications Amlodipine Besylate (Norvasc) 10 mg PO DAILY [facility] Last Admin: 06/06/17 10:04 Dose: 10 mg Apixaban (Eliquis) 2.5 mg PO BID [facility] PRN Reason: Protocol Last Admin: 06/06/17 10:03 Dose: 2.5 mg Arformoterol Tartrate (Brovana) 15 mcg IH [id number] [facility] Last Admin: 06/06/17 08:04 Dose: 15 mcg Atenolol (Tenormin) 25 mg PO DAILY [facility] Last Admin: 06/06/17 10:05 Dose: 25 mg Atenolol (Tenormin) 50 mg PO DAILY [facility] Last Admin: 06/06/17 10:05 Dose: 50 mg Atorvastatin Calcium (Lipitor) 20 mg PO DIN [facility] Last Admin: 06/05/17 18:10 Dose: 20 mg Budesonide (Pulmicort Respules) 0.5 mg IH [id number] [facility] Last Admin: 06/06/17 08:04 Dose: 0.5 mg Docusate Sodium (Colace) 100 mg PO BID [facility] Last Admin: 06/06/17 10:03 Dose: 100 mg Gabapentin (Neurontin) 300 mg PO DAILY [facility] PRN Reason: Protocol Last Admin: 06/06/17 10:03 Dose: 300 mg Hydralazine HCl (Apresoline) 10 mg PO QID PRN PRN Reason: FOR SBP>170 and Diastolic>100 Cefepime HCl (Maxipime 1gm) 1 gm in 100 mls @ 100 mls/hr IVPB Q24H [facility] PRN Reason: Protocol Stop: 06/08/17 23:36 Last Admin: 06/06/17 00:56 Dose: 100 mls/hr Lisinopril (Zestril) 10 mg PO DAILY [facility] Last Admin: 06/06/17 10:05 Dose: 10 mg Methylprednisolone (Solu-Medrol) 20 mg IVP DAILY [facility] Last Admin: 06/06/17 09:59 Dose: 20 mg Oxycodone HCl (Oxycodone Immediate Release Tab) 15 mg PO Q6H PRN PRN Reason: Pain, severe (8-10) Last Admin: 06/06/17 04:41 Dose: 15 mg Pantoprazole Sodium (Protonix Ec Tab) 40 mg PO ACBD [facility] Last Admin: 06/06/17 07:09 Dose: 40 mg Sucralfate (Carafate Oral Susp) 1 gm PO 0600,1600 [facility] Last Admin: 06/06/17 07:08 Dose: 1 gm Tamsulosin HCl (Flomax) 0.4 mg PO DAILY [facility] Last Admin: 06/06/17 10:03 Dose: 0.4 mg Thiamine HCl (Vitamin B1 Tab) 100 mg PO DAILY [facility] Last Admin: 06/06/17 10:03 Dose: 100 mg Verapamil HCl (Calan Sr Tab) 240 mg PO DAILY [facility] Last Admin: 06/06/17 10:04 Dose: 240 mg Physical Exam - Constitutional Appears: No Acute Distress, Chronically Ill - Head Exam Head Exam: NORMAL INSPECTION - Eye Exam Eye Exam: Normal appearance, PERRL - ENT Exam ENT Exam: Mucous Membranes Moist, Normal Oropharynx - Neck Exam Neck exam: Positive for: Normal Inspection - Respiratory Exam Respiratory Exam: Clear to Auscultation Bilateral, NORMAL BREATHING PATTERN - Cardiovascular Exam Cardiovascular Exam: REGULAR RHYTHM, +S1, +S2 - GI/Abdominal Exam GI & Abdominal Exam: Normal Bowel Sounds, Soft - Extremities Exam Extremities exam: Positive for: full ROM, pedal pulses present - Back Exam Back exam: NORMAL INSPECTION - Neurological Exam Neurological exam: Alert, Oriented x3 - Skin Skin Exam: Dry, Warm Additional comments: no rashes - Additional Findings Additional findings: Palliative performance scale rating 60 % Results - Vital Signs Recent Vital Signs: Last Vital Signs Temp 98.6 F 06/06/17 08:17 Pulse 80 06/06/17 10:05 Resp 20 06/06/17 08:17 BP 119/69 06/06/17 10:05 Pulse Ox 96 06/06/17 08:17 - Labs Result Diagrams: 06/06/17 06:10 06/06/17 06:10 Labs: Laboratory Results - last 24 hr 06/06/17 06/06/17 06:10 06:10 WBC 10.6 RBC 3.85 Hgb 11.3 L Hct 34.4 L MCV 89.4 MCH 29.4 MCHC 32.8 RDW 17.0 H Plt Count 217 MPV 8.8 Gran % 85.1 H Lymph % (Auto) 7.7 L [place] % (Auto) 7.1 H Eos % (Auto) 0.0 L Baso % (Auto) 0.1 Gran # 8.99 H Lymph # 0.8 L [place] # 0.8 H Eos # 0.0 Baso # 0.01 Sodium 134 Potassium 4.4 Chloride 97 Carbon Dioxide 30 Anion Gap 11 BUN 46 H Creatinine 1.4 Est GFR ( Amer) 59 Est GFR (Non-Af Amer) 49 Random Glucose 96 Calcium 9.8 Assessment & Plan - Assessment and Plan (Free Text) Assessment: 76 leann old male with history of prostate cancer s/p radiation therapy, NSCLC receiving Opdivo who was admitted with AMS, UTI.AMS has resolved. The patient and I spoke about advance care planning. We specifically discussed resuscitation wishes.The patient does not want CPR/intubation or permanent feeding tube. POLST form completed with patient, a copy is placed in chart. Advance care planning discussion, 20 minutes Plan: POLST: DNR/DNI
--- NOTE | 2017-06-06 14:45 | PN ---
DATE: 06/06/2017 REASON FOR CONSULTATION: Followup of uncontrolled hypertension, altered mental status, lung CA, COPD, status post pacemaker. SUBJECTIVE: The patient denies any chest pain, shortness of breath, any palpitation, observation, sitting on the bed, not in apparent distress, having a breakfast. PHYSICAL EXAMINATION: As follows; VITAL SIGNS: Temperature afebrile, heart rate 80, blood pressure 119/69. HEENT: PERRLA intact. NECK: Supple. No carotid bruit, no thyromegaly. CHEST: Clear to auscultation. HEART: S1 and S2, regular. ABDOMEN: Soft. EXTREMITIES: Clubbing and cyanosis negative. LABORATORY DATA: Blood workup as follows: WBC 10.6, hemoglobin 11.3, hematocrit 34.4 and platelet count 217. Chemistry shows sodium 134, potassium 4.4, chloride 97, carbon dioxide 30, anion gap of 11, BUN 46 and creatinine 1.4. IMPRESSION: A 76-year-old male with past medical history significant for lung carcinoma, status post permanent pacemaker. The patient presented with sick sinus syndrome and multiple pauses, history of deep vein thrombosis, uncontrolled hypertension, altered mental status, now the patient is improved. Blood pressure is controlled. Continue verapamil 240 mg. Increase atenolol to 50 mg once a day. Continue lisinopril 10 mg daily. We will follow with you. Thank you Dr. Doty for providing the opportunity in taking care of the patient. Ramon Anne MD
--- NOTE | 2017-06-06 15:01 | PN ---
DATE: 06/06/2017 SUBJECTIVE: The patient is in bed, in no acute distress, nontoxic, was seen earlier this morning. No fevers and chills. PHYSICAL EXAMINATION VITAL SIGNS: Temperature 98, blood pressure is 119/60, respiratory rate of 16. HEENT: Unremarkable. NECK: Supple. LUNGS: Decreased breath sounds. HEART: Normal S1 and S2. ABDOMEN: Soft. LABORATORY DATA: Noted and reviewed. White count of 10,000, hemoglobin of 11 and platelets of 217. BUN 46, creatinine is 1.4. Urinalysis is noted. ASSESSMENT AND PLAN: This is a 76-year-old male with urinary tract infection with a gram-negative nani, identified has Proteus mirabilis, garza sensitive with negative blood cultures and negative stool for C. diff, antigen and toxin. May be discharged on p.o. antibiotics as discussed with . We will follow closely with you. Lee Vera MD Job # [id number]
[2017-06-07 16:52] LABS: TOTAL PSA 0.3 ng/mL (<=4.0)
== END 2017-06-06 12:24 | disposition home health service (06) | DRG 872 ==
LOC: ED 12:52 → ERH 16:28 → 3RSO 18:30 → OBSVTOIN 05-31 12:25
PROVIDERS: ADMIT Family Medicine; ATTEND Family Medicine
PROC: 5A09357 Assistance with Respiratory Ventilation, Less than 24 Consecutive Hours, Continuous Positive Airway Pressure (ICD-10-PCS; principal; 2017-05-31)
PROC: 5A09457 Assistance with Respiratory Ventilation, 24-96 Consecutive Hours, Continuous Positive Airway Pressure (ICD-10-PCS; 2017-06-02)
DX: A41.9 Sepsis, unspecified organism (principal); N17.9 Acute kidney failure, unspecified; J44.1 Chronic obstructive pulmonary disease with (acute) exacerbation; C34.90 Malignant neoplasm of unspecified part of unspecified bronchus or lung; N39.0 Urinary tract infection, site not specified; I13.0 Hypertensive heart and chronic kidney disease with heart failure and stage 1 through stage 4 chronic kidney disease, or unspecified chronic kidney disease; C61 Malignant neoplasm of prostate; I50.9 Heart failure, unspecified; B02.9 Zoster without complications; I49.5 Sick sinus syndrome; N18.3 Chronic kidney disease, stage 3 (moderate); G62.9 Polyneuropathy, unspecified; G47.33 Obstructive sleep apnea (adult) (pediatric); R19.7 Diarrhea, unspecified; E07.81 Sick-euthyroid syndrome; I25.10 Atherosclerotic heart disease of native coronary artery without angina pectoris; M54.5 Low back pain; I48.0 Paroxysmal atrial fibrillation; K59.00 Constipation, unspecified; I08.3 Combined rheumatic disorders of mitral, aortic and tricuspid valves; B96.4 Proteus (mirabilis) (morganii) as the cause of diseases classified elsewhere; E78.5 Hyperlipidemia, unspecified; Z66 Do not resuscitate; D64.9 Anemia, unspecified; I25.2 Old myocardial infarction; Z86.711 Personal history of pulmonary embolism; Z86.718 Personal history of other venous thrombosis and embolism; Z79.01 Long term (current) use of anticoagulants; Z87.891 Personal history of nicotine dependence; Z95.0 Presence of cardiac pacemaker

== ENCOUNTER 2017-06-20 16:37 | Inpatient (IN) | payer MEDICARE, OTHER ==
[2017-06-20 16:37] VITALS: PULSE 99
--- NOTE | 2017-06-20 16:46 | ED PDOC ---
Arrival/HPI - General Time Seen by Provider: 06/20/17 16:40 Historian: Patient - History of Present Illness Narrative History of Present Illness (Text): 06/20/17 16:45 76 y/o male, pmh includng non-small cell lung cancer/prostate cancer/ckd/bph/ psvt/chf/dvt, nkda, c/o Past Medical History - Infectious Disease Hx of Infectious Diseases: None - Tetanus Immunization Tetanus Immunization: Unknown - Cardiac Hx Cardiac Disorders: Yes (CAD) Hx Congestive Heart Failure: Yes Hx Hypertension: Yes - Pulmonary Hx Chronic Obstructive Pulmonary Disease (COPD): Yes - Neurological Hx Neurological Disorder: Yes (denies) Hx Dizziness: Yes - HEENT Hx HEENT Disorder: No - Renal Hx Renal Disorder: Yes (renal insufficiency) Other/Comment: renal insufficiency - Endocrine/Metabolic Hx Endocrine Disorders: No - Hematological/Oncological Hx Blood Disorders: Yes Hx Cancer: Yes (NSMALL CELL LUNG CA,PROSTATE CA ON CHEMO AND RADIATION) Hx Chemotherapy: Yes Hx Shingles: Yes (05-22-17) - Integumentary Hx Dermatological Disorder: No - Musculoskeletal/Rheumatological Hx Arthritis: Yes - Gastrointestinal Hx Gastrointestinal Disorders: Yes (colonoscopy) Hx Gastroesophageal Reflux: Yes Other/Comment: CONSTIPATION - Genitourinary/Gynecological Hx Genitourinary Disorders: Yes Hx Incontinence: Yes Hx Prostate Problems: Yes (prostate CA) - Psychiatric Hx Emotional Abuse: No Hx Physical Abuse: No Hx Substance Use: No - Surgical History Hx Cardiac Catheterization: Yes (2013) - Anesthesia Hx Anesthesia Reactions: No Hx Malignant Hyperthermia: No - Suicidal Assessment Feels Threatened In Home Enviroment: No Family/Social History Smoking Status: Former Smoker Hx Alcohol Use: Yes (QUIT) Hx Substance Use: No Allergies/Home Meds Allergies/Adverse Reactions: Allergies No Known Allergies Allergy (Verified 05/30/17 19:34) Home Medications: Home Meds Medication Instructions Recorded Confirmed Tamsulosin [Flomax] 0.4 mg PO DAILY 07/21/15 05/30/17 Amlodipine Besylate/Benazepril 1 cap PO DAILY 07/22/16 05/30/17 [Lotrel 10-20 mg Capsule] Atorvastatin [Lipitor] 20 mg PO DAILY 04/17/17 05/30/17 Difluprednate [Durezol] 5 ml OU DAILY 04/17/17 05/30/17 Disposition/Present on Arrival - Present on Arrival History of DVT/PE: Yes History of Uncontrolled Diabetes: No Urinary Catheter: No History Surgical Site Infection Following: None - Disposition
[2017-06-20 16:50] VITALS: BMI 24.8
[2017-06-20] MEDS ORDERED: Sodium Chloride 0.9% 1,000 ML IV STA (17:15)
[2017-06-20] MEDS ORDERED: Sodium Chloride 0.9% 500 ML IV STA ×2 (17:16→19:12)
[2017-06-20 18:21] LABS: BASO # 0.01 K/mm3 (0.0-2.0); BASO % 0.1 % (0.0-3.0); EOS % 0.3 % (1.5-5.0); GRAN # 6.93 (1.4-6.5); GRAN % 77.3 % (50.0-68.0); HEMOGLOBIN 11.5 g/dL (14.0-18.0); LYMPH # 1.5 (1.2-3.4); LYMPH % 16.3 % (22.0-35.0); MEAN CORPUSCULAR HEMOGLOBIN 30.4 pg (25.0-35.0); MEAN CORPUSCULAR HGB CONC 33.4 g/dl (31.0-37.0); MEAN PLATELET VOLUME 8.8 fl (7.0-11.0); MONO # 0.5 (0.1-0.6); PLATELET COUNT 136 10^3/uL (120.0-450.0); RBC 3.78 10^6/uL (3.5-6.1); RED CELL DISTRIBUTION WIDTH 18.3 % (11.5-14.5)
--- NOTE | 2017-06-20 18:29 | ED PDOC ---
Arrival/HPI <Pavan Daly - Last Filed: 06/20/17 17:50> <Zoe Hayes - Last Filed: 06/20/17 20:04> - General Chief Complaint: Pain, Chronic Time Seen by Provider: 06/20/17 16:40 - History of Present Illness Narrative History of Present Illness (Text): 06/20/17 19:09 Patient is a 76 y/o M with metastatic lung cancer, sent in by Dr. Doty for elevated calcium. Patient reports baseline cancer pain but no other new complaints. (Zoe Hayes) Past Medical History - Infectious Disease Hx of Infectious Diseases: None - Tetanus Immunization Tetanus Immunization: Unknown - Cardiac Hx Cardiac Disorders: Yes (CAD) Hx Congestive Heart Failure: Yes Hx Hypertension: Yes - Pulmonary Hx Respiratory Disorders: Yes Hx Chronic Obstructive Pulmonary Disease (COPD): Yes Other/Comment: lung cancer - Neurological Hx Neurological Disorder: Yes (denies) Hx Dizziness: Yes - HEENT Hx HEENT Disorder: No - Renal Hx Renal Disorder: Yes (renal insufficiency) Other/Comment: renal insufficiency - Endocrine/Metabolic Hx Endocrine Disorders: No - Hematological/Oncological Hx Blood Disorders: Yes Hx Cancer: Yes (NSMALL CELL LUNG CA,PROSTATE CA ON CHEMO AND RADIATION) Hx Chemotherapy: Yes Hx Shingles: Yes (05-22-17) - Integumentary Hx Dermatological Disorder: No - Musculoskeletal/Rheumatological Hx Arthritis: Yes - Gastrointestinal Hx Gastrointestinal Disorders: Yes (colonoscopy) Hx Gastroesophageal Reflux: Yes Other/Comment: CONSTIPATION - Genitourinary/Gynecological Hx Genitourinary Disorders: Yes Hx Incontinence: Yes Hx Prostate Problems: Yes (prostate CA) - Psychiatric Hx Emotional Abuse: No Hx Physical Abuse: No Hx Substance Use: No - Surgical History Hx Cardiac Catheterization: Yes (2013) Other/Comment: R chest port - Anesthesia Hx Anesthesia: Yes Hx Anesthesia Reactions: No Hx Malignant Hyperthermia: No - Suicidal Assessment Feels Threatened In Home Enviroment: No <Pavan Daly - Last Filed: 06/20/17 17:50> - Provider Review Nursing Documentation Reviewed: Yes <Zoe Hayes - Last Filed: 06/20/17 20:04> Family/Social History Smoking Status: Current Some Days Smoker Hx Alcohol Use: Yes Frequency of alcohol use: Socially Hx Substance Use: No <Pavan Daly - Last Filed: 06/20/17 17:50> - Physician Review Nursing Documentation Reviewed: Yes Family/Social History: No Known Family HX <Zoe Hayes - Last Filed: 06/20/17 20:04> Allergies/Home Meds <MalikaPavan knott - Last Filed: 06/20/17 17:50> <Zoe Hayes - Last Filed: 06/20/17 20:04> Allergies/Adverse Reactions: Allergies No Known Allergies Allergy (Verified 06/20/17 16:49) Home Medications: Home Meds Medication Instructions Recorded Confirmed Tamsulosin [Flomax] 0.4 mg PO DAILY 07/21/15 05/30/17 Amlodipine Besylate/Benazepril 1 cap PO DAILY 07/22/16 05/30/17 [Lotrel 10-20 mg Capsule] Atorvastatin [Lipitor] 20 mg PO DAILY 04/17/17 05/30/17 Difluprednate [Durezol] 5 ml OU DAILY 04/17/17 05/30/17 Review of Systems - Physician Review All systems were reviewed & negative as marked: Yes - Review of Systems Constitutional: Weight Change. absent: Fatigue Eyes: absent: Vision Changes ENT: absent: Hearing Changes Respiratory: absent: SOB, Cough, Sputum, Wheezing Cardiovascular: Other (rib pain). absent: Chest Pain, Edema, Calf Pain, ALEXIS, Orthopnea, Syncope Gastrointestinal: absent: Abdominal Pain, Constipation, Diarrhea, Nausea, Vomiting Genitourinary Male: absent: Dysuria Musculoskeletal: Arthralgias, Back Pain Neurological: absent: Headache, Dizziness, Focal Weakness <Zoe Hayes - Last Filed: 06/20/17 20:04> Physical Exam Vital Signs Reviewed: Yes Temperature: Afebrile Blood Pressure: Normal Pulse: Tachycardic Respiratory Rate: Normal Appearance: Positive for: Non-Toxic, Comfortable, Cachectic Pain Distress: None Mental Status: Positive for: Alert and Oriented X 3 - Systems Exam Head: Present: Atraumatic, Normocephalic Pupils: Present: PERRL Extroacular Muscles: Present: EOMI Conjunctiva: Present: Normal Mouth: Present: Moist Mucous Membranes Neck: Present: Normal Range of Motion Respiratory/Chest: Present: Clear to Auscultation, Good Air Exchange. No: Respiratory Distress, Accessory Muscle Use Cardiovascular: Present: Normal S1, S2, Tachycardic. No: Murmurs Abdomen: No: Tenderness, Distention, Rebound, Guarding Upper Extremity: Present: Normal Inspection Lower Extremity: Present: Normal Inspection Psychiatric: Present: Alert, Oriented x 3 <Zoe Hayes - Last Filed: 06/20/17 20:04> Vital Signs Temp Pulse Resp BP Pulse Ox 06/20/17 18:30 97 H 17 157/84 H 99 06/20/17 16:51 98.1 F 130 H 19 95/75 L 95 Medical Decision Making <Pavan Daly - Last Filed: 06/20/17 17:50> <Zoe Hayes - Last Filed: 06/20/17 20:04> ED Course and Treatment: 06/20/17 19:[address] Doty, requesting for patient to be transferred to remote telemetry on Aredia [address] Anne and Dr. Craven for consult. Spoke to pharmacy and patient has already had 500cc fluids and will not get aredia 90mg in 500cc given over 5 hours. (Zoe Hayes) - Lab Interpretations Lab Results: 06/20/17 18:09 06/20/17 18:09 Lab Results 06/20/17 18:09: Sodium 140, Potassium 3.4 L, Chloride 107, Carbon Dioxide 21, Anion Gap 15, BUN 30 H, Creatinine 1.8 H, Est GFR ( Amer) 44, Est GFR ( Non-Af Amer) 37, Random Glucose 82, Calcium 12.1 H*, Phosphorus 2.8, Magnesium 1.9, Total Bilirubin 1.1, AST 30, ALT 21, Alkaline Phosphatase 59, Total Protein 6.0, Albumin 3.2, Globulin 2.8, Albumin/Globulin Ratio 1.1 06/20/17 18:09: WBC 9.0, RBC 3.78, Hgb 11.5 L, Hct 34.4 L, MCV 91.0, MCH 30.4, MCHC 33.4, RDW 18.3 H, Plt Count 136, MPV 8.8, Gran % 77.3 H, Lymph % (Auto) 16.3 L, [place] % (Auto) 6.0, Eos % (Auto) 0.3 L, Baso % (Auto) 0.1, Gran # 6.93 H , Lymph # 1.5, [place] # 0.5, Eos # 0.0, Baso # 0.01 - Medication Orders Current Medication Orders: Sodium Chloride (Sodium Chloride 0.9%) 1,000 mls @ 60 mls/hr IV .[id number] LEONOR Discontinued Medications Sodium Chloride (Sodium Chloride 0.9%) 500 mls @ 999 mls/hr IV .Q31M STA Stop: 06/20/17 17:46 Last Admin: 06/20/17 18:20 Dose: 999 mls/hr Morphine Sulfate (Morphine) 4 mg IVP STAT STA Stop: 06/20/17 19:13 Pamidronate Disodium (Aredia) 90 mg IV ONCE ONE Stop: 06/20/17 19:44 Disposition/Present on Arrival - Present on Arrival History of DVT/PE: Yes History of Uncontrolled Diabetes: No Urinary Catheter: No History of Decub. Ulcer: No History Surgical Site Infection Following: None <Pavan Daly - Last Filed: 06/20/17 17:50> - Present on Arrival Any Indicators Present on Arrival: No - Disposition Have Diagnosis and Disposition been Completed?: Yes Disposition Time: 20:04 Patient Plan: Admission <Zoe Hayes - Last Filed: 06/20/17 20:04> - Disposition Diagnosis: Hypercalcemia Disposition: HOSPITALIZED Condition: FAIR
[2017-06-20 18:32] LABS: ALB/GLOB RATIO 1.1 (1.1-1.8); ALBUMIN 3.2 g/dL (3.0-4.8); MAGNESIUM 1.9 mg/dL (1.7-2.2)
[2017-06-20 18:34] LABS: CALCIUM 12.1 mg/dL (8.4-10.5)
[2017-06-20] MEDS ORDERED: Morphine 4 mg/ml ISec IVP STA (19:12)
[2017-06-20] MEDS ORDERED: Pamidronate 90 mg/10 ml Inj IV ONE (19:43)
[2017-06-20] MEDS ORDERED: Sodium Chloride 0.9% 1,000 ML IV SCH (19:45)
[2017-06-20] MEDS ORDERED: Potassium Chloride 20 mEq ER Tab PO STA ×2 (21:13→23:48)
[2017-06-21] MEDS ORDERED: Metoprolol 1 mg/ml Inj IVP STA (00:23)
[2017-06-21] MEDS ORDERED: Morphine 2 mg/ml ISec IVP STA (04:47)
[2017-06-21 07:48] LABS: BASO # 0.02 K/mm3 (0.0-2.0); BASO % 0.2 % (0.0-3.0); EOS % 0.4 % (1.5-5.0); GRAN % 82.2 % (50.0-68.0); HEMOGLOBIN 11.5 g/dL (14.0-18.0); LYMPH # 1.1 (1.2-3.4); LYMPH % 11.8 % (22.0-35.0); MEAN CELL VOLUME 90.8 fl (80.0-105.0); MEAN CORPUSCULAR HEMOGLOBIN 30.1 pg (25.0-35.0); MEAN CORPUSCULAR HGB CONC 33.1 g/dl (31.0-37.0); MEAN PLATELET VOLUME 10.5 fl (7.0-11.0); MONO # 0.5 (0.1-0.6); MONO % 5.4 % (1.0-6.0); PLATELET COUNT 161 10^3/uL (120.0-450.0); RBC 3.82 10^6/uL (3.5-6.1); RED CELL DISTRIBUTION WIDTH 18.4 % (11.5-14.5); WHITE BLOOD COUNT 8.9 10^3/ul (4.5-11.0)
[2017-06-21 07:59] LABS: ALB/GLOB RATIO 1.1 (1.1-1.8); ALBUMIN 3.1 g/dL (3.0-4.8)
[2017-06-21 08:05] LABS: CALCIUM 12.1 mg/dL (8.4-10.5)
[2017-06-21] MEDS ORDERED: Sodium Chloride 0.9% 1,000 ML IV SCH (10:44)
[2017-06-21] MEDS ORDERED: BENAZEPRIL PO SCH (10:45)
[2017-06-21] MEDS ORDERED: AMLODIPINE BESYLATE PO SCH (10:45)
[2017-06-21] MEDS ORDERED: [UNRECOGNIZED DRUG - OTHER] PO SCH (10:45)
[2017-06-21] MEDS ORDERED: Iodixanol 320 MG/ML 100 ML BOTTLE IV ONE (10:52)
--- NOTE | 2017-06-21 13:34 | CT ---
PROCEDURE: CT Chest without contrast HISTORY: lung ca COMPARISON: 01/14/2017 TECHNIQUE: Contiguous axial images were obtained through the chest without intravenous contrast enhancement. Sagittal and coronal reconstructions were performed. Radiation dose (DLP): 355 mGy-cm. This CT exam was performed using one or more of the following dose reduction techniques: Automated exposure control, adjustment of the mA and/or kV according to patient size, and/or use of iterative reconstruction technique. FINDINGS: LUNGS: There is severe soft tissue thickening around the right lower lobe bronchus. This could be secondary to radiation therapy. Residual tumor cannot be excluded. Findings are unchanged MEDIASTINUM: Unremarkable thoracic aorta. No aneurysm. Normal sized heart. Main pulmonary artery unremarkable. No vascular congestion. No lymphadenopathy. PLEURA: No pleural fluid. No pneumothorax. BONES: No fracture. No destructive lesion. UPPER ABDOMEN: Grossly unremarkable. OTHER FINDINGS: None. IMPRESSION: Severe soft tissue thickening around the right lower lobe bronchus unchanged from prior study. No evidence of metastatic disease
[2017-06-21] MEDS: Verapamil 240 mg ER Tab PO SCH (14:22)
[2017-06-21] MEDS: oxyCODONE 15 mg Immediate Release Tab PO PRN (14:24)
--- NOTE | 2017-06-21 14:42 | CP.PCM.HP ---
History of Present Illness - History of Present Illness History of Present Illness: H&P note for Dr. Doty: 76 M, Hx 2 primary cancers (non-small cell lung CA and prostate CA), COPD, CKD, was seen at Dr. Doty's office yesterday and was sent to the ED for abnormal labs. Pt had an elevated Ca level. Pt does complain of being more weak than usual but otherwise states that he is doing well. Denies any other complaints at this time. Denies any headache, dizziness, fever, chills, nausea, vomiting, sob, chest pain, urinary or bm changes. 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, on Opdivo immunotherapy Prostate CA by hx PSH: Pacemaker placement, PCI in 2013 FH: Non-contributory SH: Smoke 1/2 ppd >50 yrs, quit 3 years ago; Denies ETOH, or drug use All: NKDA Present on Admission - Present on Admission Any Indicators Present on Admission: No Review of Systems - Review of Systems All systems: reviewed and no additional remarkable complaints except (HPI) Past Patient History - Infectious Disease Hx of Infectious Diseases: None - Tetanus Immunizations Tetanus Immunization: Unknown - Past Social History Smoking Status: Light Smoker < 10 Cigarettes Daily - CARDIAC Hx Cardiac Disorders: Yes Hx Congestive Heart Failure: Yes Hx Hypertension: Yes - PULMONARY Hx Respiratory Disorders: Yes Hx Chronic Obstructive Pulmonary Disease (COPD): Yes - NEUROLOGICAL Hx Neurological Disorder: No - HEENT Hx HEENT Problems: No - RENAL Hx Chronic Kidney Disease: No - ENDOCRINE/METABOLIC Hx Endocrine Disorders: No - HEMATOLOGICAL/ONCOLOGICAL Hx Blood Disorders: Yes Hx Cancer: Yes (lung and prostate ca) Hx Shingles: Yes - INTEGUMENTARY Hx Dermatological Problems: No - MUSCULOSKELETAL/RHEUMATOLOGICAL Hx Musculoskeletal Disorders: Yes Hx Arthritis: Yes Hx Falls: No Hx Osteoporosis: Yes - GASTROINTESTINAL Hx Gastrointestinal Disorders: No - GENITOURINARY/GYNECOLOGICAL Hx Genitourinary Disorders: Yes Hx Incontinence: Yes - PSYCHIATRIC Hx Substance Use: No - SURGICAL HISTORY Hx Cardiac Catheterization: Yes - ANESTHESIA Hx Anesthesia: Yes Hx Anesthesia Reactions: No Hx Malignant Hyperthermia: No Meds Allergies/Adverse Reactions: Allergies Allergy/AdvReac Type Severity Reaction Status Date / Time No Known Allergies Allergy Verified 06/20/17 16:49 Physical Exam - Constitutional Appears: No Acute Distress - Head Exam Head Exam: ATRAUMATIC, NORMAL INSPECTION, NORMOCEPHALIC - Eye Exam Eye Exam: EOMI, Normal appearance, PERRL Pupil Exam: NORMAL ACCOMODATION, PERRL - ENT Exam ENT Exam: Mucous Membranes Moist, Normal Exam - Respiratory Exam Respiratory Exam: Clear to Auscultation Bilateral, NORMAL BREATHING PATTERN. absent: Wheezes - Cardiovascular Exam Cardiovascular Exam: REGULAR RHYTHM, RRR, +S1, +S2 - GI/Abdominal Exam GI & Abdominal Exam: Normal Bowel Sounds, Soft. absent: Tenderness - Extremities Exam Extremities exam: Positive for: normal inspection. Negative for: calf tenderness, pedal edema - Neurological Exam Neurological exam: Alert, Oriented x3, Reflexes Normal - Psychiatric Exam Psychiatric exam: Normal Affect, Normal Mood - Skin Skin Exam: Dry, Intact, Normal Color, Warm Results - Vital Signs Recent Vital Signs: Last Vital Signs Temp 98.7 F 06/21/17 12:00 Pulse 104 H 06/21/17 12:00 Resp 19 06/21/17 12:00 BP 180/100 H 06/21/17 14:23 Pulse Ox 99 06/21/17 05:56 - Labs Result Diagrams: 06/21/17 07:30 06/21/17 07:30 Labs: Laboratory Results - last 24 hr 06/21/17 06/21/17 07:30 07:30 WBC 8.9 RBC 3.82 Hgb 11.5 L Hct 34.7 L MCV 90.8 MCH 30.1 MCHC 33.1 RDW 18.4 H Plt Count 161 MPV 10.5 Gran % 82.2 H Lymph % (Auto) 11.8 L Hutchinson % (Auto) 5.4 Eos % (Auto) 0.4 L Baso % (Auto) 0.2 Gran # 7.30 H Lymph # 1.1 L Hutchinson # 0.5 Eos # 0.0 Baso # 0.02 Sodium 142 Potassium 4.1 Chloride 111 H Carbon Dioxide 21 Anion Gap 14 BUN 26 H Creatinine 1.5 H Est GFR ( Amer) 55 Est GFR (Non-Af Amer) 45 Random Glucose 68 L Calcium 12.1 H* Total Bilirubin 1.2 AST 31 ALT 25 Alkaline Phosphatase 57 Total Protein 5.9 Albumin 3.1 Globulin 2.8 Albumin/Globulin Ratio 1.1 Assessment & Plan - Assessment and Plan (Free Text) Assessment: 76 M, Hx 2 primary cancers (non-small cell lung CA on Opdivo and prostate CA), COPD, CKD, was seen at Dr. Doty's office prior to the ED pt found to be hypercalcemic. Here in the ED Ca was 12.1. 1. Hypercalcemia: - Ca 12.2 this morning - NS @ 80 - Palmidronate 90mg x 1 - Daily labs - F/u nephro consult 2. Hx of NSCLC and Prostate ca - currently on Opdivo - CT chest shows severe soft tissue thickenieng around the R lower lob bronchus unchanged from prior study 3. Hx of COPD - Duone, Brovana, pulmicort - 2L O2 as needed - F/u pulm consult 4. Hx of DVT - Cont home eliquis 5. Hx of CAD - Cont Lipitor, lisinopril, tenormin - F/u cardiology recs 6. HTN - Cont Norvasc, Lisinopril, and tenormin 7. GI/DVT ppx - Eliquis and protonix Case and plan was reviewed & discussed in detail with Dr Doty
[2017-06-21] MEDS ORDERED: Albuterol-Ipratrop 3 mg / 0.5 (3 ml) UD IH PRN (14:51)
[2017-06-21] MEDS: Arformoterol 15 mcg/2 ml Inh Sol IH SCH (19:45)
[2017-06-21] MEDS: Budesonide 0.5 mg/2 ml Inhal Susp UD IH SCH (19:45)
--- NOTE | 2017-06-21 21:58 | CON ---
DATE: 06/21/2017 REASON FOR CONSULTATION: Hypercalcemia. HISTORY OF PRESENT ILLNESS: A 76-year-old male, previously unknown to me, was sent to the emergency room at the direction of his oncologist because of a finding of elevated calcium on outpatient results. The patient is a poor historian. He is somewhat lethargic. He is not able to cooperate with systems review. He denies any complaints at this time. His vital signs were stable in the emergency room. He was not febrile. His calcium was initially 12.1. He also had a potassium of 3.4, elevated BUN and creatinine of 30/1.8. He received pamidronate 90 mg. Currently, he denies any complaints. PAST MEDICAL/SURGICAL HISTORY: Obtained from the chart. The patient has a history of CHF, COPD, non-small cell CA of the lung, prostate cancer, on chemotherapy and radiation therapy, and underlying chronic kidney disease, stage 3? Hypertension. FAMILY HISTORY: Noncontributory. SOCIAL HISTORY: Smoker, no alcohol use, no IV drug abuse. ALLERGIES: No known drug allergies. MEDICATIONS: At home included verapamil 240, Flomax 0.4, Prilosec, gabapentin 300 daily, Colace 100 daily, Durasal, Keflex, Lipitor, Tenormin, Brovana, and amlodipine/benazepril 09/01. REVIEW OF SYSTEMS: Unavailable as the patient is unable to cooperate. PHYSICAL EXAMINATION GENERAL: Elderly, thinly-built male, sitting in bed. VITAL SIGNS: Blood pressure 126/74, heart rate 90, respiratory rate 22, and temperature 98.2. HEENT: Normocephalic and atraumatic. Positive pallor. NECK: Supple, no JVD. LUNGS: Bilateral equal air entry, bilateral rhonchi. CARDIAC: S1 and S2, regular rate and rhythm, no murmur, no rub. ABDOMEN: Soft, nondistended, nontender. Bowel sounds present. EXTREMITIES: No lower extremity edema. INTAKE AND OUTPUT: 810/300. LABORATORY DATA: WBC 8.9, hemoglobin 11.5, hematocrit 34.7, and platelets 161. Sodium 142, potassium 4.1, chloride 111, CO2 of 21, BUN 26, creatinine 1.5, glucose 68, calcium 12.1, albumin 3.1, corrected calcium is 12.8. ASSESSMENT: 1. History of prostate cancer. 2. History of non-small cell carcinoma of the lungs. 3. Severe hypercalcemia. 4. Acute kidney injury, likely secondary to dehydration. 5. Hypokalemia. 6. Anemia. 7. History of hypertension. 8. Acute kidney injury, superimposed on chronic kidney disease, stage 3. PLAN: 1. The patient has already received pamidronate. 2. Increase IV fluids to 80 mL of normal saline per hour. This also helps in calciuresis. 3. Potassium is now corrected. 4. Check urinalysis. 5. Monitor urine output closely. 6. Monitor electrolytes. Thank you for the courtesy of this consultation. We will follow this patient closely with you. Kaelyn Craven MD
--- NOTE | 2017-06-22 01:06 | CARD ---
APPROVED REPORT EKG Measurement Heart [id number] <Conclusion> Junctiional tachycardia Nonspecific intraventricular block Abnormal ECG
--- NOTE | 2017-06-22 01:10 | CARD ---
APPROVED REPORT EKG Measurement Heart [id number] <Conclusion> Sinus tachycardia with premature supraventricular complexes Biatrial enlargement Nonspecific ST abnormality Abnormal ECG
--- NOTE | 2017-06-22 02:08 | CON ---
DATE: 06/21/2017 REASON FOR CONSULTATION: Admitted with hypercalcemia, congestive heart failure, history of pacemaker, cardiac evaluation and followup. BRIEF CLINICAL HISTORY: This is a 76-year-old male with past medical history significant for lung CA, stage IV with metastasis, hypertension, hyperlipidemia, status post pacemaker, DVT, was seen by Dr. Doty office yesterday, found to be hypercalcemia, altered mental status, and the patient was sent to the ER. 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 Doty, who was yesterday in the office found to be hypercalcemia. The patient was transferred to ER and admitted into ER. History of sick sinus syndrome, tachybrady syndrome, multiple pauses. The patient underwent permanent pacemaker implantation, 03/2016, [employer] VVI MRI Safe. History of chronic renal insufficiency, baseline creatinine is 2. Previous cardiac workup as follows, the patient had successful implantation of permanent pacemaker, VVI Medtronic MRI Safe (the patient can have an MRI with these kind of pacemaker) dated 04/12/2016. It was implanted when the patient presented with tachybrady syndrome, multiple pauses. History of cardiac catheterization 07/2015 - showed normal LV function, no critical disease, nonobstructive coronary artery disease, history of cardiac catheterization prior 04/11/2013 that also shows nonobstructive coronary artery disease. Most recently, the patient had echocardiography done on 06/02/2017, that was in the last admission, that showed ejection fraction of 45% to 50%. Septal motion consistent with conduction abnormality, consistent with pacemaker, RV systolic mildly reduced, mild to moderate aortic regurgitation, mild to moderate mitral regurgitation, moderate tricuspid regurgitation, RV systolic pressure 71, consistent with moderate pulmonary hypertension, trace pericardial effusion, pacemaker lead noted in the RV. SOCIAL HISTORY: Ex-tobacco abuse. Ex-alcohol abuse. REVIEW OF SYSTEMS: Negative except as per HPI. PAST SURGICAL HISTORY: Significant for implantation of permanent pacemaker, admission 04/12/2016 and history of cardiac catheterization 03/21/2015 and prior to that 04/11/2013 because of abnormal stress test. CURRENT MEDICATION: The patient is taking at home, oxycodone; verapamil 240 mg daily; thiamine; Flomax; sucralfate; omeprazole; gabapentin; cephalexin; atorvastatin; atenolol 50 mg in the morning, 25 at night; apixaban 2.5 mg; benazepril and amlodipine, Lotrel 10/20 mg daily. PHYSICAL EXAMINATION GENERAL: Height of the patient 5 feet 11 inches, weight of the patient is 152 pounds, body mass index 21.2. VITAL SIGNS: Temperature afebrile, heart rate 104, blood pressure 188/111. HEENT: PERRLA. Extraocular muscles intact. NECK: Supple. No carotid bruits, no thyromegaly. CHEST: Clear to auscultation. HEART: S1, S2, regular. ABDOMEN: Soft. EXTREMITIES: Clubbing, cyanosis negative. LABORATORY DATA: Blood workup as follows, WBC 8.9, hemoglobin 11.5, hematocrit 34.7, platelet count 161. Chemistry shows sodium 140, potassium 4.0, chloride 101, carbon dioxide 21, anion gap 14, BUN 26, creatinine 1.5, calcium 12.1. IMPRESSION: A 76-year-old male with past medical history significant for lung cancer with metastasis. Admitted with altered mental status, hypercalcemia, history of nonobstructive coronary artery disease, , cardiac catheterization in 2014 and 2012, history of permanent pacemaker 04/12/2016, when admitted with sick sinus syndrome, tachybrady syndrome, recent echo showed dated 06/02/2017 that is 3 weeks from now, had echo done that showed ejection fraction 45% to 50%, mildly reduced RV, mild to moderate aortic regurgitation, mild to moderate mitral regurgitation, moderate tricuspid regurgitation, RV systolic pressure of 71. Hypercalcemia secondary to lung cancer. RECOMMENDATION: Continue IV fluid. Pamidronate was started, continue verapamil, continue apixaban for DVT, PE, monitor electrolytes, continue IV Lopressor p.r.n. We will start p.r.n. hydralazine p.r.n. for . We will also add low dose of metoprolol and add p.r.n. hydralazine. Since the patient has pacemaker, so slow heart rate is not a problem, pacemaker will kick in. We will follow with you. Thank you Dr. Doty for the opportunity in taking care the patient. We will follow with you. Ramon Anne MD
--- NOTE | 2017-06-22 02:28 | CON ---
PULMONARY CONSULTATION DATE: 06/21/2017 REFERRING PHYSICIAN: Jim Light MD REASON FOR CONSULTATION: Chronic obstructive lung disease, sleep apnea syndrome, hypercalcemia. HISTORY OF PRESENT ILLNESS: This is a 76-year-old gentleman known to me from office and previous admission, has history of lung cancer, history radiation therapy to the lung, been on chemotherapy, cardiac arrhythmia requiring pacemaker, atrial fibrillation, history of DVT, obstructive sleep apnea syndrome, does not have a CPAP, was seen at Dr. Doty's office, found to have hypercalcemia, not feeling well, sent to ER, and was admitted. Presently lying in the bed, mild cough, does have shortness of breath. No hemoptysis, no hematemesis, no hematuria. No nausea, no vomiting, no diarrhea. No leg pain or leg swelling. PAST MEDICAL HISTORY: Small cell lung cancer, been on radiation and chemotherapy, chronic obstructive lung disease, atrial fibrillation, history of DVT, cardiac arrhythmia requiring pacemaker, sleep apnea syndrome, and hypercalcemia. ALLERGIES: NONE KNOWN. SOCIAL HISTORY: Positive history of smoking. No history alcohol abuse. MEDICATION: The patient is on Brovana 15 mcg inhaled twice a day, Calan SR 240 mg daily, Carafate 1 mg twice day, Colace 100 mg twice a day, Eliquis 2.5 mg twice day, Flomax 0.4 mg daily. He is getting home medication eye drops, Lipitor 20 mg daily, Neurontin 300 mg daily, Norvasc 10 mg daily, oxycodone immediate release 15 mg q. 4 hours p.r.n., also started on pamidronate, Protonix 20 mg daily, Pulmicort inhaled twice day, IV fluid normal saline 80 mL per hour, Tenormin 50 mg daily, Vitamin B 100 mg daily, Zestril 20 mg daily. REVIEW OF SYSTEM: No headache, no rhinitis, mild cough with slight shortness of breath. No chest pain. No nausea, no vomiting, no diarrhea, no dysuria, no leg pain, no leg swelling. PHYSICAL EXAMINATION GENERAL: Lying in the bed, no acute distress. VITAL SIGNS: Temperature is 98.5, hear rate is 104, respiratory rate is 20, blood pressure 126/74, pulse oximetry 96% on room air. HEENT: Moist mucous membranes. Crowded airway. Mallampati score is IV. NECK: Supple. No JVD. LUNGS: Scattered rhonchi and few rhonchi at bases. HEART: S1 and S2. ABDOMEN: Soft and nontender. No organomegaly. EXTREMITIES: There is no edema. NEUROLOGIC: Awake and alert. Follows simple commands. LABORATORY DATA: Shows hemoglobin 11.5, hematocrit 34.7, WBC 8.9, and platelet count is 161. Sodium 142, potassium 4.1, chloride 111, bicarbonate 21, BUN 26, creatinine 1.5, glucose 68, calcium is 12.1, AST is 31, ALT 25, alkaline phosphatase is 57, albumin is 3.1, free PSA was 01, testosterone is 73. CAT scan of the chest was done on admission, which was severe soft tissue thickening around the right lower lobe bronchus, unchanged from the prior study. No evidence of metastatic disease. CT findings not changed from the pervious CAT scans. IMPRESSION AND PLAN: Hypercalcemia, history of lung cancer, been on radiation and chemotherapy, chronic obstructive lung disease, obstructive sleep apnea syndrome, history of deep vein thrombosis, history of shingles, cardiac arrhythmia with paroxysmal atrial fibrillation. Agree with Dr. Doty with the present management, continue bronchodilator, keep at 45 degrees, gastric prophylaxis, anticoagulation. We will place him on CPAP 7 cm pressure oxygen while sleeping, sleep apnea precautions. Follow up electrolytes in the morning. Thank you and we will follow with you. Ramon Delgado MD
[2017-06-22 07:30] LABS: BASO # 0.01 K/mm3 (0.0-2.0); BASO % 0.1 % (0.0-3.0); EOS # 0.1 (0.0-0.7); EOS % 0.5 % (1.5-5.0); GRAN # 11.96 (1.4-6.5); GRAN % 90.2 % (50.0-68.0); HEMOGLOBIN 11.4 g/dL (14.0-18.0); LYMPH # 0.7 (1.2-3.4); LYMPH % 5.6 % (22.0-35.0); MEAN CELL VOLUME 90.5 fl (80.0-105.0); MEAN CORPUSCULAR HEMOGLOBIN 30.2 pg (25.0-35.0); MEAN CORPUSCULAR HGB CONC 33.3 g/dl (31.0-37.0); MEAN PLATELET VOLUME 10.1 fl (7.0-11.0); MONO # 0.5 (0.1-0.6); MONO % 3.6 % (1.0-6.0); PLATELET COUNT 147 10^3/uL (120.0-450.0); RBC 3.78 10^6/uL (3.5-6.1); RED CELL DISTRIBUTION WIDTH 18.5 % (11.5-14.5); WHITE BLOOD COUNT 13.3 10^3/ul (4.5-11.0)
[2017-06-22 07:36] LABS: ALB/GLOB RATIO 1.1 (1.1-1.8); ALBUMIN 3.1 g/dL (3.0-4.8); ALT/SGPT 23 U/L (7-56); AST/SGOT 31 U/L (15-59); BLOOD UREA NITROGEN 19 mg/dL (7-21); CALCIUM 11.2 mg/dL (8.4-10.5); GFR AFRICAN-AMERICAN > 60; GFR NON-AFRICAN AMERICAN > 60
[2017-06-22] MEDS: Budesonide 0.5 mg/2 ml Inhal Susp UD IH SCH ×2 (08:07→19:34)
[2017-06-22] MEDS: Arformoterol 15 mcg/2 ml Inh Sol IH SCH ×2 (08:07→19:34)
[2017-06-22] MEDS: Verapamil 240 mg ER Tab PO SCH (09:55)
[2017-06-22] MEDS: Potassium Chloride 30 MEQ in Sodium Chloride 0.9% 1,000 ML IV SCH (09:58)
--- NOTE | 2017-06-22 14:13 | PN ---
DATE: 06/22/2017 SUBJECTIVE: The patient is seen lying in bed. He is awake, he is alert, he is comfortable. He appears to be somewhat confused. PHYSICAL EXAMINATION: GENERAL: Elderly male, lying in bed. VITAL SIGNS: Blood pressure 138/72, heart rate 69, respiratory rate 20, temperature 98.8. HEENT: Normocephalic and atraumatic. NECK: Supple. No JVD. LUNGS: Bilateral equal air entry, bilateral equal expansion. CARDIAC: S1, S2, regular rate and rhythm. No murmur. No rubs. ABDOMEN: Soft, nondistended, nontender. Bowel sounds present. EXTREMITIES: No lower extremity edema. INTAKE AND OUTPUT: 480/1225. LABORATORY DATA: WBC 13.3, hemoglobin 11, hematocrit 34, platelets 147. Polys 90%. Sodium 143, potassium 3.3, chloride 109,CO2 of 23, BUN 19, creatinine 1.1, glucose 59, calcium 11.2, albumin 3.1. Corrected calcium is 11.8. CURRENT MEDICATIONS: Apresoline, Brovana, verapamil 240, Carafate, Colace, DuoNeb, Eliquis, Zomax, Lipitor, Neurontin, amlodipine 10, normal saline at 80, Protonix, Pulmicort, Tenormin. ASSESSMENT: 1. Acute kidney injury, superimposed on chronic end disease, stage 2?, resolving. 2. Hypercalcemia, combination of dehydration and metastatic prostate cancer. 3. Severe hypokaliemia. 4. Hypertension. 5. Elevated WBC count. PLAN: 1. Urinalysis. 2. Calcium is responding to pamidronate, continue IV fluids. 3. Add potassium 20 mEq to each bag of IV fluids. 4. Check intact PTH, vitamin D, PTH related peptide. 5. Monitor urine output, calcium and potassium. Kaelyn Craven MD
--- NOTE | 2017-06-22 14:23 | CT ---
PROCEDURE: CT HEAD WITHOUT CONTRAST. HISTORY: ams COMPARISON: 05/30/2017 TECHNIQUE: Axial computed tomography images were obtained through the head/brain without intravenous contrast. Radiation dose: Total exam DLP = 1645 mGy-cm. This CT exam was performed using one or more of the following dose reduction techniques: Automated exposure control, adjustment of the mA and/or kV according to patient size, and/or use of iterative reconstruction technique. FINDINGS: HEMORRHAGE: No intracranial hemorrhage. BRAIN: No mass effect or edema. Chronic microvascular changes are seen. There is mild atrophy VENTRICLES: Unremarkable. No hydrocephalus. CALVARIUM: Unremarkable. PARANASAL SINUSES: Unremarkable as visualized. No significant inflammatory changes. MASTOID AIR CELLS: Unremarkable as visualized. No inflammatory changes. OTHER FINDINGS: None. IMPRESSION: No acute finding
--- NOTE | 2017-06-22 15:05 | CP.PCM.PN ---
Subjective - Date & Time of Evaluation Date of Evaluation: 06/22/17 Time of Evaluation: 10:40 - Subjective Subjective: Hem/onc note for Dr Doty: Pt seen and examined at bedside. No acute events overnight. Pt c/o some lower back pain that is worse on change of positions. Denies any fever, chills, horowitz, sob, chest pain, palpitations, urinary or bm changes. Objective - Vital Signs/Intake and Output Vital Signs (last 24 hours): Temp Pulse Resp BP Pulse Ox 98.8 F 69 20 138/72 100 06/22/17 08:22 06/22/17 10:07 06/22/17 08:22 06/22/17 10:07 06/22/17 08:22 Intake and Output: 06/22/17 06/22/17 06:59 18:59 Intake Total 480 Output Total 775 Balance -295 - Medications Medications: Current Medications Albuterol/Ipratropium (Duoneb 3 Mg/0.5 Mg (3 Ml) Ud) 3 ml IH [id number] PRN PRN Reason: Shortness of Breath Amlodipine Besylate (Norvasc) 10 mg PO DAILY [facility] Last Admin: 06/22/17 09:57 Dose: 10 mg Apixaban (Eliquis) 2.5 mg PO BID [facility] PRN Reason: Protocol Last Admin: 06/22/17 09:56 Dose: 2.5 mg Arformoterol Tartrate (Brovana) 15 mcg IH [id number] [facility] Last Admin: 06/22/17 08:07 Dose: 15 mcg Atenolol (Tenormin) 50 mg PO DAILY [facility] Last Admin: 06/22/17 10:06 Dose: 50 mg Atenolol (Tenormin) 25 mg PO BID [facility] Last Admin: 06/22/17 10:07 Dose: 25 mg Atorvastatin Calcium (Lipitor) 20 mg PO DAILY [facility] Last Admin: 06/22/17 09:56 Dose: 20 mg Budesonide (Pulmicort Respules) 0.5 mg IH [id number] [facility] Last Admin: 06/22/17 08:07 Dose: 0.5 mg Docusate Sodium (Colace) 100 mg PO TID [facility] Last Admin: 06/22/17 13:36 Dose: 100 mg Gabapentin (Neurontin) 300 mg PO DAILY [facility] PRN Reason: Protocol Last Admin: 06/22/17 09:57 Dose: 300 mg Home Med (Home Med) 0 unit OU DAILY [facility] Hydralazine HCl (Apresoline) 10 mg PO QID PRN PRN Reason: for SBP>170 & OR Diastolic>100 Potassium Chloride 30 meq/ (Sodium Chloride) 1,015 mls @ 80 mls/hr IV [id number] [facility] Last Admin: 06/22/17 09:58 Dose: 80 mls/hr Lidocaine (Lidoderm) 2 ea TD DAILY [facility] Lisinopril (Zestril) 20 mg PO DAILY [facility] Last Admin: 06/22/17 10:07 Dose: 20 mg Oxycodone HCl (Oxycodone Immediate Release Tab) 15 mg PO Q4 PRN PRN Reason: Pain, severe (8-10) Last Admin: 06/21/17 14:24 Dose: 15 mg Pantoprazole Sodium (Protonix Ec Tab) 20 mg PO AC [facility] Sucralfate (Carafate Tab) 1 gm PO 0600,1600 [facility] Last Admin: 06/22/17 06:51 Dose: 1 gm Tamsulosin HCl (Flomax) 0.4 mg PO DAILY [facility] Last Admin: 06/22/17 09:56 Dose: 0.4 mg Thiamine HCl (Vitamin B1 Tab) 100 mg PO DAILY [facility] Last Admin: 06/22/17 10:07 Dose: 100 mg Verapamil HCl (Calan Sr Tab) 240 mg PO DAILY [facility] Last Admin: 06/22/17 09:55 Dose: 240 mg - Labs Labs: 06/22/17 07:00 06/22/17 07:00 - Constitutional Appears: No Acute Distress - Head Exam Head Exam: ATRAUMATIC, NORMAL INSPECTION, NORMOCEPHALIC - Eye Exam Eye Exam: EOMI, Normal appearance, PERRL Pupil Exam: NORMAL ACCOMODATION, PERRL - ENT Exam ENT Exam: Mucous Membranes Moist, Normal Exam - Neck Exam Neck Exam: Full ROM, Normal Inspection. absent: Lymphadenopathy - Respiratory Exam Respiratory Exam: Clear to Ausculation Bilateral, NORMAL BREATHING PATTERN. absent: Wheezes - Cardiovascular Exam Cardiovascular Exam: REGULAR RHYTHM, RRR, +S1, +S2. absent: Murmur - GI/Abdominal Exam GI & Abdominal Exam: Soft, Normal Bowel Sounds. absent: Distended, Tenderness - Extremities Exam Extremities Exam: Normal Capillary Refill. absent: Calf Tenderness, Joint Swelling, Pedal Edema - Neurological Exam Neurological Exam: Alert, Awake, CN II-XII Intact, Normal Gait, Oriented x3 - Psychiatric Exam Psychiatric exam: Normal Affect, Normal Mood - Skin Skin Exam: Dry, Intact, Normal Color, Warm Assessment and Plan - Assessment and Plan (Free Text) Assessment: 76 M, Hx 2 primary cancers (non-small cell lung CA on Opdivo and prostate CA), COPD, CKD, was seen at Dr. Doty's office prior to the ED pt found to be hypercalcemic to 12.1. 1. Hypercalcemia: improving; likely due to dehydration or mets dx - Ca 12.2 dec to 11.2 - NS @ 80 with Kcl 20meq - Palmidronate 90mg x 1 yesterday - F/u nephro consult - f/u PTH, PTHrp, intact, - added 20meq KCl to bag of fluids for hypokalemia, acute chronic CKD resolving - Head CT - no acute findings - Neuro consulted for AMS - ID consulted for AMS r/o sepsis 2. Hx of NSCLC and Prostate ca - currently on Opdivo - CT chest shows severe soft tissue thickening around the R lower lob bronchus unchanged from prior study 3. back pain - Lidocaine patch 5% 2 patches 4. Constipation - Increased colcace to 100mg TID - Ordered Amitiza from outpt pharmacy to bedside 5. Hx of COPD - Duone, Brovana, pulmicort - 2L O2 as needed - F/u pulm consult 6. Hx of DVT - Cont home eliquis 7. Hx of CAD - Cont Lipitor, lisinopril, tenormin - F/u cardiology recs - added metoprolol, and Hydralazine PRN 8. HTN - Cont Norvasc, Lisinopril, and tenormin 9. GI/DVT ppx - Eliquis and protonix Case and plan was reviewed & discussed in detail with Dr Doty
[2017-06-22] MEDS ORDERED: Potassium Chloride 20 mEq ER Tab PO ONE ×2 (15:22→15:23)
[2017-06-22] MEDS: DUREZOL OPTH OU SCH (17:32)
[2017-06-22] MEDS: Lidocaine 5% Patch TD SCH (17:37)
[2017-06-22] MEDS: Pantoprazole 20 mg EC Tab PO SCH (17:39)
--- NOTE | 2017-06-22 19:31 | CON ---
DATE: 06/22/2017 CHIEF COMPLAINT: Changes in confusion. 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 Nephrology is on the case and has brought down the calcium level to 11.2. He was also dehydrated with elevated BUN and creatinine, and hence metabolic derangements in terms of hypokalemia. I was consulted for change in mental status. Currently, he is back at his baseline according to the family but still has some mild cognitive impairment based on neuro exam. He is moving all extremities, following all commands. No pronator drift seen. CT head showed no intracranial abnormalities just chronic ischemic changes. PAST MEDICAL HISTORY: History of non-small cell carcinoma of the lung, prostate cancer, COPD, chronic kidney disease, hypertension. ALLERGIES: NO KNOWN DRUG ALLERGIES. REVIEW OF SYSTEMS: A 14-point review of systems is negative except as per the HPI. FAMILY HISTORY: Noncontributory. SOCIAL HISTORY: No illicit drug abuse, smoking, or EtOH abuse at this time, was a former smoker in the past. MEDICATIONS: Reviewed by nurse per reconciliation sheet. PHYSICAL EXAMINATION VITAL SIGNS: Temperature 98.7, pulse rate of 66, blood pressure 130/79, respiratory rate of 20. GENERAL: The patient is sitting up in bed in no acute distress. HEENT: Head is atraumatic and normocephalic. PERRLA. Extraocular muscles intact. NECK: Supple. No JVD. No adenopathy noted. LUNGS: Clear to auscultation. No adventitious sounds. HEART: S1 and S2, normal rate and rhythm. No murmurs, rubs, or gallops. ABDOMEN: Soft, nontender, nondistended. Bowel sounds present. EXTREMITIES: Mild clubbing. Noticed hand nails which correlates to his underlying cancer. NEUROLOGIC: The patient is alert, oriented to person, place, and year. Recall after 5 minutes is 0 out 3. Poor attention span, short thought process. Cranial nerves II through XII intact. Motor exam: Slight increased tone throughout. Moves all extremities equally. No pronator drift seen. Sensory exam: Decreased light touch pinprick up to calves bilaterally, decreased vibrations at the toes. DTRs are 2+ throughout and 1 at the ankles. Coordination: [id number] intact. Gait is deferred for now. LABORATORY DATA: Sodium is 143, potassium is 3.3. chloride 109, carbon dioxide 23, BUN of 19, creatinine of 1.1, random glucose of 59 and calcium of 11.2. ASSESSMENT: This 76-year-old man with past medical history of non-small cell lung cancer, on Opdivo; prostate cancer; chronic back pain; chronic obstructive pulmonary disease; chronic kidney disease; history of coronary artery disease; hypertension. I was called in for change in mental status, has a constellation of hypercalcemia of 12.1 with hypokalemia as well as hypertensive urgency with elevated systolic and diastolic blood pressures and was also disoriented to new change in environment as well as dehydrated with elevated BUN and creatinine than his baseline. Overall, his altered mental status likely secondary to toxic metabolic encephalopathy causing a transient confusional state. At this time, recommend: 1. Monitor electrolytes to correct accordingly. 2. Follow with nephrology in regards to hypercalcemia and try to get it under normal limits. 3. Continue with Eliquis 12.5 mg p.o. b.i.d. and Lipitor 20 mg p.o. daily for stroke prevention. 4. CT head show no intracranial abnormalities or no evidence of any metastasis, he is doing well. 5. Hydrate the patient accordingly and avoid any sedative medications. At this time, he is clinically stable from my standpoint. Continue present oncology management and metabolic derangement management. Thank you for this consult. Dontae Montes MD
[2017-06-22] MEDS: oxyCODONE 15 mg Immediate Release Tab PO PRN (21:44)
--- NOTE | 2017-06-22 23:29 | PN ---
DATE: 06/22/2017 REASON FOR CONSULTATION: Followup cardiac evaluation, history of congestive heart failure, history of pacemaker, and admitted with hypercalcemia. SUBJECTIVE: The patient is lying flat in the bed. Denies any chest pain, shortness of breath, or any palpitation. PHYSICAL EXAMINATION GENERAL: Lying flat, not in apparent distress. VITAL SIGNS: Temperature afebrile, heart rate , blood pressure 130/72. HEENT: PERRLA. Extraocular muscles are intact. NECK: Supple. No carotid bruit, no thyromegaly. CHEST: Clear to auscultation. HEART: S1 and S2, regular. ABDOMEN: Soft. EXTREMITIES: Clubbing and cyanosis negative. LABORATORY DATA: WBC 13.3, hemoglobin 11.5, hematocrit 34.2, platelet count 149. Chemistry shows sodium of 143, potassium 3.0, chloride 109, carbon dioxide 23, anion gap of 14, BUN 19, creatinine 1.1. Calcium today is 11.2. IMPRESSION: This is a 76-year-old male with past medical history significant for nonobstructive coronary artery disease, cardiac catheterization x2, history of lung cancer, admitted with altered mental status and hypercalcemia, stage IV lung cancer with metastasis possibly, history of post pacemaker, who was seen by Dr. Doty's office and found to be hypercalcemic and was admitted here. The patient is on IV fluids and Aredia that is pamidronate, feels okay. History of pacemaker, placed on 04/12/2016 for significant bradycardia and multiple pauses. Pacemaker with MRI is safe, it means the patient needs the pacemaker, if the MRI, the patient can have the pacemaker. Last echo on 06/02/2017 shows ejection fraction 45-50%, mild to moderate mitral regurgitation, moderate tricuspid regurgitation, RV systolic pressure is 71, consistent with moderate pulmonary hypertension, trace pericardial effusion, history of deep venous thrombosis and pulmonary embolism, on Eliquis. RECOMMENDATIONS: Aggressively supplement potassium. Continue IV fluid. We will give one dose of Lasix at 5 p.m. to prevent going into congestive heart failure. We will follow with you. We will give another dose of K-Dur at 7 p.m. to supplement potassium for ongoing loss. Ramon Anne MD
--- NOTE | 2017-06-23 03:42 | PN ---
PULMONARY PROGRESS NOTE DATE: 06/22/2017 REFERRING PHYSICIAN: . SUBJECTIVE: He is lying in the bed. Night was unremarkable. Tolerated BiPAP well. No headache. No rhinitis. No nausea. No vomiting. No diarrhea. No dysuria. No leg pain or leg swelling. PHYSICAL EXAMINATION: GENERAL: No acute distress. VITAL SIGNS: Temperature 98, heart rate 66, respiratory rate 20, blood pressure 130/79, pulse ox 100% on nasal cannula. HEENT: Moist mucous membranes. Crowded airway. NECK: Supple. No JVD. CARDIOPULMONARY: S1 and S2. LUNGS: Fair airflow with rhonchi. ABDOMEN: Soft and nontender. No organomegaly. EXTREMITIES: There is no edema. NEUROLOGIC: Awake, alert, follows simple commands. LABORATORY DATA: Hemoglobin 11.4, hematocrit 34.2, WBC 13.3, platelet is 147. Sodium 143, potassium 3.3, chloride 109, bicarbonate 23, BUN 19, creatinine 1.1. calcium today 11.2, AST 31, ALT 23, alk phos is 58, albumin 3.1. CAT scan of the head shows no active findings. MEDICATIONS: Hydralazine 10 mg q.i.d. p.r.n., Calan SR 240 mg daily, Carafate 1 g q. 12 hours, Colace 100 mg three times a day, DuoNeb q. 4 hours p.r.n., Eliquis 2.5 mg twice a day, Flomax 0.4 mg daily, Lidoderm patch to affected area daily, Lipitor 20 mg daily, gabapentin 300 mg daily, Norvasc 10 mg daily, oxycodone immediate release 15 mg q. 4 hours p.r.n. potassium with IV fluid, Protonix 40 mg daily, Pulmicort inhaled twice a day, Tenormin 50 mg daily and also 25 mg twice a day, multivitamin daily, thiamine B1 100 mg daily, Zestril 20 mg daily. IMPRESSION AND PLAN: Hypercalcemia, history of lung cancer, has been on radiation and chemotherapy, obstructive lung disease, obstructive sleep apnea syndrome, history of deep venous thrombosis, history of shingles, cardiac arrhythmia, history of paroxysmal atrial fibrillation. From pulmonary point of view, doing okay. Keep head at 45 degree, encourage CPAP use, gastric prophylaxis, anticoagulation, continue IV fluid and Lasix. Followup calcium. We will follow with you. Ramon Delgado MD
[2017-06-23] MEDS: Potassium Chloride 30 MEQ in Sodium Chloride 0.9% 1,000 ML IV SCH ×3 (05:27→23:50)
[2017-06-23 07:12] LABS: BASO # 0.01 K/mm3 (0.0-2.0); BASO % 0.1 % (0.0-3.0); EOS # 0.2 (0.0-0.7); EOS % 1.8 % (1.5-5.0); GRAN # 7.34 (1.4-6.5); GRAN % 83.7 % (50.0-68.0); HEMOGLOBIN 10.2 g/dL (14.0-18.0); LYMPH # 0.8 (1.2-3.4); LYMPH % 8.6 % (22.0-35.0); MEAN CELL VOLUME 91.4 fl (80.0-105.0); MEAN CORPUSCULAR HEMOGLOBIN 30.3 pg (25.0-35.0); MEAN CORPUSCULAR HGB CONC 33.1 g/dl (31.0-37.0); MEAN PLATELET VOLUME 10.8 fl (7.0-11.0); MONO # 0.5 (0.1-0.6); MONO % 5.8 % (1.0-6.0); PLATELET COUNT 155 10^3/uL (120.0-450.0); RBC 3.37 10^6/uL (3.5-6.1); RED CELL DISTRIBUTION WIDTH 18.6 % (11.5-14.5); WHITE BLOOD COUNT 8.8 10^3/ul (4.5-11.0)
[2017-06-23 07:26] LABS: ALBUMIN 2.8 g/dL (3.0-4.8); ALT/SGPT 21 U/L (7-56); AST/SGOT 28 U/L (15-59); BLOOD UREA NITROGEN 19 mg/dL (7-21); CALCIUM 10.1 mg/dL (8.4-10.5); GFR AFRICAN-AMERICAN > 60; GFR NON-AFRICAN AMERICAN 59
[2017-06-23] MEDS: Budesonide 0.5 mg/2 ml Inhal Susp UD IH SCH ×2 (08:10→22:39)
[2017-06-23] MEDS: Arformoterol 15 mcg/2 ml Inh Sol IH SCH ×2 (08:10→22:39)
[2017-06-23] MEDS: Verapamil 240 mg ER Tab PO SCH (09:49)
[2017-06-23] MEDS: Lidocaine 5% Patch TD SCH (09:50)
[2017-06-23] MEDS: Pantoprazole 20 mg EC Tab PO SCH ×2 (09:53→17:20)
--- NOTE | 2017-06-23 14:32 | PN ---
DATE: 06/23/2017 LOCATION: The patient room 363, bed 1. REASON FOR CONSULTATION: Followup history of CHF, pacemaker, admitted with hypercalcemia. SUBJECTIVE: The patient denies any chest pain, shortness of breath, palpitation. The patient is lying comfortably in bed without any cardiac symptoms. PHYSICAL EXAMINATION: VITAL SIGNS: Blood pressure 132/81, respirations 20. The patient is afebrile. HEENT: Head is normocephalic. Eyes; pupils normal. Conjunctivae slightly pale. NECK: JVP low. Carotids equal. Thorax; AP diameter normal. LUNGS: Clear. CARDIOVASCULAR: S1 and S2. ABDOMEN: Soft and nontender. No organomegaly. Bowel sound normal. EXTREMITIES: No clubbing. No cyanosis. LABORATORY DATA: Shows WBC 8.8, hemoglobin 10.2, hematocrit 30.8, and platelet 155. Sodium 138, potassium 3.7, BUN 19, creatinine 1.2. AST and ALT normal. Total protein 5.5 and albumin 2.8. DIAGNOSES: Nonobstructive coronary artery disease, the patient had cardiac catheterization twice, history of lung cancer admitted with altered mental status and hypercalcemia, stage IV lung carcinoma with metastasis possibly, history of status post pacemaker insertion, pacemaker put around 04/12/2016. Pacemaker is . Echo on 06/02/2017 showed ejection fraction 45% to 50%, [id number] mitral regurg, moderate tricuspid regurg, RVSP 71 mmHg consistent with [id number] pulmonary hypertension, history of deep venous thrombosis and pulmonary embolism. The patient is on Eliquis 2.5 b.i.d., we will continue that, Flomax 0.4 daily, atorvastatin 20 daily, gabapentin 10 mg p.o. daily, amlodipine 10 mg daily, atenolol 50 daily along with atenolol 25 b.i.d., lisinopril 20 daily. We will continue that therapy with hemoglobin as compared to admission 12.1 now has come to 10.1 which is a normal range. Clinically, cardiac state is stable at present. We will continue present therapy. We will follow. Ramon Stanley MD
--- NOTE | 2017-06-23 15:26 | CP.PCM.CON ---
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 He was found have some derangement in his electrolytes and has been treated for these. He is now feeling better, but he is noted to have leukocytosis on admission. Infectious Diseases consult is requested to further evaluate and manage. Currently the patient is comfortable in bed, denies fever or chills, no nausea or vomiting, no headache or dizziness, no chest pain, no SOB, no cough or colds, no abdominal pain, no diarrhea, no dysuria. Review of Systems - Review of Systems All systems: reviewed and no additional remarkable complaints except (as per HPI ) Past Patient History - Infectious Disease Hx of Infectious Diseases: None - Tetanus Immunizations Tetanus Immunization: Unknown - Past Social History Smoking Status: Light Smoker < 10 Cigarettes Daily - CARDIAC Hx Cardiac Disorders: Yes Hx Congestive Heart Failure: Yes Hx Hypertension: Yes - PULMONARY Hx Respiratory Disorders: Yes Hx Chronic Obstructive Pulmonary Disease (COPD): Yes - NEUROLOGICAL Hx Neurological Disorder: No - HEENT Hx HEENT Problems: No - RENAL Hx Chronic Kidney Disease: No - ENDOCRINE/METABOLIC Hx Endocrine Disorders: No - HEMATOLOGICAL/ONCOLOGICAL Hx Blood Disorders: Yes Hx Cancer: Yes (lung and prostate ca) Hx Shingles: Yes - INTEGUMENTARY Hx Dermatological Problems: No - MUSCULOSKELETAL/RHEUMATOLOGICAL Hx Musculoskeletal Disorders: Yes Hx Arthritis: Yes Hx Falls: No Hx Osteoporosis: Yes - GASTROINTESTINAL Hx Gastrointestinal Disorders: No - GENITOURINARY/GYNECOLOGICAL Hx Genitourinary Disorders: Yes Hx Incontinence: Yes - PSYCHIATRIC Hx Substance Use: No - SURGICAL HISTORY Hx Cardiac Catheterization: Yes - ANESTHESIA Hx Anesthesia: Yes Hx Anesthesia Reactions: No Hx Malignant Hyperthermia: No Meds Allergies/Adverse Reactions: Allergies Allergy/AdvReac Type Severity Reaction Status Date / Time No Known Allergies Allergy Verified 06/20/17 16:49 - Medications Medications: Current Medications Albuterol/Ipratropium (Duoneb 3 Mg/0.5 Mg (3 Ml) Ud) 3 ml IH [id number] PRN PRN Reason: Shortness of Breath Amlodipine Besylate (Norvasc) 10 mg PO DAILY [facility] Last Admin: 06/22/17 09:57 Dose: 10 mg Apixaban (Eliquis) 2.5 mg PO BID [facility] PRN Reason: Protocol Last Admin: 06/22/17 09:56 Dose: 2.5 mg Arformoterol Tartrate (Brovana) 15 mcg IH [id number] [facility] Last Admin: 06/22/17 08:07 Dose: 15 mcg Atenolol (Tenormin) 50 mg PO DAILY [facility] Last Admin: 06/22/17 10:06 Dose: 50 mg Atenolol (Tenormin) 25 mg PO BID [facility] Last Admin: 06/22/17 10:07 Dose: 25 mg Atorvastatin Calcium (Lipitor) 20 mg PO DAILY [facility] Last Admin: 06/22/17 09:56 Dose: 20 mg Budesonide (Pulmicort Respules) 0.5 mg IH [id number] [facility] Last Admin: 06/22/17 08:07 Dose: 0.5 mg Docusate Sodium (Colace) 100 mg PO TID [facility] Last Admin: 06/22/17 13:36 Dose: 100 mg Gabapentin (Neurontin) 300 mg PO DAILY [facility] PRN Reason: Protocol Last Admin: 06/22/17 09:57 Dose: 300 mg Home Med (Home Med) 0 unit OU DAILY [facility] Hydralazine HCl (Apresoline) 10 mg PO QID PRN PRN Reason: for SBP>170 & OR Diastolic>100 Potassium Chloride 30 meq/ (Sodium Chloride) 1,015 mls @ 80 mls/hr IV .[id number] [facility] Last Admin: 06/22/17 09:58 Dose: 80 mls/hr Lidocaine (Lidoderm) 2 ea TD DAILY [facility] Lisinopril (Zestril) 20 mg PO DAILY [facility] Last Admin: 06/22/17 10:07 Dose: 20 mg Oxycodone HCl (Oxycodone Immediate Release Tab) 15 mg PO Q4 PRN PRN Reason: Pain, severe (8-10) Last Admin: 06/21/17 14:24 Dose: 15 mg Pantoprazole Sodium (Protonix Ec Tab) 20 mg PO AC [facility] Sucralfate (Carafate Tab) 1 gm PO 0600,1600 [facility] Last Admin: 06/22/17 06:51 Dose: 1 gm Tamsulosin HCl (Flomax) 0.4 mg PO DAILY [facility] Last Admin: 06/22/17 09:56 Dose: 0.4 mg Thiamine HCl (Vitamin B1 Tab) 100 mg PO DAILY [facility] Last Admin: 06/22/17 10:07 Dose: 100 mg Verapamil HCl (Calan Sr Tab) 240 mg PO DAILY [facility] Last Admin: 06/22/17 09:55 Dose: 240 mg Physical Exam - Constitutional Appears: Non-toxic, No Acute Distress - Head Exam Head Exam: NORMAL INSPECTION - ENT Exam ENT Exam: Mucous Membranes Moist - Neck Exam Neck exam: Negative for: Lymphadenopathy, Meningismus - Respiratory Exam Respiratory Exam: Decreased Breath Sounds - Cardiovascular Exam Cardiovascular Exam: +S1, +S2 - GI/Abdominal Exam GI & Abdominal Exam: Soft. absent: Tenderness Results - Vital Signs Recent Vital Signs: Last Vital Signs Temp 98.8 F 06/22/17 08:22 Pulse 69 06/22/17 10:07 Resp 20 06/22/17 08:22 BP 138/72 06/22/17 10:07 Pulse Ox 100 06/22/17 08:22 - Labs Result Diagrams: 06/23/17 06:30 06/23/17 06:30 Labs: Laboratory Results - last 24 hr 06/22/17 06/22/17 07:00 07:00 WBC 13.3 H D RBC 3.78 Hgb 11.4 L Hct 34.2 L MCV 90.5 MCH 30.2 MCHC 33.3 RDW 18.5 H Plt Count 147 MPV 10.1 Gran % 90.2 H Lymph % (Auto) 5.6 L Leslie % (Auto) 3.6 Eos % (Auto) 0.5 L Baso % (Auto) 0.1 Gran # 11.96 H Lymph # 0.7 L Leslie # 0.5 Eos # 0.1 Baso # 0.01 Sodium 143 Potassium 3.3 L Chloride 109 H Carbon Dioxide 23 Anion Gap 14 BUN 19 Creatinine 1.1 Est GFR ( Amer) > 60 Est GFR (Non-Af Amer) > 60 Random Glucose 59 L Calcium 11.2 H Total Bilirubin 1.2 AST 31 ALT 23 Alkaline Phosphatase 58 Total Protein 6.0 Albumin 3.1 Globulin 2.9 Albumin/Globulin Ratio 1.1 Assessment & Plan - Assessment and Plan (Free Text) Plan: Assessment S/P Systemic Inflammatory Response Syndrome, with currently no evidence of infection history of UTI history of herpes zoster of the posterior thoracic area 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
--- NOTE | 2017-06-23 15:37 | CP.PCM.PN ---
Subjective - Date & Time of Evaluation Date of Evaluation: 06/23/17 Time of Evaluation: 09:55 - Subjective Subjective: Hem/onc note for Dr Doty: Pt seen and examined at bedside. No acute events overnight. Pt still c/o some lower back pain. Denies any fever, chills, horowitz, sob, chest pain, palpitations, urinary or bm changes Objective - Vital Signs/Intake and Output Vital Signs (last 24 hours): Temp Pulse Resp BP Pulse Ox 99.1 F 73 20 132/81 100 06/23/17 08:13 06/23/17 10:00 06/23/17 08:13 06/23/17 09:54 06/23/17 08:13 Intake and Output: 06/23/17 06/23/17 06:59 18:59 Intake Total 960 Output Total 775 Balance 185 - Medications Medications: Current Medications Albuterol/Ipratropium (Duoneb 3 Mg/0.5 Mg (3 Ml) Ud) 3 ml IH [id number] PRN PRN Reason: Shortness of Breath Amlodipine Besylate (Norvasc) 10 mg PO DAILY [facility] Last Admin: 06/23/17 09:51 Dose: 10 mg Apixaban (Eliquis) 2.5 mg PO BID [facility] PRN Reason: Protocol Last Admin: 06/23/17 09:50 Dose: 2.5 mg Arformoterol Tartrate (Brovana) 15 mcg IH [id number] [facility] Last Admin: 06/23/17 08:10 Dose: 15 mcg Atenolol (Tenormin) 50 mg PO DAILY [facility] Last Admin: 06/23/17 09:53 Dose: 50 mg Atenolol (Tenormin) 25 mg PO BID [facility] Last Admin: 06/23/17 09:54 Dose: 25 mg Atorvastatin Calcium (Lipitor) 20 mg PO DAILY [facility] Last Admin: 06/23/17 09:50 Dose: 20 mg Budesonide (Pulmicort Respules) 0.5 mg IH [id number] [facility] Last Admin: 06/23/17 08:10 Dose: 0.5 mg Docusate Sodium (Colace) 100 mg PO TID [facility] Last Admin: 06/23/17 09:50 Dose: 100 mg Gabapentin (Neurontin) 300 mg PO DAILY [facility] PRN Reason: Protocol Last Admin: 06/23/17 09:51 Dose: 300 mg Home Med (Home Med) 0 unit OU DAILY [facility] Last Admin: 06/22/17 17:32 Dose: Not Given Hydralazine HCl (Apresoline) 10 mg PO QID PRN PRN Reason: for SBP>170 & OR Diastolic>100 Potassium Chloride 30 meq/ (Sodium Chloride) 1,015 mls @ 80 mls/hr IV .[id number] [facility] Last Admin: 06/23/17 05:27 Dose: 80 mls/hr Lidocaine (Lidoderm) 2 ea TD DAILY [facility] Last Admin: 06/23/17 09:50 Dose: 2 ea Lisinopril (Zestril) 20 mg PO DAILY [facility] Last Admin: 06/23/17 09:54 Dose: 20 mg Oxycodone HCl (Oxycodone Immediate Release Tab) 15 mg PO Q4 PRN PRN Reason: Pain, severe (8-10) Last Admin: 06/22/17 21:44 Dose: 15 mg Pantoprazole Sodium (Protonix Ec Tab) 20 mg PO AC [facility] Last Admin: 06/23/17 09:53 Dose: 20 mg Sucralfate (Carafate Tab) 1 gm PO 0600,1600 [facility] Last Admin: 06/22/17 17:30 Dose: 1 gm Tamsulosin HCl (Flomax) 0.4 mg PO DAILY [facility] Last Admin: 06/23/17 09:50 Dose: 0.4 mg Thiamine HCl (Vitamin B1 Tab) 100 mg PO DAILY [facility] Last Admin: 06/23/17 09:54 Dose: 100 mg Verapamil HCl (Calan Sr Tab) 240 mg PO DAILY [facility] Last Admin: 06/23/17 09:49 Dose: 240 mg - Labs Labs: 06/23/17 06:30 06/23/17 06:30 - Constitutional Appears: No Acute Distress - Head Exam Head Exam: ATRAUMATIC, NORMOCEPHALIC - Eye Exam Eye Exam: EOMI, Normal appearance, PERRL Pupil Exam: NORMAL ACCOMODATION, PERRL - ENT Exam ENT Exam: Mucous Membranes Moist, Normal Exam - Neck Exam Neck Exam: Full ROM, Normal Inspection. absent: Lymphadenopathy - Respiratory Exam Respiratory Exam: Clear to Ausculation Bilateral, NORMAL BREATHING PATTERN. absent: Wheezes - Cardiovascular Exam Cardiovascular Exam: REGULAR RHYTHM, RRR, +S1, +S2. absent: Murmur - GI/Abdominal Exam GI & Abdominal Exam: Soft, Normal Bowel Sounds. absent: Distended, Tenderness - Extremities Exam Extremities Exam: Full ROM, Normal Capillary Refill, Normal Inspection. absent : Joint Swelling, Pedal Edema - Neurological Exam Neurological Exam: Alert, Awake, Oriented x3 - Psychiatric Exam Psychiatric exam: Normal Affect, Normal Mood - Skin Skin Exam: Dry, Intact, Normal Color, Warm Assessment and Plan - Assessment and Plan (Free Text) Assessment: 76 M, Hx 2 primary cancers (non-small cell lung CA on Opdivo and prostate CA), COPD, CKD, was seen at Dr. Doty's office prior to the ED pt found to be hypercalcemic to 12.1 now resolving today 10.1 1. Hypercalcemia: improving; likely due to dehydration or mets dx - Ca 10.1 this am - resolving - Continue NS @ 80 with Kcl 20meq - s/p Palmidronate 90mg x 1 - F/u nephro consult - f/u PTH, PTHrp, intact, - added 20meq KCl to bag of fluids for hypokalemia, acute chronic CKD resolving - Head CT - no acute findings - Neuro reviewed appreciate recs - ID consulted - no abx at this time. will monitor off antibiotics 2. Hx of NSCLC and Prostate ca - currently on Opdivo - CT chest shows severe soft tissue thickening around the R lower lob bronchus unchanged from prior study 3. back pain - Lidocaine patch 5% 2 patches apply to back 4. Constipation - Increased colcace to 100mg TID - Ordered Amitiza from outpt pharmacy to bedside 5. Hx of COPD - Duone, Brovana, pulmicort - 2L O2 as needed - F/u pulm consult 6. Hx of DVT - Cont home eliquis 7. Hx of CAD - Cont Lipitor, lisinopril, tenormin - F/u cardiology recs - added metoprolol, and Hydralazine PRN 8. HTN - Cont Norvasc, Lisinopril, and tenormin 9. GI/DVT ppx - Eliquis and protonix Dispo: PT and TCU evaluaton Case and plan was reviewed & discussed in detail with Dr Doty
--- NOTE | 2017-06-23 20:13 | PN ---
DATE: 06/23/2017 SUBJECTIVE: The patient is seen lying in bed. He is awake. He is alert. He is comfortable. He complains of some lower abdominal pain. Sons are at bedside. PHYSICAL EXAMINATION: GENERAL: Elderly male lying in bed. VITAL SIGNS: Blood pressure 132/81, heart rate 71, respiratory rate 20 and temperature 99.1, T-max is 99.7. HEENT: Normocephalic, atraumatic. Positive pallor. NECK: Supple, no JVD. LUNGS: Bilateral equal air entry, equal expansion, no rales. CARDIAC: S1 and S2. Regular rate and rhythm. No murmur. No rub. ABDOMEN: Soft, nondistended, nontender. Bowel sounds present. EXTREMITIES: Lower extremities edema. INTAKE AND OUTPUT: 962/775. LABORATORY DATA: WBC 8.8, hemoglobin 10, hematocrit 30.8, and platelets 155. Sodium 138, potassium 3.7, chloride 107, CO2 23, BUN 19, creatinine 1.2, glucose 74, calcium 10.1, AST 21, ALT 21, albumin 2.8, corrected calcium is 10.9. Vitamin D 18, PTH 10, PTH related peptide pending. ASSESSMENT: 1. Humoral hypercalcemia of malignancy. 2. Status post pamidronate. 3. Resolved acute kidney injury. 4. Resolved hypokalemia. 5. Metastatic prostate cancer. 6. Hypertension. PLAN: 1. The patient is status post pamidronate. 2. Continue IV fluids with potassium. 3. Monitor urine output closely. 4. Continue antihypertensives. 5. Followup PTH related peptide. Kaelyn Craven MD
[2017-06-23] MEDS: oxyCODONE 15 mg Immediate Release Tab PO PRN (21:09)
--- NOTE | 2017-06-23 22:11 | PN ---
PULMONARY PROGRESS NOTE DATE: 06/23/2017 REFERRING PHYSICIAN: Dr. Jim Light SUBJECTIVE: He is lying in the bed, feels better. Tolerated BiPAP well last night. No nausea. No vomiting. No diarrhea. No leg pain or leg swelling OBJECTIVE GENERAL: In no acute distress. VITAL SIGNS: Temperature is 98, hear rate is 74, respiratory rate is 18, blood pressure 118/67, pulse 77% on 2 L nasal cannula. HEENT: Moist mucous membranes. Crowded airway. NECK: Supple. No JVD. LUNGS: Fair airflow with few rhonchi. HEART: S1 and S2. ABDOMEN: Soft, nontender, no organomegaly. EXTREMITIES: There is no edema. NEUROLOGIC: Awake and alert. Follows simple commands. MEDICATIONS: He is on hydralazine 10 mg q.i.d., p.r.n., also on Brovana 15 mcg inhaled twice a day, verapamil slow release 240 mg daily, Carafate 1 gm twice a day, Colace 100 mg three time a day, DuoNeb q. 4 hours p.r.n., Eliquis 2.5 mg twice a day, Flomax 0.4 mg daily, Lidoderm patch daily, Lipitor 20 mg daily, gabapentin 300 mg daily, Norvasc 10 mg daily, oxycodone immediate release 15 mg q. 4 hours p.r.n., potassium supplemented with IV fluid, Protonix 20 mg daily, Pulmicort inhaled twice a day, Tenormin 50 mg daily, vitamin B1 800 mg daily and Zestril 20 mg daily. LABORATORY DATA: Shows hemoglobin 10.2, hematocrit with 30.8, WBC 8.8, platelet count is 155. Sodium 138, potassium 3.7, chloride 107, bicarbonate 23, BUN is 19, creatinine 1.2, calcium 10.1, AST 28, ALT 21, alkaline phosphatase is 58, albumin is 2.8, procalcitonin is 0.69. Microbiology: Blood culture is negative. IMPRESSION AND PLAN: Hypercalcemia, lung cancer, history of radiation chemotherapy, obstructive lung disease, obstructive sleep apnea syndrome, deep venous thrombosis, history of shingles recently, cardiac arrhythmia, paroxysmal atrial fibrillation. From pulmonary point to view, doing okay. Continue bronchodilator, keep head at 45 degrees, encouraged BiPAP use, gastric prophylaxis, anticoagulation, IV fluid and Lasix. Followup calcium. Thank you and we will follow with you. Ramon Delgado MD
[2017-06-24] MEDS: oxyCODONE 15 mg Immediate Release Tab PO PRN ×2 (03:28→19:36)
[2017-06-24 06:34] LABS: BASO # 0.01 K/mm3 (0.0-2.0); BASO % 0.1 % (0.0-3.0); EOS # 0.1 (0.0-0.7); EOS % 1.8 % (1.5-5.0); GRAN # 5.85 (1.4-6.5); HEMOGLOBIN 10.5 g/dL (14.0-18.0); LYMPH # 0.8 (1.2-3.4); LYMPH % 11.3 % (22.0-35.0); MEAN CELL VOLUME 90.6 fl (80.0-105.0); MEAN CORPUSCULAR HGB CONC 33.1 g/dl (31.0-37.0); MEAN PLATELET VOLUME 9.8 fl (7.0-11.0); MONO # 0.5 (0.1-0.6); MONO % 6.8 % (1.0-6.0); PLATELET COUNT 156 10^3/uL (120.0-450.0); RED CELL DISTRIBUTION WIDTH 18.8 % (11.5-14.5); WHITE BLOOD COUNT 7.3 10^3/ul (4.5-11.0)
[2017-06-24 06:46] LABS: ALBUMIN 2.6 g/dL (3.0-4.8); ALT/SGPT 26 U/L (7-56); AST/SGOT 24 U/L (15-59); BLOOD UREA NITROGEN 16 mg/dL (7-21); CALCIUM 9.6 mg/dL (8.4-10.5); GFR AFRICAN-AMERICAN > 60; GFR NON-AFRICAN AMERICAN > 60
[2017-06-24] MEDS: Budesonide 0.5 mg/2 ml Inhal Susp UD IH SCH ×2 (09:11→20:55)
[2017-06-24] MEDS: Arformoterol 15 mcg/2 ml Inh Sol IH SCH ×2 (09:11→20:55)
[2017-06-24] MEDS: AMITIZA 24 MCG PO SCH ×3 (09:36→22:19)
[2017-06-24] MEDS: Verapamil 240 mg ER Tab PO SCH (09:37)
[2017-06-24] MEDS: DUREZOL OPTH OU SCH ×2 (09:39→22:19)
[2017-06-24] MEDS: Lidocaine 5% Patch TD SCH (09:39)
[2017-06-24] MEDS: Pantoprazole 20 mg EC Tab PO SCH ×3 (09:42→17:19)
[2017-06-24] MEDS: Potassium Chloride 30 MEQ in Sodium Chloride 0.9% 1,000 ML IV SCH (22:20)
--- NOTE | 2017-06-25 00:18 | PN ---
PULMONARY PROGRESS NOTE DATE: 06/24/2017 SUBJECTIVE: The patient is lying in the bed. Night was unremarkable, tolerated BiPAP well. No headache, no rhinitis. No nausea. No vomiting. No diarrhea. No leg pain or leg swelling. PHYSICAL EXAMINATION GENERAL: In no acute distress. VITAL SIGNS: Temperature is 98, hear rate is 88, respiratory rate 20, blood pressure 100/54, pulse ox 78% on room air. HEENT: Moist mucous membranes. Crowded airway. NECK: Supple. No JVD. LUNGS: Fair airflow with few rhonchi. HEART: S1 and S2. ABDOMEN: Soft and nontender. No organomegaly. EXTREMITIES: No edema. NEUROLOGIC: Awake and alert. Follows simple commands. LABORATORY DATA: Hemoglobin 10.5, hematocrit 31.7, WBC 7.3 and platelet is 156. Sodium 139, potassium 3.8, chloride 110, bicarbonate 21, BUN 16, calcium 1.1, glucose 72, calcium is 9.6, AST 34, ALT 58, alk phos is 58, albumin 2.6. Microbiology; blood cultures have been negative. MEDICATIONS: He is on hydralazine 10 mg q.i.d., p.r.n., Brovana 15 mcg inhaled twice a day, Calan SR 240 mg daily, Carafate 1 g twice a day, Colace 100 mg three time a day, DuoNeb q. 4 hours, Eliquis 2.5 mg twice a day, Flomax 0.4 mg daily, Lidoderm patch at affected area, Lipitor 20 mg daily, Neurontin 300 mg daily, Norvasc 10 mg daily, oxycodone immediate release 15 mg q. 4 hours p.r.n., IV fluid with potassium 80 mL per hour, Protonix 20 mg daily, budesonide inhaled twice a day, Tenormin 50 mg daily and 25 mg twice a day, vitamin B1 800 mg daily and Zestril 20 mg daily. IMPRESSION AND PLAN: Status post hypercalcemia, lung cancer, history of radiation chemotherapy, obstructive lung disease, obstructive sleep apnea syndrome, history of deep venous thrombosis, history of shingles in the past, cardiac arrhythmia, atrial fibrillation. From pulmonary point to view, doing okay, continue bilevel positive airway pressure while sleeping, keep head at 45 degrees, gastric prophylaxis, anticoagulation, fall precautions, start physical therapy. Thank you and we will follow with you. Ramon Delgado MD
[2017-06-25] MEDS: oxyCODONE 15 mg Immediate Release Tab PO PRN ×2 (05:22→16:26)
[2017-06-25] MEDS: Potassium Chloride 30 MEQ in Sodium Chloride 0.9% 1,000 ML IV SCH (05:22)
[2017-06-25 07:02] LABS: URINE BILIRUBIN NEGATIVE (NEGATIVE); URINE BLOOD SMALL (NEGATIVE); URINE GLUCOSE (UA) NEGATIVE (NEGATIVE); URINE LEUKOCYTE ESTERASE SMALL Leu/uL (NEGATIVE); URINE NITRATE NEGATIVE (NEGATIVE); URINE PROTEIN 30 mg/dL (<30 mg/dL); URINE UROBILINOGEN 0.2 E.U./dL (<1 E.U./dL)
[2017-06-25 07:16] LABS: URINE APPEARANCE CLEAR (CLEAR); URINE COLOR YELLOW (YELLOW)
[2017-06-25] MEDS: Budesonide 0.5 mg/2 ml Inhal Susp UD IH SCH ×2 (07:42→20:16)
[2017-06-25] MEDS: Arformoterol 15 mcg/2 ml Inh Sol IH SCH ×2 (07:42→20:16)
[2017-06-25 08:09] LABS: URINE BACTERIA SMALL (NEG); URINE EPITHELIAL CELLS 0 - 2 /hpf (0-5)
[2017-06-25] MEDS: Pantoprazole 20 mg EC Tab PO SCH ×3 (08:30→16:23)
[2017-06-25] MEDS: Verapamil 240 mg ER Tab PO SCH (09:23)
[2017-06-25] MEDS: Lidocaine 5% Patch TD SCH (09:25)
[2017-06-25] MEDS: AMITIZA 24 MCG PO SCH ×2 (09:25→17:27)
[2017-06-25] MEDS: DUREZOL OPTH OU SCH (09:25)
--- NOTE | 2017-06-25 17:19 | PN ---
DATE: 06/24/2017 LOCATION: The patient is in room 363, bed 1. SUBJECTIVE: The patient is lying in bed, night was unremarkable. Tolerated the BiPAP well. Still complaining of low back pain, especially on moving. No headache. No nausea, vomiting, or diarrhea. No leg pain or leg swelling. PHYSICAL EXAMINATION: GENERAL: The patient is in no acute distress. VITAL SIGNS: Stable. T-max of 98.4, heart rate 88, respirations 20, blood pressure 100/54, and pulse oximetry is 78% on room air. HEENT: Head is normocephalic and atraumatic. Conjunctivae are pale. Sclerae are anicteric. Pupils are equally reactive to light and accommodation. Examination of the oropharynx reveals no oropharyngeal lesions. Tongue is moist. No ulcerations are noted. NECK: Supple. There is no adenopathy. No jugular venous distention noted. HEART: Reveals S1 and S2 to be normal. No gallops or murmurs heard. LUNGS: Reveals fair airflow with bilateral rhonchi. ABDOMEN: Soft and nontender. No organomegaly is noted. EXTREMITIES: Reveals no cyanosis, clubbing, or edema. NEUROLOGIC: The patient is awake and alert. Follows simple commands. As per the nurses, he has had periods of intermittent confusion. The patient also has difficulty in swallowing sometimes when the pills are offered to him. LABORATORY DATA: Reveals a hemoglobin of 10.5, hematocrit 31, white count of 7.3 with a platelet count of 156,000. Electrolytes are unremarkable. BUN is 16. Creatinine is within normal range. Calcium is 9.6, glucose is 72, AST is 34, ALT is 50, alkaline phosphatase is 58, and albumin is 3.6. Blood cultures have been negative. The patient is metastatic stage IV nonsmall cell cancer, currently on the CAT scan of the chest, previously noted mass, which was pressing on the esophagus and the right upper lobe is no longer seen as a result of chemoradiation and current OPDIVO based chemotherapy. The patient is hypercalcemic raising the issue or concern for a current disease. We have not been repeat PET CT scan to look for logistics, as far as where the metastatic sites could be. 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 Laboratory data from today were reviewed. Hemoglobin is 10.5, hematocrit 31.7, white count of 7.3, and platelet count of 156,000. Sodium is 139, potassium 3.8, chloride 110, bicarbonate 29, BUN is 16, calcium 11, glucose is 72, AST is 34, ALT 58, alkaline phosphatase 58, and albumin is 2.6. Blood cultures have been negative. MEDICATIONS: The patient's medications are reviewed. He is on hydralazine 10 mg q.i.d. p.r.n., Brovana 15 mcg inhale twice a day, Calan SR 240 mg daily, Carafate 1 g twice a day, Colace 100 mg 3 times a day, nebulizer consisting of DuoNeb q.4 hours, he is on Eliquis 2.5 b.i.d., Flomax 0.4 mg daily, Lidoderm patch to the affected area consisting of Lidoderm 5%. The patient is on Lipitor 20 mg daily, Neurontin 300 mg daily, Norvasc 10 mg daily, oxycodone immediate release for pain versus Percocet for pain as well. The patient is on IV fluids at 80 mL an hour, Protonix 10 daily, he is on budesonide inhale twice a day, tramadol 50 mg daily and 25 mg twice a day, vitamin B1 800 mg daily and Zestril 20 mg daily. ASSESSMENT AND PLAN: The patient is metastatic stage IV nonsmall cell carcinoma came into the hospital with mental obtundation and hypercalcemia with calcium of 13.2 treated with pamidronate, seen by Renal and workup has been negative; seen by Neurology, who thought this neurologic dysfunction was related to the hypercalcemia. The patient has obstructive sleep apnea syndrome, history of deep vein thrombosis, pulmonary embolism, pacemaker for which she is on Eliquis for now. We will continue current medications. W will make sure about discharge planning, which action we should proceed. We will try to see if we can get the patient to the TCU in view of fact is still having some low back pain for which he had epidural injection few weeks ago as an outpatient by Dr. Andrade. Routine post examination instructions have been given to the patient. We will follow up and talk with the family, as to what they expect from me for the patient in the immediate future. His chemo has been on hold since these prior to admission, where he has been admitted for failure to thrive and more importantly inability to function by himself with increasing intermittent confusion. Uziel Doty MD
--- NOTE | 2017-06-25 21:50 | PN ---
SUBJECTIVE: The patient is seen lying in bed. He is comfortable. Denies any pain. Denies any shortness of breath. PHYSICAL EXAMINATION: GENERAL: Elderly male lying in bed. VITAL SIGNS: Blood pressure 125/67, heart rate 93, respiratory rate 20, temperature 98.5. HEENT: Normocephalic, atraumatic. NECK: Supple, no JVD. LUNGS: Bilateral equal air entry, no rales. CARDIAC: S1 and S2, regular rate and rhythm. No murmur. No rub. ABDOMEN: Soft, nondistended, nontender. Bowel sounds present. EXTREMITIES: No lower extremity edema. INTAKE AND OUTPUT: 350/375. LABORATORY DATA: WBC 7.3, hemoglobin 10.5, hematocrit 32, platelets 156. Sodium 139, potassium 3.8, chloride 110, CO2 21, BUN 16, creatinine *------*, glucose 72, calcium 9.6, albumin 2.6, corrected calcium is 10.6. CURRENT MEDICATIONS: Brovana, verapamil, Colace, sucralfate, DuoNeb, Eliquis, Flomax, Lidoderm, Lipitor, gabapentin, amlodipine, normal saline with 30 mEq of potassium chloride, Protonix, Pulmicort, Tylenol, Zestril. ASSESSMENT AND PLAN: 1. Metastatic prostate cancer. 2. Humoral hypercalcemia. 3. Resolving hypokalemia. 4. Hypertension. PLAN: 1. The patient received pamidronate, calcium is coming *------*. 2. Followup PTH related peptide. Kaelyn Craven MD
--- NOTE | 2017-06-25 22:29 | PN ---
DATE: 06/25/2017 LOCATION: Room 363, bed 1. 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 The patient was noted to be hypercalcemic and was admitted through the emergency room after initial blood work was done in the office. Complaints from the family obtained were that the patient was also having increasing abdominal discomfort, was very much constipated, was started having severe significant back pain related to his diskogenic disease rather metastatic disease for which he has had epidural injection few weeks ago by Dr. Andrade. SUBJECTIVE: The patient is seen and lying in bed. He is sleepy, but arousable. The patient denies any history of significant pain when he is not moving, but when he is moving, he is having lower back pain. Denies any history of nausea or vomiting, was able to recognize me and he knew where he was that he was in the hospital, tells me he has no appetite today and he has not eaten much early this morning, has been having some difficulty in swallowing some of the solid pills as well. As per the nurses, they tell me that he has been intermittently confused especially early in the morning and does irrational things like picking up the urinal and trying to drink the urine when he should not be doing so. This is of concern to me as his CAT scan on admission was normal and the feeling was this was all related to his hypercalcemia. The patient is on drug called Opdivo. He is being doing well as far as his cancer is concerned without any gross evidence of recurrent disease in the lung, but with the hypercalcemia one is to be concerned about recurrence of his cancer elsewhere, for which a PET scan was scheduled, but it is pending since he was admitted to the hospital. PHYSICAL EXAMINATION: GENERAL: The patient is examined in bed, he is in no acute distress. VITAL SIGNS: T-Max is 98.4, heart rate is 88, respirations 18, blood pressure 100/54, pulse ox is 78% on room air. HEENT: Head is normocephalic, atraumatic. Conjunctivae are pale. Sclerae are anicteric. Examination of the oropharynx reveals no oropharyngeal lesions. Tongue is moist. No ulcerations are noted. NECK: Supple. There is no adenopathy. LUNGS: Examination of the lungs reveal scattered wheezes bilaterally. HEART: Examination of the heart reveals S1 and S2 to be normal. No gallop or murmur is heard. The patient has a pacemaker in the left infraclavicular area on the chest wall. ABDOMEN: Soft, nontender. Bowel sounds are present. Liver and spleen not palpable. EXTREMITIES: Reveal no edema, cyanosis or clubbing. NEUROLOGICAL: Higher functions, the patient is awake and alert when talked to, but otherwise, has been sleeping a lot early this morning. Follows simple commands. LABORATORY DATA: Reviewed. There is no lab work from today. There were all from yesterday, and his calcium from yesterday was within normal range. Calcium is down to 9.6. Rest of the markers and lytes were normal. MEDICATIONS: The patient's medications are again reviewed, he is on hydralazine 10 mg p.o. q.i.d., Brovana inhalation q. 12 hours, Calan SR 240 mg daily, Carafate 1 g p.o. b.i.d.,Colace 100 mg t.i.d., DuoNeb inhalation q.4 hours, Eliquis 2.5 mg b.i.d., he is on Flomax 0.5 mg daily, and he is also using topical eye drops from home. ASSESSMENT NOTES AND PLAN: Etiology for mental deterioration and sleepiness is unclear. We will recheck chemistries for today as well. We will try to speak to the family to see what the overall plan for the patient should be including overall prognosis, and the patient related patient's interest, decision making plan were spoke to the niece and the other family members as well, who seemed to be the spokesperson for the patient. Routine post-exam instructions have been given to the patient. I have told the nurse to inform me if anybody comes to visit him today, so I can communicate with them about my concerns. Uziel Doty MD
--- NOTE | 2017-06-25 23:59 | PN ---
DATE: 06/25/2017 SUBJECTIVE: The patient is resting in bed on room air. No complaints of shortness of breath, cough, wheezing chest congestion. Tolerated the BiPAP. No nausea, vomiting or fever today. PHYSICAL EXAMINATION VITAL SIGNS: Temperature is 98.5, his pulse is 67, respiration is 20 and blood pressure 125/67. SKIN: Warm and dry. HEENT: Head is atraumatic and normocephalic . Eyes reactive to light. Ears, nose and throat seen to be within normal limits. NECK: Supple. No JVD. No thyroid enlargement. No lymphs nodes. HEART: Regular rate and rhythm. Normal S1 and S2. LUNGS: Reveal rare rhonchi at the bases. ABDOMEN: Soft and nontender. Normal bowel sounds. No organomegaly is noted. GENITALIA AND RECTAL: Deferred. MUSCULOSKELETAL: No joint deformities. EXTREMITIES: No significant edema. NEUROLOGIC: He seems to be glossy intact. IMPRESSION: Patient is status post hypercalcemic with lung cancer and a history of radiation chemotherapy. He has chronic obstructive pulmonary disease, obstructive sleep apnea, history of deep venous thrombosis as well as shingles, as well as cardiac athymia and atrial fibrillation. We will continue to treat aggressively with anticoagulation prophylactically, keep the patient at 45 degrees while sleeping and continue with the BiPAP and continue aggressive pulmonary toilet. Eddie Napier MD
[2017-06-26] MEDS: oxyCODONE 15 mg Immediate Release Tab PO PRN (06:50)
[2017-06-26] MEDS: Potassium Chloride 30 MEQ in Sodium Chloride 0.9% 1,000 ML IV SCH ×3 (06:50→11:51)
[2017-06-26] MEDS: Budesonide 0.5 mg/2 ml Inhal Susp UD IH SCH ×2 (07:35→19:59)
[2017-06-26] MEDS: Arformoterol 15 mcg/2 ml Inh Sol IH SCH ×2 (07:35→19:59)
[2017-06-26] MEDS: Pantoprazole 20 mg EC Tab PO SCH ×3 (08:48→17:08)
[2017-06-26] MEDS: Lidocaine 5% Patch TD SCH (09:10)
[2017-06-26] MEDS: Verapamil 240 mg ER Tab PO SCH (09:11)
--- NOTE | 2017-06-26 09:25 | CP.PCM.PN ---
<Gelacio Dietz - Last Filed: 06/26/17 12:40> Subjective - Date & Time of Evaluation Date of Evaluation: 06/26/17 Time of Evaluation: 09:18 - Subjective Subjective: Progress Note for Dr. Montes Pt seen and examined at bedside. Pt doing well overnight with no acute events. No complaints this morning. Pt resting comfortably eating breakfast. Pt states he feels much better than he did yesterday. Denies CP, SOB, N/V/D. Objective - Vital Signs/Intake and Output Vital Signs (last 24 hours): Temp Pulse Resp BP Pulse Ox 98.5 F 89 21 114/58 L 95 06/26/17 08:00 06/26/17 09:11 06/26/17 08:00 06/26/17 09:11 06/26/17 08:00 Intake and Output: 06/26/17 06/26/17 06:59 18:59 Intake Total 60 Output Total 350 Balance -290 - Medications Medications: Current Medications Albuterol/Ipratropium (Duoneb 3 Mg/0.5 Mg (3 Ml) Ud) 3 ml IH [id number] PRN PRN Reason: Shortness of Breath Amlodipine Besylate (Norvasc) 10 mg PO DAILY [facility] Last Admin: 06/26/17 09:11 Dose: 10 mg Apixaban (Eliquis) 2.5 mg PO BID [facility] PRN Reason: Protocol Last Admin: 06/26/17 09:10 Dose: 2.5 mg Arformoterol Tartrate (Brovana) 15 mcg IH [id number] [facility] Last Admin: 06/26/17 07:35 Dose: 15 mcg Atenolol (Tenormin) 25 mg PO BID [facility] Last Admin: 06/26/17 09:10 Dose: 25 mg Atorvastatin Calcium (Lipitor) 20 mg PO DAILY [facility] Last Admin: 06/26/17 09:10 Dose: 20 mg Budesonide (Pulmicort Respules) 0.5 mg IH [id number] [facility] Last Admin: 06/26/17 07:35 Dose: 0.5 mg Docusate Sodium (Colace Liquid) 100 mg PO TID [facility] Last Admin: 06/26/17 09:10 Dose: 100 mg Gabapentin (Neurontin) 300 mg PO DAILY [facility] PRN Reason: Protocol Last Admin: 06/26/17 09:11 Dose: 300 mg Home Med (Home Med) 1 unit PO BID [facility] Last Admin: 06/25/17 17:27 Dose: 1 unit Home Med (Home Med) 0 unit OU DAILY [facility] Hydralazine HCl (Apresoline) 10 mg PO QID PRN PRN Reason: for SBP>170 & OR Diastolic>100 Potassium Chloride 30 meq/ (Sodium Chloride) 1,015 mls @ 80 mls/hr IV .[id number] [facility] Last Admin: 06/26/17 06:50 Dose: 80 mls/hr Lidocaine (Lidoderm) 2 ea TD DAILY [facility] Last Admin: 06/26/17 09:10 Dose: 2 ea Lisinopril (Zestril) 20 mg PO DAILY [facility] Last Admin: 06/26/17 09:11 Dose: 20 mg Oxycodone HCl (Oxycodone Immediate Release Tab) 15 mg PO Q4H PRN PRN Reason: Pain, severe (8-10) Last Admin: 06/26/17 06:50 Dose: 15 mg Pantoprazole Sodium (Protonix Ec Tab) 20 mg PO AC [facility] Last Admin: 06/26/17 08:48 Dose: 20 mg Sucralfate (Carafate Tab) 1 gm PO 0600,1600 [facility] Last Admin: 06/26/17 06:50 Dose: 1 gm Tamsulosin HCl (Flomax) 0.4 mg PO DAILY [facility] Last Admin: 06/26/17 09:10 Dose: 0.4 mg Thiamine HCl (Vitamin B1 Tab) 100 mg PO DAILY [facility] Last Admin: 06/26/17 09:11 Dose: 100 mg Verapamil HCl (Calan Sr Tab) 240 mg PO DAILY [facility] Last Admin: 06/26/17 09:11 Dose: 240 mg - Labs Labs: 06/24/17 06:00 06/24/17 06:00 - Constitutional Appears: Non-toxic, No Acute Distress - Head Exam Head Exam: ATRAUMATIC, NORMAL INSPECTION, NORMOCEPHALIC - Eye Exam Eye Exam: Conjunctival injection - ENT Exam ENT Exam: Mucous Membranes Moist - Respiratory Exam Respiratory Exam: Clear to Ausculation Bilateral, NORMAL BREATHING PATTERN. absent: Rales, Rhonchi, Wheezes - Cardiovascular Exam Cardiovascular Exam: RRR, +S1, +S2 - GI/Abdominal Exam GI & Abdominal Exam: Soft, Normal Bowel Sounds. absent: Tenderness - Extremities Exam Extremities Exam: Normal Inspection. absent: Calf Tenderness, Pedal Edema - Neurological Exam Neurological Exam: Alert, Awake Additional comments: Oriented to person only. No pronator drift. Moves all 4 limbs spontaneously. Assessment and Plan - Assessment and Plan (Free Text) Plan: 76 y/o M with PMH of lung and prostate cancer, CKD, and COPD presents with baseline confusion. Initial head CT was negative. There are no metabolic derangements at this time, calcium within normal limits. Pt with acute worsening of delirium secondary to transient cerebral hypoperfusion. Pt should have antihypertensive medications held at this time, discussed in detail with Dr. Anne. Plan: Goal SBP 130-140 Goal DBP 70-80 Hold hypertensive medications Encourage oral hydration Avoid sedative medications Mirela PGY-2 <Dontae Montes - Last Filed: 06/26/17 13:43> Objective - Vital Signs/Intake and Output Vital Signs (last 24 hours): Temp Pulse Resp BP Pulse Ox 98.5 F 89 21 114/58 L 95 06/26/17 08:00 06/26/17 09:11 06/26/17 08:00 06/26/17 09:11 06/26/17 08:00 Intake and Output: 06/26/17 06/26/17 06:59 18:59 Intake Total 60 Output Total 350 Balance -290 - Medications Medications: Current Medications Albuterol/Ipratropium (Duoneb 3 Mg/0.5 Mg (3 Ml) Ud) 3 ml IH [id number] PRN PRN Reason: Shortness of Breath Amlodipine Besylate (Norvasc) 10 mg PO DAILY [facility] Last Admin: 06/26/17 09:11 Dose: 10 mg Apixaban (Eliquis) 2.5 mg PO BID [facility] PRN Reason: Protocol Last Admin: 06/26/17 09:10 Dose: 2.5 mg Arformoterol Tartrate (Brovana) 15 mcg IH [id number] [facility] Last Admin: 06/26/17 07:35 Dose: 15 mcg Atenolol (Tenormin) 25 mg PO BID [facility] Last Admin: 06/26/17 09:10 Dose: 25 mg Atorvastatin Calcium (Lipitor) 20 mg PO DAILY [facility] Last Admin: 06/26/17 09:10 Dose: 20 mg Budesonide (Pulmicort Respules) 0.5 mg IH [id number] [facility] Last Admin: 06/26/17 07:35 Dose: 0.5 mg Docusate Sodium (Colace Liquid) 100 mg PO TID [facility] Last Admin: 06/26/17 09:10 Dose: 100 mg Gabapentin (Neurontin) 300 mg PO DAILY [facility] PRN Reason: Protocol Last Admin: 06/26/17 09:11 Dose: 300 mg Home Med (Home Med) 1 unit PO BID [facility] Last Admin: 06/26/17 09:27 Dose: 1 unit Home Med (Home Med) 0 unit OU DAILY [facility] Last Admin: 06/26/17 09:27 Dose: 1 unit Hydralazine HCl (Apresoline) 10 mg PO QID PRN PRN Reason: for SBP>170 & OR Diastolic>100 Potassium Chloride 30 meq/ (Sodium Chloride) 1,015 mls @ 80 mls/hr IV .[id number] [facility] Last Admin: 06/26/17 11:51 Dose: 80 mls/hr Lidocaine (Lidoderm) 2 ea TD DAILY [facility] Last Admin: 06/26/17 09:10 Dose: 2 ea Lisinopril (Zestril) 20 mg PO DAILY [facility] Last Admin: 06/26/17 09:11 Dose: 20 mg Oxycodone HCl (Oxycodone Immediate Release Tab) 15 mg PO Q4H PRN PRN Reason: Pain, severe (8-10) Last Admin: 06/26/17 06:50 Dose: 15 mg Pantoprazole Sodium (Protonix Ec Tab) 20 mg PO AC [facility] Last Admin: 06/26/17 12:39 Dose: 20 mg Sucralfate (Carafate Tab) 1 gm PO 0600,1600 [facility] Last Admin: 06/26/17 06:50 Dose: 1 gm Tamsulosin HCl (Flomax) 0.4 mg PO DAILY [facility] Last Admin: 06/26/17 09:10 Dose: 0.4 mg Thiamine HCl (Vitamin B1 Tab) 100 mg PO DAILY [facility] Last Admin: 06/26/17 09:11 Dose: 100 mg Verapamil HCl (Calan Sr Tab) 240 mg PO DAILY [facility] Last Admin: 06/26/17 09:11 Dose: 240 mg - Labs Labs: 06/26/17 10:41 06/26/17 10:41 Attending/Attestation - Attestation I have personally seen and examined this patient.: Yes I have fully participated in the care of the patient.: Yes I have reviewed all pertinent clinical information, including history, physical exam and plan: Yes
[2017-06-26] MEDS: AMITIZA 24 MCG PO SCH ×2 (09:27→17:09)
[2017-06-26] MEDS: DICLOFENAC SODIUM OU SCH (09:27)
[2017-06-26 10:50] LABS: BASO # 0.02 K/mm3 (0.0-2.0); BASO % 0.4 % (0.0-3.0); EOS # 0.1 (0.0-0.7); EOS % 1.8 % (1.5-5.0); GRAN # 4.22 (1.4-6.5); GRAN % 74.7 % (50.0-68.0); HEMOGLOBIN 10.1 g/dL (14.0-18.0); LYMPH # 0.9 (1.2-3.4); LYMPH % 15.1 % (22.0-35.0); MEAN CELL VOLUME 90.8 fl (80.0-105.0); MEAN CORPUSCULAR HEMOGLOBIN 29.9 pg (25.0-35.0); MEAN CORPUSCULAR HGB CONC 32.9 g/dl (31.0-37.0); MEAN PLATELET VOLUME 9.5 fl (7.0-11.0); MONO # 0.5 (0.1-0.6); PLATELET COUNT 180 10^3/uL (120.0-450.0); RBC 3.38 10^6/uL (3.5-6.1); RED CELL DISTRIBUTION WIDTH 18.9 % (11.5-14.5); WHITE BLOOD COUNT 5.6 10^3/ul (4.5-11.0)
[2017-06-26 11:07] LABS: ALBUMIN 2.8 g/dL (3.0-4.8); ALT/SGPT 28 U/L (7-56); AST/SGOT 31 U/L (15-59); BLOOD UREA NITROGEN 15 mg/dL (7-21); CALCIUM 9.1 mg/dL (8.4-10.5); GFR AFRICAN-AMERICAN > 60; GFR NON-AFRICAN AMERICAN 53
--- NOTE | 2017-06-26 13:32 | CP.PCM.PN ---
Subjective - Date & Time of Evaluation Date of Evaluation: 06/26/17 Time of Evaluation: 09:45 - Subjective Subjective: Hem/onc note for Dr Doty: Pt seen and examined at bedside. No acute events overnight. Pt is confused and disoriented this morning. Denies any fever, chills, horowitz, sob, chest pain, palpitations, urinary or bm changes Objective - Vital Signs/Intake and Output Vital Signs (last 24 hours): Temp Pulse Resp BP Pulse Ox 98.5 F 89 21 114/58 L 95 06/26/17 08:00 06/26/17 09:11 06/26/17 08:00 06/26/17 09:11 06/26/17 08:00 Intake and Output: 06/26/17 06/26/17 06:59 18:59 Intake Total 60 Output Total 350 Balance -290 - Medications Medications: Current Medications Albuterol/Ipratropium (Duoneb 3 Mg/0.5 Mg (3 Ml) Ud) 3 ml IH [id number] PRN PRN Reason: Shortness of Breath Amlodipine Besylate (Norvasc) 10 mg PO DAILY [facility] Last Admin: 06/26/17 09:11 Dose: 10 mg Apixaban (Eliquis) 2.5 mg PO BID [facility] PRN Reason: Protocol Last Admin: 06/26/17 09:10 Dose: 2.5 mg Arformoterol Tartrate (Brovana) 15 mcg IH [id number] [facility] Last Admin: 06/26/17 07:35 Dose: 15 mcg Atenolol (Tenormin) 25 mg PO BID [facility] Last Admin: 06/26/17 09:10 Dose: 25 mg Atorvastatin Calcium (Lipitor) 20 mg PO DAILY [facility] Last Admin: 06/26/17 09:10 Dose: 20 mg Budesonide (Pulmicort Respules) 0.5 mg IH [id number] [facility] Last Admin: 06/26/17 07:35 Dose: 0.5 mg Docusate Sodium (Colace Liquid) 100 mg PO TID [facility] Last Admin: 06/26/17 09:10 Dose: 100 mg Gabapentin (Neurontin) 300 mg PO DAILY [facility] PRN Reason: Protocol Last Admin: 06/26/17 09:11 Dose: 300 mg Home Med (Home Med) 1 unit PO BID [facility] Last Admin: 06/26/17 09:27 Dose: 1 unit Home Med (Home Med) 0 unit OU DAILY [facility] Last Admin: 06/26/17 09:27 Dose: 1 unit Hydralazine HCl (Apresoline) 10 mg PO QID PRN PRN Reason: for SBP>170 & OR Diastolic>100 Potassium Chloride 30 meq/ (Sodium Chloride) 1,015 mls @ 80 mls/hr IV .[id number] [facility] Last Admin: 06/26/17 11:51 Dose: 80 mls/hr Lidocaine (Lidoderm) 2 ea TD DAILY [facility] Last Admin: 06/26/17 09:10 Dose: 2 ea Lisinopril (Zestril) 20 mg PO DAILY [facility] Last Admin: 06/26/17 09:11 Dose: 20 mg Oxycodone HCl (Oxycodone Immediate Release Tab) 15 mg PO Q4H PRN PRN Reason: Pain, severe (8-10) Last Admin: 06/26/17 06:50 Dose: 15 mg Pantoprazole Sodium (Protonix Ec Tab) 20 mg PO AC [facility] Last Admin: 06/26/17 12:39 Dose: 20 mg Sucralfate (Carafate Tab) 1 gm PO 0600,1600 [facility] Last Admin: 06/26/17 06:50 Dose: 1 gm Tamsulosin HCl (Flomax) 0.4 mg PO DAILY [facility] Last Admin: 06/26/17 09:10 Dose: 0.4 mg Thiamine HCl (Vitamin B1 Tab) 100 mg PO DAILY [facility] Last Admin: 06/26/17 09:11 Dose: 100 mg Verapamil HCl (Calan Sr Tab) 240 mg PO DAILY [facility] Last Admin: 06/26/17 09:11 Dose: 240 mg - Labs Labs: 06/26/17 10:41 06/26/17 10:41 - Constitutional Appears: No Acute Distress - Head Exam Head Exam: ATRAUMATIC - Eye Exam Eye Exam: EOMI, Normal appearance, PERRL - ENT Exam ENT Exam: Mucous Membranes Moist - Respiratory Exam Respiratory Exam: Clear to Ausculation Bilateral. absent: Rales, Wheezes - Cardiovascular Exam Cardiovascular Exam: REGULAR RHYTHM, RRR, +S1, +S2 - GI/Abdominal Exam GI & Abdominal Exam: Soft. absent: Distended, Tenderness - Extremities Exam Extremities Exam: absent: Calf Tenderness, Pedal Edema - Neurological Exam Neurological Exam: Alert, Awake, Oriented x3 - Psychiatric Exam Psychiatric exam: Normal Affect, Normal Mood - Skin Skin Exam: Dry, Intact, Normal Color, Warm Assessment and Plan - Assessment and Plan (Free Text) Assessment: 76 M, Hx 2 primary cancers (non-small cell lung CA on Opdivo and prostate CA), COPD, CKD, was seen at Dr. Doty's office prior to the ED pt found to be hypercalcemic to 12.1 now resolving today 10.1 1. Hypercalcemia: improving; likely due to dehydration or mets dx - Ca 9.1 resolved - Continue NS @ 80 with Kcl 30meq - nephro consult - f/u PTHrp - Head CT - no acute findings - Neuro - d/c antihypertensive meds - ID consulted - no abx at this time. will monitor off antibiotics 2. AMS - delerium vs leukoencephalopathy from related malignancy vs related to age - Neuro consulted recs appreciated - Hold antihyperntensives; maintain SBP 130- 140 - Lisinopril and Amlodipine on hold - Bone can of whole body to r/o malignancy of spine 3. Hx of NSCLC and Prostate ca - currently on Opdivo - CT chest shows severe soft tissue thickening around the R lower lob bronchus unchanged from prior study 4. back pain - Lidocaine patch 5% 2 patches apply to back 5. Constipation - Increased colcace to 100mg TID - Cont Amitiza 6. Hx of COPD - Duone, Brovana, pulmicort - 2L O2 as needed - F/u pulm consult 7. Hx of DVT - Cont home eliquis 8. Hx of CAD - Cont Lipitor, lisinopril (H), tenormin - F/u cardiology recs - added metoprolol, and Hydralazine PRN 9. HTN - Cont Norvasc (H) , Lisinopril (H), and tenormin 10. GI/DVT ppx - Eliquis and protonix Dispo: PT and TCU evaluaton Case and plan was reviewed & discussed in detail with Dr Doty
--- NOTE | 2017-06-26 14:01 | PN ---
DATE: 06/26/2017 LOCATION: The patient is in room 363, bed 1. REASON FOR CONSULTATION AND FOLLOWUP: History of CHF, pacemaker, cardiac evaluation for followup. SUBJECTIVE: Patient is lying flat in bed without any chest pain, shortness of breath or palpitation. PHYSICAL EXAMINATION: VITAL SIGNS: Blood pressure 114/58, respirations 18, pulse 89. The patient is afebrile. HEENT: Head is normocephalic. Eyes: pupils normal. Conjunctivae slightly pale. NECK: JVP low. Carotids equal. Thorax: AP diameter normal. LUNGS: Clear. CARDIOVASCULAR: S1 and S2. ABDOMEN: Soft and nontender. No organomegaly. Bowel sound normal. EXTREMITIES: No clubbing. No cyanosis. LABORATORY DATA: WBC 5.6, hemoglobin 10.1, hematocrit 30.7, and platelet 180. Sodium 142, potassium 4.0, BUN 15, creatinine 1.3. AST and ALT normal. Total protein 5.5 and albumin 2.8. DIAGNOSES: Nonobstructive coronary artery disease, had twice cardiac catheterization, history of lung cancer, altered mental status, hypercalcemia, stage IV lung cancer with metastasis, pacemaker, this pacemaker is MRI safe. Patient had echo on 06/02/2017 and findings were mentioned in our previous note. RV systolic pressure is 71 consistent and moderate to high, pulmonary hypertension, LV ejection fraction of 45%-50%, moderate tricuspid regurg, [id number] mitral regurg, history of deep venous thrombosis, and pulmonary embolism. PLAN AND RECOMMENDATION: The patient is to continue of Eliquis, Carafate 1 g b.i.d., Verapamil 240 mg p.o, daily, Calan SR, Eliquis 2.5 b.i.d., Flomax 0.4 daily, atorvastatin 20 mg p.o. daily, Neurontin 300 mg p.o. daily, amlodipine 10 mg daily, Protonix 20 mg daily, atenolol 25 mg b.i.d., lisinopril 20 mg daily. We will continue present therapy. We will follow with you. Ramon Stanley MD
--- NOTE | 2017-06-26 18:44 | PN ---
DATE: 06/26/2017 SUBJECTIVE: The patient is seen lying in bed. He is awake. He is lethargic, groggy. Has eaten only part of his lunch tray. PHYSICAL EXAMINATION: GENERAL: Elderly male lying in bed. VITAL SIGNS: Blood pressure 114/58, heart rate 89, respiratory rate 18, temperature 98. HEENT: Normocephalic, atraumatic. NECK: Supple, no JVD. LUNGS: Bilateral equal air entry, no rales. CARDIAC: S1 and S2, regular rate and rhythm. No murmur. No rub. ABDOMEN: Soft, nondistended, nontender. Bowel sounds present. EXTREMITIES: No lower extremity edema. INTAKE AND OUTPUT: 540/203. LABORATORY DATA: WBC 5.6, hemoglobin 10, hematocrit 30.7, platelets 180. Sodium 142, potassium 4.0, chloride 114, CO2 of 18, BUN 15, creatinine 1.3, glucose 73, calcium 9.1, albumin 2.8, corrected calcium is 9.9. CURRENT MEDICATIONS: Brovana, Calan, Carafate, Colace, DuoNeb, Eliquis, Flomax, lidocaine, Lipitor, Neurontin, amlodipine 10, Percocet, IV fluids with potassium at 30 mEq, Protonix, Tenormin, Zestril 20. ASSESSMENT: 1. Severe hypercalcemia of malignancy. 2. Stage IV prostate cancer. 3. Status post pamidronate. 4. Resolved hypokalemia. 5. Resolved acute kidney injury. PLAN: 1. Discontinue IV fluids. 2. Push p.o. intake. 3. Continue antihypertensives. 4. Stable from the renal standpoint. Kaelyn Craven MD
--- NOTE | 2017-06-27 00:12 | PN ---
DATE: 06/26/2017 PULMONARY PROGRESS NOTE REFERRING PHYSICIAN: Jim Light MD SUBJECTIVE: The patient is lying in the bed, head at 45 degrees, sleepy, arousable. Night was unremarkable, tolerated BiPAP well. No nausea, vomiting, or diarrhea. No leg pain or leg swelling. PHYSICAL EXAMINATION: GENERAL: No acute distress. VITAL SIGNS: Temperature 98, heart rate is 85, respiratory rate is 20, blood pressure 124/75, pulse ox 95% on room air. HEENT: Moist mucous membranes. Crowded airway. NECK: Supple. No JVD. LUNGS: Fair airflow with few rhonchi. HEART: S1 and S2. ABDOMEN: Soft and nontender. No organomegaly. EXTREMITIES: Not much edema. NEUROLOGIC: Awake and alert. Follows simple commands. LABORATORY DATA: Shows hemoglobin 10.1, hematocrit 30.7, WBC 5.6, platelet is 180. Sodium 142, potassium 4.0, chloride 114, bicarbonate is 18, BUN 15, creatinine 1.3, glucose is 73, calcium is 9.1. AST 31, ALT 63, alk phos is 63, albumin is 2.8. Microbiology: Blood culture and urine culture, there is no growth. MEDICATIONS: He is on hydralazine 10 mg four times a day p.r.n., Brovana 15 mcg inhaled twice a day, Calan SR 180 mg daily, Carafate 1 g twice a day, Colace 100 mg twice a day, DuoNeb q.4 hours, Eliquis 2.5 mg twice a day, Flomax 0.4 mg daily, Lidoderm patch daily, Lipitor 20 mg daily, gabapentin 300 mg daily, Norvasc 10 mg daily, oxycodone immediate release 15 mg q.4 hours p.r.n., Protonix 20 mg before meals, budesonide 0.5 mg inhaled twice a day, Tenormin 25 mg twice a day, vitamin B 100 mg daily, and Zestril 20 mg daily. IMPRESSION AND PLAN: Status post hypercalcemia, lung cancer, history of radiation and chemotherapy in the past, obstructive lung disease, obstructive sleep apnea syndrome, deep venous thrombosis, history of shingles, cardiac arrhythmia, defibrillation. From pulmonary point view, doing okay. Encouraged CPAP use, keep head at 45 degrees, gastric prophylaxis, anticoagulation. Upon discharge, we will order his CPAP for home. Thank you and we will follow with you. Ramon Delgado MD
[2017-06-27] MEDS: oxyCODONE 15 mg Immediate Release Tab PO PRN ×3 (05:48→19:45)
[2017-06-27 07:09] LABS: BASO # 0.02 K/mm3 (0.0-2.0); BASO % 0.3 % (0.0-3.0); EOS # 0.1 (0.0-0.7); EOS % 1.4 % (1.5-5.0); GRAN # 4.03 (1.4-6.5); GRAN % 70.2 % (50.0-68.0); HEMOGLOBIN 9.4 g/dL (14.0-18.0); LYMPH % 17.1 % (22.0-35.0); MEAN CELL VOLUME 90.4 fl (80.0-105.0); MEAN CORPUSCULAR HEMOGLOBIN 30.2 pg (25.0-35.0); MEAN CORPUSCULAR HGB CONC 33.5 g/dl (31.0-37.0); MONO # 0.6 (0.1-0.6); PLATELET COUNT 177 10^3/uL (120.0-450.0); RBC 3.11 10^6/uL (3.5-6.1); RED CELL DISTRIBUTION WIDTH 19.3 % (11.5-14.5); WHITE BLOOD COUNT 5.7 10^3/ul (4.5-11.0)
[2017-06-27 07:25] LABS: ALBUMIN 2.6 g/dL (3.0-4.8); CALCIUM 8.6 mg/dL (8.4-10.5)
[2017-06-27] MEDS: Budesonide 0.5 mg/2 ml Inhal Susp UD IH SCH ×2 (08:06→19:50)
[2017-06-27] MEDS: Arformoterol 15 mcg/2 ml Inh Sol IH SCH ×2 (08:06→19:50)
[2017-06-27] MEDS: Pantoprazole 20 mg EC Tab PO SCH ×3 (09:46→17:30)
[2017-06-27] MEDS: DICLOFENAC SODIUM OU SCH ×2 (09:48→10:44)
[2017-06-27] MEDS: AMITIZA 24 MCG PO SCH ×2 (09:48→17:33)
[2017-06-27] MEDS: Lidocaine 5% Patch TD SCH (09:48)
[2017-06-27] MEDS ORDERED: Verapamil 240 mg ER Tab PO SCH (10:00)
[2017-06-27] MEDS ORDERED: Verapamil 180 mg ER Tab PO SCH (10:00)
--- NOTE | 2017-06-27 11:41 | CP.PCM.PN ---
Subjective - Date & Time of Evaluation Date of Evaluation: 06/27/17 Time of Evaluation: 10:00 - Subjective Subjective: Hem/onc note for Dr Doty: Pt seen and examined at bedside. No acute events overnight. He is less confused today. Denies any fever, chills, horowitz, sob, chest pain, palpitations, urinary or bm changes Objective - Vital Signs/Intake and Output Vital Signs (last 24 hours): Temp Pulse Resp BP Pulse Ox 99.6 F 91 H 20 109/63 97 06/27/17 06:00 06/27/17 09:47 06/27/17 06:00 06/27/17 09:47 06/27/17 06:00 Intake and Output: 06/27/17 06/27/17 06:59 18:59 Intake Total 740 Output Total 100 Balance 640 - Medications Medications: Current Medications Albuterol/Ipratropium (Duoneb 3 Mg/0.5 Mg (3 Ml) Ud) 3 ml IH [id number] PRN PRN Reason: Shortness of Breath Amlodipine Besylate (Norvasc) 10 mg PO DAILY [facility] Last Admin: 06/26/17 09:11 Dose: 10 mg Apixaban (Eliquis) 2.5 mg PO BID [facility] PRN Reason: Protocol Last Admin: 06/27/17 09:46 Dose: 2.5 mg Arformoterol Tartrate (Brovana) 15 mcg IH [id number] [facility] B[facility]S [facility] Last Admin: 06/27/17 08:06 Dose: 15 mcg Atenolol (Tenormin) 25 mg PO BID [facility] Last Admin: 06/27/17 09:47 Dose: 25 mg Atorvastatin Calcium (Lipitor) 20 mg PO DAILY [facility] Last Admin: 06/27/17 09:47 Dose: 20 mg Budesonide (Pulmicort Respules) 0.5 mg IH [id number] [facility] B[facility]S [facility] Last Admin: 06/27/17 08:06 Dose: 0.5 mg Docusate Sodium (Colace Liquid) 100 mg PO TID [facility] Last Admin: 06/27/17 10:44 Dose: Not Given Gabapentin (Neurontin) 300 mg PO DAILY [facility] PRN Reason: Protocol Last Admin: 06/27/17 09:46 Dose: 300 mg Home Med (Home Med) 1 unit PO BID [facility] Last Admin: 08/15/17 09:48 Dose: 1 unit Home Med (Home Med) 0 unit OU DAILY [facility] Last Admin: 06/27/17 10:44 Dose: Not Given Hydralazine HCl (Apresoline) 10 mg PO QID PRN PRN Reason: for SBP>170 & OR Diastolic>100 Lidocaine (Lidoderm) 2 ea TD DAILY [facility] Last Admin: 06/27/17 09:48 Dose: 2 ea Lisinopril (Zestril) 20 mg PO DAILY [facility] Last Admin: 06/26/17 09:11 Dose: 20 mg Oxycodone HCl (Oxycodone Immediate Release Tab) 15 mg PO Q4H PRN PRN Reason: Pain, severe (8-10) Last Admin: 06/27/17 05:48 Dose: 15 mg Pantoprazole Sodium (Protonix Ec Tab) 20 mg PO AC [facility] Last Admin: 06/27/17 09:46 Dose: 20 mg Sucralfate (Carafate Tab) 1 gm PO 0600,1600 [facility] Last Admin: 06/27/17 05:48 Dose: 1 gm Tamsulosin HCl (Flomax) 0.4 mg PO DAILY [facility] Last Admin: 06/27/17 09:46 Dose: 0.4 mg Thiamine HCl (Vitamin B1 Tab) 100 mg PO DAILY [facility] Last Admin: 06/27/17 09:46 Dose: 100 mg - Labs Labs: 06/27/17 07:00 06/27/17 07:00 - Constitutional Appears: No Acute Distress - Head Exam Head Exam: NORMAL INSPECTION - Eye Exam Eye Exam: EOMI, PERRL - ENT Exam ENT Exam: Mucous Membranes Moist - Respiratory Exam Respiratory Exam: Clear to Ausculation Bilateral. absent: Rales, Wheezes - Cardiovascular Exam Cardiovascular Exam: RRR, +S1, +S2 - GI/Abdominal Exam GI & Abdominal Exam: Soft. absent: Distended, Tenderness - Extremities Exam Extremities Exam: absent: Calf Tenderness, Pedal Edema - Neurological Exam Neurological Exam: Alert, Awake Additional comments: aao x 2 - Psychiatric Exam Psychiatric exam: Normal Affect, Normal Mood - Skin Skin Exam: Dry, Intact, Warm Assessment and Plan - Assessment and Plan (Free Text) Assessment: 76 M, Hx 2 primary cancers (non-small cell lung CA on Opdivo and prostate CA), COPD, CKD, was seen at Dr. Doty's office prior to the ED pt found to be hypercalcemic to 12.1 now resolving today 9.1 - Hospoital stay compliacted by AMS, awaiting TCU eval. 1. Hypercalcemia: improving; likely due to dehydration or mets dx - esolved - nephro consult - f/u PTHrp, dced fluids - Head CT - no acute findings - Neuro - d/c antihypertensive meds - unlikely related to OPDIVO a/e - ID consulted - no abx at this time. will monitor off antibiotics 2. AMS - delerium vs leukoencephalopathy from related malignancy vs related to age - Still confused but better than prior few days - Dr Soren de guzman to Dr Yasmin Bernard which agrees with plan - Neuro consulted recs appreciated - Hold antihyperntensives; maintain SBP 130- 140 - Lisinopril and Amlodipine on hold - Bone can of whole body to r/o malignancy of spine - patient refused test 3. Hx of NSCLC and Prostate ca - currently on Opdivo - CT chest shows severe soft tissue thickening around the R lower lob bronchus unchanged from prior study 4. back pain - Lidocaine patch 5% 2 patches apply to back 5. Constipation - Increased colcace to 100mg TID - Cont Amitiza 6. Hx of COPD - Duone, Brovana, pulmicort - 2L O2 as needed - F/u pulm consult encourage CPAP use, and CPAP for home 7. Hx of DVT - Cont home eliquis 8. Hx of CAD - Cont Lipitor, lisinopril (H), tenormin - F/u cardiology recs - added metoprolol, and Hydralazine PRN 9. HTN - Cont Norvasc (H) , Lisinopril (H), and tenormin 10. GI/DVT ppx - Eliquis and protonix Dispo: TCU evaluation Case and plan was reviewed & discussed in detail with Dr Doty
--- NOTE | 2017-06-27 15:19 | PN ---
DATE: 06/27/2017 SUBJECTIVE: The patient is lying flat in the bed. Denies any chest pain, shortness of breath, palpitations. PHYSICAL EXAMINATION: GENERAL: Not in apparent distress. VITAL SIGNS: Temperature afebrile, heart rate 95, blood pressure 109/63. HEENT: PERRLA. Extraocular movement is intact. NECK: Supple. No carotid bruit. No thyromegaly. CHEST: Clear to auscultation. HEART: S1 and S2 regular. ABDOMEN: Soft.. EXTREMITIES: Clubbing and cyanosis negative. LABORATORY DATA: Blood workup as follows: WBC 5.3, hemoglobin 9.5, hematocrit 28.1, platelet count 177. Chemistry show sodium 143, potassium 3.7, chloride 101, carbon dioxide 60, anion gap 17, BUN 15, and creatinine 1.4. Total protein 5.1, albumin 2.6, albumin-globulin ratio 1. IMPRESSION AND PLAN: A 76-year-old male with a past medical history significant for lung CA stage IV with metastasis, status post pacemaker, MRI, last echo 06/02/2017. Ejection fraction 45%-50%. Has had cardiac event multiple times, nonobstructive coronary artery disease. Discussed with the neurologist yesterday I wanted to keep blood pressure 130-140. Yesterday, we discontinued some of the antihypertensive medication. The patient's verapamil I am going to hold and put p.r.n. Continue Eliquis, Ecotrin, and atorvastatin. Amlodipine is on hold. We will leave atenolol 25 mg b.i.d. and we will discontinue verapamil, because of the low blood pressure. History of paroxysmal atrial fibrillation. As per recommendation of Dr. Champ Montes that suggested to keep the blood pressure in the range of 130-140, so we will discontinue amlodipine, discontinue verapamil, put p.r.n. hydralazine, continue low dose beta-zan and the blood pressure is in the range of 110 now. We will follow with you. Ramon Anne MD
--- NOTE | 2017-06-27 15:50 | NM ---
PROCEDURE: Whole Body Bone Scan HISTORY: Hypercalcemia. Metastatic disease suspected COMPARISON: None available. TECHNIQUE: Following administration of 28.6 miCu of Tc MDP multiplanar whole body images were obtained. FINDINGS: Evidence for bony metastatic disease: Solitary focus of increased uptake left 7th rib. Degenerative uptake: Visualize thoracolumbar spine Physiologic uptake: Normal physiologic activity in the kidneys. Other findings: None. IMPRESSION: Indeterminate although likely benign focus of increased uptake anterior left 7th rib. No additional suspicious abnormalities in visualized axial and appendicular skeleton. Limitations of the current examination: Nonvisualization of calvarium and cervical spine and lower extremities.
--- NOTE | 2017-06-27 20:50 | PN ---
DATE: 06/27/2017 SUBJECTIVE: The patient is currently seen on 3-R. He is sitting in a chair. He is no acute distress. All IV fluids have been discontinued. The patient calcium had return to normal. The patient's BUN and creatinine have fallen back to his normal baseline range. MEDICATIONS: List reviewed, the patient is currently on hydralazine, Brovana, Carafate, Colace, DuoNeb, Eliquis, Flomax, Amitiza, diclofenac eye drops, Lidoderm, Lipitor, Neurontin, Norvasc is on hold, oxycodone p.r.n., Protonix, Pulmicort, Tenormin, vitamin B1, and Zestril which is on hold. OBJECTIVE: INTAKE/OUTPUT: Intake 1160, and output 650. VITAL SIGNS: Blood pressure 109/63, pulse 110, temperature 99.6, respiratory rate is 20. HEENT: Normocephalic and atraumatic. Conjunctive are pale. Sclera nonicteric. NECK: Supple. No neck vein distention. CHEST: Clear to auscultation and percussion. No rales, no rhonchi, no wheezing. CARDIOPULMONARY: Shows regular rate and rhythm without murmurs, rubs, or gallops. ABDOMEN: Soft. Bowel sounds normal. No rebound, no guarding, no masses. EXTREMITIES: Show no lower extremity cyanosis, clubbing, or edema. IMAGING: Bone nuclear scan done today; increased uptake in the anterior left rib suggestive of bony metastatic disease. LABORATORY DATA: CBC; white blood cell count 5.7, hemoglobin 9.4, platelet count of 177,000. Chemistry; normal sodium, normal potassium. Chloride 114 with CO2 of 16. Anion gap is 17, BUN 15, down from a high of 30; creatinine is 1.4, down from a high of 1.8; glucose is 58. Albumin is 2.6, calcium level is 8.6, down from a high of 12.1. Microbiology; blood cultures and urine cultures are negative. ASSESSMENT: 1. Status post hyperkalemia secondary to malignancy. The patient is status post Aredia intravenous fluid hydration and Lasix. The patient's calcium level is now acceptable. Vitamin D level is low and patient would not receive any vitamin D supplements. His corrected calcium level is in the 9.6 to 9.7 range. 2. 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 3. Status post mild hypokalemia, which has resolved with potassium supplementation. His magnesium level is normal at 1.9. Mild elevation of BUN and creatinine resolved with correction of his hypercalcemia and with intravenous fluid hydration. PLAN: 1. Continue to monitor labs closely. The patient is developing a mild metabolic acidosis anion gap. CO2 is down to 16. I will empirically start the patient on oral sodium bicarbonate supplements. If any further IV fluid hydration needs to be given, we should use bicarbonate or acetate in place of chloride as the anion. 2. Continue to monitor labs closely in light of his hypercalcemia. 3. Followup by Dr. Doty and Dr. Light. for his metastatic prostate cancer. 4. Close renal followup for the remainder of the hospitalization. Jonathan Ryder MD
--- NOTE | 2017-06-28 02:47 | PN ---
DATE: 06/27/2017 SUBJECTIVE: He is out of bed to chair, having lunch. He gets short of breath, there is minimal exertion. No nausea. No vomiting or diarrhea. No leg pain or leg swelling. OBJECTIVE: GENERAL: In no acute distress. VITAL SIGNS: Temp is 98, heart rate is 85, respiratory rate is 20, blood pressure 131/85, pulse ox 100% on 3 L nasal cannula. HEENT: Moist mucous membranes. Crowded airway. Mallampati score is IV. NECK: Supple. No JVD. LUNGS: He has decreased breath sound on the bases. Scattered rhonchi. HEART: S1 and S2. ABDOMEN: Soft and nontender. No organomegaly. EXTREMITIES: There is no edema. NEUROLOGIC: Awake and alert. Follows simple command. MEDICATIONS: Reviewed. Hydralazine 10 mg q.i.d. p.r.n., Brovana 15 mcg inhaled twice a day, Carafate 1 g twice a day, Colace 100 mg three times a day, DuoNeb q.6 hours, Eliquis 2.5 mg twice a day, Flomax 0.4 mg daily, Lidoderm patch to affected area daily, Lipitor 20 mg daily, gabapentin 300 mg daily, Norvasc 10 mg daily, oxycodone immediate-release 15 mg q.4 hours p.r.n., Protonix 20 mg daily, Pulmicort inhaled twice a day, sodium bicarbonate 650 mg three times a day, Tenormin 25 mg twice a day, vitamin B1 of 100 mg twice a day, and Zestril 20 mg daily. LABORATORY DATA: Shows hemoglobin 9.4, hematocrit 28.1, WBC 5.7, platelets is 177. Sodium 143, potassium 3.7, chloride 114, bicarbonate 16, BUN is 15, creatinine 1.4, glucose 58, calcium 8.6. AST 26, ALT 24, alkaline phosphatase is 58, albumin is 2.6, procalcitonin 0.69. Microbiology blood culture have been negative. He had a bone scan done today, which shows indeterminate although luckily benign focus of increased uptake interior left seventh rib, no adhesion or suspicious abnormality in the visualized area noted. IMPRESSION AND PLAN: Lung cancer, history of radiation and chemotherapy, obstructive lung disease, obstructive sleep apnea syndrome, deep venous thrombosis, history of shingles, cardiac arrhythmia, defibrillation, chronic pain syndrome. From pulmonary point of view, he is doing okay. Encourage continuous positive airway pressure use, keep head at 45 degrees, bronchodilator, gastric prophylaxis, anticoagulation, fall precaution and waiting to be transferred to *------* services. Thank you and we will follow with you. Ramon Delgado MD
[2017-06-28 05:29] LABS: BASO # 0.02 K/mm3 (0.0-2.0); BASO % 0.4 % (0.0-3.0); EOS # 0.1 (0.0-0.7); EOS % 1.9 % (1.5-5.0); GRAN # 3.88 (1.4-6.5); GRAN % 68.7 % (50.0-68.0); HEMOGLOBIN 9.4 g/dL (14.0-18.0); LYMPH # 0.9 (1.2-3.4); LYMPH % 16.6 % (22.0-35.0); MEAN CELL VOLUME 90.5 fl (80.0-105.0); MEAN CORPUSCULAR HEMOGLOBIN 29.7 pg (25.0-35.0); MEAN CORPUSCULAR HGB CONC 32.9 g/dl (31.0-37.0); MONO # 0.7 (0.1-0.6); MONO % 12.4 % (1.0-6.0); PLATELET COUNT 190 10^3/uL (120.0-450.0); RBC 3.16 10^6/uL (3.5-6.1); RED CELL DISTRIBUTION WIDTH 19.7 % (11.5-14.5); WHITE BLOOD COUNT 5.7 10^3/ul (4.5-11.0)
[2017-06-28 05:36] LABS: ALBUMIN 2.6 g/dL (3.0-4.8); CALCIUM 8.8 mg/dL (8.4-10.5); MAGNESIUM 1.9 mg/dL (1.7-2.2)
[2017-06-28] MEDS: Arformoterol 15 mcg/2 ml Inh Sol IH SCH ×2 (08:10→21:15)
[2017-06-28] MEDS: Budesonide 0.5 mg/2 ml Inhal Susp UD IH SCH ×2 (08:10→21:15)
[2017-06-28] MEDS: AMITIZA 24 MCG PO SCH ×2 (09:21→17:26)
[2017-06-28] MEDS: DICLOFENAC SODIUM OU SCH (09:22)
[2017-06-28] MEDS: Lidocaine 5% Patch TD SCH (09:25)
[2017-06-28] MEDS: Pantoprazole 20 mg EC Tab PO SCH ×3 (10:23→15:51)
[2017-06-28] MEDS ORDERED: Sodium Chloride 0.9% 1,000 ML IV SCH ×3 (12:15→19:31)
--- NOTE | 2017-06-28 15:45 | CP.PCM.PN ---
Subjective - Date & Time of Evaluation Date of Evaluation: 06/28/17 Time of Evaluation: 10:25 - Subjective Subjective: Hem/onc note for Dr Doty: Pt seen and examined at bedside. Pt seems less confused. No fever, chills, horowitz, sob, chest pain, palpitations, urinary or bm changes Objective - Vital Signs/Intake and Output Vital Signs (last 24 hours): Temp Pulse Resp BP Pulse Ox 99.1 F 90 20 94/48 L 99 06/28/17 06:00 06/28/17 09:24 06/28/17 06:00 06/28/17 09:24 06/28/17 06:00 Intake and Output: 06/28/17 06/28/17 06:59 18:59 Intake Total 240 480 Output Total 350 200 Balance -110 280 - Medications Medications: Current Medications Albuterol/Ipratropium (Duoneb 3 Mg/0.5 Mg (3 Ml) Ud) 3 ml IH [id number] PRN PRN Reason: Shortness of Breath Amlodipine Besylate (Norvasc) 10 mg PO DAILY [facility] Last Admin: 06/26/17 09:11 Dose: 10 mg Apixaban (Eliquis) 2.5 mg PO BID [facility] PRN Reason: Protocol Last Admin: 06/28/17 09:23 Dose: 2.5 mg Arformoterol Tartrate (Brovana) 15 mcg IH [id number] [facility] Last Admin: 06/28/17 08:10 Dose: 15 mcg Atenolol (Tenormin) 12.5 mg PO BID [facility] Atorvastatin Calcium (Lipitor) 20 mg PO DAILY [facility] Last Admin: 06/28/17 09:22 Dose: 20 mg Budesonide (Pulmicort Respules) 0.5 mg IH [id number] [facility] Last Admin: 06/28/17 08:10 Dose: 0.5 mg Docusate Sodium (Colace Liquid) 100 mg PO TID [facility] Last Admin: 06/28/17 09:25 Dose: 100 mg Gabapentin (Neurontin) 300 mg PO DAILY [facility] PRN Reason: Protocol Last Admin: 06/28/17 09:23 Dose: 300 mg Home Med (Home Med) 1 unit PO BID [facility] Last Admin: 06/28/17 09:21 Dose: 1 unit Home Med (Home Med) 0 unit OU DAILY [facility] Last Admin: 06/28/17 09:22 Dose: 1 unit Hydralazine HCl (Apresoline) 10 mg PO QID PRN PRN Reason: for SBP>170 & OR Diastolic>100 Sodium Chloride (Sodium Chloride 0.9%) 1,000 mls @ 70 mls/hr IV .[id number] [facility] Sodium Chloride (Sodium Chloride 0.9%) 1,000 mls @ 100 mls/hr IV .Q10H [facility] Lidocaine (Lidoderm) 2 ea TD DAILY [facility] Last Admin: 06/28/17 09:25 Dose: 2 ea Lisinopril (Zestril) 20 mg PO DAILY [facility] Last Admin: 06/26/17 09:11 Dose: 20 mg Oxycodone HCl (Oxycodone Immediate Release Tab) 15 mg PO Q4H PRN PRN Reason: Pain, severe (8-10) Last Admin: 06/27/17 13:46 Dose: 15 mg Pantoprazole Sodium (Protonix Ec Tab) 20 mg PO AC [facility] Last Admin: 06/28/17 12:48 Dose: 20 mg Sodium Bicarbonate (Sodium Bicarbonate Tab) 650 mg PO TID [facility] Last Admin: 06/28/17 09:22 Dose: 650 mg Sucralfate (Carafate Tab) 1 gm PO 0600,1600 [facility] Last Admin: 06/28/17 05:15 Dose: 1 gm Tamsulosin HCl (Flomax) 0.4 mg PO DAILY [facility] Last Admin: 06/28/17 09:23 Dose: 0.4 mg Thiamine HCl (Vitamin B1 Tab) 100 mg PO BID [facility] Last Admin: 06/28/17 09:23 Dose: 100 mg - Labs Labs: 06/28/17 05:20 06/28/17 05:20 - Constitutional Appears: No Acute Distress - Head Exam Head Exam: ATRAUMATIC - Eye Exam Eye Exam: EOMI, PERRL - ENT Exam ENT Exam: Mucous Membranes Moist - Respiratory Exam Respiratory Exam: Clear to Ausculation Bilateral. absent: Rhonchi, Wheezes - Cardiovascular Exam Cardiovascular Exam: REGULAR RHYTHM, RRR, +S1, +S2 - GI/Abdominal Exam GI & Abdominal Exam: Soft. absent: Distended, Tenderness - Extremities Exam Extremities Exam: absent: Calf Tenderness, Pedal Edema - Neurological Exam Neurological Exam: Alert, Awake, Oriented x3 - Psychiatric Exam Psychiatric exam: Normal Affect, Normal Mood - Skin Skin Exam: Dry, Intact, Normal Color, Warm Assessment and Plan - Assessment and Plan (Free Text) Assessment: 76 M, Hx 2 primary cancers (non-small cell lung CA on Opdivo and prostate CA), COPD, CKD, was seen at Dr. Doty's office prior to the ED pt found to be hypercalcemic to 12.1 now resolving today 9.1 - Hospital stay complicated by AMS. 1. Hypercalcemia - resolved - nephro consult - f/u PTHrp, dced fluids - Head CT - no acute findings - Neuro - d/c antihypertensive meds - unlikely related to OPDIVO a/e - ID consulted - no abx at this time. will monitor off antibiotics 2. AMS - delerium vs leukoencephalopathy from related malignancy vs related to age - Still confused but better than prior few days - Dr Doty spoke to Dr Yasmin Bernard which agrees with plan - Neuro consulted recs appreciated - Hold antihypertensives; maintain SBP 130- 140 - Lisinopril and Amlodipine on hold - Bone can of whole body - indeterminate but likely benign solitary focus of L 7th rib uptake 3. Hx of NSCLC and Prostate ca - currently on Opdivo - CT chest shows severe soft tissue thickening around the R lower lob bronchus unchanged from prior study 4. back pain - Lidocaine patch 5% 2 patches apply to back 5. Constipation - Increased colace to 100mg TID - Cont Amitiza 6. Hx of COPD - Duoneb, Brovana, pulmicort - 2L O2 as needed - F/u pulm consult encourage CPAP use, and CPAP for home 7. Hx of DVT - Cont home Eliquis 8. Hx of CAD - Cont Lipitor, lisinopril (H), tenormin - F/u cardiology recs - added metoprolol, and Hydralazine PRN 9. HTN - Cont Norvasc (H) , Lisinopril (H), and tenormin 10. GI/DVT ppx - Eliquis and protonix Dispo: TCU evaluation or home - Dr Doty talked to the son regarding going home Case and plan was reviewed & discussed in detail with Dr Doty
--- NOTE | 2017-06-28 15:52 | PN ---
DATE: 06/28/2017 SUBJECTIVE: The patient is seen lying in bed. He is awake. He is groggy. He is arousable. PHYSICAL EXAMINATION: GENERAL: Elderly male lying in bed. VITAL SIGNS: Blood pressure 94/48, heart rate 90, respiratory rate 20, temperature 99.1, T max is 99.1. HEENT: Normocephalic, atraumatic. NECK: Supple, no JVD. LUNGS: Bilateral equal air entry, bilateral rhonchi. CARDIAC: S1 and S2. Regular rate and rhythm. No murmur, no rub. ABDOMEN: Soft, nondistended, nontender, bowel sounds present. EXTREMITIES: No lower extremity edema. INTAKE AND OUTPUT: 480/815. LABORATORY DATA: WBC 5.7, hemoglobin 9.4, hematocrit 29, platelets 190. Sodium 145, potassium 3.9, chloride 114, CO2 of 16, BUN 22, creatinine 1.9, glucose 60, calcium 8.8, phosphorus 3.2 magnesium 1.9, albumin 1.6, corrected calcium 9.8. MEDICATIONS: Brovana, Carafate, Colace, DuoNeb, Eliquis, Flomax, Lidoderm, Lipitor, Neurontin, amlodipine, Protonix, Pulmicort, sodium bicarbonate 650 t.i.d. started yesterday, Tenormin, Tylenol, Zestril 20 mg daily. Not given yesterday or today. ASSESSMENT: 1. Acute kidney injury superimposed on chronic kidney disease stage II. 2. Hypernatremia. 3. Metabolic acidosis. 4. Resolved hypercalcemia. 5. Metastatic prostate cancer. 6. Hypotension. PLAN: 1. Discontinue Zestril. 2. Normal saline at 100 mL/hour. 3. Push p.o. intake. 4. Monitor vital signs closely. 5. Avoid nephrotoxins. Kaelyn Craven MD
[2017-06-28] MEDS ORDERED: Sodium Chloride 0.9% 500 ML IV STA (16:30)
--- NOTE | 2017-06-28 17:45 | PN ---
DATE: 06/28/2017 LOCATION: The patient is in room 363, bed 1. REASON FOR CONSULTATION AND FOLLOWUP: History of CHF, pacemaker. SUBJECTIVE: The patient denies any chest pain, shortness of breath, palpitation. The patient is sitting in chair, was very dizzy and blood pressure was 80/40. The patient was put back in the bed and the patient dizziness improved and her blood pressure went up 100/60. PHYSICAL EXAMINATION: VITAL SIGNS: Blood pressure 94/48 now earlier blood pressure sitting in chair was 80/40 and lying down 100/60, pulse is 90, temperature 99.1, respiration 20. HEENT: Head is normocephalic. Eyes: pupils normal. Conjunctivae slightly pale. NECK: JVP low. Carotids equal. Thorax: AP diameter normal. LUNGS: Clear. CARDIOVASCULAR: S1 and S2. ABDOMEN: Soft and nontender. No organomegaly. Bowel sound normal. EXTREMITIES: No clubbing. No cyanosis. LABORATORY DATA: WBC 5.7, hemoglobin 9.4, hematocrit 28.6, and platelet 190. Sodium 145, potassium 3.9, BUN 22, creatinine 1.9. Yesterday BUN was 15 and creatinine 1.4. AST and ALT normal. Total protein 5.3 which is low, and albumin 2.6 which is low. DIAGNOSES: Postural hypotension, probably dehydration with BUN and creatinine also elevated today as compared to yesterday, nonobstructive coronary artery disease on twice cardiac catheterization, history of lung cancer, altered mental status, hypercalcemia, stage IV lung cancer with metastasis status post pacemaker insertion which is MRI safe. Echo 06/02/2017 with systolic pressure 71 consistent with the [id number] pulmonary hypertension, LV ejection fraction 45% to 50%, moderate tricuspid regurg, [id number] mitral regurg, history of deep venous thrombosis and pulmonary embolism. PLAN: The patient's lisinopril and amlodipine are already on hold. We will cut down atenolol from 25 b.i.d. to 12.5 b.i.d., and we will start normal saline 700 mL an hour and repeat SMA-7, CBC, magnesium phosphorus in the morning, and we will continue other medications, glimepiride 1 g b.i.d., DuoNeb hand nebulizer therapy, Eliquis 2.5 b.i.d., Flomax 0.4 daily, Lipitor 20 daily, gabapentin 300 mg p.o. daily, thiamine 100 mg daily. I will monitor blood pressure. We will follow. Ramon Stanley MD
--- NOTE | 2017-06-28 17:47 | RAD ---
HISTORY: eval poss infiltrates COMPARISON: 05/30/2017 FINDINGS: The right subclavian line terminates in the right atrium. LUNGS: There is interval worsening of pulmonary venous congestion and development of interstitial pulmonary edema. There is also worsening of consolidation in the right infrahilar region PLEURA: No significant pleural effusion identified, no pneumothorax apparent. CARDIOVASCULAR: The cardiomediastinal silhouette is stable. Atherosclerotic aortic arch calcifications are present. OSSEOUS STRUCTURES: No significant abnormalities. VISUALIZED UPPER ABDOMEN: Normal. OTHER FINDINGS: None. IMPRESSION: 1. Worsening pulmonary venous congestion and development of interstitial pulmonary edema. 2. Worsening right infrahilar airspace disease which could represent alveolar pulmonary edema or pneumonia. Follow-up is advised.
--- NOTE | 2017-06-28 19:17 | PN ---
DATE: 06/28/2017 PULMONARY PROGRESS NOTE REFERRING PHYSICIAN: Dr. Jim Light. SUBJECTIVE: He is sitting up in the bed, having lunch. Night was unremarkable, tolerating CPAP well. Has short of breath with minimal exertion. No chest pain. No nausea, no vomiting, no diarrhea. No leg pain or leg swelling. OBJECTIVE GENERAL: In no acute distress. VITAL SIGNS: Temperature is 99, heart rate is 90, respiratory rate is 20, blood pressure 94/48, pulse ox 99% on 3 L nasal cannula. HEENT: Moist mucous membranes. Crowded airway. NECK: Supple. No JVD. LUNGS: Fair airflow with rhonchi. HEART: S1 and S2. ABDOMEN: Soft and nontender. No organomegaly. EXTREMITIES: There is no edema. NEUROLOGIC: Awake and alert. Follows simple command. MEDICATIONS: Reviewed, noted. He is on hydralazine 10 mg q.i.d. p.r.n., Brovana 15 mcg inhaler twice a day, Carafate 1 g twice a day, Colace 100 mg 3 times a day, DuoNeb q.4 hours, Eliquis 2.5 mg twice a day, Flomax 0.4 mg daily, Lidoderm patch to affected area, Lipitor 20 mg daily, Neurontin 300 mg daily, Norvasc 10 mg daily, oxycodone immediate release 15 mg q.4 hours p.r.n., Protonix 20 mg daily, Pulmicort inhaler twice a day, sodium bicarbonate 650 mg 3 times a day, IV fluid normal saline 70 mL per hour, Tenormin 12.5 mg twice a day, vitamin B 100 mg twice a day, and Zestril 20 mg daily. LABORATORY DATA: Shows hemoglobin 9.4, hematocrit 28.6, WBC 5.7, platelet is 190. Sodium 145, potassium 3.9, chloride 114, bicarbonate 16, BUN 22, creatinine 1.9, glucose 60, calcium is 8.8. Phosphorus 3.2, magnesium 1.9. AST 26, ALT 28, alkaline phosphatase is 59, albumin is 2.6. Microbiology: Blood culture, urine culture, there is no growth. IMPRESSION AND PLAN: Lung cancer, status post radiation and chemotherapy; obstructive sleep apnea syndrome; deep venous thrombosis; history of shingles; cardiac arrhythmia; history of atrial fibrillation; chronic pain syndrome. From pulmonary point of view, doing okay. Encourage CPAP use, keep head at 45 degrees, bronchodilator, gastric prophylaxis, anticoagulation, diuretics. He will benefit from *------* type of therapy. Thank you and we will follow with you. Ramon Delgado MD
[2017-06-29] MEDS: oxyCODONE 15 mg Immediate Release Tab PO PRN (00:26)
[2017-06-29 07:10] LABS: BASO # 0.02 K/mm3 (0.0-2.0); BASO % 0.3 % (0.0-3.0); EOS # 0.1 (0.0-0.7); EOS % 1.3 % (1.5-5.0); GRAN % 67.3 % (50.0-68.0); HEMOGLOBIN 9.8 g/dL (14.0-18.0); LYMPH # 1.1 (1.2-3.4); MEAN CELL VOLUME 89.5 fl (80.0-105.0); MEAN CORPUSCULAR HEMOGLOBIN 29.4 pg (25.0-35.0); MEAN CORPUSCULAR HGB CONC 32.9 g/dl (31.0-37.0); MEAN PLATELET VOLUME 9.6 fl (7.0-11.0); MONO # 0.7 (0.1-0.6); MONO % 12.1 % (1.0-6.0); PLATELET COUNT 233 10^3/uL (120.0-450.0); RBC 3.33 10^6/uL (3.5-6.1); RED CELL DISTRIBUTION WIDTH 19.5 % (11.5-14.5)
[2017-06-29 07:19] LABS: ALBUMIN 2.8 g/dL (3.0-4.8); CALCIUM 8.6 mg/dL (8.4-10.5); MAGNESIUM 1.8 mg/dL (1.7-2.2)
[2017-06-29] MEDS: Arformoterol 15 mcg/2 ml Inh Sol IH SCH (08:46)
[2017-06-29] MEDS: Budesonide 0.5 mg/2 ml Inhal Susp UD IH SCH (08:46)
[2017-06-29] MEDS ORDERED: Potassium Phosphate 15 MMOLE in Sodium Chloride 0.9% 250 ML IVPB ONE (09:39)
[2017-06-29] MEDS: Pantoprazole 20 mg EC Tab PO SCH ×3 (09:54→16:28)
[2017-06-29] MEDS: AMITIZA 24 MCG PO SCH ×2 (09:56→17:25)
[2017-06-29] MEDS: Lidocaine 5% Patch TD SCH (09:56)
[2017-06-29] MEDS: DICLOFENAC SODIUM OU SCH (09:56)
[2017-06-29] MEDS ORDERED: Sodium Chloride 0.9% 1,000 ML IV SCH (10:15)
[2017-06-29] MEDS ORDERED: Potassium Chloride 30 MEQ in Sodium Chloride 0.9% 1,000 ML IV SCH (10:20)
--- NOTE | 2017-06-29 11:40 | CARD ---
APPROVED REPORT EKG Measurement Heart [id number] <Conclusion> Sinus tachycardia with premature supraventricular complexes Nonspecific ST and T wave abnormality. Somatic Tremors.
--- NOTE | 2017-06-29 12:52 | CP.PCM.PN ---
Subjective - Date & Time of Evaluation Date of Evaluation: 06/29/17 Time of Evaluation: 06:50 - Subjective Subjective: Hem/onc note for Dr Doty: Pt seen and examined at bedside. No acute events overnight. Pt appears much better and less confused. States his back pain is better. Denies f/c, horowitz, sob, chest pain, palpitations, urinary or bm changes. Objective - Vital Signs/Intake and Output Vital Signs (last 24 hours): Temp Pulse Resp BP Pulse Ox 98.4 F 102 H 22 148/90 100 06/29/17 07:41 06/29/17 11:13 06/29/17 07:41 06/29/17 11:13 06/29/17 07:41 Intake and Output: 06/29/17 06/29/17 06:59 18:59 Intake Total 2260 Output Total 300 Balance 1960 - Medications Medications: Current Medications Acetaminophen (Tylenol 650 Mg Supp) 650 mg RC Q6H PRN PRN Reason: Fever >100.4 F Albuterol/Ipratropium (Duoneb 3 Mg/0.5 Mg (3 Ml) Ud) 3 ml IH [id number] PRN PRN Reason: Shortness of Breath Amlodipine Besylate (Norvasc) 10 mg PO DAILY [facility] Last Admin: 06/26/17 09:11 Dose: 10 mg Apixaban (Eliquis) 2.5 mg PO BID [facility] PRN Reason: Protocol Last Admin: 06/29/17 09:57 Dose: 2.5 mg Arformoterol Tartrate (Brovana) 15 mcg IH [id number] [facility] Last Admin: 06/29/17 08:46 Dose: 15 mcg Atenolol (Tenormin) 25 mg PO BID [facility] Atorvastatin Calcium (Lipitor) 20 mg PO DAILY [facility] Last Admin: 06/29/17 09:57 Dose: 20 mg Budesonide (Pulmicort Respules) 0.5 mg IH [id number] [facility] Last Admin: 06/29/17 08:46 Dose: 0.5 mg Docusate Sodium (Colace Liquid) 100 mg PO TID [facility] Last Admin: 06/29/17 09:54 Dose: 100 mg Gabapentin (Neurontin) 300 mg PO DAILY [facility] PRN Reason: Protocol Last Admin: 06/29/17 09:54 Dose: 300 mg Home Med (Home Med) 1 unit PO BID [facility] Last Admin: 06/29/17 09:56 Dose: 1 unit Home Med (Home Med) 0 unit OU DAILY [facility] Last Admin: 06/29/17 09:56 Dose: 1 unit Hydralazine HCl (Apresoline) 10 mg PO QID PRN PRN Reason: for SBP>170 & OR Diastolic>100 Potassium Phosphate 15 mmole/ (Sodium Chloride) 255 mls @ 42.5 mls/hr IVPB ONCE ONE Stop: 06/29/17 15:38 Last Admin: 06/29/17 10:21 Dose: 42.5 mls/hr Potassium Chloride 30 meq/ (Sodium Chloride) 1,015 mls @ 60 mls/hr IV .[id number] [facility] Last Admin: 06/29/17 11:04 Dose: 60 mls/hr Lidocaine (Lidoderm) 2 ea TD DAILY [facility] Last Admin: 06/29/17 09:56 Dose: 2 ea Pantoprazole Sodium (Protonix Ec Tab) 20 mg PO AC [facility] Last Admin: 06/29/17 11:45 Dose: Not Given Sodium Bicarbonate (Sodium Bicarbonate Tab) 650 mg PO TID [facility] Last Admin: 06/29/17 09:56 Dose: 650 mg Sucralfate (Carafate Tab) 1 gm PO 0600,1600 [facility] Last Admin: 06/29/17 05:52 Dose: 1 gm Tamsulosin HCl (Flomax) 0.4 mg PO DAILY [facility] Last Admin: 06/29/17 09:59 Dose: 0.4 mg Thiamine HCl (Vitamin B1 Tab) 100 mg PO BID [facility] Last Admin: 06/29/17 09:57 Dose: 100 mg - Labs Labs: 06/29/17 07:00 06/29/17 07:00 - Constitutional Appears: No Acute Distress - Head Exam Head Exam: NORMAL INSPECTION - Eye Exam Eye Exam: EOMI, Normal appearance, PERRL Pupil Exam: NORMAL ACCOMODATION, PERRL - ENT Exam ENT Exam: Mucous Membranes Moist, Normal Exam - Neck Exam Neck Exam: Full ROM, Normal Inspection. absent: Lymphadenopathy - Respiratory Exam Respiratory Exam: Clear to Ausculation Bilateral, NORMAL BREATHING PATTERN. absent: Rales, Wheezes - Cardiovascular Exam Cardiovascular Exam: REGULAR RHYTHM, RRR, +S1, +S2. absent: Murmur - GI/Abdominal Exam GI & Abdominal Exam: Soft, Normal Bowel Sounds. absent: Tenderness - Extremities Exam Extremities Exam: absent: Calf Tenderness, Pedal Edema - Neurological Exam Neurological Exam: Alert, Awake, Oriented x3 - Psychiatric Exam Psychiatric exam: Normal Affect, Normal Mood - Skin Skin Exam: Dry, Intact, Normal Color, Warm Assessment and Plan - Assessment and Plan (Free Text) Assessment: 76 M, Hx 2 primary cancers (non-small cell lung CA on Opdivo and prostate CA), COPD, CKD, was seen at Dr. Doty's office prior to the ED pt found to be hypercalcemic to 12.1 now resolving today 9.1 - Hospital stay complicated by AMS Currently awaiting placement home vs TCU vs [facility]. 1. Hypercalcemia - resolved - nephro consult appreciate recs - Head CT - no acute findings - Neuro - d/c antihypertensive meds - unlikely related to OPDIVO a/e - ID consulted - no abx at this time. will monitor off antibiotics 2. AMS - delerium vs leukoencephalopathy from related malignancy vs related to age - Still confused but better than prior few days - Dr Doty spoke to Dr Yasmin Bernard which agrees with plan - Neuro consulted recs appreciated - Hold antihypertensives; maintain SBP 130- 140 - Lisinopril and Amlodipine on hold - Bone can of whole body - indeterminate but likely benign solitary focus of L 7th rib uptake 3. Hx of NSCLC and Prostate ca - currently on Opdivo - CT chest shows severe soft tissue thickening around the R lower lob bronchus unchanged from prior study 4. back pain - Lidocaine patch 5% 2 patches apply to back 5. Constipation - Increased colace to 100mg TID - Cont Amitiza 6. Hx of COPD - Duoneb, Brovana, pulmicort - 2L O2 as needed - pulm consult appreciate recs 7. Hx of DVT - Cont home Eliquis 8. Hx of CAD - Cont Lipitor, lisinopril (H), tenormin - Cardiology consult appreciat recs 9. HTN - Cont Norvasc (H) , Lisinopril (H), and tenormin 10. GI/DVT ppx - Eliquis and protonix Dispo: Dr Doty talked to the son regarding going home vs TCU vs [facility] Case and plan was reviewed & discussed in detail with Dr Doty
--- NOTE | 2017-06-29 14:58 | PN ---
DATE: 06/29/2017 SUBJECTIVE: The patient is seen sitting in bed. He is doubled over. He complains of severe back pain. He denies any shortness of breath. He denies any chest tightness. PHYSICAL EXAMINATION: GENERAL: On examination elderly male sitting in chair. VITAL SIGNS: Blood pressure 155/85, heart rate 105, respiratory rate 22, and temperature 98.4. HEENT: Normocephalic, atraumatic, positive pallor. NECK: Supple, no JVD. LUNGS: Bilateral equal entry air, bilateral equal expansion. CARDIAC: S1 and S2. Regular rate and rhythm, no murmur, no rub. ABDOMEN: Soft, nondistended, nontender, bowel sounds present. EXTREMITIES: No lower extremity edema. INTAKE AND OUTPUT: 480/850? LABORATORY DATA: WBC 6.0, hemoglobin 9.8, hematocrit 29.8, and platelets 233. Sodium 145, potassium 3.5, chloride 115, CO2 21, BUN 16, creatinine 1.5, glucose 88, calcium 8.6, phosphorus 2.2, magnesium 1.8, and albumin 2.8. CURRENT MEDICATIONS: Brovana, Carafate, Colace, DuoNeb, Flomax, Lidoderm, Lipitor, Neurontin, Norvasc, sodium bicarbonate, normal saline at 100, Tenormin, and Tylenol. ASSESSMENT: 1. Resolving acute kidney injury, suspect likely prerenal azotemia. 2. Hypokalemia. 3. Severe hypotension, improved with hydration. 4. Resolved hypercalcemia. 5. Severe back pain secondary to degenerative joint disease. 6. Hypertension, currently hypotensive, but blood pressure is high because of pain, I think. 7. Advanced age. 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 CT scan of the lumbar spine done in April showed no acute fracture, multilevel DJD, T12-L1, L2-L3, L3-L4, L4-L5, L5 and S1. PLAN: 1. IV fluids with potassium. We will change IV fluids to normal saline at 60 mL per hour. We will add potassium chloride 30 mEq to each bag. 2. Discontinue lisinopril. 3. Push p.o. intake. 4. Continue to hold antihypertensives. Kaelyn Craven MD
--- NOTE | 2017-06-29 15:58 | PN ---
DATE: 06/29/2017 LOCATION: The patient is in room 363, bed 1. REASON FOR CONSULTATION: History of CHF, pacemaker and tachyarrhythmia. SUBJECTIVE: The patient denies any chest pain, shortness of breath, palpitation. Yesterday, he was dizzy, sitting in chair. Today, he is sitting in chair, but he is not dizzy anymore. The patient was found to have yesterday portal hypertension, IV fluid was started, atenolol dose was cut back and today, the patient is feeling better. PHYSICAL EXAMINATION: VITAL SIGNS: Blood pressure 155/85, heart rate 105, temperature 98.4, respiration 20. HEENT: Head is normocephalic. Eyes: Pupils normal. Conjunctivae slightly pale. NECK: JVP low. Carotids equal. Thorax AP diameter normal. LUNGS: No rales. CARDIOVASCULAR: S1 and S2. ABDOMEN: Soft and nontender. No organomegaly. Bowel sound normal. EXTREMITIES: No clubbing. No cyanosis. LABORATORY DATA: WBC 6.0, hemoglobin 9.8, hematocrit 29.8, and platelet 233. Sodium 145, potassium 3.5, BUN 16, creatinine 1.5. Yesterday, BUN was 22, so today it is improved to 16. Yesterday, creatinine was 1.9 and today it is improved to 1.5, but on 06/26, BUN was 15 and creatinine was 1.3. Yf-emt-b-natriuretic peptide 4080, total protein 5.1, albumin 2.8. DIAGNOSES: Yesterday's portal hypertension with symptoms of dizziness has improved; renal dysfunction, which is probably due to dehydration also improving with IV fluid; nonobstructive coronary artery disease, on catheterization which he has twice; lung cancer; altered mental status; hypercalcemia; stage IV lung carcinoma with metastasis; status post pacemaker insertion; pulmonary hypertension, on echo ejection fraction 45% to 50%; moderate tricuspid regurg; [id number] mitral regurg; history of deep venous thrombosis; pulmonary embolism; hypokalemia. PLAN: Now the blood pressure is elevated, we will go back to atenolol 25 mg b.i.d. The patient was on b.i.d. yesterday 25, he was cut back to 12.5 b.i.d. because of low blood pressure and dizziness, now with IV therapy, it has improved. We will also give potassium therapy to the patient. The patient is already on Eliquis 2.5 b.i.d., atorvastatin 20 daily, Neurontin 300 daily, amlodipine has been on hold and thiamine 100 mg b.i.d. IV fluid has been changed to 60 mL per hour along with potassium in diet, so we do not have to give p.o. potassium. We will repeat labs in the morning to check potassium and hopefully BUN and creatinine will further improve. We will continue to follow with you closely. Ramon Stanley MD
--- NOTE | 2017-06-29 16:04 | CP.PCM.DIS ---
Provider - Provider Date of Admission: 06/20/17 19:19 Attending physician: Jim Light MD Primary care physician: Uziel Doty MD Time Spent in preparation of Discharge (in minutes): 45 Hospital Course - Lab Results Lab Results: Micro Results 06/22/17 16:10 Blood-Venous Blood Culture - Final NO GROWTH AFTER 5 DAYS 06/22/17 16:10 Blood-Venous Gram Stain - Final TEST NOT PERFORMED 06/22/17 16:00 Blood-Venous Blood Culture - Final NO GROWTH AFTER 5 DAYS 06/22/17 16:00 Blood-Venous Gram Stain - Final TEST NOT PERFORMED 06/25/17 06:47 Urine,Random Urine Culture - Final No Growth (<1,000 CFU/ML) Most Recent Lab Values WBC 6.0 10^3/ul (4.5-11.0) 06/29/17 07:00 RBC 3.33 10^6/uL (3.5-6.1) L 06/29/17 07:00 Hgb 9.8 g/dL (14.0-18.0) L 06/29/17 07:00 Hct 29.8 % (42.0-52.0) L 06/29/17 07:00 MCV 89.5 fl (80.0-105.0) 06/29/17 07:00 MCH 29.4 pg (25.0-35.0) 06/29/17 07:00 MCHC 32.9 g/dl (31.0-37.0) 06/29/17 07:00 RDW 19.5 % (11.5-14.5) H 06/29/17 07:00 Plt Count 233 10^3/uL (120.0-450.0) 06/29/17 07:00 MPV 9.6 fl (7.0-11.0) 06/29/17 07:00 Gran % 67.3 % (50.0-68.0) 06/29/17 07:00 Lymph % (Auto) 19.0 % (22.0-35.0) L 06/29/17 07:00 [place] % (Auto) 12.1 % (1.0-6.0) H 06/29/17 07:00 Eos % (Auto) 1.3 % (1.5-5.0) L 06/29/17 07:00 Baso % (Auto) 0.3 % (0.0-3.0) 06/29/17 07:00 Gran # 4.00 (1.4-6.5) 06/29/17 07:00 Lymph # 1.1 (1.2-3.4) L 06/29/17 07:00 [place] # 0.7 (0.1-0.6) H 06/29/17 07:00 Eos # 0.1 (0.0-0.7) 06/29/17 07:00 Baso # 0.02 K/mm3 (0.0-2.0) 06/29/17 07:00 Sodium 145 mmol/L (132-148) 06/29/17 07:00 Potassium 3.5 mmol/L (3.6-5.0) L 06/29/17 07:00 Chloride 115 mmol/L (98-107) H 06/29/17 07:00 Carbon Dioxide 21 mmol/L (21-33) 06/29/17 07:00 Anion Gap 13 (10-20) 06/29/17 07:00 BUN 16 mg/dL (7-21) 06/29/17 07:00 Creatinine 1.5 mg/dL (0.5-1.4) H 06/29/17 07:00 Est GFR ( Amer) 55 06/29/17 07:00 Est GFR (Non-Af Amer) 45 06/29/17 07:00 POC Glucose (mg/dL) 94 mg/dL (65-110) 06/28/17 16:07 Random Glucose 88 mg/dL (70-110) 06/29/17 07:00 Calcium 8.6 mg/dL (8.4-10.5) 06/29/17 07:00 Phosphorus 2.2 mg/dL (2.5-4.5) L 06/29/17 07:00 Magnesium 1.8 mg/dL (1.7-2.2) 06/29/17 07:00 Total Bilirubin 0.7 mg/dL (0.2-1.3) 06/29/17 07:00 AST 28 U/L (15-59) 06/29/17 07:00 ALT 23 U/L (7-56) 06/29/17 07:00 Alkaline Phosphatase 65 U/L (38-133) 06/29/17 07:00 NT-Pro-B Natriuret Pep 4080 pg/mL (0-450) H 06/29/17 07:00 Total Protein 5.5 g/dL (5.8-8.3) L 06/29/17 07:00 Albumin 2.8 g/dL (3.0-4.8) L 06/29/17 07:00 Globulin 2.7 gm/dL 06/29/17 07:00 Albumin/Globulin Ratio 1.0 (1.1-1.8) L 06/29/17 07:00 25-OH Vitamin D Total 18.1 NG/ML (30.0-100.0) L 06/22/17 14:20 Procalcitonin 0.69 NG/ML (0.19-0.49) H 06/22/17 16:17 PTH Intact Whole Molec 10 pg/mL (14-64) L 06/22/17 14:20 PTH Related Protein 22 pg/mL (14-27) 06/22/17 14:20 Urine Color Yellow (YELLOW) 06/25/17 06:47 Urine Appearance Clear (CLEAR) 06/25/17 06:47 Urine pH 6.0 (4.7-8.0) 06/25/17 06:47 Ur Specific [place] 1.015 (1.005-1.035) 06/25/17 06:47 Urine Protein 30 mg/dL (<30 mg/dL) H 06/25/17 06:47 Urine Glucose (UA) Negative mg/dL (NEGATIVE) 06/25/17 06:47 Urine Ketones Trace mg/dL (NEGATIVE) H 06/25/17 06:47 Urine Blood Small (NEGATIVE) H 06/25/17 06:47 Urine Nitrate Negative (NEGATIVE) 06/25/17 06:47 Urine Bilirubin Negative (NEGATIVE) 06/25/17 06:47 Urine Urobilinogen 0.2 E.U./dL (<1 E.U./dL) 06/25/17 06:47 Ur Leukocyte Esterase Small Yenny/uL (NEGATIVE) H 06/25/17 06:47 Urine RBC 10 - 15 /hpf (0-2) 06/25/17 06:47 Urine WBC 5 - 10 /hpf (0-6) 06/25/17 06:47 Ur Epithelial Cells 0 - 2 /hpf (0-5) 06/25/17 06:47 Urine Bacteria Small (NEG) 06/25/17 06:47 Discharge Exam - Head Exam Head Exam: NORMAL INSPECTION Discharge Plan - Follow Up Plan Condition: FAIR Disposition: NURSING FACILITY MEDICAID CERT Instructions: Altered Mental Status (GEN) Additional Instructions: Follow up with Dr Doty with in 1 week. If symptoms recur come back to the ED. Referrals: Uziel Doty MD [Primary Care Provider] -
[2017-06-29 17:06] VITALS: BP 124/94; RESP 21; TEMP 99; O2SAT 95
[2017-06-29 17:28] VITALS: PULSE 72
== END 2017-06-29 18:41 | DRG 641 ==
LOC: ED 16:37 → ERH 19:19 → 2RNO 22:35 → 3RNO 06-21 19:01
PROVIDERS: ADMIT Family Medicine; ATTEND Family Medicine
PROC: 5A09357 Assistance with Respiratory Ventilation, Less than 24 Consecutive Hours, Continuous Positive Airway Pressure (ICD-10-PCS; principal; 2017-06-22)
PROC: 5A09457 Assistance with Respiratory Ventilation, 24-96 Consecutive Hours, Continuous Positive Airway Pressure (ICD-10-PCS; 2017-06-25)
DX: E83.52 Hypercalcemia (principal); N17.9 Acute kidney failure, unspecified; C34.90 Malignant neoplasm of unspecified part of unspecified bronchus or lung; C79.51 Secondary malignant neoplasm of bone; E87.2 Acidosis; E87.0 Hyperosmolality and hypernatremia; K76.6 Portal hypertension; F05 Delirium due to known physiological condition; G13.1 Other systemic atrophy primarily affecting central nervous system in neoplastic disease; I12.9 Hypertensive chronic kidney disease with stage 1 through stage 4 chronic kidney disease, or unspecified chronic kidney disease; N18.3 Chronic kidney disease, stage 3 (moderate); E86.0 Dehydration; J44.9 Chronic obstructive pulmonary disease, unspecified; I08.1 Rheumatic disorders of both mitral and tricuspid valves; I27.2 Other secondary pulmonary hypertension; E87.6 Hypokalemia; I49.5 Sick sinus syndrome; I25.10 Atherosclerotic heart disease of native coronary artery without angina pectoris; R62.7 Adult failure to thrive; D64.9 Anemia, unspecified; G47.33 Obstructive sleep apnea (adult) (pediatric); I48.0 Paroxysmal atrial fibrillation; K59.00 Constipation, unspecified; G89.4 Chronic pain syndrome; I95.1 Orthostatic hypotension; M47.895 Other spondylosis, thoracolumbar region; E78.5 Hyperlipidemia, unspecified; Z86.718 Personal history of other venous thrombosis and embolism; Z95.0 Presence of cardiac pacemaker; Z86.711 Personal history of pulmonary embolism; Z85.46 Personal history of malignant neoplasm of prostate; Z87.440 Personal history of urinary (tract) infections; Z79.02 Long term (current) use of antithrombotics/antiplatelets; Z87.891 Personal history of nicotine dependence